=== PATIENT | male | born 1945 | race Caucasian/White ===

== ENCOUNTER 2019-05-24 16:11 | Inpatient (IN) | payer MEDICARE, BC, MEDICAID ==
[~2019-05-24] VITALS: Ht 170.2 cm; Wt 71.3 kg
[2019-05-24] VITALS (23 sets, daily range): BP systolic 64–153; BP diastolic 35–94
--- NOTE | 2019-05-24 16:15 | NUR ---
ED Nurse Note: RT at bedside.
[2019-05-24] MEDS ORDERED: VITAMIN C500 M1 GT (16:17)
[2019-05-24] MEDS ORDERED: BANATROL PLUS1 EACH GT (16:17)
--- NOTE | 2019-05-24 16:25 | NUR ---
ED Nurse Note: Patient brought in by EMS from alf due to vomiting blood from tracheostomy and being more than usual. Patient appears pale with shallow chest rise, bilaterally. Dried blood on the tracehostomy and dressing noted. Dr. Obrien at bedside. RN felt resistance when providing oxygen, 100% via tracheostomy using ambu bag and pulse oximetry reading is 64% upon his arrival. Dr. bOrien performed suctioned via tracheostomy several times upon arrival and removed blood clots/secrections Pulse oximetry reading improved and patient started moving BUE, non purposefully. Pulse oximetry reading on the ventilator is > 94% with HR 120. Daughter at bedside. Provided updated information to daughter. RT connected patient to ventilator with setting of rate 16, tidal vol 550 and 100% oxygen and PEEP 7. Called RT for blood draw. Report given to ANTONY Demarco. RT at bedside.
[2019-05-24] MEDS ORDERED: Albuterol/Ipratropium 3ml neb HHN ONE (16:30)
--- NOTE | 2019-05-24 16:41 | NUR ---
Received pt on ER, bagging per Dr. Obrien at 1615. Dr. Obrien tracheal suctioned pt large amount of blood clots, bloody secretions. Pt's saturation improved from 69% to 87% post suctioning. Placed pt on vent with settings: AC 43-835ke-413%FiO2 peep 7 at 1625. Breathing TX given at 1631 without any adverse reactions. Pt is more stable now. Alarms are set and audible, vent is plugged into the red outlet, ambu bag is at bedside. Will continue to monitor pt.
[2019-05-24] MEDS ORDERED: Vancomycin 1 GM in NS 275 ML IVPB ONE (16:45)
[2019-05-24] MEDS ORDERED: Piperacillin/Tazobactam 3.375 GM in NS 110 ML IVPB ONE (16:45)
--- NOTE | 2019-05-24 16:51 | Emergency Room Report ---
History of Present Illness General Chief Complaint: Dyspnea/Respdistress Source: Family Member, EMS Present Illness HPI Patient brought in by EMS. Just before they were summoned he coughed blood. His O2 sats were quite low. They were unable to suction him. Status post cardiac arrest with tracheostomy placed 1 week ago. According to daughter when she arrived he was responsive however he started to cough or vomit blood through his tracheostomy and nose. Soon after that he developed respiratory distress. This is when EMS was summoned. Discharged from [facility]. 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 This is not been diagnosed according to daughter. Baseline patient is able to track with eyes and also communicate with yes and no answers. At this time the patient is unable to give any history as he is unresponsive. No reported fever. No productive cough. Allergies: Coded Allergies: LEVOFLOXACIN (Verified Allergy, Unknown, 05/24/19) Possible allergic reaction - low blood pressure Patient History Limited by: medical condition Past Medical History: see triage record Social History Narrative custodial facility Reviewed Nursing Documentation: PMH: Agreed; PSxH: Agreed Nursing Documentation-PMH Hx Cancer: Yes - HEAD, NECK CA Review of Systems All Other Systems: limited Physical Exam Vital Signs Date Time Temp Pulse Resp B/P (MAP) Pulse Ox O2 Delivery O2 Flow Rate FiO2 05/24/19 16:08 130 32 153/88 (109) 92 Trach Collar 15.0 General Appearance: non-toxic, severe distress, Chronically Ill Head: normocephalic Eyes: bilateral eye PERRL - 3 mm, bilateral eye other - Eyes with right upward gaze not responding to external stimuli ENT: moist mucus membranes Neck: tracheotomy - With blood Respiratory: respiratory distress, decreased breath sounds, other - Unable to deliver full tidal volume Cardiovascular #1: tachycardia, edema Cardiovascular #2: 2+ radial (L) Gastrointestinal: non tender, other - Gastrostomy tube with some blood, decreased bowel sounds Genitourinary: no CVA tenderness Musculoskeletal: decreased range of motion Neurologic: other - Flaccid and unresponsive with tachypnea Psychiatric: other - Unresponsive Skin: cyanosis, mottled, pallor Procedures Critical Care Time Critical Care Time Total Critical Care Time: 120 min bedside evaluation and treatment excludes procedures (EKG). Reason for critical care: Airway obstruction, fluid resuscitation, antibiotic administration, breathing treatments, adjustment of ventilator, repeat neurologic assessments, discussion with daughter, attempt to arrange bronchoscopy Possible complications: hypotension, hypertension, AZ, shock, arrhythmias, metabolic acidosis, end organ damage, respiratory failure. Interventions: Suctioning and pulmonary toilet airway obstruction, ventilator adjustment, repeat neurologic exams and respiratory exams, fluid resuscitation, discussion with daughter, discussion with EMS, discussion with admitting physician and azure principal solution specialist, antibiotics Course: Patient presented with respiratory distress stress after blood from tracheostomy tube. Upper airway diagnosed and cleared with saline infusions into tracheostomy and suction. Multiple clots were suctioned. Ultimately tidal volumes was reestablished. Hypoxia improved. Ventilator ordered. Breathing treatments ordered. Sepsis evaluation and resuscitation begun. Antibiotics begun for right lower and upper lobe infiltrates. Contact admitting physician and azure principal solution specialist for immediate bronchoscopy. Repeat evaluation with still altered mentation. Blood gas with CO2 retention. Ventilator adjusted multiple times. Transient hypotension treated with fluid bolus. Elevated troponin reported. Decision not to administer aspirin due to bleeding complications. Multiple discussions with daughter. Improved mentation. Respiratory acidosis determined by blood gas and ventilator settings adjusted. Hypotension associated with possible administration of Levaquin. Mentation dramatically improved. Admitted intensive care unit. Consultations: nursing staff, EMS, family, respiratory therapy, admitting physician, azure principal solution specialist Performed by: Dr. Obrien Tolerated well condition = critical Medical Decision Making Diagnostic Impression: Primary Impression: Airway obstruction Additional Impressions: Hemoptysis Right upper and lower lobe pneumonia Elevated lactic acid level Elevated troponin History of esophageal mass Gastrostomy tube in place ER Course Patient with upper airway obstruction. Suctioned by me and airway compliance with improved and oxygenation -approximately 20 minutes at bedside treatment. Patient became more aware and moving his arms. MD at bedside with aggressive airway management. Right upward gaze continued. Differential includes aspiration, hemoptysis, upper airway obstruction amongst others. I went to exclude the myocardial infarction also. Evaluation with sepsis work-up EKG chest x-ray. Will be a low threshold for starting antibiotics. Discussed with daughter. Ventilator set by me. DuoNeb ordered. Oxygen saturation 96% at 1645. Mentation is improving. Chest x-ray with right-sided infiltrate and triple antibiotics ordered. Dr. Davis and Dr. Chi have been contacted for the need for bronchoscopy. Respiratory acidosis on vent. Adjusted. CO2 monitor ordered. Titrating oxygen 1725. Right upper gaze continued. This is felt to be related to CO2 narcosis. Moving both hands and therefore stroke not suspected. CT not indicated. Called 1740 elevated troponin and lactic acid. Order NS bolus (antibiotics already ordered). Reluctant to give aspirin as nearly fatal pulmonary hemorrhage. Elevated lactic acid probably multifactorial. Patient now responsive and answers "yes/no". Daughter requests analgesia. Morphine 2 mg ordered. Prior to morphine, BP drop. Febrile. Bolus had not been given. Hold morphine and give fluids and tylenol. 1829 Intermittent hypotension with Levaquin. Held. Mentation improved. Breathlessness. Duoneb ordered. Sats 100%. 1710 Improved with treatment. Admitted to intensive care unit. Laboratory Tests Test 05/24/19 16:50 05/24/19 16:52 05/24/19 16:53 05/24/19 16:55 Urine Color Yellow Urine Appearance Clear Urine pH 7 (4.5-8.0) Urine Specific [place] 1.010 (1.005-1.035) Urine Protein Negative (NEGATIVE) Urine Glucose (UA) Negative (NEGATIVE) Urine Ketones Negative (NEGATIVE) Urine Blood 3+ (NEGATIVE) H Urine Nitrite Negative (NEGATIVE) Urine Bilirubin Negative (NEGATIVE) Urine Urobilinogen Normal MG/DL (0.0-1.0) Urine Leukocyte Esterase Negative (NEGATIVE) Urine RBC 15-20 /HPF (0 - 0) H Urine WBC 0-2 /HPF (0 - 0) Urine Squamous Epithelial Cells Occasional /LPF Urine Amorphous Sediment Moderate /LPF (NONE) H Urine Bacteria Few /HPF (NONE) Iron Level 26 ug/dL (50-175) L Total Iron Binding Capacity 130 ug/dL (250-450) L Percent Iron Saturation 20 % (15-50) Unsaturated Iron Binding 104 ug/dL (112-346) L White Blood Count 9.8 K/UL (4.8-10.8) Red Blood Count 3.37 M/UL (4.70-6.10) L Hemoglobin 9.8 G/DL (14.2-18.0) L Hematocrit 30.9 % (42.0-52.0) L Mean Corpuscular Volume 92 FL (80-99) Mean Corpuscular Hemoglobin 29.2 PG (27.0-31.0) Mean Corpuscular Hemoglobin Concent 31.8 G/DL (32.0-36.0) L Red Cell Distribution Width 17.7 % (11.6-14.8) H Platelet Count 307 K/UL (150-450) Mean Platelet Volume 6.0 FL (6.5-10.1) L Neutrophils (%) (Auto) 86.8 % (45.0-75.0) H Lymphocytes (%) (Auto) 10.9 % (20.0-45.0) L Monocytes (%) (Auto) 1.6 % (1.0-10.0) Eosinophils (%) (Auto) 0.4 % (0.0-3.0) Basophils (%) (Auto) 0.3 % (0.0-2.0) Prothrombin Time 11.8 SEC (9.30-11.50) H Prothrombin Time INR 1.1 (0.9-1.1) Activated Partial Thromboplast Time 41 SEC (23-33) H Sodium Level 137 MMOL/L (136-145) Potassium Level 4.7 MMOL/L (3.5-5.1) Chloride Level 103 MMOL/L (98-107) Carbon Dioxide Level 20 MMOL/L (21-32) L Anion Gap 14 mmol/L (5-15) Blood Urea Nitrogen 23 mg/dL (7-18) H Creatinine 1.0 MG/DL (0.55-1.30) Estimate Glomerular Filtration Rate > 60 mL/min (>60) Glucose Level 313 MG/DL (74-106) H Lactic Acid Level 4.20 mmol/L (0.4-2.0) H Calcium Level 8.0 MG/DL (8.5-10.1) L Magnesium Level 1.9 MG/DL (1.8-2.4) Total Bilirubin 0.8 MG/DL (0.2-1.0) Aspartate Amino Transferase (AST) 59 U/L (15-37) H Alanine Aminotransferase (ALT) 113 U/L (12-78) H Alkaline Phosphatase 57 U/L (46-116) Total Creatine Kinase 23 U/L (26-308) L Creatine Kinase MB 0.5 NG/ML (0.0-3.6) Creatine Kinase MB Relative Index 2.1 Troponin I 0.079 ng/mL (0.000-0.056) Pro-B-Type Natriuretic Peptide 570 pg/mL (0-125) H Total Protein 5.5 G/DL (6.4-8.2) L Albumin 1.4 G/DL (3.4-5.0) L Globulin 4.1 g/dL Albumin/Globulin Ratio 0.3 (1.0-2.7) L Arterial Blood pH 7.155 (7.350-7.450) Arterial Blood Partial Pressure CO2 65.5 mmHg (35.0-45.0) *H Arterial Blood Partial Pressure O2 141.5 mmHg (75.0-100.0) H Arterial Blood HCO3 22.6 mmol/L (22.0-26.0) Arterial Blood Oxygen Saturation 97.9 % (95-100) Arterial Blood Base Excess -6.7 (-2-2) L Bryce Test Positive Test 05/24/19 18:46 Lactic Acid Level 3.80 mmol/L (0.66-2.22) H EKG Diagnostic Results Rate: tachycardiac Rhythm: NSR ST Segments: no acute changes - Right atrial enlargement right bundle branch block rate 128 ASA given to the pt in ED: No - Withheld due to bleeding complications Rhythm Strip Diag. Results EP Interpretation: yes Rhythm: no PVC's, no ectopy, other - Sinus tachycardia Chest X-Ray Diagnostic Results Chest X-Ray Diagnostic Results : Chest X-Ray Ordered: Yes # of Views/Limited/Complete: 1 View Indication: Shortness of Breath EP Interpretation: Yes Interpretation: no effusion, no pneumothorax, other - R infiltrate Impression: Other Electronically Signed by: Electronically signed by Kg Obrien MD Blood pressure on admission 133/77, heart rate 119, 100% saturation on ventilator Status: improved Disposition: ADMITTED INPATIENT Condition: Critical Kg Obrien MD May 24, 2019 16:51
[2019-05-24 17:03] LABS: EOSINOPHILS % (AUTO) 0.4 % (0.0-3.0); HEMATOCRIT 30.9 % (42.0-52.0); HEMOGLOBIN 9.8 G/DL (14.2-18.0); LYMPHOCYTES % (AUTO) 10.9 % (20.0-45.0); MEAN CORPUSCULAR VOLUME 92 FL (80-99); MONOCYTES % (AUTO) 1.6 % (1.0-10.0); NEUTROPHILS % (AUTO) 86.8 % (45.0-75.0); PLATELET COUNT 307 K/UL (150-450); RED BLOOD COUNT 3.37 M/UL (4.70-6.10); RED CELL DISTRIBUTION WIDTH 17.7 % (11.6-14.8); WHITE BLOOD COUNT 9.8 K/UL (4.8-10.8)
[2019-05-24 17:04] LABS: BASOPHILS % (AUTO) 0.3 % (0.0-2.0)
[2019-05-24] MEDS ORDERED: FERROUS SU300 MG/5 M GT (17:08)
[2019-05-24] MEDS ORDERED: LOVENOX10 M4 SUBQ (17:08)
[2019-05-24 17:12] LABS: INR 1.1 (0.9-1.1)
--- NOTE | 2019-05-24 17:15 | NUR ---
ABG done and report to Dr. Obrien. Per Dr. Obrien's order, changed setting to AC 16-600ml-60%FiO2- peep 7. Pt's saturuation at 93%. No SOB or resp distress note. Pt's daughter at bedside. Will continue to monitor.
[2019-05-24] MEDS ORDERED: IPRATROPIU0.2 MG/1 M HHN (17:19)
[2019-05-24] MEDS ORDERED: NEXIUM40 M2 GT (17:19)
[2019-05-24] MEDS ORDERED: MELATONIN 3 MG1 EAC1 GT (17:19)
--- NOTE | 2019-05-24 17:20 | NUR ---
ED Nurse Note: Latest vent settings at AC 16 TV 600 IO2 60% PEEP 7.
[2019-05-24 17:27] LABS: ANION GAP 14 mmol/L (5-15); BLOOD UREA NITROGEN 23 mg/dL (7-18); CARBON DIOXIDE 20 MMOL/L (21-32); CHLORIDE 103 MMOL/L (98-107); POTASSIUM 4.7 MMOL/L (3.5-5.1); SODIUM 137 MMOL/L (136-145)
[2019-05-24] MEDS ORDERED: Albuterol/Ipratropium 3ml neb HHN PRN (17:30)
--- NOTE | 2019-05-24 17:40 | NUR ---
Pt desat to 86% on 60%, increased FiO2 to 70%, still desar below 90%. Increased FiO2 back to 100%, able to bring saturation up to 92%. Will continue to monitor. ANTONY osman.
[2019-05-24 17:42] LABS: ALANINE AMINOTRANSFERASE 113 U/L (12-78); ALBUMIN 1.4 G/DL (3.4-5.0); ALBUMIN/GLOBULIN RATIO 0.3 (1.0-2.7); ALKALINE PHOSPHATASE 57 U/L (46-116); ASPARTATE AMINO TRANSFERASE 59 U/L (15-37); BILIRUBIN,TOTAL 0.8 MG/DL (0.2-1.0); CKMB 0.5 NG/ML (0.0-3.6); CREATINE KINASE 23 U/L (26-308)
[2019-05-24 17:46] LABS: % IRON SATURATION 20 % (15-50); IRON 26 ug/dL (50-175); TOTAL IRON BINDING CAPACITY 130 ug/dL (250-450)
[2019-05-24 17:55] LABS: APPEARANCE,URINE CLEAR; BILIRUBIN, URINE NEGATIVE (NEGATIVE); GLUCOSE, URINE (UA) NEGATIVE (NEGATIVE); KETONES,URINE NEGATIVE (NEGATIVE); LEUKOCYTE ESTERASE ,URINE NEGATIVE (NEGATIVE); NITRITE,URINE NEGATIVE (NEGATIVE); PH,URINE 7 (4.5-8.0); PROTEIN,URINE NEGATIVE (NEGATIVE); UROBILINOGEN,URINE NORMAL MG/DL (0.0-1.0)
--- NOTE | 2019-05-24 17:59 | NUR ---
ED Nurse Note: Dr. Obrien at bedside.
[2019-05-24 18:00] LABS: COLOR,URINE YELLOW
--- NOTE | 2019-05-24 18:10 | NUR ---
ED Nurse Note: Morphine 2mg and Zofran 4mg IV placed on-hold d/t low BP of 65/26. Noted pt to be minimally diaphoretic, accucheck performed with the result of 174mg/dl. Reported to Dr. Obrien. Bolus hydration on-going. Levofloxacin IV ATB on going. Will continue to monitor.
[2019-05-24] MEDS ORDERED: Morphine Sulfate 2mg/ml Inj(IV/IM USE ONLY) IVP ONE (18:15)
[2019-05-24] MEDS ORDERED: Acetaminophen 650mg/20.3ml GT STA (18:24)
--- NOTE | 2019-05-24 18:30 | NUR ---
ED Nurse Note: Rectal temp 100.8, reported to Dr. Obrien
--- NOTE | 2019-05-24 18:45 | NUR ---
Note elisabeth in EDM - 05/24/19 at 1926 by CALLUM ED Nurse Note: Tylenol given via GT. Noted pt to be more cooperative and was able to established good eye contact with staff and daughter. Pt was able to write his needs, Dr. Obrien at bedside.
--- NOTE | 2019-05-24 18:55 | NUR ---
ED Nurse Note: RN held Levaquin IV antibiotic as ordered due to possible allergic reaction, low blood pressure. Patient remains awake, able to communicate with RNs and family members. Reports no rash, hives or itching or breathing problem. Patient received about 100mL of Levaquin, 48.7ml left in a bag according to IV pump. Dr. Obrien notified and made aware that patiend had low BP @ 1840 with reading of 66/48 with HR 138 after restart of Levaquin infusion and patient is currently receiving IV bolus fluids. Previous VS @ 1835 was 97/65 with HR of 139. ERMD at bedside and ordered to discontinue Levaquin at this time. ANTONY Demarco made aware.
[2019-05-24] MEDS ORDERED: Albuterol/Ipratropium 3ml neb HHN STA (19:04)
--- NOTE | 2019-05-24 19:05 | NUR ---
ED Nurse Note: BP improved to 86/55 with HR 120 and patient remained awake, alert and able to make communication with daughter. Dr. Obrien at bedside and aware of BP. No pressors order received and ok to send patient to ICU with maintenance IV fluid @ 300ml/hr.
--- NOTE | 2019-05-24 19:15 | NUR ---
TRANSFER TO ICU: Patient transferred to ICU as ordered, per Dr. Davis. Report given to ANTONY Morales. Belongings and medications given to receiving RN. Family and or S/O informed of transfer.
--- NOTE | 2019-05-24 19:30 | NUR ---
NURSE NOTES: Received pt and report from ANTONY Demarco from ER. Pt's admitted to ICU due to hypotensive, acute hemoptysis, resp distress. Per daughter of the pt, pt has recurrent throat tumor and throat cancer, was planning to have chemo, however the tumor obstructed his breathing. Pt had trach done at [facility] 1-2 wks ago, and was discharged to [facility] on 05/22/2019. Pt's currently still AOx4, communicate by writing, pale looking, trach kellie 8 connected to vent with setting Ac 16, TV 550, 65%, PEEP5. O2 sat 100%. Afebrile 98.4F. BP 87/57, HR 119. Per ER staff, pt had 3L bolus of NS in ER. Noted blood seeping out orally, also noted chunks of large blood clots inside of pt's mouth. Also noted blood/dried blood at the trach site as well. He has right UA midline and Right wrist 20G both are patent, intact. Abdomen flat, non tender with GT noted, 3ml of brown gastric residual noted. Fernandez is noted, intact and patent, running clear yellow urine. HOB kept elevated. Bed is at low and locked position. Call light within reach. Dr Davis was reached, Dr Lucero is covering, and was paged, awaiting for call back. Will continue to monitor.
--- NOTE | 2019-05-24 20:00 | NUR ---
NURSE NOTES: Dr Chi was also on the case and contacted, to stated Levophed via the Right UA midline, also per Dr Chi, Dr Engle is also on the case. All orders noted and carried out. Pt's still having active bleeding for his mouth. Will continue to monitor.
--- NOTE | 2019-05-24 20:27 | NUR ---
NURSE NOTES: Patient vomited 100-150 ml of bright red blood. Head of bed remained elevated, suctioned orally with yankauer with soft tip. Patient is awake and alert at this time. Called Dr. Chi, received new order to give Vitamin K 10mg IV and Dr. Engle for consultation. As per him he will inform Dr. Engle regarding the case.
--- NOTE | 2019-05-24 20:30 | NUR ---
NURSE NOTES: Noted blood gushing orally, lasted about 1 minute and self resolved. Oral suction given via yankauer. Obtaining more orders from Jossie Arana is on going. Pt's still alert, responsive, cooperative. BP 71/38. HR 126, spO2 100%, trach to vent. Will continue to monitor.
--- NOTE | 2019-05-24 21:15 | NUR ---
NURSE NOTES: Informed Dr. Engle regarding patient's current status. Informed him that patient vomited 100-150ml of bright red blood, on levophed drip, with trache to vent and current vital signs. Also informed him that patient has tumor in the throat as per daughter and trache was inserted 2 weeks ago. Informed him that patient started vomiting blood when levophed was titrated up to maintain his blood pressure. Received a new order to start Protonix drip, Sandostatin drip, H&H Q4 hours and transfuse to keep Hgb above 7.0.
[2019-05-24 21:30] LABS: HEMATOCRIT 25.5 % (42.0-52.0); HEMOGLOBIN 8.4 G/DL (14.2-18.0); MEAN CORPUSCULAR VOLUME 91 FL (80-99); PLATELET COUNT 257 K/UL (150-450); RED BLOOD COUNT 2.81 M/UL (4.70-6.10); RED CELL DISTRIBUTION WIDTH 17.3 % (11.6-14.8); WHITE BLOOD COUNT 10.7 K/UL (4.8-10.8)
--- NOTE | 2019-05-24 21:30 | NUR ---
NURSE NOTES: Dr. Lucero, covering for Dr Davis called back and was updated with pt's condition, along with orders from Dr Chi and Dr Engle. Dr. Lucero agreed to continue all current managements. Also stated to consult with surgeon, Dr Brothers.
[2019-05-24 21:31] LABS: LYMPHOCYTES % (AUTO) 2.5 % (20.0-45.0); NEUTROPHILS % (AUTO) 95.1 % (45.0-75.0)
[2019-05-24 21:32] LABS: BASOPHILS % (AUTO) 0.3 % (0.0-2.0); MONOCYTES % (AUTO) 2.1 % (1.0-10.0)
--- NOTE | 2019-05-24 21:42 | NUR ---
NURSE NOTES: Dr Brothers was called and updated with pt's condition. Dr Brothers's additional orders noted and carried out. Pt's oral bleeding has stopped. Pt's in no acute distress. Pt's condition was also updated with the daughter Franky via phone. Will continue to monitor.
[2019-05-24 21:47] LABS: INR 1.2 (0.9-1.1)
--- NOTE | 2019-05-24 22:00 | NUR ---
NURSE NOTES: Inserted another g 20 peripheral IV at left forearm and g 24 at right AC with good backflow.
[2019-05-24] MEDS: Pantoprazole 80 MG in NS 250 ML IV SCH (22:20)
[2019-05-24] MEDS: Octreotide Acetate 500 MCG in Sodium Chloride 499 ML IV SCH (23:00)
[2019-05-24] MEDS ORDERED: Phytonadione 10 MG in D5W 55 ML IVPB SCH (23:00)
[2019-05-25] VITALS (71 sets, daily range): BP systolic 67–126; BP diastolic 42–80
--- NOTE | 2019-05-25 | NUR ---
NURSE NOTES: Pt's resting in bed, asleep with eyes closed, in no acute distress, no active bleeding noted. Will continue to monitor.
[2019-05-25 01:29] LABS: HEMATOCRIT 26.8 % (42.0-52.0); MEAN CORPUSCULAR VOLUME 90 FL (80-99); PLATELET COUNT 297 K/UL (150-450); RED BLOOD COUNT 2.99 M/UL (4.70-6.10); RED CELL DISTRIBUTION WIDTH 16.9 % (11.6-14.8); WHITE BLOOD COUNT 14.6 K/UL (4.8-10.8)
--- NOTE | 2019-05-25 02:00 | NUR ---
NURSE NOTES: Pt's resting in bed, asleep with eyes closed, no active bleeding noted, in no acute distress. VS stable. Contacted blood bank, per Yaw stated, he couldn't release blood because pt's current hgb 9.0. He also stated will call back later after he asked the pathologist. Dr Brothers made aware. Will continue to monitor.
--- NOTE | 2019-05-25 04:00 | NUR ---
NURSE NOTES: Pt's resting in bed, when asked "how are you", pt showed his thumb up, in no acute distress. Denies any pain. VS stable. No active bleeding noted. Will continue to monitor.
--- NOTE | 2019-05-25 06:00 | NUR ---
NURSE NOTES: Pt's resting in bed, asleep with eyes closed, in no acute distress. Levophed titrated down to 12mcg/min. VS stable. Will continue to monitor.
[2019-05-25 06:15] LABS: HEMATOCRIT 24.8 % (42.0-52.0); HEMOGLOBIN 8.2 G/DL (14.2-18.0); MEAN CORPUSCULAR VOLUME 90 FL (80-99); PLATELET COUNT 245 K/UL (150-450); RED BLOOD COUNT 2.76 M/UL (4.70-6.10); RED CELL DISTRIBUTION WIDTH 16.9 % (11.6-14.8); WHITE BLOOD COUNT 11.8 K/UL (4.8-10.8)
[2019-05-25 06:36] LABS: INR 1.2 (0.9-1.1)
[2019-05-25 06:50] LABS: ALANINE AMINOTRANSFERASE 230 U/L (12-78); ALBUMIN 1.4 G/DL (3.4-5.0); ALBUMIN/GLOBULIN RATIO 0.4 (1.0-2.7); ALKALINE PHOSPHATASE 46 U/L (46-116); ANION GAP 10 mmol/L (5-15); ASPARTATE AMINO TRANSFERASE 153 U/L (15-37); BLOOD UREA NITROGEN 26 mg/dL (7-18); CALCIUM 7.2 MG/DL (8.5-10.1); CARBON DIOXIDE 22 MMOL/L (21-32); CHLORIDE 106 MMOL/L (98-107); CREATININE 0.9 MG/DL (0.55-1.30); PHOSPHORUS 3.1 MG/DL (2.5-4.9); POTASSIUM 4.3 MMOL/L (3.5-5.1); SODIUM 137 MMOL/L (136-145)
--- NOTE | 2019-05-25 07:25 | NUR ---
HAND-OFF: Report given to ANTONY Hahn.
--- NOTE | 2019-05-25 07:26 | NUR ---
NURSE NOTES: Received patient from ANTONY Morales. Patient denies distress at this time. Patient denies pain. Patient alert to name, time, place, and purpose. Patient communicates by writing with pen and paper. Pen and paper on bedside table. Patient on trach to ventilator with setting of AC 16, tidal volume 550, FiO2 50%, and PEEP 5. patient NPO for possible GI bleed. Patient admitted with blood sputum/emesis. Blood clots noted in sputum in the mouth and trach at this time. Will continue to monitor bleeding. 2 PRBC and one FFP ordered to be given but blood bank refused to release blood when Hgb 9.0. Hgb now 8.2. Will administer blood as ordered. Will follow up with blood bank. Patient has gastrostomy tube that is asymptomatic, and clamped at this time. Patient has right AC 24 gauge peripheral IV, right upper arm midline, right wrist 20 gauge peripheral IV and left forearm 20 gauge peripheral IV. All IVs patent, asymptomatic, and dressing dry and intact. Patient on Levophed at 10mcg/min, sandostation at 50mL/hr, protonix at 25mL/hr, and 0.45% normal saline at 75mL/hr. Will titrate levophed as ordered to keep blood pressure about [address]anks. Will continue to monitor. Patient bed in low position with bed alarm on and call light in reach. Oral care and repositioning done.
[2019-05-25] MEDS: Pantoprazole 80 MG in NS 250 ML IV SCH (09:17)
[2019-05-25] MEDS: Octreotide Acetate 500 MCG in Sodium Chloride 499 ML IV SCH (09:17)
--- NOTE | 2019-05-25 09:40 | NUR ---
RD ASSESSMENT & RECOMMENDATIONS SEE CARE ACTIVITY FOR COMPLETE ASSESSMENT DAILY ESTIMATED NEEDS: Needs based on Critical care, cancer 65.9kg 22-30 kcals/kg 5627-7031 total kcals 1.2-2 g protein/kg 79-132 g total protein 25-30 mL/kg 1570-3647 total fluid mLs NUTRITION DIAGNOSIS: Swallowing difficulty r/t resp status, throat tumor as evidenced by pt w/ throat cancer, recent cardiac arrest w/ trach placement, pt is GT dep. CURRENT TF:NPO ENTERAL NUTRITION RECOMMENDATIONS: Vital AF 1.2 @55ml/hr x24 hrs to provide 1320ml, 1584 kcal, 99g pro, 1071ml free H2O - As medically able, rec to initiate GT feeds to meet est nutritional needs. - Start Vital 1.2 for critical care @25ml/hr x6 hrs, advance as tolerated 10ml/hr q4-6 hrs to goal - Flush per MD / HOB over 30 degrees. ------- ADDITIONAL RECOMMENDATIONS: 1) Feed as able, TF recs as above 2) Maintain calibrated bed scale wts 3) Monitor blood glucose w/ feeds, need for niss 4) F/up w/ H&P
[2019-05-25 09:49] LABS: HEMATOCRIT 23.4 % (42.0-52.0); HEMOGLOBIN 7.9 G/DL (14.2-18.0); MEAN CORPUSCULAR VOLUME 88 FL (80-99); PLATELET COUNT 248 K/UL (150-450); RED BLOOD COUNT 2.66 M/UL (4.70-6.10); RED CELL DISTRIBUTION WIDTH 17.7 % (11.6-14.8); WHITE BLOOD COUNT 10.1 K/UL (4.8-10.8)
--- NOTE | 2019-05-25 10:00 | NUR ---
NURSE NOTES: Patient blood pressure continues to be stable. Will continue to titrate levophed per protocol. Will continue to monitor. Bed in low position with bed alarm on. Positioning done at this time. oral and tracheal suction done. Sputum from trach remains bloody.
--- NOTE | 2019-05-25 10:01 | NUR ---
RADIOLOGY DEPT., ABDOMEN X-RAY COMPLETED. CHEST X-RAY PERFORMED LATE EVENING ON 05/24.-P.DYE
--- NOTE | 2019-05-25 10:39 | Diagnostic Imaging Report ---
Indication: Shortness of breath Technique: One view of the chest Comparison: none Findings: Interstitial and airspace opacities are seen throughout the right mid and lower lung. Questionable patchy peripheral opacities are also present on the left. Heart size is normal. The pleural spaces are clear Impression: Right lung opacities and questionable patchy left lung opacities, likely pneumonia.
[2019-05-25] MEDS ORDERED: Amikacin Rx to dose MISC PRN (11:15)
--- NOTE | 2019-05-25 11:23 | Diagnostic Imaging Report ---
Indication: Abdominal tenderness Technique: Supine view of the abdomen Comparison: None Findings: A gastrostomy overlies the left upper quadrant. There is a Fernandez catheter in place. The bowel gas pattern is unremarkable. There is mild lumbar scoliotic deformity. Impression: Findings as noted. No acute process
--- NOTE | 2019-05-25 11:33 | Consultation ---
History of Present Illness General Date patient seen: May 25, 2019 Chief Complaint: Dyspnea/Respdistress Present Illness HPI 73 year old male with Hx of Neck cancer 9 years ago, with recent recurrence of the tumor had a respiratory arrest around 2 week ago, was transferred to [facility], revived. He got a trach and PEG and transferred to [facility] rehab on Saturday. Last night he was transferred to [facility] by paramedics b/o of hemoptysis. He was hypotensive and was started on Levophed. His terminologist stave grader, Valencia giving me the full PMHx. Allergies: Coded Allergies: LEVOFLOXACIN (Verified Allergy, Unknown, 05/24/19) Possible allergic reaction - low blood pressure Medication History Scheduled Ascorbic Acid* (Vitamin C*), 500 MG GT DAILY, (Reported) Enoxaparin* (Lovenox*), 40 MG SUBQ DAILY, (Reported) Esomeprazole Magnesium (Nexium), 40 MG GT DAILY, (Reported) Ferrous Sulfate (Ferrous Sulfate), 5 ML GT DAILY, (Reported) Melatonin/Pyridoxine HCl (B6) (Melatonin 3 mg Tablet), 1 EACH GT DAILY, ( Reported) Scheduled PRN Ipratropium [place] 0.5MG/2.5ML (Ipratropium [place] 0.5MG/2.5ML), 0.5 MG HHN Q6H PRN for Shortness of Breath, (Reported) Miscellaneous Medications Banana Flakes/Tos (Banatrol Plus Powder Packet), 1 EACH GT, (Reported) Patient History Healthcare decision maker Resuscitation status Full Code Advanced Directive on File Past Medical/Surgical History Past Medical/Surgical History: (1) Chronic respiratory failure (2) Head and neck cancer (3) Gastrostomy tube in place Review of Systems All Other Systems: negative except mentioned in HPI Physical Exam General Appearance: WD/WN, no apparent distress Lines, tubes and drains: peripheral HEENT: normocephalic, atraumatic Neck: non-tender, normal alignment Respiratory/Chest: chest wall non-tender, lungs clear Breasts: no masses Cardiovascular/Chest: normal peripheral pulses Abdomen: normal bowel sounds Genitourinary/Rectal: normal genital exam Extremities: normal range of motion Last 24 Hour Vital Signs Date Time Temp Pulse Resp B/P (MAP) Pulse Ox O2 Delivery O2 Flow Rate FiO2 05/25/19 10:55 113 27 50 05/25/19 08:59 112 35 50 05/25/19 07:12 115 25 50 05/25/19 07:06 98/57 05/25/19 07:00 99/58 05/25/19 07:00 116 25 99/58 (72) 98 05/25/19 06:45 114 23 96/57 (70) 99 05/25/19 06:30 118 23 114/80 (91) 100 05/25/19 06:15 120 22 99/56 (70) 99 05/25/19 06:00 99/56 05/25/19 06:00 121 22 114/67 (83) 100 05/25/19 05:45 127 31 108/54 (72) 100 05/25/19 05:45 130 29 100 Mechanical Ventilator 50 05/25/19 05:30 128 33 50 05/25/19 05:30 127 29 100/61 (74) 100 05/25/19 05:15 127 30 103/64 (77) 100 05/25/19 05:04 124 28 86/65 (72) 100 05/25/19 05:00 103/64 05/25/19 05:00 98.5 124 24 67/52 (57) 100 05/25/19 04:45 123 29 82/62 (69) 100 05/25/19 04:30 124 23 96/53 (67) 100 05/25/19 04:15 128 23 110/64 (79) 99 05/25/19 04:00 Mechanical Ventilator 05/25/19 04:00 123 05/25/19 04:00 93/56 05/25/19 04:00 50 05/25/19 04:00 128 25 102/65 (77) 100 05/25/19 03:45 129 23 93/56 (68) 100 05/25/19 03:30 130 22 50 05/25/19 03:30 129 23 89/53 (65) 100 05/25/19 03:15 129 24 93/59 (70) 100 05/25/19 03:00 93/59 05/25/19 03:00 130 24 100/61 (74) 100 05/25/19 02:45 100/61 05/25/19 02:45 133 25 94/63 (73) 100 05/25/19 02:30 133 24 95/65 (75) 100 05/25/19 02:15 134 25 92/64 (73) 100 05/25/19 02:00 134 25 87/66 (73) 100 05/25/19 02:00 92/64 05/25/19 01:49 88/57 05/25/19 01:45 135 25 88/57 (67) 100 05/25/19 01:30 136 30 92/74 (80) 100 05/25/19 01:30 140 31 65 05/25/19 01:15 136 26 91/65 (74) 100 05/25/19 01:00 144 24 85/53 (64) 99 05/25/19 01:00 91/65 05/25/19 00:45 136 26 81/42 (55) 100 05/25/19 00:30 141 33 81/56 (64) 99 05/25/19 00:15 98.5 137 24 75/55 (62) 99 05/25/19 00:00 Mechanical Ventilator 05/25/19 00:00 130 05/25/19 00:00 65 05/25/19 00:00 75/55 05/25/19 00:00 134 27 72/53 (59) 100 05/24/19 23:45 130 27 70/52 (58) 100 05/24/19 23:30 138 33 79/55 (63) 100 05/24/19 23:15 140 33 95/55 (68) 100 05/24/19 23:06 138 38 65 05/24/19 23:00 140 33 80/52 (61) 100 05/24/19 23:00 95/55 05/24/19 22:45 139 33 79/47 (58) 100 05/24/19 22:30 140 33 90/52 (65) 100 05/24/19 22:15 140 34 66/53 (57) 100 05/24/19 22:00 95/43 05/24/19 22:00 138 33 95/43 (60) 100 05/24/19 21:45 138 35 80/43 (55) 100 05/24/19 21:30 134 33 75/47 (56) 100 05/24/19 21:30 75/47 05/24/19 21:30 140 40 65 05/24/19 21:15 131 35 64/49 (54) 100 05/24/19 21:00 126 32 70/39 (49) 100 05/24/19 21:00 70/39 05/24/19 20:45 123 35 77/47 (57) 100 05/24/19 20:41 Mechanical Ventilator 05/24/19 20:30 126 30 71/38 (49) 100 05/24/19 20:20 68/55 05/24/19 20:15 119 31 133/77 (95) 100 05/24/19 20:00 109 05/24/19 20:00 109 30 73/51 (58) 100 05/24/19 20:00 65 05/24/19 20:00 Mechanical Ventilator 05/24/19 19:30 98.4 119 40 87/57 (67) 100 05/24/19 19:15 100.8 125 37 86/50 100 Trach Collar 15.0 100 05/24/19 19:15 100.8 125 37 86/50 100 Trach Collar 15.0 100 05/24/19 19:04 100.8 125 37 76/35 100 Trach Collar 15.0 100 05/24/19 18:35 137 38 100 05/24/19 18:35 139 28 97/65 100 Mechanical Ventilator 65 05/24/19 18:00 125 25 107/61 90 Trach Collar 15.0 60 05/24/19 17:40 126 22 100 05/24/19 17:33 123 24 114/94 90 Trach Collar 15.0 05/24/19 17:15 128 16 60 05/24/19 16:41 118 16 97 Mechanical Ventilator 100 129 16 87 05/24/19 16:25 118 16 100 05/24/19 16:20 129 36 Ambu-Bag 15.0 100 05/24/19 16:15 120 24 153/88 92 Mechanical Ventilator 15.0 05/24/19 16:15 130 32 Trach Collar 15.0 05/24/19 16:08 130 32 153/88 (109) 92 Trach Collar 15.0 Intake and Output 05/24/19 05/25/19 18:59 06:59 Intake Total 101.3 ml 1764.166 ml Output Total 700 ml Balance 101.3 ml 1064.166 ml Intake IV Total 101.3 ml 1764.166 ml Output Urine Total 500 ml Estimated Blood Loss 200 ml Laboratory Tests Test 05/24/19 16:50 05/24/19 16:52 05/24/19 16:53 05/24/19 16:55 Urine Color Yellow Urine Appearance Clear Urine pH 7 (4.5-8.0) Urine Specific [place] 1.010 (1.005-1.035) Urine Protein Negative (NEGATIVE) Urine Glucose (UA) Negative (NEGATIVE) Urine Ketones Negative (NEGATIVE) Urine Blood 3+ (NEGATIVE) H Urine Nitrite Negative (NEGATIVE) Urine Bilirubin Negative (NEGATIVE) Urine Urobilinogen Normal MG/DL (0.0-1.0) Urine Leukocyte Esterase Negative (NEGATIVE) Urine RBC 15-20 /HPF (0 - 0) H Urine WBC 0-2 /HPF (0 - 0) Urine Squamous Epithelial Cells Occasional /LPF Urine Amorphous Sediment Moderate /LPF (NONE) H Urine Bacteria Few /HPF (NONE) Iron Level 26 ug/dL (50-175) L Total Iron Binding Capacity 130 ug/dL (250-450) L Percent Iron Saturation 20 % (15-50) Unsaturated Iron Binding 104 ug/dL (112-346) L White Blood Count 9.8 K/UL (4.8-10.8) Red Blood Count 3.37 M/UL (4.70-6.10) L Hemoglobin 9.8 G/DL (14.2-18.0) L Hematocrit 30.9 % (42.0-52.0) L Mean Corpuscular Volume 92 FL (80-99) Mean Corpuscular Hemoglobin 29.2 PG (27.0-31.0) Mean Corpuscular Hemoglobin Concent 31.8 G/DL (32.0-36.0) L Red Cell Distribution Width 17.7 % (11.6-14.8) H Platelet Count 307 K/UL (150-450) Mean Platelet Volume 6.0 FL (6.5-10.1) L Neutrophils (%) (Auto) 86.8 % (45.0-75.0) H Lymphocytes (%) (Auto) 10.9 % (20.0-45.0) L Monocytes (%) (Auto) 1.6 % (1.0-10.0) Eosinophils (%) (Auto) 0.4 % (0.0-3.0) Basophils (%) (Auto) 0.3 % (0.0-2.0) Prothrombin Time 11.8 SEC (9.30-11.50) H Prothromb Time International Ratio 1.1 (0.9-1.1) Activated Partial Thromboplast Time 41 SEC (23-33) H Sodium Level 137 MMOL/L (136-145) Potassium Level 4.7 MMOL/L (3.5-5.1) Chloride Level 103 MMOL/L (98-107) Carbon Dioxide Level 20 MMOL/L (21-32) L Anion Gap 14 mmol/L (5-15) Blood Urea Nitrogen 23 mg/dL (7-18) H Creatinine 1.0 MG/DL (0.55-1.30) Estimat Glomerular Filtration Rate > 60 mL/min (>60) Glucose Level 313 MG/DL (74-106) H Lactic Acid Level 4.20 mmol/L (0.4-2.0) H Calcium Level 8.0 MG/DL (8.5-10.1) L Magnesium Level 1.9 MG/DL (1.8-2.4) Total Bilirubin 0.8 MG/DL (0.2-1.0) Aspartate Amino Transf (AST/SGOT) 59 U/L (15-37) H Alanine Aminotransferase (ALT/SGPT) 113 U/L (12-78) H Alkaline Phosphatase 57 U/L (46-116) Total Creatine Kinase 23 U/L (26-308) L Creatine Kinase MB 0.5 NG/ML (0.0-3.6) Creatine Kinase MB Relative Index 2.1 Troponin I 0.079 ng/mL (0.000-0.056) Pro-B-Type Natriuretic Peptide 570 pg/mL (0-125) H Total Protein 5.5 G/DL (6.4-8.2) L Albumin 1.4 G/DL (3.4-5.0) L Globulin 4.1 g/dL Albumin/Globulin Ratio 0.3 (1.0-2.7) L Arterial Blood pH 7.155 (7.350-7.450) Arterial Blood Partial Pressure CO2 65.5 mmHg (35.0-45.0) *H Arterial Blood Partial Pressure O2 141.5 mmHg (75.0-100.0) H Arterial Blood HCO3 22.6 mmol/L (22.0-26.0) Arterial Blood Oxygen Saturation 97.9 % (95-100) Arterial Blood Base Excess -6.7 (-2-2) L Bryce Test Positive Test 05/24/19 18:46 05/24/19 21:20 05/25/19 00:55 05/25/19 05:20 Lactic Acid Level 3.80 mmol/L (0.66-2.22) H 1.40 mmol/L (0.4-2.0) White Blood Count 10.7 K/UL (4.8-10.8) 14.6 K/UL (4.8-10.8) H 11.8 K/UL (4.8-10.8) H Red Blood Count 2.81 M/UL (4.70-6.10) L 2.99 M/UL (4.70-6.10) L 2.76 M/UL (4.70-6.10) L Hemoglobin 8.4 G/DL (14.2-18.0) L 9.0 G/DL (14.2-18.0) L 8.2 G/DL (14.2-18.0) L Hematocrit 25.5 % (42.0-52.0) L 26.8 % (42.0-52.0) L 24.8 % (42.0-52.0) L Mean Corpuscular Volume 91 FL (80-99) 90 FL (80-99) 90 FL (80-99) Mean Corpuscular Hemoglobin 30.0 PG (27.0-31.0) 30.0 PG (27.0-31.0) 29.7 PG (27.0-31.0) Mean Corpuscular Hemoglobin Concent 33.1 G/DL (32.0-36.0) 33.5 G/DL (32.0-36.0) 33.1 G/DL (32.0-36.0) Red Cell Distribution Width 17.3 % (11.6-14.8) H 16.9 % (11.6-14.8) H 16.9 % (11.6-14.8) H Platelet Count 257 K/UL (150-450) 297 K/UL (150-450) 245 K/UL (150-450) Mean Platelet Volume 5.9 FL (6.5-10.1) L 6.1 FL (6.5-10.1) L 5.7 FL (6.5-10.1) L Neutrophils (%) (Auto) 95.1 % (45.0-75.0) H % (45.0-75.0) % (45.0-75.0) Lymphocytes (%) (Auto) 2.5 % (20.0-45.0) L % (20.0-45.0) % (20.0-45.0) Monocytes (%) (Auto) 2.1 % (1.0-10.0) % (1.0-10.0) % (1.0-10.0) Eosinophils (%) (Auto) 0.0 % (0.0-3.0) % (0.0-3.0) % (0.0-3.0) Basophils (%) (Auto) 0.3 % (0.0-2.0) % (0.0-2.0) % (0.0-2.0) Prothrombin Time 12.3 SEC (9.30-11.50) H 12.7 SEC (9.30-11.50) H Prothromb Time International Ratio 1.2 (0.9-1.1) H 1.2 (0.9-1.1) H Activated Partial Thromboplast Time 41 SEC (23-33) H 45 SEC (23-33) H Differential Total Cells Counted 100 Neutrophils % (Manual) 83 % (45-75) H Pending Lymphocytes % (Manual) 10 % (20-45) L Pending Monocytes % (Manual) 7 % (1-10) Eosinophils % (Manual) 0 % (0-3) Basophils % (Manual) 0 % (0-2) Band Neutrophils 0 % (0-8) Platelet Estimate Adequate Pending Platelet Morphology Normal Pending Erythrocyte Sedimentation Rate 107 MM/HR (0-20) H Sodium Level 137 MMOL/L (136-145) Potassium Level 4.3 MMOL/L (3.5-5.1) Chloride Level 106 MMOL/L (98-107) Carbon Dioxide Level 22 MMOL/L (21-32) Anion Gap 10 mmol/L (5-15) Blood Urea Nitrogen 26 mg/dL (7-18) H Creatinine 0.9 MG/DL (0.55-1.30) Estimat Glomerular Filtration Rate > 60 mL/min (>60) Glucose Level 144 MG/DL (74-106) #H Calcium Level 7.2 MG/DL (8.5-10.1) L Phosphorus Level 3.1 MG/DL (2.5-4.9) Total Bilirubin 1.0 MG/DL (0.2-1.0) Aspartate Amino Transf (AST/SGOT) 153 U/L (15-37) H Alanine Aminotransferase (ALT/SGPT) 230 U/L (12-78) H Alkaline Phosphatase 46 U/L (46-116) C-Reactive Protein, Quantitative 22.9 mg/dL (0.00-0.90) H Total Protein 5.1 G/DL (6.4-8.2) L Albumin 1.4 G/DL (3.4-5.0) L Globulin 3.7 g/dL Albumin/Globulin Ratio 0.4 (1.0-2.7) L Amylase Level 24 U/L (25-115) L Lipase 54 U/L (73-393) L Test 05/25/19 09:20 White Blood Count 10.1 K/UL (4.8-10.8) Red Blood Count 2.66 M/UL (4.70-6.10) L Hemoglobin 7.9 G/DL (14.2-18.0) L Hematocrit 23.4 % (42.0-52.0) L Mean Corpuscular Volume 88 FL (80-99) Mean Corpuscular Hemoglobin 29.8 PG (27.0-31.0) Mean Corpuscular Hemoglobin Concent 33.9 G/DL (32.0-36.0) Red Cell Distribution Width 17.7 % (11.6-14.8) H Platelet Count 248 K/UL (150-450) Mean Platelet Volume 6.1 FL (6.5-10.1) L Neutrophils (%) (Auto) % (45.0-75.0) Lymphocytes (%) (Auto) % (20.0-45.0) Monocytes (%) (Auto) % (1.0-10.0) Eosinophils (%) (Auto) % (0.0-3.0) Basophils (%) (Auto) % (0.0-2.0) Neutrophils % (Manual) Pending Lymphocytes % (Manual) Pending Platelet Estimate Pending Platelet Morphology Pending Troponin I 0.062 ng/mL (0.000-0.056) Height (Feet): 5 Height (Inches): 7.00 Weight (Pounds): 151 Medications Current Medications Medications (Trade) Dose Ordered Sig/Mervat Route PRN Reason Start Time Stop Time Status Last Admin Dose Admin Acetaminophen (Tylenol) 650 mg Q4H PRN ORAL FEVER 05/24/19 17:30 06/23/19 17:29 Albuterol/ Ipratropium (Albuterol/ Ipratropium) 3 ml Q4H PRN HHN Shortness of Breath 05/24/19 17:30 05/29/19 17:29 Amikacin Protocol (Amikacin pharmacy to dose) 1 ea DAILY PRN MISC Per rx protocol 05/25/19 11:15 06/24/19 11:14 UNV Aminocaproic Acid 5000 mg/Sodium Chloride 130 ml @ 130 mls/hr ONCE ONCE IV 05/25/19 11:30 05/25/19 12:29 UNV Chlorhexidine Gluconate (Stacie-Hex 2%) 1 applic DAILY@2000 TOPIC 05/25/19 20:00 06/24/19 19:59 Dextrose (Dextrose 50%) 25 ml Q30M PRN IV Hypoglycemia 05/24/19 17:30 06/23/19 17:29 Dextrose (Dextrose 50%) 50 ml Q30M PRN IV Hypoglycemia 05/24/19 17:30 06/23/19 17:29 Norepinephrine Bitartrate 4 mg/ Dextrose 250 ml @ 0 mls/hr Q24H IV 05/24/19 20:04 06/23/19 20:03 05/25/19 07:06 Octreotide Acetate 500 mcg/ Sodium Chloride 500 ml @ 50 mls/hr Q10H IV 05/24/19 23:00 06/23/19 22:59 05/25/19 09:17 Ondansetron HCl (Zofran) 4 mg Q6H PRN IVP Nausea & Vomiting 05/24/19 17:30 06/23/19 17:29 05/24/19 18:11 Pantoprazole 80 mg/Sodium Chloride 250 ml @ 25 mls/hr Q10H IV 05/24/19 23:00 06/23/19 22:59 05/25/19 09:17 Piperacillin Sod/ Tazobactam Sod 3.375 gm/Sodium Chloride 100 ml @ 200 mls/hr EVERY 6 HOURS IVPB 05/25/19 12:00 06/01/19 11:59 UNV Sodium Chloride 1,000 ml @ 75 mls/hr [id number] IV 05/24/19 22:00 06/23/19 21:59 05/24/19 21:28 Vancomycin HCl (Vanco rx to dose) 1 ea DAILY PRN MISC Per rx protocol 05/25/19 11:15 06/24/19 11:14 UNV Assessment/Plan Problem List: (1) Hemoptysis ICD Codes: R04.2 - Hemoptysis SNOMED: 92019820 (2) Gastrostomy tube in place ICD Codes: Z93.1 - Gastrostomy status SNOMED: 065001272, 178497161 (3) Head and neck cancer ICD Codes: C76.0 - Malignant neoplasm of head, face and neck SNOMED: 849228191 (4) Radiation fibrosis of lung ICD Codes: J70.1 - Chronic and other pulmonary manifestations due to radiation SNOMED: 84255640 (5) Chronic respiratory failure ICD Codes: J96.10 - Chronic respiratory failure, unspecified whether with hypoxia or hypercapnia SNOMED: 19930197 Respiratory: monitor respiratory rate, adjust FIO2, CXR Cardiac: continue to monitor HR/BP Renal: F/U I&O, keep IV fluid Infectious Disease: check cultures Gastrointestinal: start feedings Endocrine: monitor blood sugar Hematologic: monitor H/H, transfuse if hgb<8.5 Neurologic: PRN Ativan, PRN Morphine, keep patient comfortable Prophylaxis: Protonix Discussed with: nurses, consultants, case advocate Claudia Chi MD May 25, 2019 11:33
[2019-05-25] MEDS ORDERED: Heparin1,000 units/500ml Premix(Conc:2 units/ml) IV SCH (12:00)
[2019-05-25] MEDS ORDERED: Lidocaine 1% Plain 30 ml INJ SCH (12:00)
--- NOTE | 2019-05-25 12:01 | GI Initial Consult Note ---
History of Present Illness General Date patient seen: May 25, 2019 Time patient seen: 11:51 Reason for Hospitalization: Dyspnea/Respdistress Referring physician: LIAM DODD Reason for Consultation: GI BLEED Present Illness HPI Patient brought in by EMS. Just before they were summoned he coughed blood. His O2 sats were quite low. They were unable to suction him. Status post cardiac arrest with tracheostomy placed 1 week ago. According to daughter when she arrived he was responsive however he started to cough or vomit blood through his tracheostomy and nose. Soon after that he developed respiratory distress. This is when EMS was summoned. Discharged from [facility]. 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 This is not been diagnosed according to daughter. Baseline patient is able to track with eyes and also communicate with yes and no answers. At this time the patient is unable to give any history as he is unresponsive. No reported fever. No productive cough. GI consulted for possible GI bleed. Patient seen, awake alert oriented no apparent distress. Patient is tracheostomy and gastrostomy tube dependent. Patient currently on Protonix drip and octreotide drip. In addition patient on norepinephrine. Laboratory review notes hemoglobin 7.9, AST 153, ALT 230, troponin 0.062, albumin 1.4. Patient was a recent discharge from [facility], noted with an esophageal mass. Unknown history of endoscopic or colonoscopy. Home Meds Reported Medications Esomeprazole Magnesium (NEXIUM) 40 Mg Suspdr.pkt, 40 MG GT DAILY for gerd, PKT 05/24/19 Melatonin/Pyridoxine HCl (B6) (Melatonin 3 mg Tablet) 1 Each Tablet, 1 EACH GT DAILY for sleep, TAB 05/24/19 Ipratropium Hamer 0.5MG/2.5ML (IPRATROPIUM BROMIDE 0.5MG/2.5ML) 0.2 Mg/1 Ml Solution, 0.5 MG HHN Q6H PRN for Shortness of Breath, #28 EA 05/24/19 Ferrous Sulfate (Ferrous Sulfate) 300 Mg/5 Ml Liquid, 5 ML GT DAILY for supplement, #473 ML 0 Refills 05/24/19 Enoxaparin* (LOVENOX*) 40 Mg/0.4 Ml Inj, 40 MG SUBQ DAILY for dvt 05/24/19 Banana Flakes/Tos (BANATROL PLUS POWDER PACKET) 1 Each Powd.pack, 1 EACH GT for PROBIOTIC, PACK 05/24/19 Ascorbic Acid* (VITAMIN C*) 500 Mg Tablet, 500 MG GT DAILY for SUPPLEMENT, #30 TAB 0 Refills 05/24/19 Med list reviewed/reconciled: Yes Allergies: Coded Allergies: LEVOFLOXACIN (Verified Allergy, Unknown, 05/24/19) Possible allergic reaction - low blood pressure Patient History Limited by: medical condition History Provided By: Medical Record Social History: Denies: smoking, alcohol use, drug use, other Review of Systems All Other Systems: negative except mentioned in HPI Physical Exam Vital Signs Date Time Temp Pulse Resp B/P (MAP) Pulse Ox O2 Delivery O2 Flow Rate FiO2 05/24/19 16:08 130 32 153/88 (109) 92 Trach Collar 15.0 05/24/19 16:20 100 05/24/19 19:04 100.8 Sp02 EP Interpretation: reviewed, normal Labs Laboratory Tests Test 05/24/19 16:50 05/24/19 16:52 05/24/19 16:53 05/24/19 16:55 Urine Color Yellow Urine Appearance Clear Urine pH 7 (4.5-8.0) Urine Specific [place] 1.010 (1.005-1.035) Urine Protein Negative (NEGATIVE) Urine Glucose (UA) Negative (NEGATIVE) Urine Ketones Negative (NEGATIVE) Urine Blood 3+ (NEGATIVE) H Urine Nitrite Negative (NEGATIVE) Urine Bilirubin Negative (NEGATIVE) Urine Urobilinogen Normal MG/DL (0.0-1.0) Urine Leukocyte Esterase Negative (NEGATIVE) Urine RBC 15-20 /HPF (0 - 0) H Urine WBC 0-2 /HPF (0 - 0) Urine Squamous Epithelial Cells Occasional /LPF Urine Amorphous Sediment Moderate /LPF (NONE) H Urine Bacteria Few /HPF (NONE) Iron Level 26 ug/dL (50-175) L Total Iron Binding Capacity 130 ug/dL (250-450) L Percent Iron Saturation 20 % (15-50) Unsaturated Iron Binding 104 ug/dL (112-346) L White Blood Count 9.8 K/UL (4.8-10.8) Red Blood Count 3.37 M/UL (4.70-6.10) L Hemoglobin 9.8 G/DL (14.2-18.0) L Hematocrit 30.9 % (42.0-52.0) L Mean Corpuscular Volume 92 FL (80-99) Mean Corpuscular Hemoglobin 29.2 PG (27.0-31.0) Mean Corpuscular Hemoglobin Concent 31.8 G/DL (32.0-36.0) L Red Cell Distribution Width 17.7 % (11.6-14.8) H Platelet Count 307 K/UL (150-450) Mean Platelet Volume 6.0 FL (6.5-10.1) L Neutrophils (%) (Auto) 86.8 % (45.0-75.0) H Lymphocytes (%) (Auto) 10.9 % (20.0-45.0) L Monocytes (%) (Auto) 1.6 % (1.0-10.0) Eosinophils (%) (Auto) 0.4 % (0.0-3.0) Basophils (%) (Auto) 0.3 % (0.0-2.0) Prothrombin Time 11.8 SEC (9.30-11.50) H Prothromb Time International Ratio 1.1 (0.9-1.1) Activated Partial Thromboplast Time 41 SEC (23-33) H Sodium Level 137 MMOL/L (136-145) Potassium Level 4.7 MMOL/L (3.5-5.1) Chloride Level 103 MMOL/L (98-107) Carbon Dioxide Level 20 MMOL/L (21-32) L Anion Gap 14 mmol/L (5-15) Blood Urea Nitrogen 23 mg/dL (7-18) H Creatinine 1.0 MG/DL (0.55-1.30) Estimat Glomerular Filtration Rate > 60 mL/min (>60) Glucose Level 313 MG/DL (74-106) H Lactic Acid Level 4.20 mmol/L (0.4-2.0) H Calcium Level 8.0 MG/DL (8.5-10.1) L Magnesium Level 1.9 MG/DL (1.8-2.4) Total Bilirubin 0.8 MG/DL (0.2-1.0) Aspartate Amino Transf (AST/SGOT) 59 U/L (15-37) H Alanine Aminotransferase (ALT/SGPT) 113 U/L (12-78) H Alkaline Phosphatase 57 U/L (46-116) Total Creatine Kinase 23 U/L (26-308) L Creatine Kinase MB 0.5 NG/ML (0.0-3.6) Creatine Kinase MB Relative Index 2.1 Troponin I 0.079 ng/mL (0.000-0.056) Pro-B-Type Natriuretic Peptide 570 pg/mL (0-125) H Total Protein 5.5 G/DL (6.4-8.2) L Albumin 1.4 G/DL (3.4-5.0) L Globulin 4.1 g/dL Albumin/Globulin Ratio 0.3 (1.0-2.7) L Arterial Blood pH 7.155 (7.350-7.450) Arterial Blood Partial Pressure CO2 65.5 mmHg (35.0-45.0) *H Arterial Blood Partial Pressure O2 141.5 mmHg (75.0-100.0) H Arterial Blood HCO3 22.6 mmol/L (22.0-26.0) Arterial Blood Oxygen Saturation 97.9 % (95-100) Arterial Blood Base Excess -6.7 (-2-2) L Bryce Test Positive Test 05/24/19 18:46 05/24/19 21:20 05/25/19 00:55 05/25/19 05:20 Lactic Acid Level 3.80 mmol/L (0.66-2.22) H 1.40 mmol/L (0.4-2.0) White Blood Count 10.7 K/UL (4.8-10.8) 14.6 K/UL (4.8-10.8) H 11.8 K/UL (4.8-10.8) H Red Blood Count 2.81 M/UL (4.70-6.10) L 2.99 M/UL (4.70-6.10) L 2.76 M/UL (4.70-6.10) L Hemoglobin 8.4 G/DL (14.2-18.0) L 9.0 G/DL (14.2-18.0) L 8.2 G/DL (14.2-18.0) L Hematocrit 25.5 % (42.0-52.0) L 26.8 % (42.0-52.0) L 24.8 % (42.0-52.0) L Mean Corpuscular Volume 91 FL (80-99) 90 FL (80-99) 90 FL (80-99) Mean Corpuscular Hemoglobin 30.0 PG (27.0-31.0) 30.0 PG (27.0-31.0) 29.7 PG (27.0-31.0) Mean Corpuscular Hemoglobin Concent 33.1 G/DL (32.0-36.0) 33.5 G/DL (32.0-36.0) 33.1 G/DL (32.0-36.0) Red Cell Distribution Width 17.3 % (11.6-14.8) H 16.9 % (11.6-14.8) H 16.9 % (11.6-14.8) H Platelet Count 257 K/UL (150-450) 297 K/UL (150-450) 245 K/UL (150-450) Mean Platelet Volume 5.9 FL (6.5-10.1) L 6.1 FL (6.5-10.1) L 5.7 FL (6.5-10.1) L Neutrophils (%) (Auto) 95.1 % (45.0-75.0) H % (45.0-75.0) % (45.0-75.0) Lymphocytes (%) (Auto) 2.5 % (20.0-45.0) L % (20.0-45.0) % (20.0-45.0) Monocytes (%) (Auto) 2.1 % (1.0-10.0) % (1.0-10.0) % (1.0-10.0) Eosinophils (%) (Auto) 0.0 % (0.0-3.0) % (0.0-3.0) % (0.0-3.0) Basophils (%) (Auto) 0.3 % (0.0-2.0) % (0.0-2.0) % (0.0-2.0) Prothrombin Time 12.3 SEC (9.30-11.50) H 12.7 SEC (9.30-11.50) H Prothromb Time International Ratio 1.2 (0.9-1.1) H 1.2 (0.9-1.1) H Activated Partial Thromboplast Time 41 SEC (23-33) H 45 SEC (23-33) H Differential Total Cells Counted 100 Neutrophils % (Manual) 83 % (45-75) H Pending Lymphocytes % (Manual) 10 % (20-45) L Pending Monocytes % (Manual) 7 % (1-10) Eosinophils % (Manual) 0 % (0-3) Basophils % (Manual) 0 % (0-2) Band Neutrophils 0 % (0-8) Platelet Estimate Adequate Pending Platelet Morphology Normal Pending Erythrocyte Sedimentation Rate 107 MM/HR (0-20) H Sodium Level 137 MMOL/L (136-145) Potassium Level 4.3 MMOL/L (3.5-5.1) Chloride Level 106 MMOL/L (98-107) Carbon Dioxide Level 22 MMOL/L (21-32) Anion Gap 10 mmol/L (5-15) Blood Urea Nitrogen 26 mg/dL (7-18) H Creatinine 0.9 MG/DL (0.55-1.30) Estimat Glomerular Filtration Rate > 60 mL/min (>60) Glucose Level 144 MG/DL (74-106) #H Calcium Level 7.2 MG/DL (8.5-10.1) L Phosphorus Level 3.1 MG/DL (2.5-4.9) Total Bilirubin 1.0 MG/DL (0.2-1.0) Aspartate Amino Transf (AST/SGOT) 153 U/L (15-37) H Alanine Aminotransferase (ALT/SGPT) 230 U/L (12-78) H Alkaline Phosphatase 46 U/L (46-116) C-Reactive Protein, Quantitative 22.9 mg/dL (0.00-0.90) H Total Protein 5.1 G/DL (6.4-8.2) L Albumin 1.4 G/DL (3.4-5.0) L Globulin 3.7 g/dL Albumin/Globulin Ratio 0.4 (1.0-2.7) L Amylase Level 24 U/L (25-115) L Lipase 54 U/L (73-393) L Test 05/25/19 09:20 White Blood Count 10.1 K/UL (4.8-10.8) Red Blood Count 2.66 M/UL (4.70-6.10) L Hemoglobin 7.9 G/DL (14.2-18.0) L Hematocrit 23.4 % (42.0-52.0) L Mean Corpuscular Volume 88 FL (80-99) Mean Corpuscular Hemoglobin 29.8 PG (27.0-31.0) Mean Corpuscular Hemoglobin Concent 33.9 G/DL (32.0-36.0) Red Cell Distribution Width 17.7 % (11.6-14.8) H Platelet Count 248 K/UL (150-450) Mean Platelet Volume 6.1 FL (6.5-10.1) L Neutrophils (%) (Auto) % (45.0-75.0) Lymphocytes (%) (Auto) % (20.0-45.0) Monocytes (%) (Auto) % (1.0-10.0) Eosinophils (%) (Auto) % (0.0-3.0) Basophils (%) (Auto) % (0.0-2.0) Neutrophils % (Manual) Pending Lymphocytes % (Manual) Pending Platelet Estimate Pending Platelet Morphology Pending Troponin I 0.062 ng/mL (0.000-0.056) General Appearance: well appearing, no apparent distress, alert Head: normocephalic EENT: PERRL/EOMI, normal ENT inspection Neck: supple, tracheotomy Respiratory: normal breath sounds, no respiratory distress Cardiovascular: normal rate Gastrointestinal: normal inspection, non tender, soft, normal bowel sounds, non -distended, gt Rectal: deferred Genitourinary: deferred Neurologic: alert, oriented x3, responsive, normal inspection Psychiatric: normal inspection, judgement/insight normal, memory normal Skin: normal inspection, normal color, no rash, warm/dry, palpation normal, well hydrated Lymphatic: normal inspection, no adenopathy Current Medications Current Medications Medications (Trade) Dose Ordered Sig/Mervat Route PRN Reason Start Time Stop Time Status Last Admin Dose Admin Acetaminophen (Tylenol) 650 mg Q4H PRN ORAL FEVER 05/24/19 17:30 06/23/19 17:29 Albuterol/ Ipratropium (Albuterol/ Ipratropium) 3 ml Q4H PRN HHN Shortness of Breath 05/24/19 17:30 05/29/19 17:29 Amikacin Protocol (Amikacin pharmacy to dose) 1 ea DAILY PRN MISC Per rx protocol 05/25/19 11:15 06/24/19 11:14 UNV Aminocaproic Acid 5000 mg/Sodium Chloride 130 ml @ 130 mls/hr ONCE ONCE IV 05/25/19 11:30 05/25/19 12:29 UNV Chlorhexidine Gluconate (Stacie-Hex 2%) 1 applic DAILY@2000 TOPIC 05/25/19 20:00 06/24/19 19:59 Dextrose (Dextrose 50%) 25 ml Q30M PRN IV Hypoglycemia 05/24/19 17:30 06/23/19 17:29 Dextrose (Dextrose 50%) 50 ml Q30M PRN IV Hypoglycemia 05/24/19 17:30 06/23/19 17:29 Norepinephrine Bitartrate 4 mg/ Dextrose 250 ml @ 0 mls/hr Q24H IV 05/24/19 20:04 06/23/19 20:03 05/25/19 07:06 Octreotide Acetate 500 mcg/ Sodium Chloride 500 ml @ 50 mls/hr Q10H IV 05/24/19 23:00 06/23/19 22:59 05/25/19 09:17 Ondansetron HCl (Zofran) 4 mg Q6H PRN IVP Nausea & Vomiting 05/24/19 17:30 06/23/19 17:29 05/24/19 18:11 Pantoprazole 80 mg/Sodium Chloride 250 ml @ 25 mls/hr Q10H IV 05/24/19 23:00 06/23/19 22:59 05/25/19 09:17 Piperacillin Sod/ Tazobactam Sod 3.375 gm/Sodium Chloride 100 ml @ 200 mls/hr EVERY 6 HOURS IVPB 05/25/19 12:00 06/01/19 11:59 UNV Sodium Chloride 1,000 ml @ 75 mls/hr [id number] IV 05/24/19 22:00 06/23/19 21:59 05/24/19 21:28 Vancomycin HCl (Vanco rx to dose) 1 ea DAILY PRN MISC Per rx protocol 05/25/19 11:15 06/24/19 11:14 UNV GI: Plan Problems: (1) Esophageal mass (2) Hemoptysis (3) Gastrostomy tube in place Plan #Anemia 2/2 to Hemolysis - not likely GI bleed, change protonix to BID and dc octreotide - anemia work up - prn transfusions - Occult blood stool to rule out any GI bleed - Patient not stable for any GI procedures, will need endoscopy to evaluate esophageal mass #Esophageal mass -At some point will require neck CT followed by endoscopy for biopsy -Follow-up oncology and surgical recommendations #Gastrostomy tube dependency -Maintain n.p.o. plus IV fluids at this time -G-tube site care daily and as needed #Transaminitis -Obtain hepatitis panel -Trend liver function test Follow on a daily basis with any additional recommendations Discussed with Dr. Engle. Thank you for this patient referral, we will follow. The patient was seen and examined at bedside and all new and available data was reviewed in the patients chart. I agree with the above findings, impression and plan. (Patient seen earlier today. Signature stamp does not reflect patient encounter time.). - MD Lainey Whitley Anh-Stanley CALIBRATION TECHNICIAN May 25, 2019 12:01
--- NOTE | 2019-05-25 12:15 | NUR ---
NURSE NOTES: Patient denies distress at this time. Patient denies pain. Patient alert to name, time, place, and purpose. Patient remains on trach to ventilator with setting of AC 16, tidal volume 550, FiO2 50%, and PEEP 5. patient remains NPO. No blood noted coming from mouth. Blood tinged sputum coming from trach. Will continue to monitor bleeding. 1 PRBC in progress. Will continue to monitor. Gastrostomy tube asymptomatic and clamped. Right AC 24 gauge peripheral IV, right upper arm midline, right wrist 20 gauge peripheral IV and left forearm 20 gauge peripheral IV patent, asymptomatic, and dressing dry and intact. Patient on Levophed at 2mcg/min and 0.45% normal saline at 75mL/hr. Will titrate levophed as ordered to keep blood pressure about [address] franks. Will continue to monitor. Patient bed in low position with bed alarm on and call light in reach. Oral care and repositioning done. Addendum: 05/25/19 at 2002 by Selma Szymanski RN Records requested from [facility] by Dr Chi. Fax sent. Awaiting records/response.
[2019-05-25] MEDS ORDERED: Aminocaproic Acid Inj 5,000 MG in NS 110 ML IV ONE (13:00)
--- NOTE | 2019-05-25 13:04 | NUR ---
NURSE NOTES: Spoke with Dr Brothers. He instructed us to hold PICC line insertion for now as patient may not need it. Osmar in Radiology notified. Addendum: 05/25/19 at 2001 by Selma Szymanski RN CBC timed draw due at this time but unable to be drawn. Patient receiving blood transfusion. Will follow with next CBC due at 1700.
--- NOTE | 2019-05-25 13:11 | Consultation ---
History of Present Illness General Date patient seen: May 25, 2019 Reason for Hospitalization: Dyspnea/Respdistress Present Illness HPI This is a very pleasant 73-year-old male with history of a throat "tumor" status post chemo radiation at [facility] 4 years ago who approximately 2 weeks ago developed shortness of breath and went to [facility] where he had a tracheostomy placement and has been well since until admission when identified to have desaturation coughing blood and was seen in the emergency department and suction and improved. Admitted to intensive care unit for further care and management. Surgery called to evaluate and assist with care. Patient seen, patient evaluated, chart reviewed. Patient identified to have bleeding from both the mouth and the tracheostomy suctioning. No petros-tracheal hemorrhage. Tracheostomy intact otherwise stable. 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 This is not been diagnosed according to daughter. baseline patient is able to track with eyes and also communicate with yes and no answers as well as is able to write patient. Participates in examination with writing history and current condition. Surgery called for hemorrhage/GI bleed. Patient seen, awake alert oriented no apparent distress. Patient is tracheostomy and gastrostomy tube dependent. Patient currently on Protonix drip and octreotide drip. In addition patient on norepinephrine. Laboratory review notes hemoglobin 7.9, AST 153, ALT 230, troponin 0.062, albumin 1.4. Patient was a recent discharge from [facility], noted with an esophageal mass. Unknown history of endoscopic or colonoscopy. Allergies: Coded Allergies: LEVOFLOXACIN (Verified Allergy, Unknown, 05/24/19) Possible allergic reaction - low blood pressure Medication History Scheduled Ascorbic Acid* (Vitamin C*), 500 MG GT DAILY, (Reported) Enoxaparin* (Lovenox*), 40 MG SUBQ DAILY, (Reported) Esomeprazole Magnesium (Nexium), 40 MG GT DAILY, (Reported) Ferrous Sulfate (Ferrous Sulfate), 5 ML GT DAILY, (Reported) Melatonin/Pyridoxine HCl (B6) (Melatonin 3 mg Tablet), 1 EACH GT DAILY, ( Reported) Scheduled PRN Ipratropium Emmett 0.5MG/2.5ML (Ipratropium Emmett 0.5MG/2.5ML), 0.5 MG HHN Q6H PRN for Shortness of Breath, (Reported) Miscellaneous Medications Banana Flakes/Tos (Banatrol Plus Powder Packet), 1 EACH GT, (Reported) Patient History History Provided By: Patient, Medical Record, PMD Healthcare decision maker Resuscitation status Full Code Advanced Directive on File Past Medical/Surgical History Past Medical/Surgical History: (1) Esophageal mass (2) Hemoptysis (3) Elevated lactic acid level (4) Gastrostomy tube in place (5) Head and neck cancer (6) Radiation fibrosis of lung (7) Chronic respiratory failure Review of Systems Review of Symptoms General ROS: no weight loss or fever Psychological ROS: no depression or mood changes, no memory loss Ophthalmic ROS: no visual changes or eye irritation ENT ROS: no nasal congestion, hearing loss, dizziness Allergy and Immunology ROS: no allergic symptoms or urticaria Hematological and Lymphatic ROS: no swollen glands, unusual bleeding or bruising Endocrine ROS: no polyuria, polydipsia, weight changes, temperature intolerance Respiratory ROS: no cough, shortness of breath, or wheezing Cardiovascular ROS: no chest pain or dyspnea on exertion Gastrointestinal ROS: denies abdominal pain, bright red blood in stool. Musculoskeletal ROS: no myalgias or arthralgias Neurological ROS: no TIA or stroke symptoms Dermatological ROS: no new or changing skin lesions, rashes or pruritis Physical Exam Physical Exam General appearance: alert, cooperative, no distress, appears stated age Head: Normocephalic, without obvious abnormality, atraumatic Eyes: conjunctivae/corneas clear. PERRL, EOM's intact. Fundi benign Throat: Lips, mucosa, and tongue normal. Teeth and gums normal trach without bleeding but suction noted blood clots Neck: supple, symmetrical, trachea midline, no adenopathy, thyroid: not enlarged, symmetric, no tenderness/mass/nodules, no carotid bruit and no JVD Lungs: clear to auscultation bilaterally Heart: regular rate and rhythm, S1, S2 normal, no murmur, click, rub or gallop Abdomen: soft, non-tender. Bowel sounds normal. No masses, no organomegaly Extremities: extremities normal, atraumatic, no cyanosis or edema Pulses: 2+ and symmetric Skin: Skin color, texture, turgor normal. No rashes or lesions Neurologic: Grossly normal Last 24 Hour Vital Signs Date Time Temp Pulse Resp B/P (MAP) Pulse Ox O2 Delivery O2 Flow Rate FiO2 05/25/19 10:55 113 27 50 05/25/19 08:59 112 35 50 05/25/19 07:12 115 25 50 05/25/19 07:06 98/57 2 07:00 99/58 05/25/19 07:00 116 25 99/58 (72) 98 05/25/19 06:45 114 23 96/57 (70) 99 05/25/19 06:30 118 23 114/80 (91) 100 05/25/19 06:15 120 22 99/56 (70) 99 05/25/19 06:00 99/56 05/25/19 06:00 121 22 114/67 (83) 100 05/25/19 05:45 127 31 108/54 (72) 100 05/25/19 05:45 130 29 100 Mechanical Ventilator 50 05/25/19 05:30 128 33 50 05/25/19 05:30 127 29 100/61 (74) 100 05/25/19 05:15 127 30 103/64 (77) 100 05/25/19 05:04 124 28 86/65 (72) 100 05/25/19 05:00 103/64 05/25/19 05:00 98.5 124 24 67/52 (57) 100 05/25/19 04:45 123 29 82/62 (69) 100 05/25/19 04:30 124 23 96/53 (67) 100 05/25/19 04:15 128 23 110/64 (79) 99 05/25/19 04:00 Mechanical Ventilator 05/25/19 04:00 123 05/25/19 04:00 93/56 05/25/19 04:00 50 05/25/19 04:00 128 25 102/65 (77) 100 05/25/19 03:45 129 23 93/56 (68) 100 05/25/19 03:30 130 22 50 05/25/19 03:30 129 23 89/53 (65) 100 05/25/19 03:15 129 24 93/59 (70) 100 05/25/19 03:00 93/59 05/25/19 03:00 130 24 100/61 (74) 100 05/25/19 02:45 100/61 05/25/19 02:45 133 25 94/63 (73) 100 05/25/19 02:30 133 24 95/65 (75) 100 05/25/19 02:15 134 25 92/64 (73) 100 05/25/19 02:00 134 25 87/66 (73) 100 05/25/19 02:00 92/64 05/25/19 01:49 88/57 05/25/19 01:45 135 25 88/57 (67) 100 05/25/19 01:30 136 30 92/74 (80) 100 05/25/19 01:30 140 31 65 05/25/19 01:15 136 26 91/65 (74) 100 05/25/19 01:00 144 24 85/53 (64) 99 05/25/19 01:00 91/65 05/25/19 00:45 136 26 81/42 (55) 100 05/25/19 00:30 141 33 81/56 (64) 99 05/25/19 00:15 98.5 137 24 75/55 (62) 99 05/25/19 00:00 Mechanical Ventilator 05/25/19 00:00 130 05/25/19 00:00 65 05/25/19 00:00 75/55 05/25/19 00:00 134 27 72/53 (59) 100 05/24/19 23:45 130 27 70/52 (58) 100 05/24/19 23:30 138 33 79/55 (63) 100 05/24/19 23:15 140 33 95/55 (68) 100 05/24/19 23:06 138 38 65 05/24/19 23:00 140 33 80/52 (61) 100 05/24/19 23:00 95/55 05/24/19 22:45 139 33 79/47 (58) 100 05/24/19 22:30 140 33 90/52 (65) 100 05/24/19 22:15 140 34 66/53 (57) 100 05/24/19 22:00 95/43 05/24/19 22:00 138 33 95/43 (60) 100 05/24/19 21:45 138 35 80/43 (55) 100 05/24/19 21:30 134 33 75/47 (56) 100 05/24/19 21:30 75/47 05/24/19 21:30 140 40 65 05/24/19 21:15 131 35 64/49 (54) 100 05/24/19 21:00 126 32 70/39 (49) 100 05/24/19 21:00 70/39 05/24/19 20:45 123 35 77/47 (57) 100 05/24/19 20:41 Mechanical Ventilator 05/24/19 20:30 126 30 71/38 (49) 100 05/24/19 20:20 68/55 05/24/19 20:15 119 31 133/77 (95) 100 05/24/19 20:00 109 05/24/19 20:00 109 30 73/51 (58) 100 05/24/19 20:00 65 05/24/19 20:00 Mechanical Ventilator 05/24/19 19:30 98.4 119 40 87/57 (67) 100 05/24/19 19:15 100.8 125 37 86/50 100 Trach Collar 15.0 100 05/24/19 19:15 100.8 125 37 86/50 100 Trach Collar 15.0 100 05/24/19 19:04 100.8 125 37 76/35 100 Trach Collar 15.0 100 05/24/19 18:35 137 38 100 05/24/19 18:35 139 28 97/65 100 Mechanical Ventilator 65 05/24/19 18:00 125 25 107/61 90 Trach Collar 15.0 60 05/24/19 17:40 126 22 100 05/24/19 17:33 123 24 114/94 90 Trach Collar 15.0 05/24/19 17:15 128 16 60 05/24/19 16:41 118 16 97 Mechanical Ventilator 100 129 16 87 05/24/19 16:25 118 16 100 05/24/19 16:20 129 36 Ambu-Bag 15.0 100 05/24/19 16:15 120 24 153/88 92 Mechanical Ventilator 15.0 05/24/19 16:15 130 32 Trach Collar 15.0 05/24/19 16:08 130 32 153/88 (109) 92 Trach Collar 15.0 Intake and Output 05/24/19 05/25/19 19:00 07:00 Intake Total 101.3 ml 1909.166 ml Output Total 750 ml Balance 101.3 ml 1159.166 ml Intake IV Total 101.3 ml 1909.166 ml Output Urine Total 550 ml Estimated Blood Loss 200 ml Laboratory Tests Test 05/24/19 16:50 05/24/19 16:52 05/24/19 16:53 05/24/19 16:55 Urine Color Yellow Urine Appearance Clear Urine pH 7 (4.5-8.0) Urine Specific [place] 1.010 (1.005-1.035) Urine Protein Negative (NEGATIVE) Urine Glucose (UA) Negative (NEGATIVE) Urine Ketones Negative (NEGATIVE) Urine Blood 3+ (NEGATIVE) H Urine Nitrite Negative (NEGATIVE) Urine Bilirubin Negative (NEGATIVE) Urine Urobilinogen Normal MG/DL (0.0-1.0) Urine Leukocyte Esterase Negative (NEGATIVE) Urine RBC 15-20 /HPF (0 - 0) H Urine WBC 0-2 /HPF (0 - 0) Urine Squamous Epithelial Cells Occasional /LPF Urine Amorphous Sediment Moderate /LPF (NONE) H Urine Bacteria Few /HPF (NONE) Iron Level 26 ug/dL (50-175) L Total Iron Binding Capacity 130 ug/dL (250-450) L Percent Iron Saturation 20 % (15-50) Unsaturated Iron Binding 104 ug/dL (112-346) L White Blood Count 9.8 K/UL (4.8-10.8) Red Blood Count 3.37 M/UL (4.70-6.10) L Hemoglobin 9.8 G/DL (14.2-18.0) L Hematocrit 30.9 % (42.0-52.0) L Mean Corpuscular Volume 92 FL (80-99) Mean Corpuscular Hemoglobin 29.2 PG (27.0-31.0) Mean Corpuscular Hemoglobin Concent 31.8 G/DL (32.0-36.0) L Red Cell Distribution Width 17.7 % (11.6-14.8) H Platelet Count 307 K/UL (150-450) Mean Platelet Volume 6.0 FL (6.5-10.1) L Neutrophils (%) (Auto) 86.8 % (45.0-75.0) H Lymphocytes (%) (Auto) 10.9 % (20.0-45.0) L Monocytes (%) (Auto) 1.6 % (1.0-10.0) Eosinophils (%) (Auto) 0.4 % (0.0-3.0) Basophils (%) (Auto) 0.3 % (0.0-2.0) Prothrombin Time 11.8 SEC (9.30-11.50) H Prothromb Time International Ratio 1.1 (0.9-1.1) Activated Partial Thromboplast Time 41 SEC (23-33) H Sodium Level 137 MMOL/L (136-145) Potassium Level 4.7 MMOL/L (3.5-5.1) Chloride Level 103 MMOL/L (98-107) Carbon Dioxide Level 20 MMOL/L (21-32) L Anion Gap 14 mmol/L (5-15) Blood Urea Nitrogen 23 mg/dL (7-18) H Creatinine 1.0 MG/DL (0.55-1.30) Estimat Glomerular Filtration Rate > 60 mL/min (>60) Glucose Level 313 MG/DL (74-106) H Lactic Acid Level 4.20 mmol/L (0.4-2.0) H Calcium Level 8.0 MG/DL (8.5-10.1) L Magnesium Level 1.9 MG/DL (1.8-2.4) Total Bilirubin 0.8 MG/DL (0.2-1.0) Aspartate Amino Transf (AST/SGOT) 59 U/L (15-37) H Alanine Aminotransferase (ALT/SGPT) 113 U/L (12-78) H Alkaline Phosphatase 57 U/L (46-116) Total Creatine Kinase 23 U/L (26-308) L Creatine Kinase MB 0.5 NG/ML (0.0-3.6) Creatine Kinase MB Relative Index 2.1 Troponin I 0.079 ng/mL (0.000-0.056) Pro-B-Type Natriuretic Peptide 570 pg/mL (0-125) H Total Protein 5.5 G/DL (6.4-8.2) L Albumin 1.4 G/DL (3.4-5.0) L Globulin 4.1 g/dL Albumin/Globulin Ratio 0.3 (1.0-2.7) L Arterial Blood pH 7.155 (7.350-7.450) Arterial Blood Partial Pressure CO2 65.5 mmHg (35.0-45.0) *H Arterial Blood Partial Pressure O2 141.5 mmHg (75.0-100.0) H Arterial Blood HCO3 22.6 mmol/L (22.0-26.0) Arterial Blood Oxygen Saturation 97.9 % (95-100) Arterial Blood Base Excess -6.7 (-2-2) L Bryce Test Positive Test 05/24/19 18:46 05/24/19 21:20 05/25/19 00:55 05/25/19 05:20 Lactic Acid Level 3.80 mmol/L (0.66-2.22) H 1.40 mmol/L (0.4-2.0) White Blood Count 10.7 K/UL (4.8-10.8) 14.6 K/UL (4.8-10.8) H 11.8 K/UL (4.8-10.8) H Red Blood Count 2.81 M/UL (4.70-6.10) L 2.99 M/UL (4.70-6.10) L 2.76 M/UL (4.70-6.10) L Hemoglobin 8.4 G/DL (14.2-18.0) L 9.0 G/DL (14.2-18.0) L 8.2 G/DL (14.2-18.0) L Hematocrit 25.5 % (42.0-52.0) L 26.8 % (42.0-52.0) L 24.8 % (42.0-52.0) L Mean Corpuscular Volume 91 FL (80-99) 90 FL (80-99) 90 FL (80-99) Mean Corpuscular Hemoglobin 30.0 PG (27.0-31.0) 30.0 PG (27.0-31.0) 29.7 PG (27.0-31.0) Mean Corpuscular Hemoglobin Concent 33.1 G/DL (32.0-36.0) 33.5 G/DL (32.0-36.0) 33.1 G/DL (32.0-36.0) Red Cell Distribution Width 17.3 % (11.6-14.8) H 16.9 % (11.6-14.8) H 16.9 % (11.6-14.8) H Platelet Count 257 K/UL (150-450) 297 K/UL (150-450) 245 K/UL (150-450) Mean Platelet Volume 5.9 FL (6.5-10.1) L 6.1 FL (6.5-10.1) L 5.7 FL (6.5-10.1) L Neutrophils (%) (Auto) 95.1 % (45.0-75.0) H % (45.0-75.0) % (45.0-75.0) Lymphocytes (%) (Auto) 2.5 % (20.0-45.0) L % (20.0-45.0) % (20.0-45.0) Monocytes (%) (Auto) 2.1 % (1.0-10.0) % (1.0-10.0) % (1.0-10.0) Eosinophils (%) (Auto) 0.0 % (0.0-3.0) % (0.0-3.0) % (0.0-3.0) Basophils (%) (Auto) 0.3 % (0.0-2.0) % (0.0-2.0) % (0.0-2.0) Prothrombin Time 12.3 SEC (9.30-11.50) H 12.7 SEC (9.30-11.50) H Prothromb Time International Ratio 1.2 (0.9-1.1) H 1.2 (0.9-1.1) H Activated Partial Thromboplast Time 41 SEC (23-33) H 45 SEC (23-33) H Differential Total Cells Counted 100 100 Neutrophils % (Manual) 83 % (45-75) H 89 % (45-75) H Lymphocytes % (Manual) 10 % (20-45) L 7 % (20-45) L Monocytes % (Manual) 7 % (1-10) 4 % (1-10) Eosinophils % (Manual) 0 % (0-3) 0 % (0-3) Basophils % (Manual) 0 % (0-2) 0 % (0-2) Band Neutrophils 0 % (0-8) 0 % (0-8) Platelet Estimate Adequate Adequate Platelet Morphology Normal Normal Hypochromasia 2+ Anisocytosis 1+ Spherocytes 1+ Erythrocyte Sedimentation Rate 107 MM/HR (0-20) H Sodium Level 137 MMOL/L (136-145) Potassium Level 4.3 MMOL/L (3.5-5.1) Chloride Level 106 MMOL/L (98-107) Carbon Dioxide Level 22 MMOL/L (21-32) Anion Gap 10 mmol/L (5-15) Blood Urea Nitrogen 26 mg/dL (7-18) H Creatinine 0.9 MG/DL (0.55-1.30) Estimat Glomerular Filtration Rate > 60 mL/min (>60) Glucose Level 144 MG/DL (74-106) #H Calcium Level 7.2 MG/DL (8.5-10.1) L Phosphorus Level 3.1 MG/DL (2.5-4.9) Total Bilirubin 1.0 MG/DL (0.2-1.0) Aspartate Amino Transf (AST/SGOT) 153 U/L (15-37) H Alanine Aminotransferase (ALT/SGPT) 230 U/L (12-78) H Alkaline Phosphatase 46 U/L (46-116) C-Reactive Protein, Quantitative 22.9 mg/dL (0.00-0.90) H Total Protein 5.1 G/DL (6.4-8.2) L Albumin 1.4 G/DL (3.4-5.0) L Globulin 3.7 g/dL Albumin/Globulin Ratio 0.4 (1.0-2.7) L Amylase Level 24 U/L (25-115) L Lipase 54 U/L (73-393) L Test 05/25/19 09:20 White Blood Count 10.1 K/UL (4.8-10.8) Red Blood Count 2.66 M/UL (4.70-6.10) L Hemoglobin 7.9 G/DL (14.2-18.0) L Hematocrit 23.4 % (42.0-52.0) L Mean Corpuscular Volume 88 FL (80-99) Mean Corpuscular Hemoglobin 29.8 PG (27.0-31.0) Mean Corpuscular Hemoglobin Concent 33.9 G/DL (32.0-36.0) Red Cell Distribution Width 17.7 % (11.6-14.8) H Platelet Count 248 K/UL (150-450) Mean Platelet Volume 6.1 FL (6.5-10.1) L Neutrophils (%) (Auto) % (45.0-75.0) Lymphocytes (%) (Auto) % (20.0-45.0) Monocytes (%) (Auto) % (1.0-10.0) Eosinophils (%) (Auto) % (0.0-3.0) Basophils (%) (Auto) % (0.0-2.0) Differential Total Cells Counted 100 Neutrophils % (Manual) 92 % (45-75) H Lymphocytes % (Manual) 4 % (20-45) L Monocytes % (Manual) 2 % (1-10) Eosinophils % (Manual) 1 % (0-3) Basophils % (Manual) 0 % (0-2) Band Neutrophils 1 % (0-8) Platelet Estimate Adequate Platelet Morphology Normal Hypochromasia 3+ Anisocytosis 1+ Spherocytes 1+ Troponin I 0.062 ng/mL (0.000-0.056) Height (Feet): 5 Height (Inches): 7.00 Weight (Pounds): 151 Medications Current Medications Medications (Trade) Dose Ordered Sig/Mervat Route PRN Reason Start Time Stop Time Status Last Admin Dose Admin Acetaminophen (Tylenol) 650 mg Q4H PRN ORAL FEVER 05/24/19 17:30 06/23/19 17:29 Albuterol/ Ipratropium (Albuterol/ Ipratropium) 3 ml Q4H PRN HHN Shortness of Breath 05/24/19 17:30 05/29/19 17:29 Amikacin Protocol (Amikacin pharmacy to dose) 1 ea DAILY PRN MISC Per rx protocol 05/25/19 11:15 06/24/19 11:14 UNV Aminocaproic Acid 5000 mg/Sodium Chloride 130 ml @ 130 mls/hr ONCE ONCE IV 05/25/19 13:00 05/25/19 13:59 Chlorhexidine Gluconate (Stacie-Hex 2%) 1 applic DAILY@2000 TOPIC 05/25/19 20:00 06/24/19 19:59 Dextrose (Dextrose 50%) 25 ml Q30M PRN IV Hypoglycemia 05/24/19 17:30 06/23/19 17:29 Dextrose (Dextrose 50%) 50 ml Q30M PRN IV Hypoglycemia 05/24/19 17:30 06/23/19 17:29 Heparin Sodium/ Sodium Chloride (Heparin 1000 units/500ml Premix) 1,000 unit ONCE IV 05/25/19 12:00 05/25/19 23:59 Lidocaine HCl (Xylocaine 1% 30ml) 30 ml ONCE INJ 05/25/19 12:00 05/25/19 23:59 Norepinephrine Bitartrate 4 mg/ Dextrose 250 ml @ 0 mls/hr Q24H IV 05/24/19 20:04 06/23/19 20:03 05/25/19 07:06 Ondansetron HCl (Zofran) 4 mg Q6H PRN IVP Nausea & Vomiting 05/24/19 17:30 06/23/19 17:29 05/24/19 18:11 Pantoprazole (Protonix) 40 mg EVERY 12 HOURS IVP 05/25/19 21:00 06/24/19 20:59 Piperacillin Sod/ Tazobactam Sod 3.375 gm/Sodium Chloride 110 ml @ 27.5 mls/hr EVERY 8 HOURS IVPB 05/25/19 14:00 05/30/19 13:59 Sodium Chloride 1,000 ml @ 75 mls/hr [id number] IV 05/24/19 22:00 06/23/19 21:59 05/25/19 11:58 Vancomycin HCl (Vanco rx to dose) 1 ea DAILY PRN MISC Per rx protocol 05/25/19 11:15 06/24/19 11:14 UNV Assessment/Plan Problem List: (1) Esophageal mass Assessment & Plan: This is a 73-year-old male with known history of throat cancer possible esophageal cancer status post chemoradiation [facility] a few years back who recently has developed cardiac arrest shortness of breath respiratory compromise and had tracheostomy at outside facility for airway protection. Was in recovery until recently identified to have desaturation with blood clots noted within tracheostomy tube suctions as well as oral suctioning. Patient admitted for care and management identified to have anemia bleeding and hemorrhage. Surgery called to evaluate patient was seen. Hemorrhage has significantly decreased and currently no active bleeding noted. H&H trending down and being transfused as per my recommendations. Patient is awake alert states he feels better. He slowly weaning off pressors. Unfortunately given history current condition and the above no acute surgical intervention indicated or recommended. Will obtain attempt records from [facility] as well as [facility]. Continue with deep suctioning by respiratory. Okay for oral suctioning. Monitor for bleeding. Fortunately currently no active bleeding and hopefully its its way. We will keep close eye on H&H as well as coags to ensure patient improving. Permissive hypotension okay. Wean pressors. Thank you for let me participation's care will continue to follow with recommendations and further evaluation. ICD Codes: K22.8 - Other specified diseases of esophagus SNOMED: 925256572 (2) Hemoptysis Assessment & Plan: Findings: Interstitial and airspace opacities are seen throughout the right mid and lower lung. Questionable patchy peripheral opacities are also present on the left. Heart size is normal. The pleural spaces are clear Impression: Right lung opacities and questionable patchy left lung opacities, likely pneumonia. ICD Codes: R04.2 - Hemoptysis SNOMED: 03762232 (3) Head and neck cancer ICD Codes: C76.0 - Malignant neoplasm of head, face and neck SNOMED: [id number] [employer] May 25, 2019 13:11
--- NOTE | 2019-05-25 13:36 | Consultation ---
History of Present Illness General Date patient seen: May 25, 2019 Time patient seen: 13:17 Chief Complaint: Dyspnea/Respdistress Referring physician: LIAM DODD , "Dr Chi Reason for Consultation: Sepsis, pneumonia Present Illness HPI This is a 73 year old male with Hx of Neck cancer x 9 years who was recently was admitted to [facility] for ago, and recurrence of the tumor and respiratory arrest , pt underwent trach and PEG placement and transferred to [facility] rehab on Saturday. but was transferred [place] [facility] by paramedics due to hemoptysis. Pt was found to be hypotensive and was admitted to ICU , and was started on Levophed that was DCed today, Allergies: LEVOFLOXACIN SHX : resident of [facility] FHx : Not contributing Meds : Zosyn PMHx (1) Chronic respiratory failure (2) Head and neck cancer (3) Gastrostomy tube in place Allergies: Coded Allergies: LEVOFLOXACIN (Verified Allergy, Unknown, 05/24/19) Possible allergic reaction - low blood pressure Medication History Scheduled Ascorbic Acid* (Vitamin C*), 500 MG GT DAILY, (Reported) Enoxaparin* (Lovenox*), 40 MG SUBQ DAILY, (Reported) Esomeprazole Magnesium (Nexium), 40 MG GT DAILY, (Reported) Ferrous Sulfate (Ferrous Sulfate), 5 ML GT DAILY, (Reported) Melatonin/Pyridoxine HCl (B6) (Melatonin 3 mg Tablet), 1 EACH GT DAILY, ( Reported) Scheduled PRN Ipratropium [place] 0.5MG/2.5ML (Ipratropium [place] 0.5MG/2.5ML), 0.5 MG HHN Q6H PRN for Shortness of Breath, (Reported) Miscellaneous Medications Banana Flakes/Tos (Banatrol Plus Powder Packet), 1 EACH GT, (Reported) Patient History Healthcare decision maker Resuscitation status Full Code Advanced Directive on File Review of Systems ROS Narrative 10 point review was done Physical Exam General Appearance: no apparent distress, alert Neck: normal alignment, supple Respiratory/Chest: accessory muscle use, rhonchi - bilaterally Cardiovascular/Chest: regular rhythm Abdomen: soft, no organomegaly Genitourinary/Rectal: palmer Extremities: non-tender, normal inspection Neurologic: alert, oriented x 3 Last 24 Hour Vital Signs Date Time Temp Pulse Resp B/P (MAP) Pulse Ox O2 Delivery O2 Flow Rate FiO2 05/25/19 13:00 108/64 05/25/19 12:00 126/73 05/25/19 11:00 113/74 05/25/19 10:55 113 27 50 05/25/19 10:00 114/70 05/25/19 09:00 111/71 05/25/19 08:59 112 35 50 05/25/19 08:00 112/67 05/25/19 07:12 115 25 50 05/25/19 07:06 98/57 05/25/19 07:00 99/58 05/25/19 07:00 116 25 99/58 (72) 98 05/25/19 06:45 114 23 96/57 (70) 99 05/25/19 06:30 118 23 114/80 (91) 100 05/25/19 06:15 120 22 99/56 (70) 99 05/25/19 06:00 99/56 05/25/19 06:00 121 22 114/67 (83) 100 05/25/19 05:45 127 31 108/54 (72) 100 05/25/19 05:45 130 29 100 Mechanical Ventilator 50 05/25/19 05:30 128 33 50 05/25/19 05:30 127 29 100/61 (74) 100 05/25/19 05:15 127 30 103/64 (77) 100 05/25/19 05:04 124 28 86/65 (72) 100 05/25/19 05:00 103/64 05/25/19 05:00 98.5 124 24 67/52 (57) 100 05/25/19 04:45 123 29 82/62 (69) 100 05/25/19 04:30 124 23 96/53 (67) 100 05/25/19 04:15 128 23 110/64 (79) 99 05/25/19 04:00 Mechanical Ventilator 05/25/19 04:00 123 05/25/19 04:00 93/56 05/25/19 04:00 50 05/25/19 04:00 128 25 102/65 (77) 100 05/25/19 03:45 129 23 93/56 (68) 100 05/25/19 03:30 130 22 50 05/25/19 03:30 129 23 89/53 (65) 100 05/25/19 03:15 129 24 93/59 (70) 100 05/25/19 03:00 93/59 05/25/19 03:00 130 24 100/61 (74) 100 05/25/19 02:45 100/61 05/25/19 02:45 133 25 94/63 (73) 100 05/25/19 02:30 133 24 95/65 (75) 100 05/25/19 02:15 134 25 92/64 (73) 100 05/25/19 02:00 134 25 87/66 (73) 100 05/25/19 02:00 92/64 05/25/19 01:49 88/57 05/25/19 01:45 135 25 88/57 (67) 100 05/25/19 01:30 136 30 92/74 (80) 100 05/25/19 01:30 140 31 65 05/25/19 01:15 136 26 91/65 (74) 100 05/25/19 01:00 144 24 85/53 (64) 99 05/25/19 01:00 91/65 05/25/19 00:45 136 26 81/42 (55) 100 05/25/19 00:30 141 33 81/56 (64) 99 05/25/19 00:15 98.5 137 24 75/55 (62) 99 05/25/19 00:00 Mechanical Ventilator 05/25/19 00:00 130 05/25/19 00:00 65 05/25/19 00:00 75/55 05/25/19 00:00 134 27 72/53 (59) 100 05/24/19 23:45 130 27 70/52 (58) 100 05/24/19 23:30 138 33 79/55 (63) 100 05/24/19 23:15 140 33 95/55 (68) 100 05/24/19 23:06 138 38 65 05/24/19 23:00 140 33 80/52 (61) 100 05/24/19 23:00 95/55 05/24/19 22:45 139 33 79/47 (58) 100 05/24/19 22:30 140 33 90/52 (65) 100 05/24/19 22:15 140 34 66/53 (57) 100 05/24/19 22:00 95/43 05/24/19 22:00 138 33 95/43 (60) 100 05/24/19 21:45 138 35 80/43 (55) 100 05/24/19 21:30 134 33 75/47 (56) 100 05/24/19 21:30 75/47 05/24/19 21:30 140 40 65 05/24/19 21:15 131 35 64/49 (54) 100 05/24/19 21:00 126 32 70/39 (49) 100 05/24/19 21:00 70/39 05/24/19 20:45 123 35 77/47 (57) 100 05/24/19 20:41 Mechanical Ventilator 05/24/19 20:30 126 30 71/38 (49) 100 05/24/19 20:20 68/55 05/24/19 20:15 119 31 133/77 (95) 100 05/24/19 20:00 109 05/24/19 20:00 109 30 73/51 (58) 100 05/24/19 20:00 65 05/24/19 20:00 Mechanical Ventilator 05/24/19 19:30 98.4 119 40 87/57 (67) 100 05/24/19 19:15 100.8 125 37 86/50 100 Trach Collar 15.0 100 05/24/19 19:15 100.8 125 37 86/50 100 Trach Collar 15.0 100 05/24/19 19:04 100.8 125 37 76/35 100 Trach Collar 15.0 100 05/24/19 18:35 137 38 100 05/24/19 18:35 139 28 97/65 100 Mechanical Ventilator 65 05/24/19 18:00 125 25 107/61 90 Trach Collar 15.0 60 05/24/19 17:40 126 22 100 05/24/19 17:33 123 24 114/94 90 Trach Collar 15.0 05/24/19 17:15 128 16 60 05/24/19 16:41 118 16 97 Mechanical Ventilator 100 129 16 87 05/24/19 16:25 118 16 100 05/24/19 16:20 129 36 Ambu-Bag 15.0 100 05/24/19 16:15 120 24 153/88 92 Mechanical Ventilator 15.0 05/24/19 16:15 130 32 Trach Collar 15.0 2/23/20 16:08 130 32 153/88 (109) 92 Trach Collar 15.0 Intake and Output 05/24/19 05/25/19 19:00 07:00 Intake Total 101.3 ml 1909.166 ml Output Total 750 ml Balance 101.3 ml 1159.166 ml Intake IV Total 101.3 ml 1909.166 ml Output Urine Total 550 ml Estimated Blood Loss 200 ml Laboratory Tests Test 05/24/19 16:50 05/24/19 16:52 05/24/19 16:53 05/24/19 16:55 Urine Color Yellow Urine Appearance Clear Urine pH 7 (4.5-8.0) Urine Specific [place] 1.010 (1.005-1.035) Urine Protein Negative (NEGATIVE) Urine Glucose (UA) Negative (NEGATIVE) Urine Ketones Negative (NEGATIVE) Urine Blood 3+ (NEGATIVE) H Urine Nitrite Negative (NEGATIVE) Urine Bilirubin Negative (NEGATIVE) Urine Urobilinogen Normal MG/DL (0.0-1.0) Urine Leukocyte Esterase Negative (NEGATIVE) Urine RBC 15-20 /HPF (0 - 0) H Urine WBC 0-2 /HPF (0 - 0) Urine Squamous Epithelial Cells Occasional /LPF Urine Amorphous Sediment Moderate /LPF (NONE) H Urine Bacteria Few /HPF (NONE) Iron Level 26 ug/dL (50-175) L Total Iron Binding Capacity 130 ug/dL (250-450) L Percent Iron Saturation 20 % (15-50) Unsaturated Iron Binding 104 ug/dL (112-346) L White Blood Count 9.8 K/UL (4.8-10.8) Red Blood Count 3.37 M/UL (4.70-6.10) L Hemoglobin 9.8 G/DL (14.2-18.0) L Hematocrit 30.9 % (42.0-52.0) L Mean Corpuscular Volume 92 FL (80-99) Mean Corpuscular Hemoglobin 29.2 PG (27.0-31.0) Mean Corpuscular Hemoglobin Concent 31.8 G/DL (32.0-36.0) L Red Cell Distribution Width 17.7 % (11.6-14.8) H Platelet Count 307 K/UL (150-450) Mean Platelet Volume 6.0 FL (6.5-10.1) L Neutrophils (%) (Auto) 86.8 % (45.0-75.0) H Lymphocytes (%) (Auto) 10.9 % (20.0-45.0) L Monocytes (%) (Auto) 1.6 % (1.0-10.0) Eosinophils (%) (Auto) 0.4 % (0.0-3.0) Basophils (%) (Auto) 0.3 % (0.0-2.0) Prothrombin Time 11.8 SEC (9.30-11.50) H Prothromb Time International Ratio 1.1 (0.9-1.1) Activated Partial Thromboplast Time 41 SEC (23-33) H Sodium Level 137 MMOL/L (136-145) Potassium Level 4.7 MMOL/L (3.5-5.1) Chloride Level 103 MMOL/L (98-107) Carbon Dioxide Level 20 MMOL/L (21-32) L Anion Gap 14 mmol/L (5-15) Blood Urea Nitrogen 23 mg/dL (7-18) H Creatinine 1.0 MG/DL (0.55-1.30) Estimat Glomerular Filtration Rate > 60 mL/min (>60) Glucose Level 313 MG/DL (74-106) H Lactic Acid Level 4.20 mmol/L (0.4-2.0) H Calcium Level 8.0 MG/DL (8.5-10.1) L Magnesium Level 1.9 MG/DL (1.8-2.4) Total Bilirubin 0.8 MG/DL (0.2-1.0) Aspartate Amino Transf (AST/SGOT) 59 U/L (15-37) H Alanine Aminotransferase (ALT/SGPT) 113 U/L (12-78) H Alkaline Phosphatase 57 U/L (46-116) Total Creatine Kinase 23 U/L (26-308) L Creatine Kinase MB 0.5 NG/ML (0.0-3.6) Creatine Kinase MB Relative Index 2.1 Troponin I 0.079 ng/mL (0.000-0.056) Pro-B-Type Natriuretic Peptide 570 pg/mL (0-125) H Total Protein 5.5 G/DL (6.4-8.2) L Albumin 1.4 G/DL (3.4-5.0) L Globulin 4.1 g/dL Albumin/Globulin Ratio 0.3 (1.0-2.7) L Arterial Blood pH 7.155 (7.350-7.450) Arterial Blood Partial Pressure CO2 65.5 mmHg (35.0-45.0) *H Arterial Blood Partial Pressure O2 141.5 mmHg (75.0-100.0) H Arterial Blood HCO3 22.6 mmol/L (22.0-26.0) Arterial Blood Oxygen Saturation 97.9 % (95-100) Arterial Blood Base Excess -6.7 (-2-2) L Bryce Test Positive Test 05/24/19 18:46 05/24/19 21:20 05/25/19 00:55 05/25/19 05:20 Lactic Acid Level 3.80 mmol/L (0.66-2.22) H 1.40 mmol/L (0.4-2.0) White Blood Count 10.7 K/UL (4.8-10.8) 14.6 K/UL (4.8-10.8) H 11.8 K/UL (4.8-10.8) H Red Blood Count 2.81 M/UL (4.70-6.10) L 2.99 M/UL (4.70-6.10) L 2.76 M/UL (4.70-6.10) L Hemoglobin 8.4 G/DL (14.2-18.0) L 9.0 G/DL (14.2-18.0) L 8.2 G/DL (14.2-18.0) L Hematocrit 25.5 % (42.0-52.0) L 26.8 % (42.0-52.0) L 24.8 % (42.0-52.0) L Mean Corpuscular Volume 91 FL (80-99) 90 FL (80-99) 90 FL (80-99) Mean Corpuscular Hemoglobin 30.0 PG (27.0-31.0) 30.0 PG (27.0-31.0) 29.7 PG (27.0-31.0) Mean Corpuscular Hemoglobin Concent 33.1 G/DL (32.0-36.0) 33.5 G/DL (32.0-36.0) 33.1 G/DL (32.0-36.0) Red Cell Distribution Width 17.3 % (11.6-14.8) H 16.9 % (11.6-14.8) H 16.9 % (11.6-14.8) H Platelet Count 257 K/UL (150-450) 297 K/UL (150-450) 245 K/UL (150-450) Mean Platelet Volume 5.9 FL (6.5-10.1) L 6.1 FL (6.5-10.1) L 5.7 FL (6.5-10.1) L Neutrophils (%) (Auto) 95.1 % (45.0-75.0) H % (45.0-75.0) % (45.0-75.0) Lymphocytes (%) (Auto) 2.5 % (20.0-45.0) L % (20.0-45.0) % (20.0-45.0) Monocytes (%) (Auto) 2.1 % (1.0-10.0) % (1.0-10.0) % (1.0-10.0) Eosinophils (%) (Auto) 0.0 % (0.0-3.0) % (0.0-3.0) % (0.0-3.0) Basophils (%) (Auto) 0.3 % (0.0-2.0) % (0.0-2.0) % (0.0-2.0) Prothrombin Time 12.3 SEC (9.30-11.50) H 12.7 SEC (9.30-11.50) H Prothromb Time International Ratio 1.2 (0.9-1.1) H 1.2 (0.9-1.1) H Activated Partial Thromboplast Time 41 SEC (23-33) H 45 SEC (23-33) H Differential Total Cells Counted 100 100 Neutrophils % (Manual) 83 % (45-75) H 89 % (45-75) H Lymphocytes % (Manual) 10 % (20-45) L 7 % (20-45) L Monocytes % (Manual) 7 % (1-10) 4 % (1-10) Eosinophils % (Manual) 0 % (0-3) 0 % (0-3) Basophils % (Manual) 0 % (0-2) 0 % (0-2) Band Neutrophils 0 % (0-8) 0 % (0-8) Platelet Estimate Adequate Adequate Platelet Morphology Normal Normal Hypochromasia 2+ Anisocytosis 1+ Spherocytes 1+ Erythrocyte Sedimentation Rate 107 MM/HR (0-20) H Sodium Level 137 MMOL/L (136-145) Potassium Level 4.3 MMOL/L (3.5-5.1) Chloride Level 106 MMOL/L (98-107) Carbon Dioxide Level 22 MMOL/L (21-32) Anion Gap 10 mmol/L (5-15) Blood Urea Nitrogen 26 mg/dL (7-18) H Creatinine 0.9 MG/DL (0.55-1.30) Estimat Glomerular Filtration Rate > 60 mL/min (>60) Glucose Level 144 MG/DL (74-106) #H Calcium Level 7.2 MG/DL (8.5-10.1) L Phosphorus Level 3.1 MG/DL (2.5-4.9) Total Bilirubin 1.0 MG/DL (0.2-1.0) Aspartate Amino Transf (AST/SGOT) 153 U/L (15-37) H Alanine Aminotransferase (ALT/SGPT) 230 U/L (12-78) H Alkaline Phosphatase 46 U/L (46-116) C-Reactive Protein, Quantitative 22.9 mg/dL (0.00-0.90) H Total Protein 5.1 G/DL (6.4-8.2) L Albumin 1.4 G/DL (3.4-5.0) L Globulin 3.7 g/dL Albumin/Globulin Ratio 0.4 (1.0-2.7) L Amylase Level 24 U/L (25-115) L Lipase 54 U/L (73-393) L Test 05/25/19 09:20 White Blood Count 10.1 K/UL (4.8-10.8) Red Blood Count 2.66 M/UL (4.70-6.10) L Hemoglobin 7.9 G/DL (14.2-18.0) L Hematocrit 23.4 % (42.0-52.0) L Mean Corpuscular Volume 88 FL (80-99) Mean Corpuscular Hemoglobin 29.8 PG (27.0-31.0) Mean Corpuscular Hemoglobin Concent 33.9 G/DL (32.0-36.0) Red Cell Distribution Width 17.7 % (11.6-14.8) H Platelet Count 248 K/UL (150-450) Mean Platelet Volume 6.1 FL (6.5-10.1) L Neutrophils (%) (Auto) % (45.0-75.0) Lymphocytes (%) (Auto) % (20.0-45.0) Monocytes (%) (Auto) % (1.0-10.0) Eosinophils (%) (Auto) % (0.0-3.0) Basophils (%) (Auto) % (0.0-2.0) Differential Total Cells Counted 100 Neutrophils % (Manual) 92 % (45-75) H Lymphocytes % (Manual) 4 % (20-45) L Monocytes % (Manual) 2 % (1-10) Eosinophils % (Manual) 1 % (0-3) Basophils % (Manual) 0 % (0-2) Band Neutrophils 1 % (0-8) Platelet Estimate Adequate Platelet Morphology Normal Hypochromasia 3+ Anisocytosis 1+ Spherocytes 1+ Troponin I 0.062 ng/mL (0.000-0.056) Height (Feet): 5 Height (Inches): 7.00 Weight (Pounds): 151 Medications Current Medications Medications (Trade) Dose Ordered Sig/Mervat Route PRN Reason Start Time Stop Time Status Last Admin Dose Admin Acetaminophen (Tylenol) 650 mg Q4H PRN ORAL FEVER 05/24/19 17:30 06/23/19 17:29 Albuterol/ Ipratropium (Albuterol/ Ipratropium) 3 ml Q4H PRN HHN Shortness of Breath 05/24/19 17:30 05/29/19 17:29 Amikacin Protocol (Amikacin pharmacy to dose) 1 ea DAILY PRN MISC Per rx protocol 05/25/19 11:15 06/24/19 11:14 Amikacin Sulfate 1000 mg/Sodium Chloride 114 ml @ 228 mls/hr Q36H IV 05/25/19 14:00 06/01/19 13:59 Aminocaproic Acid 5000 mg/Sodium Chloride 130 ml @ 130 mls/hr ONCE ONCE IV 05/25/19 13:00 05/25/19 13:59 Chlorhexidine Gluconate (Stacie-Hex 2%) 1 applic DAILY@2000 TOPIC 05/25/19 20:00 06/24/19 19:59 Dextrose (Dextrose 50%) 25 ml Q30M PRN IV Hypoglycemia 05/24/19 17:30 06/23/19 17:29 Dextrose (Dextrose 50%) 50 ml Q30M PRN IV Hypoglycemia 05/24/19 17:30 06/23/19 17:29 Heparin Sodium/ Sodium Chloride (Heparin 1000 units/500ml Premix) 1,000 unit ONCE IV 05/25/19 12:00 05/25/19 23:59 Lidocaine HCl (Xylocaine 1% 30ml) 30 ml ONCE INJ 05/25/19 12:00 05/25/19 23:59 Norepinephrine Bitartrate 4 mg/ Dextrose 250 ml @ 0 mls/hr Q24H IV 05/24/19 20:04 06/23/19 20:03 05/25/19 07:06 Ondansetron HCl (Zofran) 4 mg Q6H PRN IVP Nausea & Vomiting 05/24/19 17:30 06/23/19 17:29 05/24/19 18:11 Pantoprazole (Protonix) 40 mg EVERY 12 HOURS IVP 05/25/19 21:00 06/24/19 20:59 Piperacillin Sod/ Tazobactam Sod 3.375 gm/Sodium Chloride 110 ml @ 27.5 mls/hr EVERY 8 HOURS IVPB 05/25/19 14:00 05/30/19 13:59 Sodium Chloride 1,000 ml @ 75 mls/hr [id number] IV 05/24/19 22:00 06/23/19 21:59 05/25/19 11:58 Vancomycin HCl (Vanco rx to dose) 1 ea DAILY PRN MISC Per rx protocol 05/25/19 11:15 06/24/19 11:14 Vancomycin HCl 750 mg/Sodium Chloride 275 ml @ 183.333 mls/hr Q12H IVPB 05/25/19 17:00 05/30/19 16:59 Assessment/Plan Assessment/Plan: A: Leukocytosis, Sp Sepsis/shock improved Fever Probable Pneum(HAC) - CXR: Right lung opacities and questionable patchy left lung opacities, likely pneumonia Transaminitis ( due to HypoTN) upper airway bleed sp Trach and PEG throat cancer P: Cont pt on Zosyn and IV Vanco # 1 hold Amikacin # 1 Monitor CBC Monitor CMP Monitor CXR Monitor Cx (B,U,S) off of pressors Rsp Support Thank you , we will follow the pt with you Jose Luis Alba MD May 25, 2019 13:36
[2019-05-25] MEDS ORDERED: Amikacin 1,000 MG in NS 110 ML IV SCH (14:00)
[2019-05-25] MEDS: Zosyn 3.375gm q8h **Extended infusion IVPB SCH ×4 (14:57→21:29)
--- NOTE | 2019-05-25 15:19 | NUR ---
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 100.8 HR 130 RR 32 B/P 86/50 AC 16 TV 550 FIO2 50% PEEP 5 PH 7.15 PCO2 65.5 PO2 101.5 HCO3 22.6 O2SAT 97.6 LACTID ACID 4.20 BUN 23 TROP 0.079 BNP 570 CXR= Right lung opacities and questionable patchy left lung opacities, likely PNA IS: IV NS BOLUS VANCO IV ZOSYN IV DUONEB INLINE TX ADMITTED TO ICU@[id number] ICU STATUS DCP RETURN TO [facility]AB [facility] ON
--- NOTE | 2019-05-25 16:00 | NUR ---
NURSE NOTES: Patient showing no sign of acute distress. Patient remains on trach to ventilator with setting of AC 16, tidal volume 550, FIO2 50%, and PEEP 5. Patient remains NPO at this time. NO vomiting noted at this time. Patient no longer coughing out blood from the mouth. Patient still has blood tinged sputum coming from trach. Fernandez remains in place and draining light supa urine. Right AC 24 gauge, right upper arm midline, right wrist 20 gauge, and left forearm 20 gauge peripheral IV's all patent, asymptomatic, and running 0.45% normal saline at 75mL/hr, and second PRBC. Patient left arm remains swollen at this time. NO evidence of IV infiltration. Dr Day confirmed that the IV does not appear infiltrated. Levophed remains off with stable blood pressure. No other drips. Bed in low position with bed alarm on and call light in reach at this time. Will continue to monitor. Patient repositioned and oral care performed.
--- NOTE | 2019-05-25 17:00 | NUR ---
NURSE NOTES: CBC timed draw ordered for this time. Lab unable to draw due to patient receiving blood. Next CBC due at 2100. Will follow with Hgb/Hct level post transfusion.
[2019-05-25] MEDS: Vancomycin 750mg/NS 275ml IVPB SCH ×2 (17:32)
--- NOTE | 2019-05-25 18:00 | NUR ---
NURSE NOTES: Patient blood pressure and HR remain stable. NO sign of acute distress. Suctioning and oral care, repositioning, and bed bath done at this time. Bed in low position with bed alarm on and call light in reach. Will continue to monitor.
--- NOTE | 2019-05-25 18:58 | History & Physical ---
History and Physical History & Physicial Dictated for Int Med-DR Davis no. [id number]. ICU Igor Lcuero MD May 25, 2019 18:58
--- NOTE | 2019-05-25 19:30 | NUR ---
NURSE NOTES: Received report from ANTONY Hahn. Pt is resting on the bed and awake and alert. Trach to Vent dependent setting with AC: 16, T: 550, P: 5, FiO2 60% and SaO2 99% noted. Given tracheal suction and noted pinkish secretion noted but no active bleeding noted from mouth at this time. provided oral care. IV site intact and no sign of infiltration noted but noted both arm swelling and MD aware. Rt. upper arm midline site dressing is clean and dry. Denied pain at this time. On running with 1/2NS @ 75cc/hr. No fever, BP stable. Hold Levophed drip. Will give FFP 1 unit blood transfusion. Awaiting medical record from [facility]. Placed fall precaution. Will continue to care plan.
--- NOTE | 2019-05-25 19:30 | NUR ---
HAND-OFF: Report given to ANTONY Esparza. Patient vital signs stable. one FFP still to be given. Endorsed to follow up. Addendum: 05/25/19 at 2002 by Selma Szymanski RN Only Pathology report received from [facility]. Complete record requested not received. Endorsed to follow up. Addendum: 05/25/19 at 2024 by Selma Szymanski RN Spoke with Dr Lucero in person. He changed CBC order from Q4Hr to Q8Hr after post blood transfusion CBC lab draw. Order read back, verified, and placed.
[2019-05-25] MEDS ORDERED: Dyna-Hex 2% Top Sol 2oz TOPIC SCH ×2 (20:00)
--- NOTE | 2019-05-25 20:00 | History and Physical Report ---
DATE OF ADMISSION: 05/24/2019 CHIEF COMPLAINT: The patient is a 73-year-old male, who presents with a chief complaint of coughing up blood. HISTORY OF PRESENT ILLNESS: The patient apparently had throat cancer approximately four years ago. The patient was treated at [place] with chemotherapy and radiation therapy. Apparently, the patient was doing fairly well in the interim. Approximately two weeks ago, the patient was admitted to [facility]. The patient was admitted with respiratory arrest. The patient was found to have an obstruction of the esophagus secondary to an esophageal mass. According to the patient's family, the biopsy of the esophageal mass report is not available. The patient underwent tracheostomy for airway protection and PEG placement at [facility]. The patient was discharged to [facility] on May 22, 2019. On May 24, 2019, staff at [facility] noticed the patient was coughing up blood. The patient was also hypotensive. The patient was transferred to [facility] for evaluation. The patient is admitted for esophageal mass and acute tumor hemorrhage. Of note, the patient himself is unable to communicate verbally. The patient is able to communicate in writing. REVIEW OF SYSTEMS: CONSTITUTIONAL: The patient denies weight loss or weight gain. The patient denies fevers or chills. HEENT: The patient complains of esophageal mass as above. The patient denies headache. CARDIOVASCULAR: The patient denies palpitation or chest pain. CHEST: The patient denies wheeze or shortness of breath. ABDOMEN: The patient denies nausea, vomiting, diarrhea, or constipation. GENITOURINARY: The patient denies dysuria or increased frequency of urination. NEUROMUSCULAR: The patient denies seizures or generalized weakness. PAST MEDICAL HISTORY: Significant for: 1. Throat cancer in 2016, status post radiation and chemotherapy in [place], as above. 2. Respiratory failure, status post tracheostomy placement approximately two weeks ago at [facility]. PAST SURGICAL HISTORY: Significant for: 1. Tracheostomy placement. 2. PEG placement. CURRENT MEDICATIONS: 1. Lovenox 40 mg subcutaneously nightly. 2. Iron sulfate 7.5 mL per G-tube daily. 3. DuoNeb nebulized q.4 h. p.r.n. 4. Melatonin 3 mg via G-tube nightly. 5. Nexium 40 mg per G-tube every morning. 6. Vitamin C per G-tube daily. ALLERGIES: To levofloxacin. SOCIAL HISTORY: The patient is and is a resident of [facility]. The patient denies tobacco or alcohol use. PHYSICAL EXAMINATION: VITAL SIGNS: Temperature 100.8 degrees Fahrenheit, respirations 25 to 38, and blood pressure 76 to 107/35 to 61. Pulse oximetry 100% on mechanical vent. GENERAL: The patient is a well-nourished male, who is in moderate distress. HEENT: Eyes, pupils are equal and responsive to light and accommodation. Extraocular movements are intact. Tracheostomy is present. CHEST: Lungs are clear with mechanical breath sounds bilaterally. ABDOMEN: Soft, nontender, and nondistended. Positive bowel sounds. No evidence of hepatosplenomegaly. Currently, no rebound or guarding noted. EXTREMITIES: Negative for clubbing, cyanosis, or edema. RECTAL/GENITAL: Not performed. NEUROLOGICAL: Cranial nerves II to XII grossly intact without focal deficits. Motor strength is 5/5 bilaterally. Deep tendon reflexes are 2+ plantar. IMAGING: A chest x-ray revealed right lung opacity and questionable left lung opacities likely consistent with pneumonia. An abdominal x-ray was reported as no acute disease. LABORATORY STUDIES: WBC 10.7, hemoglobin 8.4, hematocrit 25.5, and platelets 257,000. Sodium 137, potassium 4.7, chloride 103, CO2 20, BUN 23, and creatinine 1.0. Glucose 313. AST elevated at 59, ALT elevated at 113. Troponin 0.079. ASSESSMENT: This is a 73-year-old male with: 1. Esophageal mass. 2. Esophageal hemorrhage. 3. Airway obstruction. 4. Hypoxia. 5. History of esophageal cancer. 6. Elevated liver function tests. TREATMENT: 1. Esophageal mass/hemorrhage. A Hematology/Oncology consultation has been obtained with Dr. Paz. The patient will be typed and crossed for two units of packed RBCs for possible transfusion. The patient is currently hypotensive in the intensive care unit. The patient is currently on pressors. We will transfuse two units of packed RBCs when available. 2. Hypoxia. A Pulmonary/Critical Care consultation has been obtained with Dr. Claudia Chi. Hypoxia is probably secondary to tracheal obstruction secondary to hemorrhage as above. Continue vent per Dr. Chi. 3. Pneumonia. The patient has been started empirically on Zosyn and vancomycin. An Infectious Disease consultation has been obtained with Dr. Alba. We will follow recommendations of Infectious Disease. A sputum culture is pending. 4. Elevated liver function tests/esophageal mass. A Gastroenterology consultation has been obtained with Dr. Narciso Engle. The patient may require repeat biopsy of esophageal mass. We will follow recommendations of Gastroenterology. A CT scan of the neck is pending. Igor Lucero M.D. DR: ARLEEN JOB#: [id number] CC:
--- NOTE | 2019-05-25 20:15 | NUR ---
NURSE NOTES: Started FFP 1 unit blood transfusion. Reeducated Pt regarding transfusion reaction and verbally understand. verified with other nursed. Checked V/S BP: 102/61, HR: 89, BT: 97.8F. Will continue to monitor any change of condition.
[2019-05-25] MEDS: Dyna-Hex 2% Top Sol 2oz TOPIC SCH (20:22)
--- NOTE | 2019-05-25 20:30 | NUR ---
NURSE NOTES: On running with FFP blood transfusion without adverse reaction. V/S : BP:106/61,HR: 89, BT: 97.8F. Will continue to monitor any change of condition.
--- NOTE | 2019-05-25 21:15 | NUR ---
NURSE NOTES: Finished FFP 1unit blood transfusion without adverse reaction. V/S BP: 114/56, HR: 89, BT: 97.8F. Will continue to monitor any change of condition.
[2019-05-25] MEDS: Pantoprazole Inj IVP SCH (21:29)
--- NOTE | 2019-05-25 22:00 | NUR ---
NURSE NOTES: Pt is resting on the bed and watching cell phone. BP stable. Tolerated well with current Vent setting. Still noted pinkish secretion when suctioned but no sign of active bleeding from mouth. Pt has Fernandez cath and yellowish urine urinated well. Placed fall precaution. Will continue to care plan.
[2019-05-25 22:33] LABS: HEMOGLOBIN 8.1 G/DL (14.2-18.0); MEAN CORPUSCULAR VOLUME 89 FL (80-99); PLATELET COUNT 167 K/UL (150-450); RED CELL DISTRIBUTION WIDTH 17.7 % (11.6-14.8); WHITE BLOOD COUNT 6.2 K/UL (4.8-10.8)
[2019-05-26] VITALS (24 sets, daily range): BP systolic 94–160; BP diastolic 50–74
--- NOTE | 2019-05-26 | NUR ---
NURSE NOTES: Pt is resting on the bed and awake and alert. No sign of acute distress noted. Provided oral care. Given tracheal and oral suction. V/S stable. Placed fall precaution. Will continue to care plan.
--- NOTE | 2019-05-26 02:10 | NUR ---
HAND-OFF: Report given to ANTONY Colindres. Pt. is sleeping on the bed and no sign of acute distress noted. Tolerated well with current Vent setting.
--- NOTE | 2019-05-26 03:00 | NUR ---
NURSE NOTES: Suctioned tn blood streak secretions minimal in amt. pt occ goes to sinus kumar as low as 50 but asymptomatic.
--- NOTE | 2019-05-26 05:00 | NUR ---
NURSE NOTES: Resting well at this time with vss..
[2019-05-26] MEDS: Vancomycin 750mg/NS 275ml IVPB SCH ×4 (05:09→17:01)
[2019-05-26] MEDS: Zosyn 3.375gm q8h **Extended infusion IVPB SCH ×6 (05:52→22:51)
--- NOTE | 2019-05-26 06:00 | NUR ---
NURSE NOTES: Complete bath with bed changed done.
[2019-05-26 06:05] LABS: HEMATOCRIT 22.2 % (42.0-52.0); HEMOGLOBIN 7.4 G/DL (14.2-18.0); MEAN CORPUSCULAR VOLUME 89 FL (80-99); PLATELET COUNT 162 K/UL (150-450); RED BLOOD COUNT 2.49 M/UL (4.70-6.10); RED CELL DISTRIBUTION WIDTH 17.9 % (11.6-14.8); WHITE BLOOD COUNT 5.2 K/UL (4.8-10.8)
[2019-05-26 06:12] LABS: INR 1.1 (0.9-1.1)
[2019-05-26 06:36] LABS: ALANINE AMINOTRANSFERASE 157 U/L (12-78); ALBUMIN 1.3 G/DL (3.4-5.0); ALBUMIN/GLOBULIN RATIO 0.4 (1.0-2.7); ALKALINE PHOSPHATASE 47 U/L (46-116); ANION GAP 11 mmol/L (5-15); ASPARTATE AMINO TRANSFERASE 66 U/L (15-37); BILIRUBIN,TOTAL 1.7 MG/DL (0.2-1.0); BLOOD UREA NITROGEN 25 mg/dL (7-18); CALCIUM 7.5 MG/DL (8.5-10.1); CARBON DIOXIDE 19 MMOL/L (21-32); CHLORIDE 110 MMOL/L (98-107); CREATININE 0.8 MG/DL (0.55-1.30); FERRITIN 1190 NG/ML (8-388); POTASSIUM 3.6 MMOL/L (3.5-5.1); SODIUM 140 MMOL/L (136-145)
[2019-05-26 06:48] LABS: BILIRUBIN,DIRECT 0.5 MG/DL (0.0-0.3)
--- NOTE | 2019-05-26 07:38 | NUR ---
HAND-OFF: Report given to Janessa HARDY.
--- NOTE | 2019-05-26 08:00 | NUR ---
NURSE NOTES: Received change of shift report from Jeanne HARDY. Pt is awake, alert, oriented, communicates via writing, pt is on trach to vent. Shiley 8, AC16, VT550, Peep 5.0, FIO2 45% at 100% O2Sat. SB on reflesher, HR from 52-59, with BUE edema. Pt has right UA midline with IV fluid infusing 0.45% NS at 75ml/hour. Pt also has right AC #24G, left UA #20G peripheral IV access, saline locked, patent/intact. Temp 97.7F axillary. GT currently clamped, feeding on hold. Fernandez catheter is draining clear/dark yellow urine. Skin is intact. HOB is at 30degrees, bed locked, in lowest position, three side rails up, and call light is placed within reach. Will continue with plan of care.
[2019-05-26] MEDS ORDERED: NS 275ml ONE (08:52)
[2019-05-26] MEDS: Pantoprazole Inj IVP SCH ×2 (09:07→21:23)
--- NOTE | 2019-05-26 09:48 | Surgery Progress Note ---
Surgery Progress Note Subjective Symptoms: improved Objective Last 24 Hour Vital Signs Date Time Temp Pulse Resp B/P (MAP) Pulse Ox O2 Delivery O2 Flow Rate FiO2 05/26/19 09:00 53 23 128/56 (80) 100 05/26/19 08:00 56 22 121/52 (75) 100 05/26/19 07:10 59 23 45 05/26/19 07:00 97.7 61 21 116/58 (77) 98 05/26/19 06:00 65 22 108/50 (69) 96 05/26/19 05:11 79 24 45 05/26/19 05:00 54 17 120/57 (78) 100 05/26/19 04:00 Mechanical Ventilator 05/26/19 04:00 45 05/26/19 04:00 78 05/26/19 04:00 98.3 55 17 108/54 (72) 100 05/26/19 03:00 57 18 95/51 (66) 99 05/26/19 02:30 76 23 45 05/26/19 02:00 54 16 101/53 (69) 100 05/26/19 01:00 70 25 94/67 (76) 99 05/26/19 00:32 78 24 50 05/26/19 00:00 Mechanical Ventilator 05/26/19 00:00 75 05/26/19 00:00 97.6 73 21 100/56 (71) 99 05/26/19 00:00 50 05/25/19 23:00 74 19 102/57 (72) 100 05/25/19 22:43 78 20 55 05/25/19 22:00 84 23 101/55 (70) 99 05/25/19 21:15 97.8 89 26 114/56 (75) 100 05/25/19 21:08 93 31 60 05/25/19 21:00 88 21 120/60 (80) 100 05/25/19 20:30 97.8 89 24 106/61 (76) 99 05/25/19 20:15 97.9 86 25 102/61 (75) 100 05/25/19 20:00 97.9 82 23 100/54 (69) 100 05/25/19 20:00 Mechanical Ventilator 05/25/19 20:00 50 05/25/19 20:00 84 05/25/19 19:30 87 24 96/56 (69) 96 05/25/19 19:15 89 26 99/58 (72) 96 05/25/19 19:00 90 26 104/62 (76) 98 05/25/19 18:54 92 29 60 05/25/19 18:00 89 25 99/63 (75) 100 05/25/19 17:45 89 28 118/67 (84) 99 05/25/19 17:30 88 29 100/62 (75) 97 05/25/19 17:15 86 26 90/57 (68) 97 05/25/19 17:00 85 26 94/57 (69) 94 05/25/19 16:46 90 26 107/59 (75) 95 05/25/19 16:45 91 29 77/58 (64) 92 05/25/19 16:44 87 34 50 05/25/19 16:30 90 25 109/76 (87) 98 05/25/19 16:15 90 24 105/60 (75) 97 05/25/19 16:00 50 05/25/19 16:00 88 05/25/19 16:00 97.8 92 29 118/61 (80) 97 05/25/19 16:00 Mechanical Ventilator 05/25/19 15:00 96 23 97/66 (76) 100 05/25/19 15:00 86 29 95/51 (66) 99 05/25/19 14:45 90 28 50 05/25/19 14:00 86 29 95/51 (66) 99 05/25/19 13:45 88 33 93/59 (70) 99 05/25/19 13:34 79 19 50 05/25/19 13:30 86 18 107/65 (79) 100 05/25/19 13:15 86 33 94/56 (69) 98 05/25/19 13:00 90 30 94/63 (73) 99 05/25/19 13:00 108/64 05/25/19 12:45 101 32 108/64 (79) 100 05/25/19 12:30 107 21 117/62 (80) 95 05/25/19 12:15 105 22 126/73 (90) 100 05/25/19 12:00 50 05/25/19 12:00 97.7 106 27 89/65 (73) 97 05/25/19 12:00 107 2/24/20 12:00 126/73 05/25/19 12:00 Mechanical Ventilator 05/25/19 11:45 107 28 119/65 (83) 100 05/25/19 11:30 109 31 104/64 (77) 100 05/25/19 11:15 108 28 113/74 (87) 100 05/25/19 11:00 113/74 05/25/19 11:00 110 28 104/67 (79) 100 05/25/19 10:55 113 27 50 05/25/19 10:45 109 29 126/78 (94) 99 05/25/19 10:30 107 21 119/67 (84) 99 05/25/19 10:00 114/70 05/25/19 10:00 109 31 104/69 (81) 98 I&O Intake and Output 05/25/19 05/26/19 19:00 07:00 Intake Total 2142.500 ml 1649.5 ml Output Total 600 ml 635 ml Balance 1542.500 ml 1014.5 ml Intake IV Total 1642.500 ml 1349.5 ml Blood Product 500 ml 300 ml Output Urine Total 600 ml 635 ml Cardiovascular: RSR Respiratory: decreased breath sounds Abdomen: soft, non-tender, present bowel sounds Extremities: no cyanosis, other Laboratory Tests Test 05/25/19 22:12 05/26/19 05:00 White Blood Count 6.2 K/UL (4.8-10.8) 5.2 K/UL (4.8-10.8) Red Blood Count 2.80 M/UL (4.70-6.10) L 2.49 M/UL (4.70-6.10) L Hemoglobin 8.1 G/DL (14.2-18.0) L 7.4 G/DL (14.2-18.0) L Hematocrit 25.0 % (42.0-52.0) L 22.2 % (42.0-52.0) L Mean Corpuscular Volume 89 FL (80-99) 89 FL (80-99) Mean Corpuscular Hemoglobin 28.8 PG (27.0-31.0) 29.5 PG (27.0-31.0) Mean Corpuscular Hemoglobin Concent 32.2 G/DL (32.0-36.0) 33.2 G/DL (32.0-36.0) Red Cell Distribution Width 17.7 % (11.6-14.8) H 17.9 % (11.6-14.8) H Platelet Count 167 K/UL (150-450) 162 K/UL (150-450) Mean Platelet Volume 7.9 FL (6.5-10.1) 8.0 FL (6.5-10.1) Neutrophils (%) (Auto) % (45.0-75.0) % (45.0-75.0) Lymphocytes (%) (Auto) % (20.0-45.0) % (20.0-45.0) Monocytes (%) (Auto) % (1.0-10.0) % (1.0-10.0) Eosinophils (%) (Auto) % (0.0-3.0) % (0.0-3.0) Basophils (%) (Auto) % (0.0-2.0) % (0.0-2.0) Differential Total Cells Counted 100 Neutrophils % (Manual) 90 % (45-75) H Pending Lymphocytes % (Manual) 5 % (20-45) L Pending Monocytes % (Manual) 2 % (1-10) Eosinophils % (Manual) 0 % (0-3) Basophils % (Manual) 1 % (0-2) Band Neutrophils 2 % (0-8) Platelet Estimate Adequate Pending Platelet Morphology Normal Pending Hypochromasia 3+ Anisocytosis 1+ Reticulocyte Count Pending Prothrombin Time 11.6 SEC (9.30-11.50) H Prothromb Time International Ratio 1.1 (0.9-1.1) Activated Partial Thromboplast Time 45 SEC (23-33) H Sodium Level 140 MMOL/L (136-145) Potassium Level 3.6 MMOL/L (3.5-5.1) Chloride Level 110 MMOL/L (98-107) H Carbon Dioxide Level 19 MMOL/L (21-32) L Anion Gap 11 mmol/L (5-15) Blood Urea Nitrogen 25 mg/dL (7-18) H Creatinine 0.8 MG/DL (0.55-1.30) Estimat Glomerular Filtration Rate > 60 mL/min (>60) Glucose Level 101 MG/DL (74-106) Calcium Level 7.5 MG/DL (8.5-10.1) L Ferritin 1190 NG/ML (8-388) H Total Bilirubin 1.7 MG/DL (0.2-1.0) H Direct Bilirubin 0.5 MG/DL (0.0-0.3) H Aspartate Amino Transf (AST/SGOT) 66 U/L (15-37) H Alanine Aminotransferase (ALT/SGPT) 157 U/L (12-78) H Alkaline Phosphatase 47 U/L (46-116) Total Protein 4.6 G/DL (6.4-8.2) L Albumin 1.3 G/DL (3.4-5.0) L Globulin 3.3 g/dL Albumin/Globulin Ratio 0.4 (1.0-2.7) L Carcinoembryonic Antigen Pending Vitamin B12 Level 1321 PG/ML (193-986) H Folate 17.8 NG/ML (8.6-58.9) Thyroid Stimulating Hormone (TSH) 0.801 uiU/mL (0.358-3.740) Free Thyroxine 0.83 NG/DL (0.76-1.46) Plan Problems: (1) Esophageal mass Assessment & Plan: This is a 73-year-old male with known history of throat cancer possible esophageal cancer status post chemoradiation [facility] a few years back who recently has developed cardiac arrest shortness of breath respiratory compromise and had tracheostomy at outside facility for airway protection. Was in recovery until recently identified to have desaturation with blood clots noted within tracheostomy tube suctions as well as oral suctioning. Patient admitted for care and management identified to have anemia bleeding and hemorrhage. Surgery called to evaluate patient was seen. Hemorrhage has significantly decreased and currently no active bleeding noted. H&H trending down and being transfused as per my recommendations. Patient is awake alert states he feels better. He slowly weaning off pressors. Unfortunately given history current condition and the above no acute surgical intervention indicated or recommended. Will obtain attempt records from [facility] as well as [facility]. Continue with deep suctioning by respiratory. Okay for oral suctioning. Monitor for bleeding. Fortunately currently no active bleeding and hopefully its its way. We will keep close eye on H&H as well as coags to ensure patient improving. Permissive hypotension okay. Wean pressors. Thank you for let me participation's care will continue to follow with recommendations and further evaluation. Labs noted H&H improved after transfusion LFTs bilirubin noted likely response to bleeding patient states no longer currently actively bleeding otherwise stable off pressors Continue with current treatment will monitor (2) Hemoptysis Assessment & Plan: Findings: Interstitial and airspace opacities are seen throughout the right mid and lower lung. Questionable patchy peripheral opacities are also present on the left. Heart size is normal. The pleural spaces are clear Impression: Right lung opacities and questionable patchy left lung opacities, likely pneumonia. (3) Head and neck cancer James Brothers May 26, 2019 09:48
--- NOTE | 2019-05-26 10:00 | NUR ---
NURSE NOTES: Venous duplex was done at bedside on lower extremities, and resulted negative. Bilateral SCDs have now been placed on lower extremities for DVT prophylaxis. AM meds were administered. VS remain stable. Pt denies any pain or discomfort at this time. RT at bedside changing the trach dressing which is saturated with small amount of blood. Pt was also seen by Dr Brothers, and trach site was examined. No new orders were received at this time.
--- NOTE | 2019-05-26 10:11 | Pulmonolgy Critical Care Note ---
Critical Care - Asmt/Plan Problems: (1) Hemorrhagic shock (2) Nosocomial pneumonia (3) Upper GI bleeding (4) Chronic respiratory failure (5) Esophageal mass (6) Gastrostomy tube in place (7) Head and neck cancer (8) Radiation fibrosis of lung Respiratory: monitor respiratory rate, adjust FIO2, CXR Cardiac: continue to monitor HR/BP Renal: F/U I&O, keep IV fluid, increase IV fluid, check electrolytes Infectious Disease: check cultures, continue antibiotics Gastrointestinal: continue feedings/current rate Endocrine: monitor blood sugar Hematologic: monitor H/H, transfuse if hgb<8.5 - 2 units today Neurologic: PRN Ativan, PRN Morphine Disposition: keep in ICU Notes Reviewed: licensing officer, renal Discussed with: nurses, consultants, high risk case managermanager care management - Objective Last 24 Hour Vital Signs Date Time Temp Pulse Resp B/P (MAP) Pulse Ox O2 Delivery O2 Flow Rate FiO2 05/26/19 09:00 53 23 128/56 (80) 100 05/26/19 08:00 56 22 121/52 (75) 100 05/26/19 07:10 59 23 45 05/26/19 07:00 97.7 61 21 116/58 (77) 98 05/26/19 06:00 65 22 108/50 (69) 96 05/26/19 05:11 79 24 45 05/26/19 05:00 54 17 120/57 (78) 100 05/26/19 04:00 Mechanical Ventilator 05/26/19 04:00 45 05/26/19 04:00 78 05/26/19 04:00 98.3 55 17 108/54 (72) 100 05/26/19 03:00 57 18 95/51 (66) 99 05/26/19 02:30 76 23 45 05/26/19 02:00 54 16 101/53 (69) 100 05/26/19 01:00 70 25 94/67 (76) 99 05/26/19 00:32 78 24 50 05/26/19 00:00 Mechanical Ventilator 05/26/19 00:00 75 05/26/19 00:00 97.6 73 21 100/56 (71) 99 05/26/19 00:00 50 05/25/19 23:00 74 19 102/57 (72) 100 05/25/19 22:43 78 20 55 05/25/19 22:00 84 23 101/55 (70) 99 05/25/19 21:15 97.8 89 26 114/56 (75) 100 05/25/19 21:08 93 31 60 05/25/19 21:00 88 21 120/60 (80) 100 05/25/19 20:30 97.8 89 24 106/61 (76) 99 05/25/19 20:15 97.9 86 25 102/61 (75) 100 05/25/19 20:00 97.9 82 23 100/54 (69) 100 05/25/19 20:00 Mechanical Ventilator 05/25/19 20:00 50 05/25/19 20:00 84 05/25/19 19:30 87 24 96/56 (69) 96 05/25/19 19:15 89 26 99/58 (72) 96 05/25/19 19:00 90 26 104/62 (76) 98 05/25/19 18:54 92 29 60 05/25/19 18:00 89 25 99/63 (75) 100 05/25/19 17:45 89 28 118/67 (84) 99 05/25/19 17:30 88 29 100/62 (75) 97 05/25/19 17:15 86 26 90/57 (68) 97 05/25/19 17:00 85 26 94/57 (69) 94 05/25/19 16:46 90 26 107/59 (75) 95 05/25/19 16:45 91 29 77/58 (64) 92 05/25/19 16:44 87 34 50 05/25/19 16:30 90 25 109/76 (87) 98 05/25/19 16:15 90 24 105/60 (75) 97 05/25/19 16:00 50 05/25/19 16:00 88 05/25/19 16:00 97.8 92 29 118/61 (80) 97 05/25/19 16:00 Mechanical Ventilator 05/25/19 15:00 96 23 97/66 (76) 100 05/25/19 15:00 86 29 95/51 (66) 99 05/25/19 14:45 90 28 50 05/25/19 14:00 86 29 95/51 (66) 99 05/25/19 13:45 88 33 93/59 (70) 99 05/25/19 13:34 79 19 50 05/25/19 13:30 86 18 107/65 (79) 100 05/25/19 13:15 86 33 94/56 (69) 98 05/25/19 13:00 90 30 94/63 (73) 99 05/25/19 13:00 108/64 05/25/19 12:45 101 32 108/64 (79) 100 05/25/19 12:30 107 21 117/62 (80) 95 05/25/19 12:15 105 22 126/73 (90) 100 05/25/19 12:00 50 05/25/19 12:00 97.7 106 27 89/65 (73) 97 05/25/19 12:00 107 05/25/19 12:00 126/73 05/25/19 12:00 Mechanical Ventilator 05/25/19 11:45 107 28 119/65 (83) 100 05/25/19 11:30 109 31 104/64 (77) 100 05/25/19 11:15 108 28 113/74 (87) 100 05/25/19 11:00 113/74 05/25/19 11:00 110 28 104/67 (79) 100 05/25/19 10:55 113 27 50 05/25/19 10:45 109 29 126/78 (94) 99 05/25/19 10:30 107 21 119/67 (84) 99 Status: awake Neck: trach Lungs: rhonchi Heart: HR/BP stable Abdomen: soft, active bowel sounds Extremities: no C/C/E Micro: Microbiology Date/Time Source Procedure Growth Status 05/24/19 16:53 Blood Blood Culture - Preliminary NO GROWTH AFTER 24 HOURS Resulted 05/24/19 16:53 Blood Blood Culture - Preliminary NO GROWTH AFTER 24 HOURS Resulted 05/25/19 14:01 Urine,Clean Catch Urine Culture - Preliminary NO GROWTH Resulted Critical Care - Subjective ROS Limited/Unobtainable: Yes Condition: critical EKG Rhythm: Sinus Rhythm FI02: 45 Vent Support Breath Rate: 16 Vent Support Mode: AC Vent Tidal Volume: 550 Sputum Amount: Small PEEP: 5.0 PIP: 26 I&O: Intake and Output 05/25/19 05/26/19 18:59 06:59 Intake Total 2101.667 ml 1649.833 ml Output Total 600 ml 625 ml Balance 1501.667 ml 1024.833 ml Intake IV Total 1601.667 ml 1349.833 ml Blood Product 500 ml 300 ml Output Urine Total 600 ml 625 ml CXR: no change Labs: Laboratory Tests Test 05/25/19 22:12 05/26/19 05:00 White Blood Count 6.2 K/UL (4.8-10.8) 5.2 K/UL (4.8-10.8) Red Blood Count 2.80 M/UL (4.70-6.10) L 2.49 M/UL (4.70-6.10) L Hemoglobin 8.1 G/DL (14.2-18.0) L 7.4 G/DL (14.2-18.0) L Hematocrit 25.0 % (42.0-52.0) L 22.2 % (42.0-52.0) L Mean Corpuscular Volume 89 FL (80-99) 89 FL (80-99) Mean Corpuscular Hemoglobin 28.8 PG (27.0-31.0) 29.5 PG (27.0-31.0) Mean Corpuscular Hemoglobin Concent 32.2 G/DL (32.0-36.0) 33.2 G/DL (32.0-36.0) Red Cell Distribution Width 17.7 % (11.6-14.8) H 17.9 % (11.6-14.8) H Platelet Count 167 K/UL (150-450) 162 K/UL (150-450) Mean Platelet Volume 7.9 FL (6.5-10.1) 8.0 FL (6.5-10.1) Neutrophils (%) (Auto) % (45.0-75.0) % (45.0-75.0) Lymphocytes (%) (Auto) % (20.0-45.0) % (20.0-45.0) Monocytes (%) (Auto) % (1.0-10.0) % (1.0-10.0) Eosinophils (%) (Auto) % (0.0-3.0) % (0.0-3.0) Basophils (%) (Auto) % (0.0-2.0) % (0.0-2.0) Differential Total Cells Counted 100 Neutrophils % (Manual) 90 % (45-75) H Pending Lymphocytes % (Manual) 5 % (20-45) L Pending Monocytes % (Manual) 2 % (1-10) Eosinophils % (Manual) 0 % (0-3) Basophils % (Manual) 1 % (0-2) Band Neutrophils 2 % (0-8) Platelet Estimate Adequate Pending Platelet Morphology Normal Pending Hypochromasia 3+ Anisocytosis 1+ Reticulocyte Count Pending Prothrombin Time 11.6 SEC (9.30-11.50) H Prothromb Time International Ratio 1.1 (0.9-1.1) Activated Partial Thromboplast Time 45 SEC (23-33) H Sodium Level 140 MMOL/L (136-145) Potassium Level 3.6 MMOL/L (3.5-5.1) Chloride Level 110 MMOL/L (98-107) H Carbon Dioxide Level 19 MMOL/L (21-32) L Anion Gap 11 mmol/L (5-15) Blood Urea Nitrogen 25 mg/dL (7-18) H Creatinine 0.8 MG/DL (0.55-1.30) Estimat Glomerular Filtration Rate > 60 mL/min (>60) Glucose Level 101 MG/DL (74-106) Calcium Level 7.5 MG/DL (8.5-10.1) L Ferritin 1190 NG/ML (8-388) H Total Bilirubin 1.7 MG/DL (0.2-1.0) H Direct Bilirubin 0.5 MG/DL (0.0-0.3) H Aspartate Amino Transf (AST/SGOT) 66 U/L (15-37) H Alanine Aminotransferase (ALT/SGPT) 157 U/L (12-78) H Alkaline Phosphatase 47 U/L (46-116) Total Protein 4.6 G/DL (6.4-8.2) L Albumin 1.3 G/DL (3.4-5.0) L Globulin 3.3 g/dL Albumin/Globulin Ratio 0.4 (1.0-2.7) L Carcinoembryonic Antigen Pending Vitamin B12 Level 1321 PG/ML (193-986) H Folate 17.8 NG/ML (8.6-58.9) Thyroid Stimulating Hormone (TSH) 0.801 uiU/mL (0.358-3.740) Free Thyroxine 0.83 NG/DL (0.76-1.46) Claudia Chi MD May 26, 2019 10:11
--- NOTE | 2019-05-26 12:00 | NUR ---
NURSE NOTES: Pt was seen by Dr Engle. Order noted for abdominal ultrasound. Per MD, start GT feeding after ultrasound is done. Pt is awake, watching TV, with stable VS. Pt was also seen by Dr Chi. Order in place to transfuse 2units of pRBC for Hgb of 7.4. Pt is now receiving the 1st unit of pRBC. Consent in chart. VS currently stable, pt is afebrile.
--- NOTE | 2019-05-26 12:13 | General Progress Note ---
Assessment/Plan Problem List: (1) G tube feedings ICD Codes: Z93.1 - Gastrostomy status SNOMED: 469696351, 291625513, 620758911 (2) Chronic respiratory failure ICD Codes: J96.10 - Chronic respiratory failure, unspecified whether with hypoxia or hypercapnia SNOMED: 97324190 (3) Gastrostomy tube in place ICD Codes: Z93.1 - Gastrostomy status SNOMED: 156098839, 642551662 (4) Hemoptysis ICD Codes: R04.2 - Hemoptysis SNOMED: 57820459 (5) Esophageal mass ICD Codes: K22.8 - Other specified diseases of esophagus SNOMED: 026778679 Assessment/Plan: most likely bleeding from trach ppi pending blood transfusion start GTF abd us to eval for mets cbc and cmp for am Subjective ROS Limited/Unobtainable: No Allergies: Coded Allergies: LEVOFLOXACIN (Verified Allergy, Unknown, 05/24/19) Possible allergic reaction - low blood pressure Objective Last 24 Hour Vital Signs Date Time Temp Pulse Resp B/P (MAP) Pulse Ox O2 Delivery O2 Flow Rate FiO2 05/26/19 11:00 59 19 121/55 (77) 100 05/26/19 10:00 51 16 123/52 (75) 100 05/26/19 09:25 55 21 45 05/26/19 09:00 53 23 128/56 (80) 100 05/26/19 08:00 56 22 121/52 (75) 100 05/26/19 08:00 Mechanical Ventilator 05/26/19 08:00 57 05/26/19 08:00 45 05/26/19 07:10 59 23 45 05/26/19 07:00 97.7 61 21 116/58 (77) 98 05/26/19 06:00 65 22 108/50 (69) 96 05/26/19 05:11 79 24 45 05/26/19 05:00 54 17 120/57 (78) 100 05/26/19 04:00 Mechanical Ventilator 05/26/19 04:00 45 05/26/19 04:00 78 05/26/19 04:00 98.3 55 17 108/54 (72) 100 05/26/19 03:00 57 18 95/51 (66) 99 05/26/19 02:30 76 23 45 05/26/19 02:00 54 16 101/53 (69) 100 05/26/19 01:00 70 25 94/67 (76) 99 05/26/19 00:32 78 24 50 05/26/19 00:00 Mechanical Ventilator 05/26/19 00:00 75 05/26/19 00:00 97.6 73 21 100/56 (71) 99 05/26/19 00:00 50 05/25/19 23:00 74 19 102/57 (72) 100 05/25/19 22:43 78 20 55 05/25/19 22:00 84 23 101/55 (70) 99 05/25/19 21:15 97.8 89 26 114/56 (75) 100 05/25/19 21:08 93 31 60 05/25/19 21:00 88 21 120/60 (80) 100 05/25/19 20:30 97.8 89 24 106/61 (76) 99 05/25/19 20:15 97.9 86 25 102/61 (75) 100 05/25/19 20:00 97.9 82 23 100/54 (69) 100 05/25/19 20:00 Mechanical Ventilator 05/25/19 20:00 50 05/25/19 20:00 84 05/25/19 19:30 87 24 96/56 (69) 96 05/25/19 19:15 89 26 99/58 (72) 96 05/25/19 19:00 90 26 104/62 (76) 98 05/25/19 18:54 92 29 60 05/25/19 18:00 89 25 99/63 (75) 100 05/25/19 17:45 89 28 118/67 (84) 99 05/25/19 17:30 88 29 100/62 (75) 97 05/25/19 17:15 86 26 90/57 (68) 97 05/25/19 17:00 85 26 94/57 (69) 94 05/25/19 16:46 90 26 107/59 (75) 95 05/25/19 16:45 91 29 77/58 (64) 92 05/25/19 16:44 87 34 50 05/25/19 16:30 90 25 109/76 (87) 98 05/25/19 16:15 90 24 105/60 (75) 97 05/25/19 16:00 50 05/25/19 16:00 88 05/25/19 16:00 97.8 92 29 118/61 (80) 97 05/25/19 16:00 Mechanical Ventilator 05/25/19 15:00 96 23 97/66 (76) 100 05/25/19 15:00 86 29 95/51 (66) 99 05/25/19 14:45 90 28 50 05/25/19 14:00 86 29 95/51 (66) 99 05/25/19 13:45 88 33 93/59 (70) 99 05/25/19 13:34 79 19 50 05/25/19 13:30 86 18 107/65 (79) 100 05/25/19 13:15 86 33 94/56 (69) 98 05/25/19 13:00 90 30 94/63 (73) 99 05/25/19 13:00 108/64 05/25/19 12:45 101 32 108/64 (79) 100 05/25/19 12:30 107 21 117/62 (80) 95 05/25/19 12:15 105 22 126/73 (90) 100 Intake and Output 05/25/19 05/26/19 19:00 07:00 Intake Total 2142.500 ml 1649.5 ml Output Total 600 ml 635 ml Balance 1542.500 ml 1014.5 ml Intake IV Total 1642.500 ml 1349.5 ml Blood Product 500 ml 300 ml Output Urine Total 600 ml 635 ml Laboratory Tests 05/25/19 22:12: White Blood Count 6.2, Red Blood Count 2.80L, Hemoglobin 8.1L, Hematocrit 25.0L , Mean Corpuscular Volume 89, Mean Corpuscular Hemoglobin 28.8, Mean Corpuscular Hemoglobin Concent 32.2, Red Cell Distribution Width 17.7H, Platelet Count 167, Mean Platelet Volume 7.9, Neutrophils (%) (Auto) , Lymphocytes (%) (Auto) , Monocytes (%) (Auto) , Eosinophils (%) (Auto) , Basophils (%) (Auto) , Differential Total Cells Counted 100, Neutrophils % ( Manual) 90H, Lymphocytes % (Manual) 5L, Monocytes % (Manual) 2, Eosinophils % ( Manual) 0, Basophils % (Manual) 1, Band Neutrophils 2, Platelet Estimate Adequate, Platelet Morphology Normal, Hypochromasia 3+, Anisocytosis 1+ 05/26/19 05:00: White Blood Count 5.2, Red Blood Count 2.49L, Hemoglobin 7.4L, Hematocrit 22.2L , Mean Corpuscular Volume 89, Mean Corpuscular Hemoglobin 29.5, Mean Corpuscular Hemoglobin Concent 33.2, Red Cell Distribution Width 17.9H, Platelet Count 162, Mean Platelet Volume 8.0, Neutrophils (%) (Auto) , Lymphocytes (%) (Auto) , Monocytes (%) (Auto) , Eosinophils (%) (Auto) , Basophils (%) (Auto) , Differential Total Cells Counted 100, Neutrophils % ( Manual) 88H, Lymphocytes % (Manual) 8L, Monocytes % (Manual) 3, Eosinophils % ( Manual) 1, Basophils % (Manual) 0, Band Neutrophils 0, Platelet Estimate Adequate, Platelet Morphology Normal, Hypochromasia 3+, Anisocytosis 2+, Spherocytes 1+, Reticulocyte Count 2.7H, Prothrombin Time 11.6H, Prothromb Time International Ratio 1.1, Activated Partial Thromboplast Time 45H, Sodium Level 140, Potassium Level 3.6, Chloride Level 110H, Carbon Dioxide Level 19L, Anion Gap 11, Blood Urea Nitrogen 25H, Creatinine 0.8, Estimat Glomerular Filtration Rate > 60, Glucose Level 101, Calcium Level 7.5L, Ferritin 1190H, Total Bilirubin 1.7H, Direct Bilirubin 0.5H, Aspartate Amino Transf (AST/SGOT) 66H, Alanine Aminotransferase (ALT/SGPT) 157H, Alkaline Phosphatase 47, Total Protein 4.6L, Albumin 1.3L, Globulin 3.3, Albumin/Globulin Ratio 0.4L, Carcinoembryonic Antigen [Pending], Vitamin B12 Level 1321H, Folate 17.8, Thyroid Stimulating Hormone (TSH) 0.801, Free Thyroxine 0.83 Height (Feet): 5 Height (Inches): 7.00 Weight (Pounds): 150 General Appearance: lethargic EENT: normal ENT inspection Neck: supple Cardiovascular: normal rate Respiratory/Chest: decreased breath sounds Abdomen: normal bowel sounds, non tender, soft Extremities: non-tender Narciso Engle MD May 26, 2019 12:13
--- NOTE | 2019-05-26 14:00 | NUR ---
NURSE NOTES: Blood transfusion is now complete. VS remain stable, pt is afebrile. Pt tolerated well without any adverse reactions. Pt's daughter is now at bedside, requesting contact info for Dr Chi and Dr Brothers. Office phone numbers were provided to pt's daughter; she was also updated on pt's status.
--- NOTE | 2019-05-26 14:43 | Diagnostic Imaging Report ---
Indication: Abdominal pain Technique: Grayscale and duplex Doppler imaging of the abdomen performed. Comparison: None Findings: The liver is unremarkable. Doppler interrogation of the main portal vein shows patency with hepatopedal, monophasic flow. There is no biliary ductal dilatation identified. Gallbladder is notable for stones and negative sonographic Prince's. CBD is 3 mm.. Trace bilateral pleural effusions noted. G-tube is present partially obscuring the pancreas and aorta. Both kidneys appear unremarkable. There is no hydronephrosis. IMPRESSION: Cholelithiasis suspected. Trace bilateral pleural effusions. Technically limited study
--- NOTE | 2019-05-26 16:00 | NUR ---
NURSE NOTES: Pt is now being transfused with the 2nd unit of pRBC as ordered. VS remain stable. Pt is afebrile. Pt is tolerating well with no signs/symptoms of any adverse reactions noted.
--- NOTE | 2019-05-26 17:13 | NUR ---
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 Pt is currently on vent but was able to communicate with hand gestures. Pt is single, and receives social security income, unknown amount. Pt resides at [address] [address] Pt reports he does not have POA/AD/POLST but he wants decision makers to be Franky Razo (daughter) [phone] and Valencia Smith (sister) [phone]. SW spoke w/ Franky first and states that pt's sister Valencia Smith will be the main pattern repair person for medical emergency. SW spoke w/ Valencia Marioson and agreed to be the main pattern repair person. The family is expressing full code for pt. Signed: 05/26/19 at 1718 by MAJOR PATEL <Co-Signature Required>
[2019-05-26] MEDS ORDERED: Docusate 100mg cap ORAL SCH (18:00)
--- NOTE | 2019-05-26 18:00 | NUR ---
NURSE NOTES: Blood transfusion for the 2nd unit of pRBC is now complete. Pt tolerated well with no signs/symptoms of any adverse reactions noted. VS remain stable. Pt was cleaned and repositioned, gown and bed linens were changed. Oral care was done and pt was suctioned.
--- NOTE | 2019-05-26 18:10 | Infectious Diseases Prog Note ---
Assessment/Plan Assessment/Plan Assessment/Plan: A: Leukocytosis, Sp Sepsis/shock improved Fever Probable Pneum(HAC) - CXR: Right lung opacities and questionable patchy left lung opacities, likely pneumonia Transaminitis ( due to HypoTN) upper airway bleed sp Trach and PEG throat cancer P: Cont pt on Zosyn and IV Vanco # 1 hold Amikacin # 1 Monitor CBC Monitor CMP Monitor CXR Monitor Cx (B,U,S) off of pressors Rsp Support Subjective Allergies: Coded Allergies: LEVOFLOXACIN (Verified Allergy, Unknown, 05/24/19) Possible allergic reaction - low blood pressure Objective Vital Signs Last 24 Hour Vital Signs Date Time Temp Pulse Resp B/P (MAP) Pulse Ox O2 Delivery O2 Flow Rate FiO2 05/26/19 18:00 61 25 145/65 (91) 100 05/26/19 17:30 55 17 45 05/26/19 17:00 54 20 152/66 (94) 100 05/26/19 16:00 52 05/26/19 16:00 45 05/26/19 16:00 Mechanical Ventilator 05/26/19 16:00 97.8 52 18 149/66 (93) 99 05/26/19 15:00 61 22 155/61 (92) 100 05/26/19 14:59 67 30 45 05/26/19 14:00 62 20 148/68 (94) 95 05/26/19 13:15 68 21 45 05/26/19 13:00 58 20 145/60 (88) 99 05/26/19 12:00 58 05/26/19 12:00 45 05/26/19 12:00 Mechanical Ventilator 05/26/19 12:00 97.9 60 23 136/66 (89) 99 05/26/19 11:20 58 21 45 05/26/19 11:00 59 19 121/55 (77) 100 05/26/19 10:00 51 16 123/52 (75) 100 05/26/19 09:25 55 21 45 05/26/19 09:00 53 23 128/56 (80) 100 05/26/19 08:00 56 22 121/52 (75) 100 05/26/19 08:00 Mechanical Ventilator 05/26/19 08:00 57 05/26/19 08:00 45 05/26/19 07:10 59 23 45 05/26/19 07:00 97.7 61 21 116/58 (77) 98 05/26/19 06:00 65 22 108/50 (69) 96 05/26/19 05:11 79 24 45 05/26/19 05:00 54 17 120/57 (78) 100 05/26/19 04:00 Mechanical Ventilator 05/26/19 04:00 45 05/26/19 04:00 78 05/26/19 04:00 98.3 55 17 108/54 (72) 100 05/26/19 03:00 57 18 95/51 (66) 99 05/26/19 02:30 76 23 45 05/26/19 02:00 54 16 101/53 (69) 100 05/26/19 01:00 70 25 94/67 (76) 99 05/26/19 00:32 78 24 50 05/26/19 00:00 Mechanical Ventilator 05/26/19 00:00 75 05/26/19 00:00 97.6 73 21 100/56 (71) 99 05/26/19 00:00 50 05/25/19 23:00 74 19 102/57 (72) 100 05/25/19 22:43 78 20 55 05/25/19 22:00 84 23 101/55 (70) 99 05/25/19 21:15 97.8 89 26 114/56 (75) 100 05/25/19 21:08 93 31 60 05/25/19 21:00 88 21 120/60 (80) 100 05/25/19 20:30 97.8 89 24 106/61 (76) 99 05/25/19 20:15 97.9 86 25 102/61 (75) 100 05/25/19 20:00 97.9 82 23 100/54 (69) 100 05/25/19 20:00 Mechanical Ventilator 05/25/19 20:00 50 05/25/19 20:00 84 05/25/19 19:30 87 24 96/56 (69) 96 05/25/19 19:15 89 26 99/58 (72) 96 05/25/19 19:00 90 26 104/62 (76) 98 05/25/19 18:54 92 29 60 Height (Feet): 5 Height (Inches): 7.00 Weight (Pounds): 150 Microbiology Date/Time Source Procedure Growth Status 05/24/19 16:53 Blood Blood Culture - Preliminary NO GROWTH AFTER 24 HOURS Resulted 05/24/19 16:53 Blood Blood Culture - Preliminary NO GROWTH AFTER 24 HOURS Resulted 05/25/19 14:01 Urine,Clean Catch Urine Culture - Preliminary NO GROWTH Resulted Laboratory Tests Test 05/25/19 22:12 05/26/19 05:00 05/26/19 16:08 White Blood Count 6.2 K/UL (4.8-10.8) 5.2 K/UL (4.8-10.8) Red Blood Count 2.80 M/UL (4.70-6.10) L 2.49 M/UL (4.70-6.10) L Hemoglobin 8.1 G/DL (14.2-18.0) L 7.4 G/DL (14.2-18.0) L Hematocrit 25.0 % (42.0-52.0) L 22.2 % (42.0-52.0) L Mean Corpuscular Volume 89 FL (80-99) 89 FL (80-99) Mean Corpuscular Hemoglobin 28.8 PG (27.0-31.0) 29.5 PG (27.0-31.0) Mean Corpuscular Hemoglobin Concent 32.2 G/DL (32.0-36.0) 33.2 G/DL (32.0-36.0) Red Cell Distribution Width 17.7 % (11.6-14.8) H 17.9 % (11.6-14.8) H Platelet Count 167 K/UL (150-450) 162 K/UL (150-450) Mean Platelet Volume 7.9 FL (6.5-10.1) 8.0 FL (6.5-10.1) Neutrophils (%) (Auto) % (45.0-75.0) % (45.0-75.0) Lymphocytes (%) (Auto) % (20.0-45.0) % (20.0-45.0) Monocytes (%) (Auto) % (1.0-10.0) % (1.0-10.0) Eosinophils (%) (Auto) % (0.0-3.0) % (0.0-3.0) Basophils (%) (Auto) % (0.0-2.0) % (0.0-2.0) Differential Total Cells Counted 100 100 Neutrophils % (Manual) 90 % (45-75) H 88 % (45-75) H Lymphocytes % (Manual) 5 % (20-45) L 8 % (20-45) L Monocytes % (Manual) 2 % (1-10) 3 % (1-10) Eosinophils % (Manual) 0 % (0-3) 1 % (0-3) Basophils % (Manual) 1 % (0-2) 0 % (0-2) Band Neutrophils 2 % (0-8) 0 % (0-8) Platelet Estimate Adequate Adequate Platelet Morphology Normal Normal Hypochromasia 3+ 3+ Anisocytosis 1+ 2+ Spherocytes 1+ Reticulocyte Count 2.7 % (0.5-2.0) H Prothrombin Time 11.6 SEC (9.30-11.50) H Prothromb Time International Ratio 1.1 (0.9-1.1) Activated Partial Thromboplast Time 45 SEC (23-33) H Sodium Level 140 MMOL/L (136-145) Potassium Level 3.6 MMOL/L (3.5-5.1) Chloride Level 110 MMOL/L (98-107) H Carbon Dioxide Level 19 MMOL/L (21-32) L Anion Gap 11 mmol/L (5-15) Blood Urea Nitrogen 25 mg/dL (7-18) H Creatinine 0.8 MG/DL (0.55-1.30) Estimat Glomerular Filtration Rate > 60 mL/min (>60) Glucose Level 101 MG/DL (74-106) Calcium Level 7.5 MG/DL (8.5-10.1) L Ferritin 1190 NG/ML (8-388) H Total Bilirubin 1.7 MG/DL (0.2-1.0) H Direct Bilirubin 0.5 MG/DL (0.0-0.3) H Aspartate Amino Transf (AST/SGOT) 66 U/L (15-37) H Alanine Aminotransferase (ALT/SGPT) 157 U/L (12-78) H Alkaline Phosphatase 47 U/L (46-116) Total Protein 4.6 G/DL (6.4-8.2) L Albumin 1.3 G/DL (3.4-5.0) L Globulin 3.3 g/dL Albumin/Globulin Ratio 0.4 (1.0-2.7) L Carcinoembryonic Antigen Pending Vitamin B12 Level 1321 PG/ML (193-986) H Folate 17.8 NG/ML (8.6-58.9) Thyroid Stimulating Hormone (TSH) 0.801 uiU/mL (0.358-3.740) Free Thyroxine 0.83 NG/DL (0.76-1.46) Vancomycin Level Trough 10.8 ug/mL (5.0-12.0) Current Medications Medications (Trade) Dose Ordered Sig/Mervat Route PRN Reason Start Time Stop Time Status Last Admin Dose Admin Acetaminophen (Tylenol) 650 mg Q4H PRN ORAL FEVER 05/24/19 17:30 06/23/19 17:29 Albuterol/ Ipratropium (Albuterol/ Ipratropium) 3 ml Q4H PRN HHN Shortness of Breath 05/24/19 17:30 05/29/19 17:29 Chlorhexidine Gluconate (Stacie-Hex 2%) 1 applic DAILY@2000 TOPIC 05/25/19 20:00 06/24/19 19:59 05/25/19 20:22 Dextrose (Dextrose 50%) 25 ml Q30M PRN IV Hypoglycemia 05/24/19 17:30 06/23/19 17:29 Dextrose (Dextrose 50%) 50 ml Q30M PRN IV Hypoglycemia 05/24/19 17:30 06/23/19 17:29 Docusate Sodium (Colace) 100 mg TWICE A DAY ORAL 05/26/19 18:00 06/25/19 17:59 Norepinephrine Bitartrate 4 mg/ Dextrose 250 ml @ 0 mls/hr Q24H IV 05/24/19 20:04 06/23/19 20:03 05/25/19 07:06 Ondansetron HCl (Zofran) 4 mg Q6H PRN IVP Nausea & Vomiting 05/24/19 17:30 06/23/19 17:29 05/24/19 18:11 Pantoprazole (Protonix) 40 mg EVERY 12 HOURS IVP 05/25/19 21:00 06/24/19 20:59 05/26/19 09:07 Piperacillin Sod/ Tazobactam Sod 3.375 gm/Sodium Chloride 110 ml @ 27.5 mls/hr EVERY 8 HOURS IVPB 05/25/19 14:00 05/30/19 13:59 05/26/19 15:24 Polyethylene Glycol (Miralax) 17 gm BEDTIME ORAL 05/26/19 21:00 06/25/19 20:59 Sodium Chloride 1,000 ml @ 75 mls/hr [id number] IV 05/24/19 22:00 06/23/19 21:59 05/26/19 15:24 Vancomycin HCl (Vanco rx to dose) 1 ea DAILY PRN MISC Per rx protocol 05/25/19 11:15 06/24/19 11:14 Vancomycin HCl 750 mg/Sodium Chloride 275 ml @ 183.333 mls/hr Q12H IVPB 05/25/19 17:00 05/26/19 19:00 05/26/19 17:01 Vancomycin HCl 1 gm/Dextrose 275 ml @ 183.708 mls/hr Q12HR@0500,1700 IVPB 05/27/19 05:00 06/01/19 04:59 Jose Luis Alba MD May 26, 2019 18:10
--- NOTE | 2019-05-26 19:21 | Consultation ---
History of Present Illness General Chief Complaint: Dyspnea/Respdistress Referring physician: LIAM DODD , "Dr Chi Reason for Consultation: Sepsis, pneumonia Present Illness Allergies: Coded Allergies: LEVOFLOXACIN (Verified Allergy, Unknown, 05/24/19) Possible allergic reaction - low blood pressure Medication History Scheduled Ascorbic Acid* (Vitamin C*), 500 MG GT DAILY, (Reported) Enoxaparin* (Lovenox*), 40 MG SUBQ DAILY, (Reported) Esomeprazole Magnesium (Nexium), 40 MG GT DAILY, (Reported) Ferrous Sulfate (Ferrous Sulfate), 5 ML GT DAILY, (Reported) Melatonin/Pyridoxine HCl (B6) (Melatonin 3 mg Tablet), 1 EACH GT DAILY, ( Reported) Scheduled PRN Ipratropium [place] 0.5MG/2.5ML (Ipratropium [place] 0.5MG/2.5ML), 0.5 MG HHN Q6H PRN for Shortness of Breath, (Reported) Miscellaneous Medications Banana Flakes/Tos (Banatrol Plus Powder Packet), 1 EACH GT, (Reported) Patient History Healthcare decision maker Resuscitation status Full Code Advanced Directive on File Physical Exam Last 24 Hour Vital Signs Date Time Temp Pulse Resp B/P (MAP) Pulse Ox O2 Delivery O2 Flow Rate FiO2 05/26/19 19:03 52 26 40 05/26/19 19:00 71 20 160/74 (102) 99 05/26/19 18:00 61 25 145/65 (91) 100 05/26/19 17:30 55 17 45 05/26/19 17:00 54 20 152/66 (94) 100 05/26/19 16:00 52 05/26/19 16:00 45 05/26/19 16:00 Mechanical Ventilator 05/26/19 16:00 97.8 52 18 149/66 (93) 99 05/26/19 15:00 61 22 155/61 (92) 100 05/26/19 14:59 67 30 45 05/26/19 14:00 62 20 148/68 (94) 95 05/26/19 13:15 68 21 45 05/26/19 13:00 58 20 145/60 (88) 99 05/26/19 12:00 58 05/26/19 12:00 45 05/26/19 12:00 Mechanical Ventilator 05/26/19 12:00 97.9 60 23 136/66 (89) 99 05/26/19 11:20 58 21 45 05/26/19 11:00 59 19 121/55 (77) 100 05/26/19 10:00 51 16 123/52 (75) 100 05/26/19 09:25 55 21 45 05/26/19 09:00 53 23 128/56 (80) 100 05/26/19 08:00 56 22 121/52 (75) 100 05/26/19 08:00 Mechanical Ventilator 05/26/19 08:00 57 05/26/19 08:00 45 05/26/19 07:10 59 23 45 05/26/19 07:00 97.7 61 21 116/58 (77) 98 05/26/19 06:00 65 22 108/50 (69) 96 05/26/19 05:11 79 24 45 05/26/19 05:00 54 17 120/57 (78) 100 05/26/19 04:00 Mechanical Ventilator 05/26/19 04:00 45 05/26/19 04:00 78 05/26/19 04:00 98.3 55 17 108/54 (72) 100 05/26/19 03:00 57 18 95/51 (66) 99 05/26/19 02:30 76 23 45 05/26/19 02:00 54 16 101/53 (69) 100 05/26/19 01:00 70 25 94/67 (76) 99 05/26/19 00:32 78 24 50 05/26/19 00:00 Mechanical Ventilator 05/26/19 00:00 75 05/26/19 00:00 97.6 73 21 100/56 (71) 99 05/26/19 00:00 50 05/25/19 23:00 74 19 102/57 (72) 100 05/25/19 22:43 78 20 55 05/25/19 22:00 84 23 101/55 (70) 99 05/25/19 21:15 97.8 89 26 114/56 (75) 100 05/25/19 21:08 93 31 60 05/25/19 21:00 88 21 120/60 (80) 100 05/25/19 20:30 97.8 89 24 106/61 (76) 99 05/25/19 20:15 97.9 86 25 102/61 (75) 100 05/25/19 20:00 97.9 82 23 100/54 (69) 100 05/25/19 20:00 Mechanical Ventilator 05/25/19 20:00 50 05/25/19 20:00 84 05/25/19 19:30 87 24 96/56 (69) 96 Intake and Output 05/25/19 05/26/19 19:00 07:00 Intake Total 2142.500 ml 1649.5 ml Output Total 600 ml 635 ml Balance 1542.500 ml 1014.5 ml IV Total 1642.500 ml 1349.5 ml Blood Product 500 ml 300 ml Output Urine Total 600 ml 635 ml Laboratory Tests Test 05/25/19 22:12 05/26/19 05:00 05/26/19 16:08 White Blood Count 6.2 K/UL (4.8-10.8) 5.2 K/UL (4.8-10.8) Red Blood Count 2.80 M/UL (4.70-6.10) L 2.49 M/UL (4.70-6.10) L Hemoglobin 8.1 G/DL (14.2-18.0) L 7.4 G/DL (14.2-18.0) L Hematocrit 25.0 % (42.0-52.0) L 22.2 % (42.0-52.0) L Mean Corpuscular Volume 89 FL (80-99) 89 FL (80-99) Mean Corpuscular Hemoglobin 28.8 PG (27.0-31.0) 29.5 PG (27.0-31.0) Mean Corpuscular Hemoglobin Concent 32.2 G/DL (32.0-36.0) 33.2 G/DL (32.0-36.0) Red Cell Distribution Width 17.7 % (11.6-14.8) H 17.9 % (11.6-14.8) H Platelet Count 167 K/UL (150-450) 162 K/UL (150-450) Mean Platelet Volume 7.9 FL (6.5-10.1) 8.0 FL (6.5-10.1) Neutrophils (%) (Auto) % (45.0-75.0) % (45.0-75.0) Lymphocytes (%) (Auto) % (20.0-45.0) % (20.0-45.0) Monocytes (%) (Auto) % (1.0-10.0) % (1.0-10.0) Eosinophils (%) (Auto) % (0.0-3.0) % (0.0-3.0) Basophils (%) (Auto) % (0.0-2.0) % (0.0-2.0) Differential Total Cells Counted 100 100 Neutrophils % (Manual) 90 % (45-75) H 88 % (45-75) H Lymphocytes % (Manual) 5 % (20-45) L 8 % (20-45) L Monocytes % (Manual) 2 % (1-10) 3 % (1-10) Eosinophils % (Manual) 0 % (0-3) 1 % (0-3) Basophils % (Manual) 1 % (0-2) 0 % (0-2) Band Neutrophils 2 % (0-8) 0 % (0-8) Platelet Estimate Adequate Adequate Platelet Morphology Normal Normal Hypochromasia 3+ 3+ Anisocytosis 1+ 2+ Spherocytes 1+ Reticulocyte Count 2.7 % (0.5-2.0) H Prothrombin Time 11.6 SEC (9.30-11.50) H Prothromb Time International Ratio 1.1 (0.9-1.1) Activated Partial Thromboplast Time 45 SEC (23-33) H Sodium Level 140 MMOL/L (136-145) Potassium Level 3.6 MMOL/L (3.5-5.1) Chloride Level 110 MMOL/L (98-107) H Carbon Dioxide Level 19 MMOL/L (21-32) L Anion Gap 11 mmol/L (5-15) Blood Urea Nitrogen 25 mg/dL (7-18) H Creatinine 0.8 MG/DL (0.55-1.30) Estimat Glomerular Filtration Rate > 60 mL/min (>60) Glucose Level 101 MG/DL (74-106) Calcium Level 7.5 MG/DL (8.5-10.1) L Ferritin 1190 NG/ML (8-388) H Total Bilirubin 1.7 MG/DL (0.2-1.0) H Direct Bilirubin 0.5 MG/DL (0.0-0.3) H Aspartate Amino Transf (AST/SGOT) 66 U/L (15-37) H Alanine Aminotransferase (ALT/SGPT) 157 U/L (12-78) H Alkaline Phosphatase 47 U/L (46-116) Total Protein 4.6 G/DL (6.4-8.2) L Albumin 1.3 G/DL (3.4-5.0) L Globulin 3.3 g/dL Albumin/Globulin Ratio 0.4 (1.0-2.7) L Carcinoembryonic Antigen Pending Vitamin B12 Level 1321 PG/ML (193-986) H Folate 17.8 NG/ML (8.6-58.9) Thyroid Stimulating Hormone (TSH) 0.801 uiU/mL (0.358-3.740) Free Thyroxine 0.83 NG/DL (0.76-1.46) Vancomycin Level Trough 10.8 ug/mL (5.0-12.0) Height (Feet): 5 Height (Inches): 7.00 Weight (Pounds): 150 Medications Current Medications Medications (Trade) Dose Ordered Sig/Mervat Route PRN Reason Start Time Stop Time Status Last Admin Dose Admin Acetaminophen (Tylenol) 650 mg Q4H PRN ORAL FEVER 05/24/19 17:30 06/23/19 17:29 Albuterol/ Ipratropium (Albuterol/ Ipratropium) 3 ml Q4H PRN HHN Shortness of Breath 05/24/19 17:30 05/29/19 17:29 Chlorhexidine Gluconate (Stacie-Hex 2%) 1 applic DAILY@1999 TOPIC 05/25/19 20:00 06/24/19 19:59 05/25/19 20:22 Dextrose (Dextrose 50%) 25 ml Q30M PRN IV Hypoglycemia 05/24/19 17:30 06/23/19 17:29 Dextrose (Dextrose 50%) 50 ml Q30M PRN IV Hypoglycemia 05/24/19 17:30 06/23/19 17:29 Docusate Sodium (Colace) 100 mg TWICE A DAY NG 05/27/19 09:00 06/26/19 08:59 Norepinephrine Bitartrate 4 mg/ Dextrose 250 ml @ 0 mls/hr Q24H IV 05/24/19 20:04 06/23/19 20:03 05/25/19 07:06 Ondansetron HCl (Zofran) 4 mg Q6H PRN IVP Nausea & Vomiting 05/24/19 17:30 06/23/19 17:29 05/24/19 18:11 Pantoprazole (Protonix) 40 mg EVERY 12 HOURS IVP 05/25/19 21:00 06/24/19 20:59 05/26/19 09:07 Piperacillin Sod/ Tazobactam Sod 3.375 gm/Sodium Chloride 110 ml @ 27.5 mls/hr EVERY 8 HOURS IVPB 05/25/19 14:00 05/30/19 13:59 05/26/19 15:24 Polyethylene Glycol (Miralax) 17 gm BEDTIME ORAL 05/26/19 21:00 06/25/19 20:59 Sodium Chloride 1,000 ml @ 75 mls/hr [id number] IV 05/24/19 22:00 06/23/19 21:59 05/26/19 15:24 Vancomycin HCl (Vanco rx to dose) 1 ea DAILY PRN MISC Per rx protocol 05/25/19 11:15 06/24/19 11:14 Vancomycin HCl 1 gm/Dextrose 275 ml @ 183.708 mls/hr Q12HR@0500,1700 IVPB 05/27/19 05:00 06/01/19 04:59 Assessment/Plan Assessment/Plan: Oncology Consultation CHIEF COMPLAINT: The patient is a 73-year-old male, who presents with a chief complaint of coughing up blood. RFC: Esophageal and H&N cancer DOS: 05/26/19 REOrestes MD: Igor Lucero ID [id number] old male, apparently had throat cancer approximately four years ago. The patient was treated at [place] with chemotherapy and radiation therapy. Apparently, the patient was doing fairly well in the interim. Approximately two weeks ago, the patient was admitted to [facility]. The patient was admitted with respiratory arrest. The patient was found to have an obstruction of the esophagus secondary to a esophageal mass. According to the patient's family, the biopsy of the esophageal mass report is not available. The patient underwent tracheostomy for airway protection and PEG placement at [facility]. The patient was discharged to [facility] on May 22, 2019. On May 24, 2019, staff at [facility] noticed the patient wascoughing up blood. The patient was also hypotensive. The patient was transferred to [facility] for evaluation. The patient isadmitted for esophageal mass and acute tumor hemorrhage. Of note, the patient himself is unable to communicate verbally. The patient is able to communicate in writing. today with less hemoptysis and heme/onc consulted for fruther eval and rx PAST MEDICAL HISTORY: 1. Throat cancer in 2016, status post radiation and chemotherapy in [place], as above. 2. Respiratory failure, status post tracheostomy placement approximately two weeks ago at [facility]. PAST SURGICAL HISTORY: Significant for: 1. Tracheostomy placement. 2. PEG placement. CURRENT MEDICATIONS: 1. Lovenox 40 mg subcutaneously nightly. 2. Iron sulfate 7.5 mL per G-tube daily. 3. DuoNeb nebulized q.4 h. p.r.n. 4. Melatonin 3 mg via G-tube nightly. 5. Nexium 40 mg per G-tube every morning. 6. Vitamin C per G-tube daily. ALLERGIES: To levofloxacin. SOCIAL HISTORY: The patient is and is a resident of [facility]. The patient denies tobacco or alcohol use. ROS (review of systems): Constitutional: ++ weakness and fatigue reported Skin: No rashes, lumps, itchiness, dryness HEENT: No JONES, ear ache, visual changes, double vision, nosebleeds Breasts: No lumps, pain, discharge Pulmonary: No cough, sputum, shortness of breath, coughing up blood Cardiovascular: No chest pain, tightness, palpitations, syncope, PND GI: No nausea, vomiting, diarrhea, melena, hematochezia, change in appetite, : No dysuria, frequency, urgency, urinary incontinence, foamy urine Musculoskeletal: No joint swelling or muscle pain, trauma, back pain Neurologic: No dizziness, fainting, seizures, changes in smell or taste Psychiatric: No nervousness, stress, or depression, anxiety, hallucinations Endocrine: No weight change, heat or cold intolerance, tremor, insomnia Physical Exam: Vitals: reviewed General: NAD HEENT: nc, at ++ trach/vent Neck: supple Chest: clear breath sounds bilaterally Abdomen: soft, nontender, nd Extremities: no cce, normal range of motion Neuro: alert and oriented LABS: WBC 10.7, hemoglobin 8.4, hematocrit 25.5, and platelets 257,000. Sodium 137, potassium 4.7, chloride 103, CO2 20, BUN 23, and creatinine 1.0. Glucose 313. AST elevated at 59, ALT elevated at 113. Troponin 0.079. IMAGING: A chest x-ray revealed right lung opacity and questionable left lung opacities likely consistent with pneumonia. An abdominal x-ray was reported as no acute disease. ASSESSMENT/RECS: #. 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 Esophageal hemorrhage. --> requires hemostatic support --> coags have been checked --> vitamin K has been ordered # Anemia of chronic disease due to underlying chronic medical issues, multifactorial v Gi bleed --> Anemia workup has been ordered, rule out gi bleed --> reviewed --> No evidence of hemolysis is noted, peripheral smear has been reviewed. --> Hgb goal >7. Transfuse prn. --> Epogen or iron at this time is not particularly indicated --> Medications have been reviewed --> low threshold for gi evaluation in case has occult + # Airway obstruction. --> sp trach # Hypoxia. -> per pulm # Elevated liver function tests. --> as per gi, imaging ordered # Sepsis s/p abx --> per id and has received pressors --> in the icu --> vanc/zosyn # Pneumonia. --> on abx # sp Trach and PEG Appreciate consultation and skip Paz,Ar Carreno MD May 26, 2019 19:21
--- NOTE | 2019-05-26 19:24 | NUR ---
HAND-OFF: Report given to Jeanne HARDY. Endorsed plan of care. VS remain stable.
--- NOTE | 2019-05-26 19:30 | NUR ---
NURSE NOTES: Received pt awake ,alert AO x4, communicated through writing, SB- Sr on the monitor, Bp stable afebrile. Trache to vent on ac mode, with 40%fio2, 02 sat >95%. . IVF 1/2NS at 75ml/hr, infusing well per ADAN midline, site with drgs dry and intact, Fernandez to gravity with yellowish urine, approximately 40-50 ml/hr. Pt on fdg Vital AF at 15 cc/hr (goal 50). Tolerating fdg at this time. Increase to 20ml/hr. HOb kept elevated On aspiration precaution. Pts extremities with 2-3+ swollen. elevated affected parts with pillows. Suctioned tn blood stained secretions moderate in amt, Oral care was done. Will continue to monitor.
--- NOTE | 2019-05-26 19:33 | Internal Med Progress Note ---
Subjective Date of Service: May 26, 2019 Physician Name Igor Lucero Attending Physician Matthew Davis MD Current Medications Medications (Trade) Dose Ordered Sig/Mervat Route PRN Reason Start Time Stop Time Status Last Admin Dose Admin Acetaminophen (Tylenol) 650 mg Q4H PRN ORAL FEVER 05/24/19 17:30 06/23/19 17:29 Albuterol/ Ipratropium (Albuterol/ Ipratropium) 3 ml Q4H PRN HHN Shortness of Breath 05/24/19 17:30 05/29/19 17:29 Chlorhexidine Gluconate (Stacie-Hex 2%) 1 applic DAILY@2000 TOPIC 05/25/19 20:00 06/24/19 19:59 05/25/19 20:22 Dextrose (Dextrose 50%) 25 ml Q30M PRN IV Hypoglycemia 05/24/19 17:30 06/23/19 17:29 Dextrose (Dextrose 50%) 50 ml Q30M PRN IV Hypoglycemia 05/24/19 17:30 06/23/19 17:29 Docusate Sodium (Colace) 100 mg TWICE A DAY NG 05/27/19 09:00 06/26/19 08:59 Norepinephrine Bitartrate 4 mg/ Dextrose 250 ml @ 0 mls/hr Q24H IV 05/24/19 20:04 06/23/19 20:03 05/25/19 07:06 Ondansetron HCl (Zofran) 4 mg Q6H PRN IVP Nausea & Vomiting 05/24/19 17:30 06/23/19 17:29 05/24/19 18:11 Pantoprazole (Protonix) 40 mg EVERY 12 HOURS IVP 05/25/19 21:00 06/24/19 20:59 05/26/19 09:07 Piperacillin Sod/ Tazobactam Sod 3.375 gm/Sodium Chloride 110 ml @ 27.5 mls/hr EVERY 8 HOURS IVPB 05/25/19 14:00 05/30/19 13:59 05/26/19 15:24 Polyethylene Glycol (Miralax) 17 gm BEDTIME ORAL 05/26/19 21:00 06/25/19 20:59 Sodium Chloride 1,000 ml @ 75 mls/hr [id number] IV 05/24/19 22:00 06/23/19 21:59 05/26/19 15:24 Vancomycin HCl (Vanco rx to dose) 1 ea DAILY PRN MISC Per rx protocol 05/25/19 11:15 06/24/19 11:14 Vancomycin HCl 1 gm/Dextrose 275 ml @ 183.708 mls/hr Q12HR@0500,1700 IVPB 05/27/19 05:00 06/01/19 04:59 Allergies: Coded Allergies: LEVOFLOXACIN (Verified Allergy, Unknown, 05/24/19) Possible allergic reaction - low blood pressure ROS Limited/Unobtainable: No Constitutional: Reports: no symptoms HEENT: Reports: no symptoms Cardiovascular: Reports: no symptoms Respiratory: Reports: no symptoms Gastrointestinal/Abdominal: Reports: no symptoms Genitourinary: Reports: no symptoms Neurologic/Psychiatric: Reports: no symptoms Subjective 73 YO M with esophageal mass admitted with hemoptysis. Cover for Int med-DR Davis. ICU Objective Last Vital Signs Date Time Temp Pulse Resp B/P (MAP) Pulse Ox O2 Delivery O2 Flow Rate FiO2 05/26/19 19:03 52 26 40 05/26/19 19:00 160/74 (102) 99 05/26/19 16:00 Mechanical Ventilator 05/26/19 16:00 97.8 05/24/19 19:15 15.0 Laboratory Tests Test 05/25/19 22:12 05/26/19 05:00 05/26/19 16:08 White Blood Count 6.2 K/UL (4.8-10.8) 5.2 K/UL (4.8-10.8) Red Blood Count 2.80 M/UL (4.70-6.10) L 2.49 M/UL (4.70-6.10) L Hemoglobin 8.1 G/DL (14.2-18.0) L 7.4 G/DL (14.2-18.0) L Hematocrit 25.0 % (42.0-52.0) L 22.2 % (42.0-52.0) L Mean Corpuscular Volume 89 FL (80-99) 89 FL (80-99) Mean Corpuscular Hemoglobin 28.8 PG (27.0-31.0) 29.5 PG (27.0-31.0) Mean Corpuscular Hemoglobin Concent 32.2 G/DL (32.0-36.0) 33.2 G/DL (32.0-36.0) Red Cell Distribution Width 17.7 % (11.6-14.8) H 17.9 % (11.6-14.8) H Platelet Count 167 K/UL (150-450) 162 K/UL (150-450) Mean Platelet Volume 7.9 FL (6.5-10.1) 8.0 FL (6.5-10.1) Neutrophils (%) (Auto) % (45.0-75.0) % (45.0-75.0) Lymphocytes (%) (Auto) % (20.0-45.0) % (20.0-45.0) Monocytes (%) (Auto) % (1.0-10.0) % (1.0-10.0) Eosinophils (%) (Auto) % (0.0-3.0) % (0.0-3.0) Basophils (%) (Auto) % (0.0-2.0) % (0.0-2.0) Differential Total Cells Counted 100 100 Neutrophils % (Manual) 90 % (45-75) H 88 % (45-75) H Lymphocytes % (Manual) 5 % (20-45) L 8 % (20-45) L Monocytes % (Manual) 2 % (1-10) 3 % (1-10) Eosinophils % (Manual) 0 % (0-3) 1 % (0-3) Basophils % (Manual) 1 % (0-2) 0 % (0-2) Band Neutrophils 2 % (0-8) 0 % (0-8) Platelet Estimate Adequate Adequate Platelet Morphology Normal Normal Hypochromasia 3+ 3+ Anisocytosis 1+ 2+ Spherocytes 1+ Reticulocyte Count 2.7 % (0.5-2.0) H Prothrombin Time 11.6 SEC (9.30-11.50) H Prothromb Time International Ratio 1.1 (0.9-1.1) Activated Partial Thromboplast Time 45 SEC (23-33) H Sodium Level 140 MMOL/L (136-145) Potassium Level 3.6 MMOL/L (3.5-5.1) Chloride Level 110 MMOL/L (98-107) H Carbon Dioxide Level 19 MMOL/L (21-32) L Anion Gap 11 mmol/L (5-15) Blood Urea Nitrogen 25 mg/dL (7-18) H Creatinine 0.8 MG/DL (0.55-1.30) Estimat Glomerular Filtration Rate > 60 mL/min (>60) Glucose Level 101 MG/DL (74-106) Calcium Level 7.5 MG/DL (8.5-10.1) L Ferritin 1190 NG/ML (8-388) H Total Bilirubin 1.7 MG/DL (0.2-1.0) H Direct Bilirubin 0.5 MG/DL (0.0-0.3) H Aspartate Amino Transf (AST/SGOT) 66 U/L (15-37) H Alanine Aminotransferase (ALT/SGPT) 157 U/L (12-78) H Alkaline Phosphatase 47 U/L (46-116) Total Protein 4.6 G/DL (6.4-8.2) L Albumin 1.3 G/DL (3.4-5.0) L Globulin 3.3 g/dL Albumin/Globulin Ratio 0.4 (1.0-2.7) L Carcinoembryonic Antigen Pending Vitamin B12 Level 1321 PG/ML (193-986) H Folate 17.8 NG/ML (8.6-58.9) Thyroid Stimulating Hormone (TSH) 0.801 uiU/mL (0.358-3.740) Free Thyroxine 0.83 NG/DL (0.76-1.46) Vancomycin Level Trough 10.8 ug/mL (5.0-12.0) Microbiology Date/Time Source Procedure Growth Status 05/24/19 16:53 Blood Blood Culture - Preliminary NO GROWTH AFTER 24 HOURS Resulted 05/24/19 16:53 Blood Blood Culture - Preliminary NO GROWTH AFTER 24 HOURS Resulted 05/25/19 14:01 Urine,Clean Catch Urine Culture - Preliminary NO GROWTH Resulted Intake and Output 05/25/19 05/26/19 19:00 07:00 Intake Total 2142.500 ml 1649.5 ml Output Total 600 ml 635 ml Balance 1542.500 ml 1014.5 ml IV Total 1642.500 ml 1349.5 ml Blood Product 500 ml 300 ml Output Urine Total 600 ml 635 ml Objective PHYSICAL EXAMINATION: GENERAL: The patient is a well-nourished male, who is in moderate distress. HEENT: Eyes, pupils are equal and responsive to light and accommodation. Extraocular movements are intact. Tracheostomy is present. CHEST: Lungs are clear with mechanical breath sounds bilaterally. ABDOMEN: Soft, nontender, and nondistended. Positive bowel sounds. No evidence of hepatosplenomegaly. Currently, no rebound or guarding noted. EXTREMITIES: Negative for clubbing, cyanosis, or edema. RECTAL/GENITAL: Not performed. NEUROLOGICAL: Cranial nerves II to XII grossly intact without focal deficits. Motor strength is 5/5 bilaterally. Deep tendon reflexes are 2+ plantar. Assessment/Plan Assessment/Plan ASSESSMENT: This is a 73-year-old male with: 1. Esophageal mass. 2. Esophageal hemorrhage. 3. Airway obstruction. 4. Hypoxia. 5. History of esophageal cancer. 6. Elevated liver function tests. TREATMENT: 1. Esophageal mass/hemorrhage. A Hematology/Oncology consultation has been obtained with Dr. Paz. The patient has received four units of packed RBCs and 1 unit FFP. The patient is currently hypotensive in the intensive care unit. The patient is currently off pressors. 2. Hypoxia. A Pulmonary/Critical Care consultation has been obtained with Dr. Claudia Chi. Hypoxia is probably secondary to tracheal obstruction secondary to hemorrhage as above. Continue vent per Dr. Chi. 3. Pneumonia. The patient has been started on Zosyn and vancomycin. An Infectious Disease consultation has been obtained with Dr. Alba. We will follow recommendations of Infectious Disease. A sputum culture is pending. 4. Elevated liver function tests/esophageal mass. A Gastroenterology consultation has been obtained with Dr. Narciso Engle. The patient may require repeat biopsy of esophageal mass. We will follow recommendations of Gastroenterology. A CT scan of the neck is pending. Igor Lucero MD May 26, 2019 19:33
[2019-05-26] MEDS: Dyna-Hex 2% Top Sol 2oz TOPIC SCH (20:07)
[2019-05-26 21:14] LABS: HEMATOCRIT 28.8 % (42.0-52.0); HEMOGLOBIN 9.7 G/DL (14.2-18.0); MEAN CORPUSCULAR VOLUME 89 FL (80-99); PLATELET COUNT 126 K/UL (150-450); RED BLOOD COUNT 3.22 M/UL (4.70-6.10); RED CELL DISTRIBUTION WIDTH 14.9 % (11.6-14.8); WHITE BLOOD COUNT 6.5 K/UL (4.8-10.8)
[2019-05-26 21:17] LABS: NEUTROPHILS % (AUTO) 89.7 % (45.0-75.0)
[2019-05-26 21:18] LABS: BASOPHILS % (AUTO) 0.4 % (0.0-2.0); EOSINOPHILS % (AUTO) 0.8 % (0.0-3.0); MONOCYTES % (AUTO) 3.1 % (1.0-10.0)
[2019-05-26] MEDS: Miralax 17gm pkt ORAL SCH (21:24)
--- NOTE | 2019-05-26 22:00 | NUR ---
NURSE NOTES: Suctioned blood tinged secretions lg in amt. Hgb/hct was improving.
[2019-05-27] VITALS (30 sets, daily range): BP systolic 94–158; BP diastolic 51–75
--- NOTE | 2019-05-27 | NUR ---
NURSE NOTES: Turned q 2hrs prn with good skin care done.
--- NOTE | 2019-05-27 02:00 | NUR ---
NURSE NOTES: Resting well at this time with vss
--- NOTE | 2019-05-27 04:00 | NUR ---
NURSE NOTES: Complete bed bath with bed changed was done. ADAN Midline drsg was changed.
[2019-05-27] MEDS ORDERED: Vancomycin 1gm/D5W 275ml IVPB SCH ×2 (05:00)
--- NOTE | 2019-05-27 05:23 | NUR ---
NURSE NOTES: pt had episode of V tach 4 in a row on and off. bp 140/62. pt was awake. then went to ST 140s bp 72/33. Levophed was started by ANTONY Garcia at 4 mcg/min.
[2019-05-27] MEDS ORDERED: Levophed 4mg/4mL Inj IV ONE (05:44)
[2019-05-27] MEDS: Zosyn 3.375gm q8h **Extended infusion IVPB SCH ×6 (06:00→21:39)
--- NOTE | 2019-05-27 06:00 | NUR ---
NURSE NOTES: Notify Lisa Chi with all the events , Vtach and hypotension and the resuming of Levophed drip.
[2019-05-27 06:03] LABS: HEMATOCRIT 28.4 % (42.0-52.0); HEMOGLOBIN 9.8 G/DL (14.2-18.0); MEAN CORPUSCULAR VOLUME 88 FL (80-99); PLATELET COUNT 134 K/UL (150-450); RED BLOOD COUNT 3.22 M/UL (4.70-6.10); RED CELL DISTRIBUTION WIDTH 14.9 % (11.6-14.8); WHITE BLOOD COUNT 5.8 K/UL (4.8-10.8)
--- NOTE | 2019-05-27 06:29 | NUR ---
NURSE NOTES: Dr Chi acknowledge that he was aware with the dysrhythmia. No further orders was given
[2019-05-27 06:42] LABS: INR 1.1 (0.9-1.1)
[2019-05-27 07:14] LABS: ALANINE AMINOTRANSFERASE 157 U/L (12-78); ALBUMIN 1.4 G/DL (3.4-5.0); ALBUMIN/GLOBULIN RATIO 0.4 (1.0-2.7); ALKALINE PHOSPHATASE 62 U/L (46-116); ANION GAP 11 mmol/L (5-15); ASPARTATE AMINO TRANSFERASE 68 U/L (15-37); BILIRUBIN,TOTAL 2.1 MG/DL (0.2-1.0); BLOOD UREA NITROGEN 20 mg/dL (7-18); CALCIUM 7.6 MG/DL (8.5-10.1); CARBON DIOXIDE 20 MMOL/L (21-32); CHLORIDE 107 MMOL/L (98-107); CREATININE 0.8 MG/DL (0.55-1.30); SODIUM 138 MMOL/L (136-145)
[2019-05-27 07:19] LABS: BILIRUBIN,DIRECT 0.6 MG/DL (0.0-0.3)
[2019-05-27 07:24] LABS: PHOSPHORUS 1.5 MG/DL (2.5-4.9)
--- NOTE | 2019-05-27 07:36 | NUR ---
HAND-OFF: Report given to Janessa Pruitt for continuity of care..
--- NOTE | 2019-05-27 08:00 | NUR ---
NURSE NOTES: Received change of shift report from Jeanne HARDY. Pt is awake, alert, oriented, communicates via writing, on trach to vent. Shiley 8, AC16, VT550, Peep 5.0, FIO2 40% at 100% O2Sat. SR on case consultant, HR 62 while pt is maintained on Levophed drip at 1mcg/min via right UA midline. Pt also has IV fluid infusing 0.45% NS at 75ml/hour. Peripheral IV access is present on right AC #24G and left UA #20G peripheral IV access, saline locked, patent/intact. Temp 97.7F axillary. GT in place with feeding Vital AF at 30ml/hour, with no residual. Fernandez catheter is draining clear/dark yellow urine. Skin is intact, with bilateral upper extremity edema. HOB is at 30degrees, bed locked, in lowest position, three side rails up, and call light is placed within reach. Will continue with plan of care. Addendum: 05/27/19 at 1613 by REGINO KEY RN Per administrative technician [place], al to infuse Levophed via midline.
[2019-05-27] MEDS: Pantoprazole Inj IVP SCH ×2 (09:58→20:37)
[2019-05-27] MEDS: Docusate 100mg/10ml Liq NG SCH ×2 (09:58→17:38)
--- NOTE | 2019-05-27 10:00 | NUR ---
NURSE NOTES: AM meds were administered. Oral care was done and pt was repositioned. VS remain stable while pt is maintained on Levophed. Pt was seen by Dr Chi. aware of lab results. Orders were received for KCL 10meq x 4bags, Mag 1gm x2 bags, and Sodium Phosphate 30mm. Vanco IVPB was dc'd by Dr Chi.
--- NOTE | 2019-05-27 10:21 | NUR ---
RADIOLOGY DEPT., CHEST X-RAY DONE.-P.DYE
--- NOTE | 2019-05-27 10:37 | Pulmonolgy Critical Care Note ---
Critical Care - Asmt/Plan Problems: (1) Nosocomial pneumonia (2) Hemorrhagic shock (3) Upper GI bleeding (4) Chronic respiratory failure (5) Esophageal mass (6) Gastrostomy tube in place (7) Head and neck cancer (8) Radiation fibrosis of lung Respiratory: monitor respiratory rate, adjust FIO2 Cardiac: continue pressors - prn levophed, continue to monitor HR/BP Renal: F/U I&O Infectious Disease: check cultures Gastrointestinal: continue feedings/current rate Endocrine: monitor blood sugar Hematologic: transfuse if hgb<8.5 Neurologic: PRN Ativan, PRN Morphine, keep patient comfortable Prophylaxis: Protonix, Heparin Time Spent (Minutes): 40 Notes Reviewed: extension work director, cardio, ID Discussed with: nurses, consultants, manager of casesales marketing manager - Objective Last 24 Hour Vital Signs Date Time Temp Pulse Resp B/P (MAP) Pulse Ox O2 Delivery O2 Flow Rate FiO2 05/27/19 10:00 65 22 118/61 (80) 97 05/27/19 09:30 60 19 130/67 (88) 100 05/27/19 09:20 60 20 40 05/27/19 09:00 57 20 124/60 (81) 99 05/27/19 08:30 60 22 121/62 (81) 98 05/27/19 08:00 97.7 58 22 113/56 (75) 98 05/27/19 07:30 56 21 130/56 (80) 99 05/27/19 07:08 63 28 40 05/27/19 07:00 54 20 125/58 (80) 100 05/27/19 07:00 125/56 05/27/19 06:45 125/56 05/27/19 06:30 126/60 05/27/19 06:15 65 18 144/66 (92) 99 05/27/19 06:06 58 21 157/75 (102) 100 05/27/19 06:02 70/38 05/27/19 06:00 59 23 96/57 (70) 98 05/27/19 05:55 63 23 94/52 (66) 97 05/27/19 05:02 78 28 40 05/27/19 05:00 51 23 140/62 (88) 97 05/27/19 04:00 74 17 134/58 (83) 93 05/27/19 04:00 Mechanical Ventilator 05/27/19 04:00 40 05/27/19 04:00 50 05/27/19 03:00 47 19 123/51 (75) 95 05/27/19 02:39 53 22 40 05/27/19 02:00 50 13 127/54 (78) 94 05/27/19 01:00 50 14 131/57 (81) 100 05/27/19 00:35 53 22 40 05/27/19 00:00 49 05/27/19 00:00 Mechanical Ventilator 05/27/19 00:00 40 05/27/19 00:00 97.8 49 14 141/58 (85) 100 05/26/19 23:00 50 18 120/55 (76) 100 05/26/19 22:40 50 21 40 05/26/19 22:00 49 17 137/54 (81) 100 05/26/19 21:00 54 19 139/56 (83) 100 05/26/19 20:45 54 24 40 05/26/19 20:04 136/59 05/26/19 20:00 Mechanical Ventilator 05/26/19 20:00 97.6 49 18 136/59 (84) 100 05/26/19 20:00 40 05/26/19 20:00 51 05/26/19 19:03 52 26 40 05/26/19 19:00 71 20 160/74 (102) 99 05/26/19 18:00 61 25 145/65 (91) 100 05/26/19 17:30 55 17 45 05/26/19 17:00 54 20 152/66 (94) 100 05/26/19 16:00 52 05/26/19 16:00 45 05/26/19 16:00 Mechanical Ventilator 05/26/19 16:00 97.8 52 18 149/66 (93) 99 05/26/19 15:00 61 22 155/61 (92) 100 05/26/19 14:59 67 30 45 05/26/19 14:00 62 20 148/68 (94) 95 05/26/19 13:15 68 21 45 05/26/19 13:00 58 20 145/60 (88) 99 05/26/19 12:00 58 05/26/19 12:00 45 05/26/19 12:00 Mechanical Ventilator 05/26/19 12:00 97.9 60 23 136/66 (89) 99 05/26/19 11:20 58 21 45 05/26/19 11:00 59 19 121/55 (77) 100 Status: awake Condition: critical, improving HEENT: atraumatic Neck: trach Lungs: rales, rhonchi Heart: HR/BP stable Abdomen: soft, non-tender Extremities: no C/C/E Micro: Microbiology Date/Time Source Procedure Growth Status 05/24/19 16:53 Blood Blood Culture - Preliminary NO GROWTH AFTER 48 HOURS Resulted 05/24/19 16:53 Blood Blood Culture - Preliminary NO GROWTH AFTER 48 HOURS Resulted 05/24/19 17:30 Nasal Nares MRSA Culture - Final Staphylococcus Aureus - Mrsa Complete 05/25/19 14:01 Urine,Clean Catch Urine Culture - Preliminary NO GROWTH AFTER 24 HOURS Resulted 05/24/19 19:30 Rectum VRE Culture - Final NO VANCOMYCIN RESISTANT ENTEROCOCCUS ... Complete Critical Care - Subjective ROS Limited/Unobtainable: Yes Interval Events: doing better, was hypotensive earlier after receiving Vancomycin and needed Levophed drip. Condition: critical FI02: 40 Vent Support Breath Rate: 16 Vent Support Mode: AC Vent Tidal Volume: 550 Sputum Amount: Small PEEP: 5.0 PIP: 18 Tube Feeding Amount: 30 I&O: Intake and Output 05/26/19 05/27/19 19:00 07:00 Intake Total 1365.833 ml 1682.25 ml Output Total 665 ml 670 ml Balance 700.833 ml 1012.25 ml Intake Free Water 60 ml 200 ml IV Total 1275.833 ml 1202.25 ml Tube Feeding 30 ml 280 ml Output Urine Total 665 ml 670 ml CXR: no change Labs: Laboratory Tests Test 05/26/19 16:08 05/26/19 21:00 05/27/19 04:00 05/27/19 05:00 Vancomycin Level Trough 10.8 ug/mL (5.0-12.0) White Blood Count 6.5 K/UL (4.8-10.8) 5.8 K/UL (4.8-10.8) Red Blood Count 3.22 M/UL (4.70-6.10) L 3.22 M/UL (4.70-6.10) L Hemoglobin 9.7 G/DL (14.2-18.0) #L 9.8 G/DL (14.2-18.0) L Hematocrit 28.8 % (42.0-52.0) L 28.4 % (42.0-52.0) L Mean Corpuscular Volume 89 FL (80-99) 88 FL (80-99) Mean Corpuscular Hemoglobin 30.3 PG (27.0-31.0) 30.3 PG (27.0-31.0) Mean Corpuscular Hemoglobin Concent 33.8 G/DL (32.0-36.0) 34.4 G/DL (32.0-36.0) Red Cell Distribution Width 14.9 % (11.6-14.8) H 14.9 % (11.6-14.8) H Platelet Count 126 K/UL (150-450) L 134 K/UL (150-450) L Mean Platelet Volume 6.0 FL (6.5-10.1) L 7.4 FL (6.5-10.1) Neutrophils (%) (Auto) 89.7 % (45.0-75.0) H % (45.0-75.0) Lymphocytes (%) (Auto) 6.0 % (20.0-45.0) L % (20.0-45.0) Monocytes (%) (Auto) 3.1 % (1.0-10.0) % (1.0-10.0) Eosinophils (%) (Auto) 0.8 % (0.0-3.0) % (0.0-3.0) Basophils (%) (Auto) 0.4 % (0.0-2.0) % (0.0-2.0) Arterial Blood pH 7.482 (7.350-7.450) Arterial Blood Partial Pressure CO2 27.7 mmHg (35.0-45.0) L Arterial Blood Partial Pressure O2 75.5 mmHg (75.0-100.0) Arterial Blood HCO3 20.3 mmol/L (22.0-26.0) L Arterial Blood Oxygen Saturation 95.4 % (95-100) Arterial Blood Base Excess -2.2 (-2-2) L Bryce Test Positive Differential Total Cells Counted 101 Neutrophils % (Manual) 93 % (45-75) H Lymphocytes % (Manual) 2 % (20-45) L Monocytes % (Manual) 1 % (1-10) Eosinophils % (Manual) 3 % (0-3) Basophils % (Manual) 0 % (0-2) Band Neutrophils 1 % (0-8) Platelet Estimate Decreased L Platelet Morphology Normal Prothrombin Time 11.2 SEC (9.30-11.50) Prothromb Time International Ratio 1.1 (0.9-1.1) Activated Partial Thromboplast Time 39 SEC (23-33) H Sodium Level 138 MMOL/L (136-145) Potassium Level 3.0 MMOL/L (3.5-5.1) L Chloride Level 107 MMOL/L (98-107) Carbon Dioxide Level 20 MMOL/L (21-32) L Anion Gap 11 mmol/L (5-15) Blood Urea Nitrogen 20 mg/dL (7-18) H Creatinine 0.8 MG/DL (0.55-1.30) Estimat Glomerular Filtration Rate > 60 mL/min (>60) Glucose Level 103 MG/DL (74-106) Calcium Level 7.6 MG/DL (8.5-10.1) L Phosphorus Level 1.5 MG/DL (2.5-4.9) L Magnesium Level 1.6 MG/DL (1.8-2.4) L Total Bilirubin 2.1 MG/DL (0.2-1.0) H Direct Bilirubin 0.6 MG/DL (0.0-0.3) H Aspartate Amino Transf (AST/SGOT) 68 U/L (15-37) H Alanine Aminotransferase (ALT/SGPT) 157 U/L (12-78) H Alkaline Phosphatase 62 U/L (46-116) Total Protein 5.0 G/DL (6.4-8.2) L Albumin 1.4 G/DL (3.4-5.0) L Globulin 3.6 g/dL Albumin/Globulin Ratio 0.4 (1.0-2.7) L Claudia Chi MD May 27, 2019 10:37
--- NOTE | 2019-05-27 10:39 | General Progress Note ---
Assessment/Plan Problem List: (1) G tube feedings ICD Codes: Z93.1 - Gastrostomy status SNOMED: 862467339, 815444047, 446173310 (2) Chronic respiratory failure ICD Codes: J96.10 - Chronic respiratory failure, unspecified whether with hypoxia or hypercapnia SNOMED: 15501108 (3) Gastrostomy tube in place ICD Codes: Z93.1 - Gastrostomy status SNOMED: 008879326, 227000516 (4) Hemoptysis ICD Codes: R04.2 - Hemoptysis SNOMED: 02616279 (5) Esophageal mass ICD Codes: K22.8 - Other specified diseases of esophagus SNOMED: 806281152 Assessment/Plan: most likely bleeding from trach ppi s/p 4 units blood transfusion GTF tolerated bowel regimen cbc and cmp for am Subjective ROS Limited/Unobtainable: No Allergies: Coded Allergies: LEVOFLOXACIN (Verified Allergy, Unknown, 05/24/19) Possible allergic reaction - low blood pressure Objective Last 24 Hour Vital Signs Date Time Temp Pulse Resp B/P (MAP) Pulse Ox O2 Delivery O2 Flow Rate FiO2 05/27/19 10:00 65 22 118/61 (80) 97 05/27/19 09:30 60 19 130/67 (88) 100 05/27/19 09:20 60 20 40 05/27/19 09:00 57 20 124/60 (81) 99 05/27/19 08:30 60 22 121/62 (81) 98 05/27/19 08:00 97.7 58 22 113/56 (75) 98 05/27/19 07:30 56 21 130/56 (80) 99 05/27/19 07:08 63 28 40 05/27/19 07:00 54 20 125/58 (80) 100 05/27/19 07:00 125/56 05/27/19 06:45 125/56 05/27/19 06:30 126/60 05/27/19 06:15 65 18 144/66 (92) 99 05/27/19 06:06 58 21 157/75 (102) 100 05/27/19 06:02 70/38 05/27/19 06:00 59 23 96/57 (70) 98 05/27/19 05:55 63 23 94/52 (66) 97 05/27/19 05:02 78 28 40 2/26/20 05:00 51 23 140/62 (88) 97 05/27/19 04:00 74 17 134/58 (83) 93 05/27/19 04:00 Mechanical Ventilator 05/27/19 04:00 40 05/27/19 04:00 50 05/27/19 03:00 47 19 123/51 (75) 95 05/27/19 02:39 53 22 40 05/27/19 02:00 50 13 127/54 (78) 94 05/27/19 01:00 50 14 131/57 (81) 100 05/27/19 00:35 53 22 40 05/27/19 00:00 49 05/27/19 00:00 Mechanical Ventilator 05/27/19 00:00 40 05/27/19 00:00 97.8 49 14 141/58 (85) 100 05/26/19 23:00 50 18 120/55 (76) 100 05/26/19 22:40 50 21 40 05/26/19 22:00 49 17 137/54 (81) 100 05/26/19 21:00 54 19 139/56 (83) 100 05/26/19 20:45 54 24 40 05/26/19 20:04 136/59 05/26/19 20:00 Mechanical Ventilator 05/26/19 20:00 97.6 49 18 136/59 (84) 100 05/26/19 20:00 40 05/26/19 20:00 51 05/26/19 19:03 52 26 40 05/26/19 19:00 71 20 160/74 (102) 99 05/26/19 18:00 61 25 145/65 (91) 100 05/26/19 17:30 55 17 45 05/26/19 17:00 54 20 152/66 (94) 100 05/26/19 16:00 52 05/26/19 16:00 45 05/26/19 16:00 Mechanical Ventilator 05/26/19 16:00 97.8 52 18 149/66 (93) 99 05/26/19 15:00 61 22 155/61 (92) 100 05/26/19 14:59 67 30 45 05/26/19 14:00 62 20 148/68 (94) 95 05/26/19 13:15 68 21 45 05/26/19 13:00 58 20 145/60 (88) 99 05/26/19 12:00 58 05/26/19 12:00 45 05/26/19 12:00 Mechanical Ventilator 05/26/19 12:00 97.9 60 23 136/66 (89) 99 05/26/19 11:20 58 21 45 05/26/19 11:00 59 19 121/55 (77) 100 Intake and Output 05/26/19 05/27/19 19:00 07:00 Intake Total 1365.833 ml 1682.25 ml Output Total 665 ml 670 ml Balance 700.833 ml 1012.25 ml Intake Free Water 60 ml 200 ml IV Total 1275.833 ml 1202.25 ml Tube Feeding 30 ml 280 ml Output Urine Total 665 ml 670 ml Laboratory Tests 05/26/19 16:08: Vancomycin Level Trough 10.8 05/26/19 21:00: White Blood Count 6.5, Red Blood Count 3.22L, Hemoglobin 9.7#L, Hematocrit 28.8L , Mean Corpuscular Volume 89, Mean Corpuscular Hemoglobin 30.3, Mean Corpuscular Hemoglobin Concent 33.8, Red Cell Distribution Width 14.9H, Platelet Count 126L, Mean Platelet Volume 6.0L, Neutrophils (%) (Auto) 89.7H, Lymphocytes (%) (Auto) 6.0L, Monocytes (%) (Auto) 3.1, Eosinophils (%) (Auto) 0.8, Basophils (%) (Auto) 0.4 05/27/19 04:00: Arterial Blood pH 7.482H, Arterial Blood Partial Pressure CO2 27.7L, Arterial Blood Partial Pressure O2 75.5, Arterial Blood HCO3 20.3L, Arterial Blood Oxygen Saturation 95.4, Arterial Blood Base Excess -2.2L, Bryce Test Positive 05/27/19 05:00: White Blood Count 5.8, Red Blood Count 3.22L, Hemoglobin 9.8L, Hematocrit 28.4L , Mean Corpuscular Volume 88, Mean Corpuscular Hemoglobin 30.3, Mean Corpuscular Hemoglobin Concent 34.4, Red Cell Distribution Width 14.9H, Platelet Count 134L, Mean Platelet Volume 7.4, Neutrophils (%) (Auto) , Lymphocytes (%) (Auto) , Monocytes (%) (Auto) , Eosinophils (%) (Auto) , Basophils (%) (Auto) , Differential Total Cells Counted 101, Neutrophils % ( Manual) 93H, Lymphocytes % (Manual) 2L, Monocytes % (Manual) 1, Eosinophils % ( Manual) 3, Basophils % (Manual) 0, Band Neutrophils 1, Platelet Estimate DecreasedL, Platelet Morphology Normal, Prothrombin Time 11.2, Prothromb Time International Ratio 1.1, Activated Partial Thromboplast Time 39H, Sodium Level 138, Potassium Level 3.0L, Chloride Level 107, Carbon Dioxide Level 20L, Anion Gap 11, Blood Urea Nitrogen 20H, Creatinine 0.8, Estimat Glomerular Filtration Rate > 60, Glucose Level 103, Calcium Level 7.6L, Phosphorus Level 1.5L, Magnesium Level 1.6L, Total Bilirubin 2.1H, Direct Bilirubin 0.6H, Aspartate Amino Transf (AST/SGOT) 68H, Alanine Aminotransferase (ALT/SGPT) 157H, Alkaline Phosphatase 62, Total Protein 5.0L, Albumin 1.4L, Globulin 3.6, Albumin/ Globulin Ratio 0.4L Height (Feet): 5 Height (Inches): 7.00 Weight (Pounds): 152 General Appearance: no apparent distress EENT: normal ENT inspection Neck: supple Cardiovascular: normal rate Respiratory/Chest: decreased breath sounds Abdomen: normal bowel sounds, non tender, soft Extremities: non-tender Narciso Engle MD May 27, 2019 10:39
--- NOTE | 2019-05-27 11:07 | Infectious Diseases Prog Note ---
Assessment/Plan Assessment/Plan Assessment/Plan: A: Leukocytosis, Sp Sepsis/shock improved Fever, Sp Probable Pneum(HAC) - CXR: Right lung opacities and questionable patchy left lung opacities, likely pneumonia Transaminitis ( due to HypoTN) upper airway bleed sp Trach and PEG throat cancer P: Cont pt on Zosyn # 2 and DC IV Vanco # 2 hold Amikacin # 1 Monitor CBC Monitor CMP Monitor CXR Monitor Cx (B,U,S) Sputum Cx ordered Rsp Support Subjective Allergies: Coded Allergies: LEVOFLOXACIN (Verified Allergy, Unknown, 05/24/19) Possible allergic reaction - low blood pressure Subjective BP dropped today while getting IV Vanco still has some trach bleeding Objective Vital Signs Last 24 Hour Vital Signs Date Time Temp Pulse Resp B/P (MAP) Pulse Ox O2 Delivery O2 Flow Rate FiO2 05/27/19 10:41 59 20 40 05/27/19 10:00 65 22 118/61 (80) 97 05/27/19 09:30 60 19 130/67 (88) 100 05/27/19 09:20 60 20 40 05/27/19 09:00 57 20 124/60 (81) 99 05/27/19 08:30 60 22 121/62 (81) 98 05/27/19 08:00 97.7 58 22 113/56 (75) 98 05/27/19 07:30 56 21 130/56 (80) 99 05/27/19 07:08 63 28 40 05/27/19 07:00 54 20 125/58 (80) 100 05/27/19 07:00 125/56 05/27/19 06:45 125/56 05/27/19 06:30 126/60 05/27/19 06:15 65 18 144/66 (92) 99 05/27/19 06:06 58 21 157/75 (102) 100 05/27/19 06:02 70/38 05/27/19 06:00 59 23 96/57 (70) 98 05/27/19 05:55 63 23 94/52 (66) 97 05/27/19 05:02 78 28 40 05/27/19 05:00 51 23 140/62 (88) 97 05/27/19 04:00 74 17 134/58 (83) 93 05/27/19 04:00 Mechanical Ventilator 05/27/19 04:00 40 05/27/19 04:00 50 05/27/19 03:00 47 19 123/51 (75) 95 05/27/19 02:39 53 22 40 05/27/19 02:00 50 13 127/54 (78) 94 05/27/19 01:00 50 14 131/57 (81) 100 05/27/19 00:35 53 22 40 05/27/19 00:00 49 05/27/19 00:00 Mechanical Ventilator 05/27/19 00:00 40 05/27/19 00:00 97.8 49 14 141/58 (85) 100 05/26/19 23:00 50 18 120/55 (76) 100 05/26/19 22:40 50 21 40 05/26/19 22:00 49 17 137/54 (81) 100 05/26/19 21:00 54 19 139/56 (83) 100 05/26/19 20:45 54 24 40 05/26/19 20:04 136/59 05/26/19 20:00 Mechanical Ventilator 05/26/19 20:00 97.6 49 18 136/59 (84) 100 05/26/19 20:00 40 05/26/19 20:00 51 05/26/19 19:03 52 26 40 05/26/19 19:00 71 20 160/74 (102) 99 05/26/19 18:00 61 25 145/65 (91) 100 05/26/19 17:30 55 17 45 05/26/19 17:00 54 20 152/66 (94) 100 05/26/19 16:00 52 05/26/19 16:00 45 05/26/19 16:00 Mechanical Ventilator 05/26/19 16:00 97.8 52 18 149/66 (93) 99 05/26/19 15:00 61 22 155/61 (92) 100 05/26/19 14:59 67 30 45 05/26/19 14:00 62 20 148/68 (94) 95 05/26/19 13:15 68 21 45 05/26/19 13:00 58 20 145/60 (88) 99 05/26/19 12:00 58 05/26/19 12:00 45 05/26/19 12:00 Mechanical Ventilator 05/26/19 12:00 97.9 60 23 136/66 (89) 99 05/26/19 11:20 58 21 45 Height (Feet): 5 Height (Inches): 7.00 Weight (Pounds): 152 HEENT: atraumatic Respiratory/Chest: lungs clear Cardiovascular: regular rhythm Abdomen: non distended Microbiology Date/Time Source Procedure Growth Status 05/24/19 16:53 Blood Blood Culture - Preliminary NO GROWTH AFTER 48 HOURS Resulted 05/24/19 16:53 Blood Blood Culture - Preliminary NO GROWTH AFTER 48 HOURS Resulted 05/24/19 17:30 Nasal Nares MRSA Culture - Final Staphylococcus Aureus - Mrsa Complete 05/25/19 14:01 Urine,Clean Catch Urine Culture - Preliminary NO GROWTH AFTER 24 HOURS Resulted 05/24/19 19:30 Rectum VRE Culture - Final NO VANCOMYCIN RESISTANT ENTEROCOCCUS ... Complete Laboratory Tests Test 05/26/19 16:08 05/26/19 21:00 05/27/19 04:00 05/27/19 05:00 Vancomycin Level Trough 10.8 ug/mL (5.0-12.0) White Blood Count 6.5 K/UL (4.8-10.8) 5.8 K/UL (4.8-10.8) Red Blood Count 3.22 M/UL (4.70-6.10) L 3.22 M/UL (4.70-6.10) L Hemoglobin 9.7 G/DL (14.2-18.0) #L 9.8 G/DL (14.2-18.0) L Hematocrit 28.8 % (42.0-52.0) L 28.4 % (42.0-52.0) L Mean Corpuscular Volume 89 FL (80-99) 88 FL (80-99) Mean Corpuscular Hemoglobin 30.3 PG (27.0-31.0) 30.3 PG (27.0-31.0) Mean Corpuscular Hemoglobin Concent 33.8 G/DL (32.0-36.0) 34.4 G/DL (32.0-36.0) Red Cell Distribution Width 14.9 % (11.6-14.8) H 14.9 % (11.6-14.8) H Platelet Count 126 K/UL (150-450) L 134 K/UL (150-450) L Mean Platelet Volume 6.0 FL (6.5-10.1) L 7.4 FL (6.5-10.1) Neutrophils (%) (Auto) 89.7 % (45.0-75.0) H % (45.0-75.0) Lymphocytes (%) (Auto) 6.0 % (20.0-45.0) L % (20.0-45.0) Monocytes (%) (Auto) 3.1 % (1.0-10.0) % (1.0-10.0) Eosinophils (%) (Auto) 0.8 % (0.0-3.0) % (0.0-3.0) Basophils (%) (Auto) 0.4 % (0.0-2.0) % (0.0-2.0) Arterial Blood pH 7.482 (7.350-7.450) Arterial Blood Partial Pressure CO2 27.7 mmHg (35.0-45.0) L Arterial Blood Partial Pressure O2 75.5 mmHg (75.0-100.0) Arterial Blood HCO3 20.3 mmol/L (22.0-26.0) L Arterial Blood Oxygen Saturation 95.4 % (95-100) Arterial Blood Base Excess -2.2 (-2-2) L Bryce Test Positive Differential Total Cells Counted 101 Neutrophils % (Manual) 93 % (45-75) H Lymphocytes % (Manual) 2 % (20-45) L Monocytes % (Manual) 1 % (1-10) Eosinophils % (Manual) 3 % (0-3) Basophils % (Manual) 0 % (0-2) Band Neutrophils 1 % (0-8) Platelet Estimate Decreased L Platelet Morphology Normal Prothrombin Time 11.2 SEC (9.30-11.50) Prothromb Time International Ratio 1.1 (0.9-1.1) Activated Partial Thromboplast Time 39 SEC (23-33) H Sodium Level 138 MMOL/L (136-145) Potassium Level 3.0 MMOL/L (3.5-5.1) L Chloride Level 107 MMOL/L (98-107) Carbon Dioxide Level 20 MMOL/L (21-32) L Anion Gap 11 mmol/L (5-15) Blood Urea Nitrogen 20 mg/dL (7-18) H Creatinine 0.8 MG/DL (0.55-1.30) Estimat Glomerular Filtration Rate > 60 mL/min (>60) Glucose Level 103 MG/DL (74-106) Calcium Level 7.6 MG/DL (8.5-10.1) L Phosphorus Level 1.5 MG/DL (2.5-4.9) L Magnesium Level 1.6 MG/DL (1.8-2.4) L Total Bilirubin 2.1 MG/DL (0.2-1.0) H Direct Bilirubin 0.6 MG/DL (0.0-0.3) H Aspartate Amino Transf (AST/SGOT) 68 U/L (15-37) H Alanine Aminotransferase (ALT/SGPT) 157 U/L (12-78) H Alkaline Phosphatase 62 U/L (46-116) Total Protein 5.0 G/DL (6.4-8.2) L Albumin 1.4 G/DL (3.4-5.0) L Globulin 3.6 g/dL Albumin/Globulin Ratio 0.4 (1.0-2.7) L Current Medications Medications (Trade) Dose Ordered Sig/Mervat Route PRN Reason Start Time Stop Time Status Last Admin Dose Admin Acetaminophen (Tylenol) 650 mg Q4H PRN ORAL FEVER 05/24/19 17:30 06/23/19 17:29 Albuterol/ Ipratropium (Albuterol/ Ipratropium) 3 ml Q4H PRN HHN Shortness of Breath 05/24/19 17:30 05/29/19 17:29 Chlorhexidine Gluconate (Stacie-Hex 2%) 1 applic DAILY@2000 TOPIC 05/25/19 20:00 06/24/19 19:59 05/26/19 20:07 Dextrose (Dextrose 50%) 25 ml Q30M PRN IV Hypoglycemia 05/24/19 17:30 06/23/19 17:29 Dextrose (Dextrose 50%) 50 ml Q30M PRN IV Hypoglycemia 05/24/19 17:30 06/23/19 17:29 Docusate Sodium (Colace) 100 mg TWICE A DAY NG 05/27/19 09:00 06/26/19 08:59 05/27/19 09:58 Lactulose (Cephulac) 20 gm DAILY ORAL 05/28/19 09:00 06/27/19 08:59 Magnesium Sulfate 100 ml @ 100 mls/hr Q1H IVPB 05/27/19 12:45 05/27/19 14:44 Norepinephrine Bitartrate 4 mg/ Dextrose 250 ml @ 0 mls/hr Q24H IV 05/24/19 20:04 06/23/19 20:03 05/27/19 06:02 Ondansetron HCl (Zofran) 4 mg Q6H PRN IVP Nausea & Vomiting 05/24/19 17:30 06/23/19 17:29 05/24/19 18:11 Pantoprazole (Protonix) 40 mg EVERY 12 HOURS IVP 05/25/19 21:00 06/24/19 20:59 05/27/19 09:58 Piperacillin Sod/ Tazobactam Sod 3.375 gm/Sodium Chloride 110 ml @ 27.5 mls/hr EVERY 8 HOURS IVPB 05/25/19 14:00 05/30/19 13:59 05/27/19 06:00 Polyethylene Glycol (Miralax) 17 gm BEDTIME ORAL 05/26/19 21:00 06/25/19 20:59 05/26/19 21:24 Potassium Chloride 100 ml @ 100 mls/hr Q1H IVPB 05/27/19 11:00 05/27/19 14:59 Sodium Chloride 1,000 ml @ 75 mls/hr [id number] IV 05/24/19 22:00 06/23/19 21:59 05/27/19 03:31 Sodium Phosphate 30 mm/Sodium Chloride 285 ml @ 47.5 mls/hr ONCE ONCE IV 05/27/19 13:00 05/27/19 18:59 Jose Luis Alba MD May 27, 2019 11:07
--- NOTE | 2019-05-27 12:00 | NUR ---
NURSE NOTES: Levophed drip was stopped due to stable BP. Pt is afebrile. Pt was seen by Dr Engle. No new orders were received. Pt is tolerating GT feeding well with no residual. ABGs were draws this AM and reported to MD, no new orders. Spoke with pt's daughter and caregiver over the phone and updated on pt's status. Pt was repositioned, oral care was done.
--- NOTE | 2019-05-27 12:11 | Diagnostic Imaging Report ---
Indication: Dyspnea Comparison: 05/24/2019 A single view chest radiograph was obtained. Findings: Patchy interstitial opacities demonstrated bilaterally. There may be an infiltrate in the right midlung. Heart is stable in size. Tracheostomy noted. IMPRESSION: Suspected interstitial edema/CHF. Correlate clinically Pneumonia in the right midlung not excluded. Recommend follow-up
[2019-05-27] MEDS ORDERED: Sodium Phosphate 30 MM in NS 275 ML IV ONE (13:00)
--- NOTE | 2019-05-27 13:35 | Internal Med Progress Note ---
Subjective Date of Service: May 27, 2019 Physician Name LuceroIgor Attending Physician Matthew Davis MD Current Medications Medications (Trade) Dose Ordered Sig/Mervat Route PRN Reason Start Time Stop Time Status Last Admin Dose Admin Acetaminophen (Tylenol) 650 mg Q4H PRN ORAL FEVER 05/24/19 17:30 06/23/19 17:29 Albuterol/ Ipratropium (Albuterol/ Ipratropium) 3 ml Q4H PRN HHN Shortness of Breath 05/24/19 17:30 05/29/19 17:29 Chlorhexidine Gluconate (Stacie-Hex 2%) 1 applic DAILY@2000 TOPIC 05/25/19 20:00 06/24/19 19:59 05/26/19 20:07 Dextrose (Dextrose 50%) 25 ml Q30M PRN IV Hypoglycemia 05/24/19 17:30 06/23/19 17:29 Dextrose (Dextrose 50%) 50 ml Q30M PRN IV Hypoglycemia 05/24/19 17:30 06/23/19 17:29 Docusate Sodium (Colace) 100 mg TWICE A DAY NG 05/27/19 09:00 06/26/19 08:59 05/27/19 09:58 Lactulose (Cephulac) 20 gm DAILY ORAL 05/28/19 09:00 06/27/19 08:59 Magnesium Sulfate 100 ml @ 100 mls/hr Q1H IVPB 05/27/19 12:45 05/27/19 14:44 05/27/19 12:42 Norepinephrine Bitartrate 4 mg/ Dextrose 250 ml @ 0 mls/hr Q24H IV 05/24/19 20:04 06/23/19 20:03 05/27/19 06:02 Ondansetron HCl (Zofran) 4 mg Q6H PRN IVP Nausea & Vomiting 05/24/19 17:30 06/23/19 17:29 05/24/19 18:11 Pantoprazole (Protonix) 40 mg EVERY 12 HOURS IVP 05/25/19 21:00 06/24/19 20:59 05/27/19 09:58 Piperacillin Sod/ Tazobactam Sod 3.375 gm/Sodium Chloride 110 ml @ 27.5 mls/hr EVERY 8 HOURS IVPB 05/25/19 14:00 05/30/19 13:59 05/27/19 06:00 Polyethylene Glycol (Miralax) 17 gm BEDTIME ORAL 05/26/19 21:00 06/25/19 20:59 05/26/19 21:24 Potassium Chloride 100 ml @ 100 mls/hr Q1H IVPB 05/27/19 11:00 05/27/19 14:59 05/27/19 12:00 Sodium Chloride 1,000 ml @ 75 mls/hr [id number] IV 05/24/19 22:00 06/23/19 21:59 05/27/19 03:31 Sodium Phosphate 30 mm/Sodium Chloride 285 ml @ 47.5 mls/hr ONCE ONCE IV 05/27/19 13:00 05/27/19 18:59 Allergies: Coded Allergies: LEVOFLOXACIN (Verified Allergy, Unknown, 05/24/19) Possible allergic reaction - low blood pressure ROS Limited/Unobtainable: No Subjective 73 YO M with esophageal mass admitted with hemoptysis. Cover for Int med-DR Davis. ICU Objective Last Vital Signs Date Time Temp Pulse Resp B/P (MAP) Pulse Ox O2 Delivery O2 Flow Rate FiO2 05/27/19 13:26 64 21 40 05/27/19 11:00 118/57 05/27/19 11:00 99 05/27/19 08:00 Mechanical Ventilator 05/27/19 08:00 97.7 05/24/19 19:15 15.0 Laboratory Tests Test 05/26/19 16:08 05/26/19 21:00 05/27/19 04:00 05/27/19 05:00 Vancomycin Level Trough 10.8 ug/mL (5.0-12.0) White Blood Count 6.5 K/UL (4.8-10.8) 5.8 K/UL (4.8-10.8) Red Blood Count 3.22 M/UL (4.70-6.10) L 3.22 M/UL (4.70-6.10) L Hemoglobin 9.7 G/DL (14.2-18.0) #L 9.8 G/DL (14.2-18.0) L Hematocrit 28.8 % (42.0-52.0) L 28.4 % (42.0-52.0) L Mean Corpuscular Volume 89 FL (80-99) 88 FL (80-99) Mean Corpuscular Hemoglobin 30.3 PG (27.0-31.0) 30.3 PG (27.0-31.0) Mean Corpuscular Hemoglobin Concent 33.8 G/DL (32.0-36.0) 34.4 G/DL (32.0-36.0) Red Cell Distribution Width 14.9 % (11.6-14.8) H 14.9 % (11.6-14.8) H Platelet Count 126 K/UL (150-450) L 134 K/UL (150-450) L Mean Platelet Volume 6.0 FL (6.5-10.1) L 7.4 FL (6.5-10.1) Neutrophils (%) (Auto) 89.7 % (45.0-75.0) H % (45.0-75.0) Lymphocytes (%) (Auto) 6.0 % (20.0-45.0) L % (20.0-45.0) Monocytes (%) (Auto) 3.1 % (1.0-10.0) % (1.0-10.0) Eosinophils (%) (Auto) 0.8 % (0.0-3.0) % (0.0-3.0) Basophils (%) (Auto) 0.4 % (0.0-2.0) % (0.0-2.0) Arterial Blood pH 7.482 (7.350-7.450) Arterial Blood Partial Pressure CO2 27.7 mmHg (35.0-45.0) L Arterial Blood Partial Pressure O2 75.5 mmHg (75.0-100.0) Arterial Blood HCO3 20.3 mmol/L (22.0-26.0) L Arterial Blood Oxygen Saturation 95.4 % (95-100) Arterial Blood Base Excess -2.2 (-2-2) L Bryce Test Positive Differential Total Cells Counted 101 Neutrophils % (Manual) 93 % (45-75) H Lymphocytes % (Manual) 2 % (20-45) L Monocytes % (Manual) 1 % (1-10) Eosinophils % (Manual) 3 % (0-3) Basophils % (Manual) 0 % (0-2) Band Neutrophils 1 % (0-8) Platelet Estimate Decreased L Platelet Morphology Normal Prothrombin Time 11.2 SEC (9.30-11.50) Prothromb Time International Ratio 1.1 (0.9-1.1) Activated Partial Thromboplast Time 39 SEC (23-33) H Sodium Level 138 MMOL/L (136-145) Potassium Level 3.0 MMOL/L (3.5-5.1) L Chloride Level 107 MMOL/L (98-107) Carbon Dioxide Level 20 MMOL/L (21-32) L Anion Gap 11 mmol/L (5-15) Blood Urea Nitrogen 20 mg/dL (7-18) H Creatinine 0.8 MG/DL (0.55-1.30) Estimat Glomerular Filtration Rate > 60 mL/min (>60) Glucose Level 103 MG/DL (74-106) Calcium Level 7.6 MG/DL (8.5-10.1) L Phosphorus Level 1.5 MG/DL (2.5-4.9) L Magnesium Level 1.6 MG/DL (1.8-2.4) L Total Bilirubin 2.1 MG/DL (0.2-1.0) H Direct Bilirubin 0.6 MG/DL (0.0-0.3) H Aspartate Amino Transf (AST/SGOT) 68 U/L (15-37) H Alanine Aminotransferase (ALT/SGPT) 157 U/L (12-78) H Alkaline Phosphatase 62 U/L (46-116) Total Protein 5.0 G/DL (6.4-8.2) L Albumin 1.4 G/DL (3.4-5.0) L Globulin 3.6 g/dL Albumin/Globulin Ratio 0.4 (1.0-2.7) L Microbiology Date/Time Source Procedure Growth Status 05/24/19 16:53 Blood Blood Culture - Preliminary NO GROWTH AFTER 48 HOURS Resulted 05/24/19 16:53 Blood Blood Culture - Preliminary NO GROWTH AFTER 48 HOURS Resulted 05/24/19 17:30 Nasal Nares MRSA Culture - Final Staphylococcus Aureus - Mrsa Complete 05/25/19 14:01 Urine,Clean Catch Urine Culture - Preliminary NO GROWTH AFTER 24 HOURS Resulted 05/24/19 19:30 Rectum VRE Culture - Final NO VANCOMYCIN RESISTANT ENTEROCOCCUS ... Complete Intake and Output 05/26/19 05/27/19 19:00 07:00 Intake Total 1365.833 ml 1682.25 ml Output Total 665 ml 670 ml Balance 700.833 ml 1012.25 ml Intake Free Water 60 ml 200 ml IV Total 1275.833 ml 1202.25 ml Tube Feeding 30 ml 280 ml Output Urine Total 665 ml 670 ml Objective PHYSICAL EXAMINATION: GENERAL: The patient is a well-nourished male, who is in moderate distress. HEENT: Eyes, pupils are equal and responsive to light and accommodation. Extraocular movements are intact. Tracheostomy is present. CHEST: Lungs are clear with mechanical breath sounds bilaterally. ABDOMEN: Soft, nontender, and nondistended. Positive bowel sounds. No evidence of hepatosplenomegaly. Currently, no rebound or guarding noted. EXTREMITIES: Negative for clubbing, cyanosis, or edema. RECTAL/GENITAL: Not performed. NEUROLOGICAL: Cranial nerves II to XII grossly intact without focal deficits. Motor strength is 5/5 bilaterally. Deep tendon reflexes are 2+ plantar. Assessment/Plan Assessment/Plan ASSESSMENT: This is a 73-year-old male with: 1. Esophageal mass. 2. Esophageal hemorrhage. 3. Airway obstruction. 4. Hypoxia. 5. History of esophageal cancer. 6. Elevated liver function tests. TREATMENT: 1. Esophageal mass/hemorrhage. A Hematology/Oncology consultation has been obtained with Dr. Paz. The patient has received four units of packed RBCs and 1 unit FFP. The patient is in the intensive care unit. The patient iscurrently off pressors. 2. Hypoxia. A Pulmonary/Critical Care consultation has been obtained with Dr. Claudia Cih. Hypoxia is probably secondary to tracheal obstruction secondary to hemorrhage as above. Continue vent per Dr. Chi. 3. Pneumonia. The patient has been started on Zosyn and vancomycin. An Infectious Disease consultation has been obtained with Dr. Alba. We will follow recommendations of Infectious Disease. A sputum culture is pending. 4. Elevated liver function tests/esophageal mass. A Gastroenterology consultation has been obtained with Dr. Narciso Engle. The patient may require repeat biopsy of esophageal mass. We will follow recommendations of Gastroenterology. A CT scan of the neck is pending. Igor Lucero MD May 27, 2019 13:35
--- NOTE | 2019-05-27 14:00 | NUR ---
NURSE NOTES: KCL 40meq IVPB, Mag 2gm IVPB, NaPhos 30mm IVPB, and KDur 40meq GT are being administered as ordered. VS remain stable. Pt is currently asleep in no apparent distress.
--- NOTE | 2019-05-27 16:00 | NUR ---
NURSE NOTES: Pt is awake, alert, watching TV with no reports of distress. VS remain stable while Levophed drip is on hold. Pt remains afebrile. GT feeding is tolerated with no noted residual, GT flushed as ordered. Fernandez catheter continues to drain clear/dark yellow urine. Pt was repositioned.
--- NOTE | 2019-05-27 18:00 | NUR ---
NURSE NOTES: Pt was cleaned, gown/bed linens were changed. Oral care was done and pt suctioned. Pt was repositioned. VS remain stable.
--- NOTE | 2019-05-27 18:14 | Hematology/Onc Progress Note ---
Assessment/Plan Assessment/Plan ASSESSMENT/RECS: #. 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 Esophageal hemorrhage. --> requires hemostatic support --> coags have been checked --> vitamin K has been ordered # Anemia of chronic disease due to underlying chronic medical issues, multifactorial v Gi bleed --> Anemia workup has been ordered, rule out gi bleed --> reviewed --> No evidence of hemolysis is noted, peripheral smear has been reviewed. --> Hgb goal >7. Transfuse prn. --> Epogen or iron at this time is not particularly indicated --> Medications have been reviewed --> low threshold for gi evaluation in case has occult + --> hgb trend: 9.8 # Airway obstruction. --> sp trach # Hypoxia. -> per pulm # Elevated liver function tests. --> as per gi, imaging ordered # Sepsis s/p abx --> per id and has received pressors --> in the icu --> vanc/zosyn # Pneumonia. --> on abx --> cxr: Suspected interstitial edema/CHF. Pneumonia in the right midlung not excluded # sp Trach and PEG Appreciate consultation and skip Rn Subjective Allergies: Coded Allergies: LEVOFLOXACIN (Verified Allergy, Unknown, 05/24/19) Possible allergic reaction - low blood pressure Subjective 05/27: icu, cxr reviewed, arythmia overnight, currently alert, no distress, on levophed Objective Objective Current Medications Medications (Trade) Dose Ordered Sig/Mervat Route PRN Reason Start Time Stop Time Status Last Admin Dose Admin Acetaminophen (Tylenol) 650 mg Q4H PRN ORAL FEVER 05/24/19 17:30 06/23/19 17:29 Albuterol/ Ipratropium (Albuterol/ Ipratropium) 3 ml Q4H PRN HHN Shortness of Breath 05/24/19 17:30 2/28/20 17:29 Chlorhexidine Gluconate (Stacie-Hex 2%) 1 applic DAILY@2000 TOPIC 05/25/19 20:00 06/24/19 19:59 05/26/19 20:07 Dextrose (Dextrose 50%) 25 ml Q30M PRN IV Hypoglycemia 05/24/19 17:30 06/23/19 17:29 Dextrose (Dextrose 50%) 50 ml Q30M PRN IV Hypoglycemia 05/24/19 17:30 06/23/19 17:29 Docusate Sodium (Colace) 100 mg TWICE A DAY NG 05/27/19 09:00 06/26/19 08:59 05/27/19 17:38 Lactulose (Cephulac) 20 gm DAILY ORAL 05/28/19 09:00 06/27/19 08:59 Norepinephrine Bitartrate 4 mg/ Dextrose 250 ml @ 0 mls/hr Q24H IV 05/24/19 20:04 06/23/19 20:03 05/27/19 06:02 Ondansetron HCl (Zofran) 4 mg Q6H PRN IVP Nausea & Vomiting 05/24/19 17:30 06/23/19 17:29 05/24/19 18:11 Pantoprazole (Protonix) 40 mg EVERY 12 HOURS IVP 05/25/19 21:00 06/24/19 20:59 05/27/19 09:58 Piperacillin Sod/ Tazobactam Sod 3.375 gm/Sodium Chloride 110 ml @ 27.5 mls/hr EVERY 8 HOURS IVPB 05/25/19 14:00 05/30/19 13:59 05/27/19 14:52 Polyethylene Glycol (Miralax) 17 gm BEDTIME ORAL 05/26/19 21:00 06/25/19 20:59 05/26/19 21:24 Sodium Chloride 1,000 ml @ 75 mls/hr [id number] IV 05/24/19 22:00 06/23/19 21:59 05/27/19 17:38 Sodium Phosphate 30 mm/Sodium Chloride 285 ml @ 47.5 mls/hr ONCE ONCE IV 05/27/19 13:00 05/27/19 18:59 05/27/19 13:54 Last 24 Hour Vital Signs Date Time Temp Pulse Resp B/P (MAP) Pulse Ox O2 Delivery O2 Flow Rate FiO2 05/27/19 18:00 65 22 106/65 (79) 99 05/27/19 17:00 60 23 40 05/27/19 17:00 55 18 158/59 (92) 98 05/27/19 16:00 Mechanical Ventilator 05/27/19 16:00 97.7 63 18 107/59 (75) 100 05/27/19 16:00 55 05/27/19 16:00 40 05/27/19 15:28 59 18 40 05/27/19 15:00 57 18 110/59 (76) 100 05/27/19 14:00 57 18 110/58 (75) 100 05/27/19 13:26 64 21 40 05/27/19 13:00 65 18 111/59 (76) 99 05/27/19 12:00 55 05/27/19 12:00 40 05/27/19 12:00 Mechanical Ventilator 05/27/19 12:00 97.9 60 19 122/63 (82) 99 05/27/19 11:00 118/57 05/27/19 11:00 60 20 113/57 (75) 99 05/27/19 10:41 59 20 40 05/27/19 10:00 65 22 118/61 (80) 97 05/27/19 10:00 112/57 05/27/19 09:30 60 19 130/67 (88) 100 05/27/19 09:20 60 20 40 05/27/19 09:00 118/59 05/27/19 09:00 57 20 124/60 (81) 99 05/27/19 08:30 60 22 121/62 (81) 98 05/27/19 08:00 Mechanical Ventilator 05/27/19 08:00 116/58 05/27/19 08:00 65 05/27/19 08:00 97.7 58 22 113/56 (75) 98 05/27/19 08:00 40 05/27/19 07:30 56 21 130/56 (80) 99 05/27/19 07:08 63 28 40 05/27/19 07:00 54 20 125/58 (80) 100 05/27/19 07:00 125/56 05/27/19 06:45 125/56 05/27/19 06:30 126/60 05/27/19 06:15 65 18 144/66 (92) 99 05/27/19 06:06 58 21 157/75 (102) 100 05/27/19 06:02 70/38 05/27/19 06:00 59 23 96/57 (70) 98 05/27/19 05:55 63 23 94/52 (66) 97 05/27/19 05:02 78 28 40 05/27/19 05:00 51 23 140/62 (88) 97 05/27/19 04:00 74 17 134/58 (83) 93 05/27/19 04:00 Mechanical Ventilator 05/27/19 04:00 40 05/27/19 04:00 50 05/27/19 03:00 47 19 123/51 (75) 95 05/27/19 02:39 53 22 40 05/27/19 02:00 50 13 127/54 (78) 94 05/27/19 01:00 50 14 131/57 (81) 100 05/27/19 00:35 53 22 40 05/27/19 00:00 49 05/27/19 00:00 Mechanical Ventilator 05/27/19 00:00 40 05/27/19 00:00 97.8 49 14 141/58 (85) 100 05/26/19 23:00 50 18 120/55 (76) 100 05/26/19 22:40 50 21 40 05/26/19 22:00 49 17 137/54 (81) 100 05/26/19 21:00 54 19 139/56 (83) 100 05/26/19 20:45 54 24 40 05/26/19 20:04 136/59 05/26/19 20:00 Mechanical Ventilator 05/26/19 20:00 97.6 49 18 136/59 (84) 100 05/26/19 20:00 40 05/26/19 20:00 51 05/26/19 19:03 52 26 40 05/26/19 19:00 71 20 160/74 (102) 99 05/26/19 18:00 61 25 145/65 (91) 100 05/26/19 17:30 55 17 45 05/26/19 17:00 54 20 152/66 (94) 100 05/26/19 16:00 52 05/26/19 16:00 45 05/26/19 16:00 Mechanical Ventilator 05/26/19 16:00 97.8 52 18 149/66 (93) 99 05/26/19 15:00 61 22 155/61 (92) 100 05/26/19 14:59 67 30 45 05/26/19 14:00 62 20 148/68 (94) 95 05/26/19 13:15 68 21 45 05/26/19 13:00 58 20 145/60 (88) 99 05/26/19 12:00 58 05/26/19 12:00 45 05/26/19 12:00 Mechanical Ventilator 05/26/19 12:00 97.9 60 23 136/66 (89) 99 05/26/19 11:20 58 21 45 05/26/19 11:00 59 19 121/55 (77) 100 05/26/19 10:00 51 16 123/52 (75) 100 05/26/19 09:25 55 21 45 05/26/19 09:00 53 23 128/56 (80) 100 05/26/19 08:00 56 22 121/52 (75) 100 05/26/19 08:00 Mechanical Ventilator 05/26/19 08:00 57 05/26/19 08:00 45 05/26/19 07:10 59 23 45 05/26/19 07:00 97.7 61 21 116/58 (77) 98 05/26/19 06:00 65 22 108/50 (69) 96 05/26/19 05:11 79 24 45 05/26/19 05:00 54 17 120/57 (78) 100 05/26/19 04:00 Mechanical Ventilator 05/26/19 04:00 45 05/26/19 04:00 78 05/26/19 04:00 98.3 55 17 108/54 (72) 100 05/26/19 03:00 57 18 95/51 (66) 99 05/26/19 02:30 76 23 45 05/26/19 02:00 54 16 101/53 (69) 100 05/26/19 01:00 70 25 94/67 (76) 99 05/26/19 00:32 78 24 50 05/26/19 00:00 Mechanical Ventilator 05/26/19 00:00 75 05/26/19 00:00 97.6 73 21 100/56 (71) 99 05/26/19 00:00 50 05/25/19 23:00 74 19 102/57 (72) 100 05/25/19 22:43 78 20 55 05/25/19 22:00 84 23 101/55 (70) 99 05/25/19 21:15 97.8 89 26 114/56 (75) 100 05/25/19 21:08 93 31 60 05/25/19 21:00 88 21 120/60 (80) 100 05/25/19 20:30 97.8 89 24 106/61 (76) 99 05/25/19 20:15 97.9 86 25 102/61 (75) 100 05/25/19 20:00 97.9 82 23 100/54 (69) 100 05/25/19 20:00 Mechanical Ventilator 05/25/19 20:00 50 05/25/19 20:00 84 05/25/19 19:30 87 24 96/56 (69) 96 05/25/19 19:15 89 26 99/58 (72) 96 05/25/19 19:00 90 26 104/62 (76) 98 05/25/19 18:54 92 29 60 Intake and Output 05/26/19 05/27/19 19:00 07:00 Intake Total 1365.833 ml 1682.25 ml Output Total 665 ml 670 ml Balance 700.833 ml 1012.25 ml Intake Free Water 60 ml 200 ml IV Total 1275.833 ml 1202.25 ml Tube Feeding 30 ml 280 ml Output Urine Total 665 ml 670 ml Labs Test 05/24/19 18:46 05/24/19 21:20 05/25/19 00:55 05/25/19 05:20 Lactic Acid Level 3.80 mmol/L (0.66-2.22) 1.40 mmol/L (0.4-2.0) White Blood Count 10.7 K/UL (4.8-10.8) 14.6 K/UL (4.8-10.8) 11.8 K/UL (4.8-10.8) Red Blood Count 2.81 M/UL (4.70-6.10) 2.99 M/UL (4.70-6.10) 2.76 M/UL (4.70-6.10) Hemoglobin 8.4 G/DL (14.2-18.0) 9.0 G/DL (14.2-18.0) 8.2 G/DL (14.2-18.0) Hematocrit 25.5 % (42.0-52.0) 26.8 % (42.0-52.0) 24.8 % (42.0-52.0) Mean Corpuscular Volume 91 FL (80-99) 90 FL (80-99) 90 FL (80-99) Mean Corpuscular Hemoglobin 30.0 PG (27.0-31.0) 30.0 PG (27.0-31.0) 29.7 PG (27.0-31.0) Mean Corpuscular Hemoglobin Concent 33.1 G/DL (32.0-36.0) 33.5 G/DL (32.0-36.0) 33.1 G/DL (32.0-36.0) Red Cell Distribution Width 17.3 % (11.6-14.8) 16.9 % (11.6-14.8) 16.9 % (11.6-14.8) Platelet Count 257 K/UL (150-450) 297 K/UL (150-450) 245 K/UL (150-450) Mean Platelet Volume 5.9 FL (6.5-10.1) 6.1 FL (6.5-10.1) 5.7 FL (6.5-10.1) Neutrophils (%) (Auto) 95.1 % (45.0-75.0) % (45.0-75.0) % (45.0-75.0) Lymphocytes (%) (Auto) 2.5 % (20.0-45.0) % (20.0-45.0) % (20.0-45.0) Monocytes (%) (Auto) 2.1 % (1.0-10.0) % (1.0-10.0) % (1.0-10.0) Eosinophils (%) (Auto) 0.0 % (0.0-3.0) % (0.0-3.0) % (0.0-3.0) Basophils (%) (Auto) 0.3 % (0.0-2.0) % (0.0-2.0) % (0.0-2.0) Prothrombin Time 12.3 SEC (9.30-11.50) 12.7 SEC (9.30-11.50) Prothromb Time International Ratio 1.2 (0.9-1.1) 1.2 (0.9-1.1) Activated Partial Thromboplast Time 41 SEC (23-33) 45 SEC (23-33) Differential Total Cells Counted 100 100 Neutrophils % (Manual) 83 % (45-75) 89 % (45-75) Lymphocytes % (Manual) 10 % (20-45) 7 % (20-45) Monocytes % (Manual) 7 % (1-10) 4 % (1-10) Eosinophils % (Manual) 0 % (0-3) 0 % (0-3) Basophils % (Manual) 0 % (0-2) 0 % (0-2) Band Neutrophils 0 % (0-8) 0 % (0-8) Platelet Estimate Adequate Adequate Platelet Morphology Normal Normal Hypochromasia 2+ Anisocytosis 1+ Spherocytes 1+ Erythrocyte Sedimentation Rate 107 MM/HR (0-20) Sodium Level 137 MMOL/L (136-145) Potassium Level 4.3 MMOL/L (3.5-5.1) Chloride Level 106 MMOL/L (98-107) Carbon Dioxide Level 22 MMOL/L (21-32) Anion Gap 10 mmol/L (5-15) Blood Urea Nitrogen 26 mg/dL (7-18) Creatinine 0.9 MG/DL (0.55-1.30) Estimat Glomerular Filtration Rate > 60 mL/min (>60) Glucose Level 144 MG/DL (74-106) Calcium Level 7.2 MG/DL (8.5-10.1) Phosphorus Level 3.1 MG/DL (2.5-4.9) Total Bilirubin 1.0 MG/DL (0.2-1.0) Aspartate Amino Transf (AST/SGOT) 153 U/L (15-37) Alanine Aminotransferase (ALT/SGPT) 230 U/L (12-78) Alkaline Phosphatase 46 U/L (46-116) C-Reactive Protein, Quantitative 22.9 mg/dL (0.00-0.90) Total Protein 5.1 G/DL (6.4-8.2) Albumin 1.4 G/DL (3.4-5.0) Globulin 3.7 g/dL Albumin/Globulin Ratio 0.4 (1.0-2.7) Amylase Level 24 U/L (25-115) Lipase 54 U/L (73-393) Test 05/25/19 09:20 05/25/19 22:12 05/26/19 05:00 05/26/19 16:08 White Blood Count 10.1 K/UL (4.8-10.8) 6.2 K/UL (4.8-10.8) 5.2 K/UL (4.8-10.8) Red Blood Count 2.66 M/UL (4.70-6.10) 2.80 M/UL (4.70-6.10) 2.49 M/UL (4.70-6.10) Hemoglobin 7.9 G/DL (14.2-18.0) 8.1 G/DL (14.2-18.0) 7.4 G/DL (14.2-18.0) Hematocrit 23.4 % (42.0-52.0) 25.0 % (42.0-52.0) 22.2 % (42.0-52.0) Mean Corpuscular Volume 88 FL (80-99) 89 FL (80-99) 89 FL (80-99) Mean Corpuscular Hemoglobin 29.8 PG (27.0-31.0) 28.8 PG (27.0-31.0) 29.5 PG (27.0-31.0) Mean Corpuscular Hemoglobin Concent 33.9 G/DL (32.0-36.0) 32.2 G/DL (32.0-36.0) 33.2 G/DL (32.0-36.0) Red Cell Distribution Width 17.7 % (11.6-14.8) 17.7 % (11.6-14.8) 17.9 % (11.6-14.8) Platelet Count 248 K/UL (150-450) 167 K/UL (150-450) 162 K/UL (150-450) Mean Platelet Volume 6.1 FL (6.5-10.1) 7.9 FL (6.5-10.1) 8.0 FL (6.5-10.1) Neutrophils (%) (Auto) % (45.0-75.0) % (45.0-75.0) % (45.0-75.0) Lymphocytes (%) (Auto) % (20.0-45.0) % (20.0-45.0) % (20.0-45.0) Monocytes (%) (Auto) % (1.0-10.0) % (1.0-10.0) % (1.0-10.0) Eosinophils (%) (Auto) % (0.0-3.0) % (0.0-3.0) % (0.0-3.0) Basophils (%) (Auto) % (0.0-2.0) % (0.0-2.0) % (0.0-2.0) Differential Total Cells Counted 100 100 100 Neutrophils % (Manual) 92 % (45-75) 90 % (45-75) 88 % (45-75) Lymphocytes % (Manual) 4 % (20-45) 5 % (20-45) 8 % (20-45) Monocytes % (Manual) 2 % (1-10) 2 % (1-10) 3 % (1-10) Eosinophils % (Manual) 1 % (0-3) 0 % (0-3) 1 % (0-3) Basophils % (Manual) 0 % (0-2) 1 % (0-2) 0 % (0-2) Band Neutrophils 1 % (0-8) 2 % (0-8) 0 % (0-8) Platelet Estimate Adequate Adequate Adequate Platelet Morphology Normal Normal Normal Hypochromasia 3+ 3+ 3+ Anisocytosis 1+ 1+ 2+ Spherocytes 1+ 1+ Troponin I 0.062 ng/mL (0.000-0.056) Reticulocyte Count 2.7 % (0.5-2.0) Prothrombin Time 11.6 SEC (9.30-11.50) Prothromb Time International Ratio 1.1 (0.9-1.1) Activated Partial Thromboplast Time 45 SEC (23-33) Sodium Level 140 MMOL/L (136-145) Potassium Level 3.6 MMOL/L (3.5-5.1) Chloride Level 110 MMOL/L (98-107) Carbon Dioxide Level 19 MMOL/L (21-32) Anion Gap 11 mmol/L (5-15) Blood Urea Nitrogen 25 mg/dL (7-18) Creatinine 0.8 MG/DL (0.55-1.30) Estimat Glomerular Filtration Rate > 60 mL/min (>60) Glucose Level 101 MG/DL (74-106) Calcium Level 7.5 MG/DL (8.5-10.1) Ferritin 1190 NG/ML (8-388) Total Bilirubin 1.7 MG/DL (0.2-1.0) Direct Bilirubin 0.5 MG/DL (0.0-0.3) Aspartate Amino Transf (AST/SGOT) 66 U/L (15-37) Alanine Aminotransferase (ALT/SGPT) 157 U/L (12-78) Alkaline Phosphatase 47 U/L (46-116) Total Protein 4.6 G/DL (6.4-8.2) Albumin 1.3 G/DL (3.4-5.0) Globulin 3.3 g/dL Albumin/Globulin Ratio 0.4 (1.0-2.7) Carcinoembryonic Antigen 3.4 ng/mL (0.0-4.7) Vitamin B12 Level 1321 PG/ML (193-986) Folate 17.8 NG/ML (8.6-58.9) Thyroid Stimulating Hormone (TSH) 0.801 uiU/mL (0.358-3.740) Free Thyroxine 0.83 NG/DL (0.76-1.46) Vancomycin Level Trough 10.8 ug/mL (5.0-12.0) Test 05/26/19 21:00 05/27/19 04:00 05/27/19 05:00 White Blood Count 6.5 K/UL (4.8-10.8) 5.8 K/UL (4.8-10.8) Red Blood Count 3.22 M/UL (4.70-6.10) 3.22 M/UL (4.70-6.10) Hemoglobin 9.7 G/DL (14.2-18.0) 9.8 G/DL (14.2-18.0) Hematocrit 28.8 % (42.0-52.0) 28.4 % (42.0-52.0) Mean Corpuscular Volume 89 FL (80-99) 88 FL (80-99) Mean Corpuscular Hemoglobin 30.3 PG (27.0-31.0) 30.3 PG (27.0-31.0) Mean Corpuscular Hemoglobin Concent 33.8 G/DL (32.0-36.0) 34.4 G/DL (32.0-36.0) Red Cell Distribution Width 14.9 % (11.6-14.8) 14.9 % (11.6-14.8) Platelet Count 126 K/UL (150-450) 134 K/UL (150-450) Mean Platelet Volume 6.0 FL (6.5-10.1) 7.4 FL (6.5-10.1) Neutrophils (%) (Auto) 89.7 % (45.0-75.0) % (45.0-75.0) Lymphocytes (%) (Auto) 6.0 % (20.0-45.0) % (20.0-45.0) Monocytes (%) (Auto) 3.1 % (1.0-10.0) % (1.0-10.0) Eosinophils (%) (Auto) 0.8 % (0.0-3.0) % (0.0-3.0) Basophils (%) (Auto) 0.4 % (0.0-2.0) % (0.0-2.0) Arterial Blood pH 7.482 (7.350-7.450) Arterial Blood Partial Pressure CO2 27.7 mmHg (35.0-45.0) Arterial Blood Partial Pressure O2 75.5 mmHg (75.0-100.0) Arterial Blood HCO3 20.3 mmol/L (22.0-26.0) Arterial Blood Oxygen Saturation 95.4 % (95-100) Arterial Blood Base Excess -2.2 (-2-2) Bryce Test Positive Differential Total Cells Counted 101 Neutrophils % (Manual) 93 % (45-75) Lymphocytes % (Manual) 2 % (20-45) Monocytes % (Manual) 1 % (1-10) Eosinophils % (Manual) 3 % (0-3) Basophils % (Manual) 0 % (0-2) Band Neutrophils 1 % (0-8) Platelet Estimate Decreased Platelet Morphology Normal Prothrombin Time 11.2 SEC (9.30-11.50) Prothromb Time International Ratio 1.1 (0.9-1.1) Activated Partial Thromboplast Time 39 SEC (23-33) Sodium Level 138 MMOL/L (136-145) Potassium Level 3.0 MMOL/L (3.5-5.1) Chloride Level 107 MMOL/L (98-107) Carbon Dioxide Level 20 MMOL/L (21-32) Anion Gap 11 mmol/L (5-15) Blood Urea Nitrogen 20 mg/dL (7-18) Creatinine 0.8 MG/DL (0.55-1.30) Estimat Glomerular Filtration Rate > 60 mL/min (>60) Glucose Level 103 MG/DL (74-106) Calcium Level 7.6 MG/DL (8.5-10.1) Phosphorus Level 1.5 MG/DL (2.5-4.9) Magnesium Level 1.6 MG/DL (1.8-2.4) Total Bilirubin 2.1 MG/DL (0.2-1.0) Direct Bilirubin 0.6 MG/DL (0.0-0.3) Aspartate Amino Transf (AST/SGOT) 68 U/L (15-37) Alanine Aminotransferase (ALT/SGPT) 157 U/L (12-78) Alkaline Phosphatase 62 U/L (46-116) Total Protein 5.0 G/DL (6.4-8.2) Albumin 1.4 G/DL (3.4-5.0) Globulin 3.6 g/dL Albumin/Globulin Ratio 0.4 (1.0-2.7) Height (Feet): 5 Height (Inches): 7.00 Weight (Pounds): 152 Objective Physical Exam: Vitals: reviewed General: NAD HEENT: nc, at ++ trach/vent Neck: supple Chest: clear breath sounds bilaterally Abdomen: soft, nontender, nd Extremities: no cce, normal range of motion Neuro: alert and oriented Ar Paz MD May 27, 2019 18:14
--- NOTE | 2019-05-27 18:59 | NUR ---
RESPIRATORY NOTE: Received pt on AC 16, 550VT, 40%, PEEP +5. Pt is trach-dependent w/ a cuffed, Shiley 8 tube. Pt is alert/awake, follows commands. B/S caitie. rhonchi, sxn small amounts of thick/thin, pink/painting to bloody secretions. Vent plugged into red outlet, ambubag at bedside. Pt denies SOB/chest pain at this time. Will continue to monitor pt.
--- NOTE | 2019-05-27 19:27 | NUR ---
HAND-OFF: Report given to Jeanne HARDY. Endorsed plan of care. VS remain stable.
--- NOTE | 2019-05-27 19:30 | NUR ---
NURSE NOTES: Received pt awake AOx3, communicates through writing and mouthing words.Trache to vent on AC mode, SB, on the monitor, Bp stable afebrile. Tolerated Fdg at this time. No residuals. HOB kept elevated. On aspiration precaution. Fernandez to gravity with moderate amt of yellowish urine. Monitor I and O. monitor lytes. Pts extremities were swollen 2-3+. Elevated affected parts with pillows. Skin remained intact. IVF 1/2 nS at 75ml/hr infusing through ADAN Midline. Site with drsg dry and intact.Will continue to monitor.
[2019-05-27] MEDS: Dyna-Hex 2% Top Sol 2oz TOPIC SCH (19:57)
--- NOTE | 2019-05-27 19:58 | Surgery Progress Note ---
Surgery Progress Note Subjective Additional Comments no active bleeding comfortable sitting up writing Objective Last 24 Hour Vital Signs Date Time Temp Pulse Resp B/P (MAP) Pulse Ox O2 Delivery O2 Flow Rate FiO2 05/27/19 19:00 66 20 115/61 (79) 100 05/27/19 18:57 66 23 40 05/27/19 18:00 65 22 106/65 (79) 99 05/27/19 17:00 60 23 40 05/27/19 17:00 55 18 158/59 (92) 98 05/27/19 16:00 Mechanical Ventilator 05/27/19 16:00 97.7 63 18 107/59 (75) 100 05/27/19 16:00 55 05/27/19 16:00 40 05/27/19 15:28 59 18 40 05/27/19 15:00 57 18 110/59 (76) 100 05/27/19 14:00 57 18 110/58 (75) 100 05/27/19 13:26 64 21 40 05/27/19 13:00 65 18 111/59 (76) 99 05/27/19 12:00 55 05/27/19 12:00 40 05/27/19 12:00 Mechanical Ventilator 05/27/19 12:00 97.9 60 19 122/63 (82) 99 05/27/19 11:00 118/57 05/27/19 11:00 60 20 113/57 (75) 99 05/27/19 10:41 59 20 40 05/27/19 10:00 65 22 118/61 (80) 97 05/27/19 10:00 112/57 05/27/19 09:30 60 19 130/67 (88) 100 05/27/19 09:20 60 20 40 05/27/19 09:00 118/59 05/27/19 09:00 57 20 124/60 (81) 99 05/27/19 08:30 60 22 121/62 (81) 98 05/27/19 08:00 Mechanical Ventilator 05/27/19 08:00 116/58 05/27/19 08:00 65 05/27/19 08:00 97.7 58 22 113/56 (75) 98 05/27/19 08:00 40 05/27/19 07:30 56 21 130/56 (80) 99 05/27/19 07:08 63 28 40 05/27/19 07:00 54 20 125/58 (80) 100 05/27/19 07:00 125/56 05/27/19 06:45 125/56 05/27/19 06:30 126/60 05/27/19 06:15 65 18 144/66 (92) 99 05/27/19 06:06 58 21 157/75 (102) 100 05/27/19 06:02 70/38 05/27/19 06:00 59 23 96/57 (70) 98 05/27/19 05:55 63 23 94/52 (66) 97 05/27/19 05:02 78 28 40 05/27/19 05:00 51 23 140/62 (88) 97 05/27/19 04:00 74 17 134/58 (83) 93 05/27/19 04:00 Mechanical Ventilator 05/27/19 04:00 40 05/27/19 04:00 50 05/27/19 03:00 47 19 123/51 (75) 95 05/27/19 02:39 53 22 40 05/27/19 02:00 50 13 127/54 (78) 94 05/27/19 01:00 50 14 131/57 (81) 100 05/27/19 00:35 53 22 40 05/27/19 00:00 49 05/27/19 00:00 Mechanical Ventilator 05/27/19 00:00 40 05/27/19 00:00 97.8 49 14 141/58 (85) 100 05/26/19 23:00 50 18 120/55 (76) 100 05/26/19 22:40 50 21 40 05/26/19 22:00 49 17 137/54 (81) 100 05/26/19 21:00 54 19 139/56 (83) 100 05/26/19 20:45 54 24 40 05/26/19 20:04 136/59 05/26/19 20:00 Mechanical Ventilator 05/26/19 20:00 97.6 49 18 136/59 (84) 100 05/26/19 20:00 40 05/26/19 20:00 51 I&O Intake and Output 05/26/19 05/27/19 19:00 07:00 Intake Total 1365.833 ml 1682.25 ml Output Total 665 ml 670 ml Balance 700.833 ml 1012.25 ml Intake Free Water 60 ml 200 ml IV Total 1275.833 ml 1202.25 ml Tube Feeding 30 ml 280 ml Output Urine Total 665 ml 670 ml Dressing: dry Wound: clean Cardiovascular: RSR Respiratory: clear Abdomen: soft, non-tender, present bowel sounds Extremities: no tenderness, no cyanosis Laboratory Tests Test 05/26/19 21:00 05/27/19 04:00 05/27/19 05:00 White Blood Count 6.5 K/UL (4.8-10.8) 5.8 K/UL (4.8-10.8) Red Blood Count 3.22 M/UL (4.70-6.10) L 3.22 M/UL (4.70-6.10) L Hemoglobin 9.7 G/DL (14.2-18.0) #L 9.8 G/DL (14.2-18.0) L Hematocrit 28.8 % (42.0-52.0) L 28.4 % (42.0-52.0) L Mean Corpuscular Volume 89 FL (80-99) 88 FL (80-99) Mean Corpuscular Hemoglobin 30.3 PG (27.0-31.0) 30.3 PG (27.0-31.0) Mean Corpuscular Hemoglobin Concent 33.8 G/DL (32.0-36.0) 34.4 G/DL (32.0-36.0) Red Cell Distribution Width 14.9 % (11.6-14.8) H 14.9 % (11.6-14.8) H Platelet Count 126 K/UL (150-450) L 134 K/UL (150-450) L Mean Platelet Volume 6.0 FL (6.5-10.1) L 7.4 FL (6.5-10.1) Neutrophils (%) (Auto) 89.7 % (45.0-75.0) H % (45.0-75.0) Lymphocytes (%) (Auto) 6.0 % (20.0-45.0) L % (20.0-45.0) Monocytes (%) (Auto) 3.1 % (1.0-10.0) % (1.0-10.0) Eosinophils (%) (Auto) 0.8 % (0.0-3.0) % (0.0-3.0) Basophils (%) (Auto) 0.4 % (0.0-2.0) % (0.0-2.0) Arterial Blood pH 7.482 (7.350-7.450) Arterial Blood Partial Pressure CO2 27.7 mmHg (35.0-45.0) L Arterial Blood Partial Pressure O2 75.5 mmHg (75.0-100.0) Arterial Blood HCO3 20.3 mmol/L (22.0-26.0) L Arterial Blood Oxygen Saturation 95.4 % (95-100) Arterial Blood Base Excess -2.2 (-2-2) L Bryce Test Positive Differential Total Cells Counted 101 Neutrophils % (Manual) 93 % (45-75) H Lymphocytes % (Manual) 2 % (20-45) L Monocytes % (Manual) 1 % (1-10) Eosinophils % (Manual) 3 % (0-3) Basophils % (Manual) 0 % (0-2) Band Neutrophils 1 % (0-8) Platelet Estimate Decreased L Platelet Morphology Normal Prothrombin Time 11.2 SEC (9.30-11.50) Prothromb Time International Ratio 1.1 (0.9-1.1) Activated Partial Thromboplast Time 39 SEC (23-33) H Sodium Level 138 MMOL/L (136-145) Potassium Level 3.0 MMOL/L (3.5-5.1) L Chloride Level 107 MMOL/L (98-107) Carbon Dioxide Level 20 MMOL/L (21-32) L Anion Gap 11 mmol/L (5-15) Blood Urea Nitrogen 20 mg/dL (7-18) H Creatinine 0.8 MG/DL (0.55-1.30) Estimat Glomerular Filtration Rate > 60 mL/min (>60) Glucose Level 103 MG/DL (74-106) Calcium Level 7.6 MG/DL (8.5-10.1) L Phosphorus Level 1.5 MG/DL (2.5-4.9) L Magnesium Level 1.6 MG/DL (1.8-2.4) L Total Bilirubin 2.1 MG/DL (0.2-1.0) H Direct Bilirubin 0.6 MG/DL (0.0-0.3) H Aspartate Amino Transf (AST/SGOT) 68 U/L (15-37) H Alanine Aminotransferase (ALT/SGPT) 157 U/L (12-78) H Alkaline Phosphatase 62 U/L (46-116) Total Protein 5.0 G/DL (6.4-8.2) L Albumin 1.4 G/DL (3.4-5.0) L Globulin 3.6 g/dL Albumin/Globulin Ratio 0.4 (1.0-2.7) L Plan Problems: (1) Esophageal mass Assessment & Plan: This is a 73-year-old male with known history of throat cancer possible esophageal cancer status post chemoradiation [facility] a few years back who recently has developed cardiac arrest shortness of breath respiratory compromise and had tracheostomy at outside facility for airway protection. Was in recovery until recently identified to have desaturation with blood clots noted within tracheostomy tube suctions as well as oral suctioning. Patient admitted for care and management identified to have anemia bleeding and hemorrhage. Surgery called to evaluate patient was seen. Hemorrhage has significantly decreased and currently no active bleeding noted. H&H trending down and being transfused as per my recommendations. Patient is awake alert states he feels better. He slowly weaning off pressors. Unfortunately given history current condition and the above no acute surgical intervention indicated or recommended. Will obtain attempt records from [facility] as well as [facility]. Continue with deep suctioning by respiratory. Okay for oral suctioning. Monitor for bleeding. Fortunately currently no active bleeding and hopefully its its way. We will keep close eye on H&H as well as coags to ensure patient improving. Permissive hypotension okay. Wean pressors. Thank you for let me participation's care will continue to follow with recommendations and further evaluation. Labs noted H&H improved after transfusion LFTs bilirubin noted likely response to bleeding patient states no longer currently actively bleeding otherwise stable off pressors improving Continue with current treatment will monitor (2) Hemoptysis Assessment & Plan: Findings: Interstitial and airspace opacities are seen throughout the right mid and lower lung. Questionable patchy peripheral opacities are also present on the left. Heart size is normal. The pleural spaces are clear Impression: Right lung opacities and questionable patchy left lung opacities, likely pneumonia. (3) Head and neck cancer [facility] May 27, 2019 19:58
--- NOTE | 2019-05-27 20:13 | NUR ---
NURSE NOTES: Pt refused CBC draw.
[2019-05-27] MEDS: Miralax 17gm pkt ORAL SCH (20:37)
--- NOTE | 2019-05-27 21:30 | NUR ---
NURSE NOTES: Pt had lg sft blackish stool- Sent specimen to lab for stool fo occult blood. Also suctioned Tk blood tinged secretions moderate in amt. from trache. Sent specimen for sputum CX. Will continue to monitor.
--- NOTE | 2019-05-27 23:00 | NUR ---
NURSE NOTES: Watching tv at this time. Bp stable.
[2019-05-28] VITALS (24 sets, daily range): BP systolic 93–127; BP diastolic 41–67
--- NOTE | 2019-05-28 01:00 | NUR ---
NURSE NOTES: Dozing on and off. No dysrhythmia noted.
--- NOTE | 2019-05-28 03:00 | NUR ---
NURSE NOTES: Complete bed bath with bed changed done.
--- NOTE | 2019-05-28 05:00 | NUR ---
NURSE NOTES: Had another lg blackish stool. Cleaned up pt.
--- NOTE | 2019-05-28 06:00 | NUR ---
NURSE NOTES: Condition unchanged no dysrhythmia noted. VSS
[2019-05-28 06:02] LABS: HEMATOCRIT 29.2 % (42.0-52.0); HEMOGLOBIN 10.1 G/DL (14.2-18.0); MEAN CORPUSCULAR VOLUME 88 FL (80-99); PLATELET COUNT 115 K/UL (150-450); RED BLOOD COUNT 3.31 M/UL (4.70-6.10); RED CELL DISTRIBUTION WIDTH 15.2 % (11.6-14.8); WHITE BLOOD COUNT 6.4 K/UL (4.8-10.8)
[2019-05-28] MEDS: Zosyn 3.375gm q8h **Extended infusion IVPB SCH ×6 (06:08→22:17)
--- NOTE | 2019-05-28 07:16 | NUR ---
NURSE NOTES: Received report from ANTONY Angel. Patient asleep and responsive to verbal, able to follow simple command. Shiley 8 with vent setting AC 16, VT 550, Peep 5 and FiO2 40%. Gtube intact and running with Vital AF 1.2 40ml/hr at this time. Fernandez intact and draining with yellow color urine. Right upper arm midline intact and running with 1/2 NS @ 75ml/hr. LFA 20G and RAC 24G IVs intact and clean. No distress/SOB noted. kept dry, clean, comfortable and HOB>30. Call light placed in easy reach. Will continue plan of care.
--- NOTE | 2019-05-28 07:20 | NUR ---
HAND-OFF: Report given to Neftali HARDY for continuity of care.
[2019-05-28 07:41] LABS: ALANINE AMINOTRANSFERASE 129 U/L (12-78); ALBUMIN 1.3 G/DL (3.4-5.0); ALBUMIN/GLOBULIN RATIO 0.4 (1.0-2.7); ALKALINE PHOSPHATASE 64 U/L (46-116); ANION GAP 8 mmol/L (5-15); ASPARTATE AMINO TRANSFERASE 59 U/L (15-37); BILIRUBIN,TOTAL 1.2 MG/DL (0.2-1.0); BLOOD UREA NITROGEN 12 mg/dL (7-18); CALCIUM 7.4 MG/DL (8.5-10.1); CARBON DIOXIDE 23 MMOL/L (21-32); CHLORIDE 106 MMOL/L (98-107); CREATININE 0.6 MG/DL (0.55-1.30); PHOSPHORUS 1.6 MG/DL (2.5-4.9); POTASSIUM 3.2 MMOL/L (3.5-5.1); SODIUM 137 MMOL/L (136-145)
[2019-05-28 07:43] LABS: BILIRUBIN,DIRECT 0.3 MG/DL (0.0-0.3)
[2019-05-28] MEDS: Docusate 100mg/10ml Liq NG SCH ×2 (08:05→17:06)
[2019-05-28] MEDS: Lactulose 20gm/30ml UDC ORAL SCH (08:05)
[2019-05-28] MEDS: Pantoprazole Inj IVP SCH ×2 (08:05→21:09)
--- NOTE | 2019-05-28 08:30 | NUR ---
NURSE NOTES: Due medication given as ordered.
--- NOTE | 2019-05-28 09:18 | General Progress Note ---
Assessment/Plan Problem List: (1) G tube feedings ICD Codes: Z93.1 - Gastrostomy status SNOMED: 724800172, 415185390, 932253603 (2) Chronic respiratory failure ICD Codes: J96.10 - Chronic respiratory failure, unspecified whether with hypoxia or hypercapnia SNOMED: 31386357 (3) Gastrostomy tube in place ICD Codes: Z93.1 - Gastrostomy status SNOMED: 360895786, 303346048 (4) Hemoptysis ICD Codes: R04.2 - Hemoptysis SNOMED: 38113379 (5) Esophageal mass ICD Codes: K22.8 - Other specified diseases of esophagus SNOMED: 532877798 Assessment/Plan: most likely bleeding from trach ppi s/p 4 units blood transfusion GTF tolerated bowel regimen no recurrent bleeding cbc and cmp for am Subjective ROS Limited/Unobtainable: No Allergies: Coded Allergies: LEVOFLOXACIN (Verified Allergy, Unknown, 05/24/19) Possible allergic reaction - low blood pressure Objective Last 24 Hour Vital Signs Date Time Temp Pulse Resp B/P (MAP) Pulse Ox O2 Delivery O2 Flow Rate FiO2 05/28/19 09:01 79 24 40 05/28/19 08:00 Mechanical Ventilator 05/28/19 08:00 40 05/28/19 07:29 64 20 40 05/28/19 07:00 62 20 109/55 (73) 100 05/28/19 06:00 63 20 111/67 (82) 100 05/28/19 05:25 63 21 40 05/28/19 05:00 65 21 122/58 (79) 100 05/28/19 04:00 Mechanical Ventilator 05/28/19 04:00 40 05/28/19 04:00 58 05/28/19 04:00 97.8 61 20 107/57 (74) 99 05/28/19 03:00 61 20 117/63 (81) 99 05/28/19 02:45 66 26 40 05/28/19 02:00 56 16 93/41 (58) 99 05/28/19 01:00 58 18 118/67 (84) 99 05/28/19 00:38 62 20 40 05/28/19 00:00 98.0 55 16 116/61 (79) 99 05/28/19 00:00 40 05/28/19 00:00 Mechanical Ventilator 05/28/19 00:00 60 05/27/19 23:05 79 25 40 05/27/19 23:00 66 16 132/60 (84) 100 05/27/19 22:00 72 18 122/55 (77) 100 05/27/19 21:18 72 23 40 05/27/19 21:00 80 16 126/59 (81) 99 05/27/19 20:00 Mechanical Ventilator 05/27/19 20:00 58 05/27/19 20:00 40 05/27/19 20:00 98.0 64 19 131/65 (87) 100 05/27/19 19:00 66 20 115/61 (79) 100 05/27/19 18:57 66 23 40 05/27/19 18:00 65 22 106/65 (79) 99 05/27/19 17:00 60 23 40 05/27/19 17:00 55 18 158/59 (92) 98 05/27/19 16:00 Mechanical Ventilator 05/27/19 16:00 97.7 63 18 107/59 (75) 100 05/27/19 16:00 55 05/27/19 16:00 40 05/27/19 15:28 59 18 40 05/27/19 15:00 57 18 110/59 (76) 100 05/27/19 14:00 57 18 110/58 (75) 100 05/27/19 13:26 64 21 40 05/27/19 13:00 65 18 111/59 (76) 99 05/27/19 12:00 55 05/27/19 12:00 40 05/27/19 12:00 Mechanical Ventilator 05/27/19 12:00 97.9 60 19 122/63 (82) 99 05/27/19 11:00 118/57 05/27/19 11:00 60 20 113/57 (75) 99 05/27/19 10:41 59 20 40 05/27/19 10:00 65 22 118/61 (80) 97 05/27/19 10:00 112/57 05/27/19 09:30 60 19 130/67 (88) 100 05/27/19 09:20 60 20 40 Intake and Output 05/27/19 05/28/19 19:00 07:00 Intake Total 3266.25 ml 1635.0 ml Output Total 655 ml 865 ml Balance 2611.25 ml 770.0 ml Intake Free Water 200 ml 200 ml IV Total 2666.25 ml 900.0 ml Tube Feeding 400 ml 535 ml Output Urine Total 655 ml 865 ml # Bowel Movements 3 Laboratory Tests 05/27/19 20:45: Stool Occult Blood Positive 05/28/19 05:10: White Blood Count 6.4, Red Blood Count 3.31L, Hemoglobin 10.1L, Hematocrit 29.2L , Mean Corpuscular Volume 88, Mean Corpuscular Hemoglobin 30.4, Mean Corpuscular Hemoglobin Concent 34.5, Red Cell Distribution Width 15.2H, Platelet Count 115L, Mean Platelet Volume 6.8, Neutrophils (%) (Auto) , Lymphocytes (%) (Auto) , Monocytes (%) (Auto) , Eosinophils (%) (Auto) , Basophils (%) (Auto) , Neutrophils % (Manual) [Pending], Lymphocytes % (Manual) [Pending], Platelet Estimate [Pending], Platelet Morphology [Pending], Sodium Level 137, Potassium Level 3.2L, Chloride Level 106, Carbon Dioxide Level 23, Anion Gap 8, Blood Urea Nitrogen 12, Creatinine 0.6, Estimat Glomerular Filtration Rate > 60, Glucose Level 118H, Calcium Level 7.4L, Phosphorus Level 1.6L, Magnesium Level 1.8, Total Bilirubin 1.2H, Direct Bilirubin 0.3, Aspartate Amino Transf (AST/SGOT) 59H, Alanine Aminotransferase (ALT/SGPT) 129H , Alkaline Phosphatase 64, Total Protein 5.0L, Albumin 1.3L, Globulin 3.7, Albumin/Globulin Ratio 0.4L Height (Feet): 5 Height (Inches): 7.00 Weight (Pounds): 154 General Appearance: no apparent distress EENT: normal ENT inspection Neck: supple Cardiovascular: normal rate Respiratory/Chest: decreased breath sounds Abdomen: normal bowel sounds, non tender, soft Extremities: non-tender Narciso Engle MD May 28, 2019 09:18
--- NOTE | 2019-05-28 09:22 | NUR ---
RADIOLOGY: PCXR COMPLETED 0900HRS. NF
--- NOTE | 2019-05-28 09:41 | NUR ---
RD ASSESSMENT & RECOMMENDATIONS SEE CARE ACTIVITY FOR COMPLETE ASSESSMENT DAILY ESTIMATED NEEDS: Needs based on Critical care, cancer 65.9kg 22-30 kcals/kg 3574-2415 total kcals 1.2-2 g protein/kg 79-132 g total protein 25-30 mL/kg 1210-4903 total fluid mLs NUTRITION DIAGNOSIS: Swallowing difficulty r/t resp status, throat tumor as evidenced by pt w/ throat cancer, recent cardiac arrest w/ trach placement, pt is GT dep. CURRENT TF: Vital 1.2 goal of 50ml/hr ENTERAL NUTRITION RECOMMENDATIONS: Vital AF 1.2 @55ml/hr x24 hrs to provide 1320ml, 1584 kcal, 99g pro, 1071ml free H2O - As medically able, rec to increase goal to rate of 55ml/hr x24 hrs to better meet est needs. - Flush per MD / HOB over 30 degrees. ADDITIONAL RECOMMENDATIONS: 1) Feed as able, TF recs as above 2) Maintain calibrated bed scale wts 3) Monitor blood glucose w/ feeds, need for niss 4) Replete lytes as needed (k, phos low)
--- NOTE | 2019-05-28 10:20 | NUR ---
NURSE NOTES: Bed bath given. Had 1 small liquid brown color BM. Kept dry, clean and comfortable. Call light placed in easy reach.
--- NOTE | 2019-05-28 11:00 | NUR ---
NURSE NOTES: Seen by Dr. Chi and assesses patient with new orders.
--- NOTE | 2019-05-28 11:03 | Pulmonolgy Critical Care Note ---
Critical Care - Asmt/Plan Problems: (1) Nosocomial pneumonia (2) Hemorrhagic shock (3) Head and neck cancer (4) Upper GI bleeding (5) Chronic respiratory failure (6) Esophageal mass (7) Gastrostomy tube in place (8) Radiation fibrosis of lung Respiratory: monitor respiratory rate, adjust FIO2 Cardiac: continue to monitor HR/BP Renal: F/U I&O, keep IV fluid Infectious Disease: check cultures Gastrointestinal: continue feedings/current rate, adjust feedings Endocrine: monitor blood sugar Hematologic: monitor H/H, transfuse if hgb<8.5, other - PLT dropping slowly Neurologic: PRN Ativan, keep patient comfortable Prophylaxis: Heparin Time Spent (Minutes): 40 Discussed with: nurses, consultants, case [employer] manager - Objective Last 24 Hour Vital Signs Date Time Temp Pulse Resp B/P (MAP) Pulse Ox O2 Delivery O2 Flow Rate FiO2 05/28/19 10:52 70 20 40 05/28/19 10:00 74 25 105/49 (67) 100 05/28/19 09:01 79 24 40 05/28/19 09:00 81 18 121/49 (73) 100 05/28/19 08:00 Mechanical Ventilator 05/28/19 08:00 98.0 63 19 104/54 (71) 100 05/28/19 08:00 62 05/28/19 08:00 40 05/28/19 07:29 64 20 40 05/28/19 07:00 62 20 109/55 (73) 100 05/28/19 06:00 63 20 111/67 (82) 100 05/28/19 05:25 63 21 40 05/28/19 05:00 65 21 122/58 (79) 100 05/28/19 04:00 Mechanical Ventilator 05/28/19 04:00 40 05/28/19 04:00 58 05/28/19 04:00 97.8 61 20 107/57 (74) 99 05/28/19 03:00 61 20 117/63 (81) 99 05/28/19 02:45 66 26 40 05/28/19 02:00 56 16 93/41 (58) 99 05/28/19 01:00 58 18 118/67 (84) 99 05/28/19 00:38 62 20 40 05/28/19 00:00 98.0 55 16 116/61 (79) 99 2/27/20 00:00 40 05/28/19 00:00 Mechanical Ventilator 05/28/19 00:00 60 05/27/19 23:05 79 25 40 05/27/19 23:00 66 16 132/60 (84) 100 05/27/19 22:00 72 18 122/55 (77) 100 05/27/19 21:18 72 23 40 05/27/19 21:00 80 16 126/59 (81) 99 05/27/19 20:00 Mechanical Ventilator 05/27/19 20:00 58 05/27/19 20:00 40 05/27/19 20:00 98.0 64 19 131/65 (87) 100 05/27/19 19:00 66 20 115/61 (79) 100 05/27/19 18:57 66 23 40 05/27/19 18:00 65 22 106/65 (79) 99 05/27/19 17:00 60 23 40 05/27/19 17:00 55 18 158/59 (92) 98 05/27/19 16:00 Mechanical Ventilator 05/27/19 16:00 97.7 63 18 107/59 (75) 100 05/27/19 16:00 55 05/27/19 16:00 40 05/27/19 15:28 59 18 40 05/27/19 15:00 57 18 110/59 (76) 100 05/27/19 14:00 57 18 110/58 (75) 100 05/27/19 13:26 64 21 40 05/27/19 13:00 65 18 111/59 (76) 99 05/27/19 12:00 55 05/27/19 12:00 40 05/27/19 12:00 Mechanical Ventilator 05/27/19 12:00 97.9 60 19 122/63 (82) 99 Status: awake Condition: improving HEENT: atraumatic Lungs: rales, rhonchi Heart: HR/BP stable Abdomen: soft, non-tender Extremities: no C/C/E Micro: Microbiology Date/Time Source Procedure Growth Status 05/27/19 20:45 Sputum Induced Gram Stain - Final Resulted 05/27/19 20:45 Sputum Induced Sputum Culture Pending Resulted 05/25/19 14:01 Urine,Clean Catch Urine Culture - Final NO GROWTH AFTER 48 HOURS Complete Critical Care - Subjective ROS Limited/Unobtainable: No Condition: critical, improving EKG Rhythm: Sinus Rhythm FI02: 40 Vent Support Breath Rate: 16 Vent Support Mode: AC Vent Tidal Volume: 550 Sputum Amount: Small PEEP: 5.0 PIP: 17 Tube Feeding Amount: 45 I&O: Intake and Output 05/27/19 05/28/19 18:59 06:59 Intake Total 3368.00 ml 1677.5 ml Output Total 665 ml 875 ml Balance 2703.00 ml 802.5 ml Intake Free Water 200 ml 200 ml IV Total 2778.00 ml 947.5 ml Tube Feeding 390 ml 530 ml Output Urine Total 665 ml 875 ml # Bowel Movements 3 Labs: Laboratory Tests Test 05/27/19 20:45 05/28/19 05:10 Stool Occult Blood Positive (NEGATIVE) White Blood Count 6.4 K/UL (4.8-10.8) Red Blood Count 3.31 M/UL (4.70-6.10) L Hemoglobin 10.1 G/DL (14.2-18.0) L Hematocrit 29.2 % (42.0-52.0) L Mean Corpuscular Volume 88 FL (80-99) Mean Corpuscular Hemoglobin 30.4 PG (27.0-31.0) Mean Corpuscular Hemoglobin Concent 34.5 G/DL (32.0-36.0) Red Cell Distribution Width 15.2 % (11.6-14.8) H Platelet Count 115 K/UL (150-450) L Mean Platelet Volume 6.8 FL (6.5-10.1) Neutrophils (%) (Auto) % (45.0-75.0) Lymphocytes (%) (Auto) % (20.0-45.0) Monocytes (%) (Auto) % (1.0-10.0) Eosinophils (%) (Auto) % (0.0-3.0) Basophils (%) (Auto) % (0.0-2.0) Differential Total Cells Counted 100 Neutrophils % (Manual) 79 % (45-75) H Lymphocytes % (Manual) 11 % (20-45) L Monocytes % (Manual) 8 % (1-10) Eosinophils % (Manual) 2 % (0-3) Basophils % (Manual) 0 % (0-2) Band Neutrophils 0 % (0-8) Platelet Estimate Decreased L Platelet Morphology Normal Red Blood Cell Morphology Normal Anisocytosis 1+ Sodium Level 137 MMOL/L (136-145) Potassium Level 3.2 MMOL/L (3.5-5.1) L Chloride Level 106 MMOL/L (98-107) Carbon Dioxide Level 23 MMOL/L (21-32) Anion Gap 8 mmol/L (5-15) Blood Urea Nitrogen 12 mg/dL (7-18) Creatinine 0.6 MG/DL (0.55-1.30) Estimat Glomerular Filtration Rate > 60 mL/min (>60) Glucose Level 118 MG/DL (74-106) H Calcium Level 7.4 MG/DL (8.5-10.1) L Phosphorus Level 1.6 MG/DL (2.5-4.9) L Magnesium Level 1.8 MG/DL (1.8-2.4) Total Bilirubin 1.2 MG/DL (0.2-1.0) H Direct Bilirubin 0.3 MG/DL (0.0-0.3) Aspartate Amino Transf (AST/SGOT) 59 U/L (15-37) H Alanine Aminotransferase (ALT/SGPT) 129 U/L (12-78) H Alkaline Phosphatase 64 U/L (46-116) Total Protein 5.0 G/DL (6.4-8.2) L Albumin 1.3 G/DL (3.4-5.0) L Globulin 3.7 g/dL Albumin/Globulin Ratio 0.4 (1.0-2.7) L Claudia Chi MD May 28, 2019 11:03
--- NOTE | 2019-05-28 11:51 | Surgery Progress Note ---
Surgery Progress Note Subjective Symptoms: improved, pain absent, tolerating diet, passing flatus Objective Last 24 Hour Vital Signs Date Time Temp Pulse Resp B/P (MAP) Pulse Ox O2 Delivery O2 Flow Rate FiO2 05/28/19 11:00 63 18 117/58 (77) 100 05/28/19 10:52 70 20 40 05/28/19 10:00 74 25 105/49 (67) 100 05/28/19 09:01 79 24 40 05/28/19 09:00 81 18 121/49 (73) 100 05/28/19 08:00 Mechanical Ventilator 05/28/19 08:00 98.0 63 19 104/54 (71) 100 05/28/19 08:00 62 05/28/19 08:00 40 05/28/19 07:29 64 20 40 05/28/19 07:00 62 20 109/55 (73) 100 05/28/19 06:00 63 20 111/67 (82) 100 05/28/19 05:25 63 21 40 05/28/19 05:00 65 21 122/58 (79) 100 05/28/19 04:00 Mechanical Ventilator 05/28/19 04:00 40 05/28/19 04:00 58 05/28/19 04:00 97.8 61 20 107/57 (74) 99 05/28/19 03:00 61 20 117/63 (81) 99 05/28/19 02:45 66 26 40 05/28/19 02:00 56 16 93/41 (58) 99 05/28/19 01:00 58 18 118/67 (84) 99 05/28/19 00:38 62 20 40 05/28/19 00:00 98.0 55 16 116/61 (79) 99 05/28/19 00:00 40 05/28/19 00:00 Mechanical Ventilator 05/28/19 00:00 60 05/27/19 23:05 79 25 40 05/27/19 23:00 66 16 132/60 (84) 100 05/27/19 22:00 72 18 122/55 (77) 100 05/27/19 21:18 72 23 40 05/27/19 21:00 80 16 126/59 (81) 99 05/27/19 20:00 Mechanical Ventilator 05/27/19 20:00 58 05/27/19 20:00 40 05/27/19 20:00 98.0 64 19 131/65 (87) 100 05/27/19 19:00 66 20 115/61 (79) 100 05/27/19 18:57 66 23 40 05/27/19 18:00 65 22 106/65 (79) 99 05/27/19 17:00 60 23 40 05/27/19 17:00 55 18 158/59 (92) 98 05/27/19 16:00 Mechanical Ventilator 05/27/19 16:00 97.7 63 18 107/59 (75) 100 05/27/19 16:00 55 05/27/19 16:00 40 05/27/19 15:28 59 18 40 05/27/19 15:00 57 18 110/59 (76) 100 05/27/19 14:00 57 18 110/58 (75) 100 05/27/19 13:26 64 21 40 05/27/19 13:00 65 18 111/59 (76) 99 05/27/19 12:00 55 05/27/19 12:00 40 05/27/19 12:00 Mechanical Ventilator 05/27/19 12:00 97.9 60 19 122/63 (82) 99 I&O Intake and Output 05/27/19 05/28/19 18:59 06:59 Intake Total 3368.00 ml 1677.5 ml Output Total 665 ml 875 ml Balance 2703.00 ml 802.5 ml Intake Free Water 200 ml 200 ml IV Total 2778.00 ml 947.5 ml Tube Feeding 390 ml 530 ml Output Urine Total 665 ml 875 ml # Bowel Movements 3 Dressing: dry Wound: clean, dry Cardiovascular: RSR Respiratory: clear Abdomen: soft, non-tender, present bowel sounds Extremities: no edema, no tenderness, no cyanosis Laboratory Tests Test 05/27/19 20:45 05/28/19 05:10 Stool Occult Blood Positive (NEGATIVE) White Blood Count 6.4 K/UL (4.8-10.8) Red Blood Count 3.31 M/UL (4.70-6.10) L Hemoglobin 10.1 G/DL (14.2-18.0) L Hematocrit 29.2 % (42.0-52.0) L Mean Corpuscular Volume 88 FL (80-99) Mean Corpuscular Hemoglobin 30.4 PG (27.0-31.0) Mean Corpuscular Hemoglobin Concent 34.5 G/DL (32.0-36.0) Red Cell Distribution Width 15.2 % (11.6-14.8) H Platelet Count 115 K/UL (150-450) L Mean Platelet Volume 6.8 FL (6.5-10.1) Neutrophils (%) (Auto) % (45.0-75.0) Lymphocytes (%) (Auto) % (20.0-45.0) Monocytes (%) (Auto) % (1.0-10.0) Eosinophils (%) (Auto) % (0.0-3.0) Basophils (%) (Auto) % (0.0-2.0) Differential Total Cells Counted 100 Neutrophils % (Manual) 79 % (45-75) H Lymphocytes % (Manual) 11 % (20-45) L Monocytes % (Manual) 8 % (1-10) Eosinophils % (Manual) 2 % (0-3) Basophils % (Manual) 0 % (0-2) Band Neutrophils 0 % (0-8) Platelet Estimate Decreased L Platelet Morphology Normal Red Blood Cell Morphology Normal Anisocytosis 1+ Sodium Level 137 MMOL/L (136-145) Potassium Level 3.2 MMOL/L (3.5-5.1) L Chloride Level 106 MMOL/L (98-107) Carbon Dioxide Level 23 MMOL/L (21-32) Anion Gap 8 mmol/L (5-15) Blood Urea Nitrogen 12 mg/dL (7-18) Creatinine 0.6 MG/DL (0.55-1.30) Estimat Glomerular Filtration Rate > 60 mL/min (>60) Glucose Level 118 MG/DL (74-106) H Calcium Level 7.4 MG/DL (8.5-10.1) L Phosphorus Level 1.6 MG/DL (2.5-4.9) L Magnesium Level 1.8 MG/DL (1.8-2.4) Total Bilirubin 1.2 MG/DL (0.2-1.0) H Direct Bilirubin 0.3 MG/DL (0.0-0.3) Aspartate Amino Transf (AST/SGOT) 59 U/L (15-37) H Alanine Aminotransferase (ALT/SGPT) 129 U/L (12-78) H Alkaline Phosphatase 64 U/L (46-116) Total Protein 5.0 G/DL (6.4-8.2) L Albumin 1.3 G/DL (3.4-5.0) L Globulin 3.7 g/dL Albumin/Globulin Ratio 0.4 (1.0-2.7) L Plan Problems: (1) Esophageal mass Assessment & Plan: This is a 73-year-old male with known history of throat cancer possible esophageal cancer status post chemoradiation [facility] a few years back who recently has developed cardiac arrest shortness of breath respiratory compromise and had tracheostomy at outside facility for airway protection. Was in recovery until recently identified to have desaturation with blood clots noted within tracheostomy tube suctions as well as oral suctioning. Patient admitted for care and management identified to have anemia bleeding and hemorrhage. Surgery called to evaluate patient was seen. Hemorrhage has significantly decreased and currently no active bleeding noted. H&H trending down and being transfused as per my recommendations. Patient is awake alert states he feels better. He slowly weaning off pressors. Unfortunately given history current condition and the above no acute surgical intervention indicated or recommended. Will obtain attempt records from [facility] as well as [facility]. Continue with deep suctioning by respiratory. Okay for oral suctioning. Monitor for bleeding. Fortunately currently no active bleeding and hopefully its its way. We will keep close eye on H&H as well as coags to ensure patient improving. Permissive hypotension okay. Wean pressors. Thank you for let me participation's care will continue to follow with recommendations and further evaluation. Labs noted H&H improved after transfusion LFTs bilirubin noted likely response to bleeding patient states no longer currently actively bleeding otherwise stable off pressors improving Continue with current treatment will monitor downgrade labs okay feeds as tolerated (2) Hemoptysis Assessment & Plan: Findings: Interstitial and airspace opacities are seen throughout the right mid and lower lung. Questionable patchy peripheral opacities are also present on the left. Heart size is normal. The pleural spaces are clear Impression: Right lung opacities and questionable patchy left lung opacities, likely pneumonia. (3) Head and neck cancer [facility] May 28, 2019 11:51
--- NOTE | 2019-05-28 11:57 | Diagnostic Imaging Report ---
Indication: Shortness of breath Technique: One view of the chest Comparison: 05/27/2019 Findings: . There is increased interstitial and airspace disease in the right mid and lower lung. Ill-defined interstitial opacities on the left are unchanged. There are probably small bilateral pleural effusions, new or increased. Heart size is normal. Tracheostomy noted Impression: Increasing infiltrates versus edema in the right mid and lower lung, over one day. Persistent diffuse mild background interstitial congestion New or increased small bilateral pleural effusions
[2019-05-28] MEDS ORDERED: Potassium Phosphate 20 MM in NS 275 ML IV ONE (12:00)
--- NOTE | 2019-05-28 12:22 | NUR ---
NURSE NOTES: Repositioned patient. Oral and trach suction given.
--- NOTE | 2019-05-28 13:08 | Hematology/Onc Progress Note ---
Assessment/Plan Assessment/Plan ASSESSMENT/RECS: #. 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 Esophageal hemorrhage. --> requires hemostatic support --> coags have been checked --> vitamin K has been ordered # Anemia of chronic disease due to underlying chronic medical issues, multifactorial v Gi bleed --> Anemia workup has been reviewed, ferritin 1190 --> No evidence of hemolysis is noted, peripheral smear has been reviewed. --> Hgb goal >7. Transfuse prn. --> Epogen or iron at this time is not particularly indicated --> Medications have been reviewed --> occult + --> hgb trend: 9.8-->10.1 # Airway obstruction. --> sp trach # Hypoxia. -> per pulm # Elevated liver function tests. --> as per gi, imaging ordered # Sepsis s/p abx --> per id and has received pressors --> in the icu --> vanc/zosyn # Pneumonia. --> on abx --> cxr: Suspected interstitial edema/CHF. Pneumonia in the right midlung not excluded # sp Trach and PEG Appreciate consultation and dw Rn Subjective Allergies: Coded Allergies: LEVOFLOXACIN (Verified Allergy, Unknown, 05/24/19) Possible allergic reaction - low blood pressure Subjective 05/27: icu, cxr reviewed, arythmia overnight, currently alert, no distress, on levophed 05/28: cxr with increased bilat effusions, stool ob positive, h/h stable Objective Objective Current Medications Medications (Trade) Dose Ordered Sig/Mervat Route PRN Reason Start Time Stop Time Status Last Admin Dose Admin Acetaminophen (Tylenol) 650 mg Q4H PRN ORAL FEVER 05/24/19 17:30 06/23/19 17:29 Albuterol/ Ipratropium (Albuterol/ Ipratropium) 3 ml Q4H PRN HHN Shortness of Breath 05/24/19 17:30 05/29/19 17:29 Chlorhexidine Gluconate (Stacie-Hex 2%) 1 applic DAILY@2000 TOPIC 05/25/19 20:00 06/24/19 19:59 05/27/19 19:57 Dextrose (Dextrose 50%) 25 ml Q30M PRN IV Hypoglycemia 05/24/19 17:30 06/23/19 17:29 Dextrose (Dextrose 50%) 50 ml Q30M PRN IV Hypoglycemia 05/24/19 17:30 06/23/19 17:29 Docusate Sodium (Colace) 100 mg TWICE A DAY NG 05/27/19 09:00 06/26/19 08:59 05/27/19 17:38 Lactulose (Cephulac) 20 gm DAILY ORAL 05/28/19 09:00 06/27/19 08:59 Norepinephrine Bitartrate 4 mg/ Dextrose 250 ml @ 0 mls/hr Q24H IV 05/24/19 20:04 06/23/19 20:03 05/27/19 06:02 Ondansetron HCl (Zofran) 4 mg Q6H PRN IVP Nausea & Vomiting 05/24/19 17:30 06/23/19 17:29 05/24/19 18:11 Pantoprazole (Protonix) 40 mg EVERY 12 HOURS IVP 05/25/19 21:00 06/24/19 20:59 05/28/19 08:05 Piperacillin Sod/ Tazobactam Sod 3.375 gm/Sodium Chloride 110 ml @ 27.5 mls/hr EVERY 8 HOURS IVPB 05/25/19 14:00 05/30/19 13:59 05/28/19 06:08 Polyethylene Glycol (Miralax) 17 gm BEDTIME ORAL 05/26/19 21:00 06/25/19 20:59 05/27/19 20:37 Potassium Phosphate 20 mm/ Sodium Chloride 281.6667 ml @ 46.94 mls/hr ONCE ONCE IV 05/28/19 12:00 05/28/19 18:00 05/28/19 12:24 Last 24 Hour Vital Signs Date Time Temp Pulse Resp B/P (MAP) Pulse Ox O2 Delivery O2 Flow Rate FiO2 05/28/19 13:01 63 20 40 05/28/19 12:00 63 05/28/19 12:00 65 20 127/62 (83) 100 05/28/19 11:00 63 18 117/58 (77) 100 05/28/19 10:52 70 20 40 05/28/19 10:00 74 25 105/49 (67) 100 05/28/19 09:01 79 24 40 05/28/19 09:00 81 18 121/49 (73) 100 05/28/19 08:00 Mechanical Ventilator 05/28/19 08:00 98.0 63 19 104/54 (71) 100 05/28/19 08:00 62 05/28/19 08:00 40 05/28/19 07:29 64 20 40 05/28/19 07:00 62 20 109/55 (73) 100 05/28/19 06:00 63 20 111/67 (82) 100 05/28/19 05:25 63 21 40 05/28/19 05:00 65 21 122/58 (79) 100 05/28/19 04:00 Mechanical Ventilator 05/28/19 04:00 40 05/28/19 04:00 58 05/28/19 04:00 97.8 61 20 107/57 (74) 99 05/28/19 03:00 61 20 117/63 (81) 99 05/28/19 02:45 66 26 40 05/28/19 02:00 56 16 93/41 (58) 99 05/28/19 01:00 58 18 118/67 (84) 99 05/28/19 00:38 62 20 40 05/28/19 00:00 98.0 55 16 116/61 (79) 99 05/28/19 00:00 40 05/28/19 00:00 Mechanical Ventilator 05/28/19 00:00 60 05/27/19 23:05 79 25 40 05/27/19 23:00 66 16 132/60 (84) 100 05/27/19 22:00 72 18 122/55 (77) 100 05/27/19 21:18 72 23 40 05/27/19 21:00 80 16 126/59 (81) 99 05/27/19 20:00 Mechanical Ventilator 05/27/19 20:00 58 05/27/19 20:00 40 05/27/19 20:00 98.0 64 19 131/65 (87) 100 05/27/19 19:00 66 20 115/61 (79) 100 05/27/19 18:57 66 23 40 05/27/19 18:00 65 22 106/65 (79) 99 05/27/19 17:00 60 23 40 05/27/19 17:00 55 18 158/59 (92) 98 05/27/19 16:00 Mechanical Ventilator 05/27/19 16:00 97.7 63 18 107/59 (75) 100 05/27/19 16:00 55 05/27/19 16:00 40 05/27/19 15:28 59 18 40 05/27/19 15:00 57 18 110/59 (76) 100 05/27/19 14:00 57 18 110/58 (75) 100 05/27/19 13:26 64 21 40 05/27/19 13:00 65 18 111/59 (76) 99 05/27/19 12:00 55 05/27/19 12:00 40 05/27/19 12:00 Mechanical Ventilator 05/27/19 12:00 97.9 60 19 122/63 (82) 99 05/27/19 11:00 118/57 05/27/19 11:00 60 20 113/57 (75) 99 05/27/19 10:41 59 20 40 05/27/19 10:00 65 22 118/61 (80) 97 05/27/19 10:00 112/57 05/27/19 09:30 60 19 130/67 (88) 100 05/27/19 09:20 60 20 40 05/27/19 09:00 118/59 05/27/19 09:00 57 20 124/60 (81) 99 05/27/19 08:30 60 22 121/62 (81) 98 05/27/19 08:00 Mechanical Ventilator 05/27/19 08:00 116/58 05/27/19 08:00 65 05/27/19 08:00 97.7 58 22 113/56 (75) 98 05/27/19 08:00 40 05/27/19 07:30 56 21 130/56 (80) 99 05/27/19 07:08 63 28 40 05/27/19 07:00 54 20 125/58 (80) 100 05/27/19 07:00 125/56 05/27/19 06:45 125/56 2/26/20 06:30 126/60 05/27/19 06:15 65 18 144/66 (92) 99 05/27/19 06:06 58 21 157/75 (102) 100 05/27/19 06:02 70/38 05/27/19 06:00 59 23 96/57 (70) 98 05/27/19 05:55 63 23 94/52 (66) 97 05/27/19 05:02 78 28 40 05/27/19 05:00 51 23 140/62 (88) 97 05/27/19 04:00 74 17 134/58 (83) 93 05/27/19 04:00 Mechanical Ventilator 05/27/19 04:00 40 05/27/19 04:00 50 05/27/19 03:00 47 19 123/51 (75) 95 05/27/19 02:39 53 22 40 05/27/19 02:00 50 13 127/54 (78) 94 05/27/19 01:00 50 14 131/57 (81) 100 05/27/19 00:35 53 22 40 05/27/19 00:00 49 05/27/19 00:00 Mechanical Ventilator 05/27/19 00:00 40 05/27/19 00:00 97.8 49 14 141/58 (85) 100 05/26/19 23:00 50 18 120/55 (76) 100 05/26/19 22:40 50 21 40 05/26/19 22:00 49 17 137/54 (81) 100 05/26/19 21:00 54 19 139/56 (83) 100 05/26/19 20:45 54 24 40 05/26/19 20:04 136/59 05/26/19 20:00 Mechanical Ventilator 05/26/19 20:00 97.6 49 18 136/59 (84) 100 05/26/19 20:00 40 05/26/19 20:00 51 05/26/19 19:03 52 26 40 05/26/19 19:00 71 20 160/74 (102) 99 05/26/19 18:00 61 25 145/65 (91) 100 05/26/19 17:30 55 17 45 05/26/19 17:00 54 20 152/66 (94) 100 05/26/19 16:00 52 05/26/19 16:00 45 05/26/19 16:00 Mechanical Ventilator 05/26/19 16:00 97.8 52 18 149/66 (93) 99 05/26/19 15:00 61 22 155/61 (92) 100 05/26/19 14:59 67 30 45 05/26/19 14:00 62 20 148/68 (94) 95 05/26/19 13:15 68 21 45 Intake and Output 05/27/19 05/28/19 19:00 07:00 Intake Total 3266.25 ml 1635.0 ml Output Total 655 ml 865 ml Balance 2611.25 ml 770.0 ml Intake Free Water 200 ml 200 ml IV Total 2666.25 ml 900.0 ml Tube Feeding 400 ml 535 ml Output Urine Total 655 ml 865 ml # Bowel Movements 3 Labs Test 05/25/19 22:12 05/26/19 05:00 05/26/19 16:08 05/26/19 21:00 White Blood Count 6.2 K/UL (4.8-10.8) 5.2 K/UL (4.8-10.8) 6.5 K/UL (4.8-10.8) Red Blood Count 2.80 M/UL (4.70-6.10) 2.49 M/UL (4.70-6.10) 3.22 M/UL (4.70-6.10) Hemoglobin 8.1 G/DL (14.2-18.0) 7.4 G/DL (14.2-18.0) 9.7 G/DL (14.2-18.0) Hematocrit 25.0 % (42.0-52.0) 22.2 % (42.0-52.0) 28.8 % (42.0-52.0) Mean Corpuscular Volume 89 FL (80-99) 89 FL (80-99) 89 FL (80-99) Mean Corpuscular Hemoglobin 28.8 PG (27.0-31.0) 29.5 PG (27.0-31.0) 30.3 PG (27.0-31.0) Mean Corpuscular Hemoglobin Concent 32.2 G/DL (32.0-36.0) 33.2 G/DL (32.0-36.0) 33.8 G/DL (32.0-36.0) Red Cell Distribution Width 17.7 % (11.6-14.8) 17.9 % (11.6-14.8) 14.9 % (11.6-14.8) Platelet Count 167 K/UL (150-450) 162 K/UL (150-450) 126 K/UL (150-450) Mean Platelet Volume 7.9 FL (6.5-10.1) 8.0 FL (6.5-10.1) 6.0 FL (6.5-10.1) Neutrophils (%) (Auto) % (45.0-75.0) % (45.0-75.0) 89.7 % (45.0-75.0) Lymphocytes (%) (Auto) % (20.0-45.0) % (20.0-45.0) 6.0 % (20.0-45.0) Monocytes (%) (Auto) % (1.0-10.0) % (1.0-10.0) 3.1 % (1.0-10.0) Eosinophils (%) (Auto) % (0.0-3.0) % (0.0-3.0) 0.8 % (0.0-3.0) Basophils (%) (Auto) % (0.0-2.0) % (0.0-2.0) 0.4 % (0.0-2.0) Differential Total Cells Counted 100 100 Neutrophils % (Manual) 90 % (45-75) 88 % (45-75) Lymphocytes % (Manual) 5 % (20-45) 8 % (20-45) Monocytes % (Manual) 2 % (1-10) 3 % (1-10) Eosinophils % (Manual) 0 % (0-3) 1 % (0-3) Basophils % (Manual) 1 % (0-2) 0 % (0-2) Band Neutrophils 2 % (0-8) 0 % (0-8) Platelet Estimate Adequate Adequate Platelet Morphology Normal Normal Hypochromasia 3+ 3+ Anisocytosis 1+ 2+ Spherocytes 1+ Reticulocyte Count 2.7 % (0.5-2.0) Prothrombin Time 11.6 SEC (9.30-11.50) Prothromb Time International Ratio 1.1 (0.9-1.1) Activated Partial Thromboplast Time 45 SEC (23-33) Sodium Level 140 MMOL/L (136-145) Potassium Level 3.6 MMOL/L (3.5-5.1) Chloride Level 110 MMOL/L (98-107) Carbon Dioxide Level 19 MMOL/L (21-32) Anion Gap 11 mmol/L (5-15) Blood Urea Nitrogen 25 mg/dL (7-18) Creatinine 0.8 MG/DL (0.55-1.30) Estimat Glomerular Filtration Rate > 60 mL/min (>60) Glucose Level 101 MG/DL (74-106) Calcium Level 7.5 MG/DL (8.5-10.1) Ferritin 1190 NG/ML (8-388) Total Bilirubin 1.7 MG/DL (0.2-1.0) Direct Bilirubin 0.5 MG/DL (0.0-0.3) Aspartate Amino Transf (AST/SGOT) 66 U/L (15-37) Alanine Aminotransferase (ALT/SGPT) 157 U/L (12-78) Alkaline Phosphatase 47 U/L (46-116) Total Protein 4.6 G/DL (6.4-8.2) Albumin 1.3 G/DL (3.4-5.0) Globulin 3.3 g/dL Albumin/Globulin Ratio 0.4 (1.0-2.7) Carcinoembryonic Antigen 3.4 ng/mL (0.0-4.7) Vitamin B12 Level 1321 PG/ML (193-986) Folate 17.8 NG/ML (8.6-58.9) Thyroid Stimulating Hormone (TSH) 0.801 uiU/mL (0.358-3.740) Free Thyroxine 0.83 NG/DL (0.76-1.46) Vancomycin Level Trough 10.8 ug/mL (5.0-12.0) Test 05/27/19 04:00 05/27/19 05:00 05/27/19 20:45 05/28/19 05:10 Arterial Blood pH 7.482 (7.350-7.450) Arterial Blood Partial Pressure CO2 27.7 mmHg (35.0-45.0) Arterial Blood Partial Pressure O2 75.5 mmHg (75.0-100.0) Arterial Blood HCO3 20.3 mmol/L (22.0-26.0) Arterial Blood Oxygen Saturation 95.4 % (95-100) Arterial Blood Base Excess -2.2 (-2-2) Bryce Test Positive White Blood Count 5.8 K/UL (4.8-10.8) 6.4 K/UL (4.8-10.8) Red Blood Count 3.22 M/UL (4.70-6.10) 3.31 M/UL (4.70-6.10) Hemoglobin 9.8 G/DL (14.2-18.0) 10.1 G/DL (14.2-18.0) Hematocrit 28.4 % (42.0-52.0) 29.2 % (42.0-52.0) Mean Corpuscular Volume 88 FL (80-99) 88 FL (80-99) Mean Corpuscular Hemoglobin 30.3 PG (27.0-31.0) 30.4 PG (27.0-31.0) Mean Corpuscular Hemoglobin Concent 34.4 G/DL (32.0-36.0) 34.5 G/DL (32.0-36.0) Red Cell Distribution Width 14.9 % (11.6-14.8) 15.2 % (11.6-14.8) Platelet Count 134 K/UL (150-450) 115 K/UL (150-450) Mean Platelet Volume 7.4 FL (6.5-10.1) 6.8 FL (6.5-10.1) Neutrophils (%) (Auto) % (45.0-75.0) % (45.0-75.0) Lymphocytes (%) (Auto) % (20.0-45.0) % (20.0-45.0) Monocytes (%) (Auto) % (1.0-10.0) % (1.0-10.0) Eosinophils (%) (Auto) % (0.0-3.0) % (0.0-3.0) Basophils (%) (Auto) % (0.0-2.0) % (0.0-2.0) Differential Total Cells Counted 101 100 Neutrophils % (Manual) 93 % (45-75) 79 % (45-75) Lymphocytes % (Manual) 2 % (20-45) 11 % (20-45) Monocytes % (Manual) 1 % (1-10) 8 % (1-10) Eosinophils % (Manual) 3 % (0-3) 2 % (0-3) Basophils % (Manual) 0 % (0-2) 0 % (0-2) Band Neutrophils 1 % (0-8) 0 % (0-8) Platelet Estimate Decreased Decreased Platelet Morphology Normal Normal Prothrombin Time 11.2 SEC (9.30-11.50) Prothromb Time International Ratio 1.1 (0.9-1.1) Activated Partial Thromboplast Time 39 SEC (23-33) Sodium Level 138 MMOL/L (136-145) 137 MMOL/L (136-145) Potassium Level 3.0 MMOL/L (3.5-5.1) 3.2 MMOL/L (3.5-5.1) Chloride Level 107 MMOL/L (98-107) 106 MMOL/L (98-107) Carbon Dioxide Level 20 MMOL/L (21-32) 23 MMOL/L (21-32) Anion Gap 11 mmol/L (5-15) 8 mmol/L (5-15) Blood Urea Nitrogen 20 mg/dL (7-18) 12 mg/dL (7-18) Creatinine 0.8 MG/DL (0.55-1.30) 0.6 MG/DL (0.55-1.30) Estimat Glomerular Filtration Rate > 60 mL/min (>60) > 60 mL/min (>60) Glucose Level 103 MG/DL (74-106) 118 MG/DL (74-106) Calcium Level 7.6 MG/DL (8.5-10.1) 7.4 MG/DL (8.5-10.1) Phosphorus Level 1.5 MG/DL (2.5-4.9) 1.6 MG/DL (2.5-4.9) Magnesium Level 1.6 MG/DL (1.8-2.4) 1.8 MG/DL (1.8-2.4) Total Bilirubin 2.1 MG/DL (0.2-1.0) 1.2 MG/DL (0.2-1.0) Direct Bilirubin 0.6 MG/DL (0.0-0.3) 0.3 MG/DL (0.0-0.3) Aspartate Amino Transf (AST/SGOT) 68 U/L (15-37) 59 U/L (15-37) Alanine Aminotransferase (ALT/SGPT) 157 U/L (12-78) 129 U/L (12-78) Alkaline Phosphatase 62 U/L (46-116) 64 U/L (46-116) Total Protein 5.0 G/DL (6.4-8.2) 5.0 G/DL (6.4-8.2) Albumin 1.4 G/DL (3.4-5.0) 1.3 G/DL (3.4-5.0) Globulin 3.6 g/dL 3.7 g/dL Albumin/Globulin Ratio 0.4 (1.0-2.7) 0.4 (1.0-2.7) Stool Occult Blood Positive (NEGATIVE) Red Blood Cell Morphology Normal Anisocytosis 1+ Test 05/28/19 12:50 Micro Microbiology Date/Time Source Procedure Growth Status 05/27/19 20:45 Sputum Induced Gram Stain - Final Resulted 05/27/19 20:45 Sputum Induced Sputum Culture Pending Resulted Height (Feet): 5 Height (Inches): 7.00 Weight (Pounds): 154 Objective Physical Exam: Vitals: reviewed General: NAD HEENT: nc, at ++ trach/vent Neck: supple Chest: clear breath sounds bilaterally Abdomen: soft, nontender, nd Extremities: no cce, normal range of motion Neuro: alert and oriented Ar Paz MD May 28, 2019 13:08
[2019-05-28 13:19] LABS: HEMATOCRIT 30.6 % (42.0-52.0); HEMOGLOBIN 10.3 G/DL (14.2-18.0); MEAN CORPUSCULAR VOLUME 90 FL (80-99); PLATELET COUNT 109 K/UL (150-450); RED BLOOD COUNT 3.41 M/UL (4.70-6.10)
--- NOTE | 2019-05-28 14:12 | NUR ---
NURSE NOTES: Repositioned patient.
--- NOTE | 2019-05-28 16:02 | NUR ---
NURSE NOTES: Seen by Dr. Alba and assessed patient.
--- NOTE | 2019-05-28 16:16 | Infectious Diseases Prog Note ---
Assessment/Plan Assessment/Plan Assessment/Plan: A: Leukocytosis, Sp Sepsis/shock improving Fever, Sp Probable Pneum(HAC) - CXR: Right lung opacities and questionable patchy left lung opacities, likely pneumonia Transaminitis ( due to HypoTN) upper airway bleed sp Trach and PEG throat cancer P: Cont pt on Zosyn # 3 05/27 SP IV Vanco # 2 Sp Amikacin # 1 Monitor CBC Monitor CMP Monitor CXR Monitor Cx (B,U,S) Sputum Cx ordered Rsp Support Subjective Allergies: Coded Allergies: LEVOFLOXACIN (Verified Allergy, Unknown, 05/24/19) Possible allergic reaction - low blood pressure Subjective on preessor feels little better Objective Vital Signs Last 24 Hour Vital Signs Date Time Temp Pulse Resp B/P (MAP) Pulse Ox O2 Delivery O2 Flow Rate FiO2 05/28/19 15:20 69 19 40 05/28/19 15:00 64 19 103/51 (68) 100 05/28/19 14:00 64 19 112/53 (72) 100 05/28/19 13:01 63 20 40 05/28/19 13:00 64 20 104/54 (71) 100 05/28/19 12:00 40 05/28/19 12:00 Mechanical Ventilator 05/28/19 12:00 63 05/28/19 12:00 65 20 127/62 (83) 100 05/28/19 12:00 99.2 66 18 127/62 (83) 100 05/28/19 11:00 63 18 117/58 (77) 100 05/28/19 10:52 70 20 40 05/28/19 10:00 74 25 105/49 (67) 100 05/28/19 09:01 79 24 40 05/28/19 09:00 81 18 121/49 (73) 100 05/28/19 08:00 Mechanical Ventilator 05/28/19 08:00 98.0 63 19 104/54 (71) 100 05/28/19 08:00 62 05/28/19 08:00 40 05/28/19 07:29 64 20 40 05/28/19 07:00 62 20 109/55 (73) 100 05/28/19 06:00 63 20 111/67 (82) 100 05/28/19 05:25 63 21 40 05/28/19 05:00 65 21 122/58 (79) 100 05/28/19 04:00 Mechanical Ventilator 05/28/19 04:00 40 05/28/19 04:00 58 05/28/19 04:00 97.8 61 20 107/57 (74) 99 05/28/19 03:00 61 20 117/63 (81) 99 05/28/19 02:45 66 26 40 05/28/19 02:00 56 16 93/41 (58) 99 05/28/19 01:00 58 18 118/67 (84) 99 05/28/19 00:38 62 20 40 05/28/19 00:00 98.0 55 16 116/61 (79) 99 05/28/19 00:00 40 05/28/19 00:00 Mechanical Ventilator 05/28/19 00:00 60 05/27/19 23:05 79 25 40 05/27/19 23:00 66 16 132/60 (84) 100 05/27/19 22:00 72 18 122/55 (77) 100 05/27/19 21:18 72 23 40 05/27/19 21:00 80 16 126/59 (81) 99 05/27/19 20:00 Mechanical Ventilator 05/27/19 20:00 58 05/27/19 20:00 40 05/27/19 20:00 98.0 64 19 131/65 (87) 100 05/27/19 19:00 66 20 115/61 (79) 100 05/27/19 18:57 66 23 40 05/27/19 18:00 65 22 106/65 (79) 99 05/27/19 17:00 60 23 40 05/27/19 17:00 55 18 158/59 (92) 98 Height (Feet): 5 Height (Inches): 7.00 Weight (Pounds): 154 Respiratory/Chest: normal breath sounds Cardiovascular: regularly irregular Abdomen: non distended Microbiology Date/Time Source Procedure Growth Status 05/27/19 20:45 Sputum Induced Gram Stain - Final Resulted 05/27/19 20:45 Sputum Induced Sputum Culture Pending Resulted Laboratory Tests Test 05/27/19 20:45 05/28/19 05:10 05/28/19 12:50 Stool Occult Blood Positive (NEGATIVE) White Blood Count 6.4 K/UL (4.8-10.8) 7.0 K/UL (4.8-10.8) Red Blood Count 3.31 M/UL (4.70-6.10) L 3.41 M/UL (4.70-6.10) L Hemoglobin 10.1 G/DL (14.2-18.0) L 10.3 G/DL (14.2-18.0) L Hematocrit 29.2 % (42.0-52.0) L 30.6 % (42.0-52.0) L Mean Corpuscular Volume 88 FL (80-99) 90 FL (80-99) Mean Corpuscular Hemoglobin 30.4 PG (27.0-31.0) 30.2 PG (27.0-31.0) Mean Corpuscular Hemoglobin Concent 34.5 G/DL (32.0-36.0) 33.6 G/DL (32.0-36.0) Red Cell Distribution Width 15.2 % (11.6-14.8) H 15.0 % (11.6-14.8) H Platelet Count 115 K/UL (150-450) L 109 K/UL (150-450) L Mean Platelet Volume 6.8 FL (6.5-10.1) 6.6 FL (6.5-10.1) Neutrophils (%) (Auto) % (45.0-75.0) % (45.0-75.0) Lymphocytes (%) (Auto) % (20.0-45.0) % (20.0-45.0) Monocytes (%) (Auto) % (1.0-10.0) % (1.0-10.0) Eosinophils (%) (Auto) % (0.0-3.0) % (0.0-3.0) Basophils (%) (Auto) % (0.0-2.0) % (0.0-2.0) Differential Total Cells Counted 100 100 Neutrophils % (Manual) 79 % (45-75) H 90 % (45-75) H Lymphocytes % (Manual) 11 % (20-45) L 5 % (20-45) L Monocytes % (Manual) 8 % (1-10) 3 % (1-10) Eosinophils % (Manual) 2 % (0-3) 2 % (0-3) Basophils % (Manual) 0 % (0-2) 0 % (0-2) Band Neutrophils 0 % (0-8) 0 % (0-8) Platelet Estimate Decreased L Decreased L Platelet Morphology Normal Normal Red Blood Cell Morphology Normal Anisocytosis 1+ 1+ Sodium Level 137 MMOL/L (136-145) Potassium Level 3.2 MMOL/L (3.5-5.1) L Chloride Level 106 MMOL/L (98-107) Carbon Dioxide Level 23 MMOL/L (21-32) Anion Gap 8 mmol/L (5-15) Blood Urea Nitrogen 12 mg/dL (7-18) Creatinine 0.6 MG/DL (0.55-1.30) Estimat Glomerular Filtration Rate > 60 mL/min (>60) Glucose Level 118 MG/DL (74-106) H Calcium Level 7.4 MG/DL (8.5-10.1) L Phosphorus Level 1.6 MG/DL (2.5-4.9) L Magnesium Level 1.8 MG/DL (1.8-2.4) Total Bilirubin 1.2 MG/DL (0.2-1.0) H Direct Bilirubin 0.3 MG/DL (0.0-0.3) Aspartate Amino Transf (AST/SGOT) 59 U/L (15-37) H Alanine Aminotransferase (ALT/SGPT) 129 U/L (12-78) H Alkaline Phosphatase 64 U/L (46-116) Total Protein 5.0 G/DL (6.4-8.2) L Albumin 1.3 G/DL (3.4-5.0) L Globulin 3.7 g/dL Albumin/Globulin Ratio 0.4 (1.0-2.7) L Current Medications Medications (Trade) Dose Ordered Sig/Mervat Route PRN Reason Start Time Stop Time Status Last Admin Dose Admin Acetaminophen (Tylenol) 650 mg Q4H PRN ORAL FEVER 05/24/19 17:30 06/23/19 17:29 Albuterol/ Ipratropium (Albuterol/ Ipratropium) 3 ml Q4H PRN HHN Shortness of Breath 05/24/19 17:30 05/29/19 17:29 Chlorhexidine Gluconate (Stacie-Hex 2%) 1 applic DAILY@1999 TOPIC 05/25/19 20:00 06/24/19 19:59 2/26/20 19:57 Dextrose (Dextrose 50%) 25 ml Q30M PRN IV Hypoglycemia 05/24/19 17:30 06/23/19 17:29 Dextrose (Dextrose 50%) 50 ml Q30M PRN IV Hypoglycemia 05/24/19 17:30 06/23/19 17:29 Docusate Sodium (Colace) 100 mg TWICE A DAY NG 05/27/19 09:00 06/26/19 08:59 05/27/19 17:38 Lactulose (Cephulac) 20 gm DAILY ORAL 05/28/19 09:00 06/27/19 08:59 Norepinephrine Bitartrate 4 mg/ Dextrose 250 ml @ 0 mls/hr Q24H IV 05/24/19 20:04 06/23/19 20:03 05/27/19 06:02 Ondansetron HCl (Zofran) 4 mg Q6H PRN IVP Nausea & Vomiting 05/24/19 17:30 06/23/19 17:29 05/24/19 18:11 Pantoprazole (Protonix) 40 mg EVERY 12 HOURS IVP 05/25/19 21:00 06/24/19 20:59 05/28/19 08:05 Piperacillin Sod/ Tazobactam Sod 3.375 gm/Sodium Chloride 110 ml @ 27.5 mls/hr EVERY 8 HOURS IVPB 05/25/19 14:00 05/30/19 13:59 05/28/19 13:49 Polyethylene Glycol (Miralax) 17 gm BEDTIME ORAL 05/26/19 21:00 06/25/19 20:59 05/27/19 20:37 Potassium Phosphate 20 mm/ Sodium Chloride 281.6667 ml @ 46.94 mls/hr ONCE ONCE IV 05/28/19 12:00 05/28/19 18:00 05/28/19 12:24 Jose Luis Alba MD May 28, 2019 16:16
--- NOTE | 2019-05-28 16:45 | NUR ---
NURSE NOTES: Bed bath given. Noted with small amount brown soft stool. Kept dry,clean, comfortable and HOB>30. Call light placed in easy reach.
--- NOTE | 2019-05-28 18:05 | NUR ---
NURSE NOTES: Repositioned patient. Kept dry, clean and comfortable.
--- NOTE | 2019-05-28 18:49 | Internal Med Progress Note ---
Subjective Date of Service: May 28, 2019 Physician Name Igor Lucero Attending Physician Matthew Davis MD Current Medications Medications (Trade) Dose Ordered Sig/Mervat Route PRN Reason Start Time Stop Time Status Last Admin Dose Admin Acetaminophen (Tylenol) 650 mg Q4H PRN ORAL FEVER 05/24/19 17:30 06/23/19 17:29 Albuterol/ Ipratropium (Albuterol/ Ipratropium) 3 ml Q4H PRN HHN Shortness of Breath 05/24/19 17:30 05/29/19 17:29 Chlorhexidine Gluconate (Stacie-Hex 2%) 1 applic DAILY@2000 TOPIC 05/25/19 20:00 06/24/19 19:59 05/27/19 19:57 Dextrose (Dextrose 50%) 25 ml Q30M PRN IV Hypoglycemia 05/24/19 17:30 06/23/19 17:29 Dextrose (Dextrose 50%) 50 ml Q30M PRN IV Hypoglycemia 05/24/19 17:30 06/23/19 17:29 Docusate Sodium (Colace) 100 mg TWICE A DAY NG 05/27/19 09:00 06/26/19 08:59 05/27/19 17:38 Lactulose (Cephulac) 20 gm DAILY ORAL 05/28/19 09:00 06/27/19 08:59 Norepinephrine Bitartrate 4 mg/ Dextrose 250 ml @ 0 mls/hr Q24H IV 05/24/19 20:04 06/23/19 20:03 05/27/19 06:02 Ondansetron HCl (Zofran) 4 mg Q6H PRN IVP Nausea & Vomiting 05/24/19 17:30 06/23/19 17:29 05/24/19 18:11 Pantoprazole (Protonix) 40 mg EVERY 12 HOURS IVP 05/25/19 21:00 06/24/19 20:59 05/28/19 08:05 Piperacillin Sod/ Tazobactam Sod 3.375 gm/Sodium Chloride 110 ml @ 27.5 mls/hr EVERY 8 HOURS IVPB 05/25/19 14:00 05/30/19 13:59 05/28/19 13:49 Polyethylene Glycol (Miralax) 17 gm BEDTIME ORAL 05/26/19 21:00 06/25/19 20:59 05/27/19 20:37 Allergies: Coded Allergies: LEVOFLOXACIN (Verified Allergy, Unknown, 05/24/19) Possible allergic reaction - low blood pressure ROS Limited/Unobtainable: No Constitutional: Reports: no symptoms HEENT: Reports: no symptoms Cardiovascular: Reports: no symptoms Respiratory: Reports: no symptoms Gastrointestinal/Abdominal: Reports: no symptoms Genitourinary: Reports: no symptoms Neurologic/Psychiatric: Reports: no symptoms Subjective 73 YO M with esophageal mass admitted with hemoptysis. Now Pneumonia. Cover for Int med-DR Davis. ICU Objective Last Vital Signs Date Time Temp Pulse Resp B/P (MAP) Pulse Ox O2 Delivery O2 Flow Rate FiO2 05/28/19 18:00 71 24 110/46 (67) 100 05/28/19 17:00 40 05/28/19 16:00 98.8 05/28/19 16:00 Mechanical Ventilator 05/24/19 19:15 15.0 Laboratory Tests Test 05/27/19 20:45 05/28/19 05:10 05/28/19 12:50 Stool Occult Blood Positive (NEGATIVE) White Blood Count 6.4 K/UL (4.8-10.8) 7.0 K/UL (4.8-10.8) Red Blood Count 3.31 M/UL (4.70-6.10) L 3.41 M/UL (4.70-6.10) L Hemoglobin 10.1 G/DL (14.2-18.0) L 10.3 G/DL (14.2-18.0) L Hematocrit 29.2 % (42.0-52.0) L 30.6 % (42.0-52.0) L Mean Corpuscular Volume 88 FL (80-99) 90 FL (80-99) Mean Corpuscular Hemoglobin 30.4 PG (27.0-31.0) 30.2 PG (27.0-31.0) Mean Corpuscular Hemoglobin Concent 34.5 G/DL (32.0-36.0) 33.6 G/DL (32.0-36.0) Red Cell Distribution Width 15.2 % (11.6-14.8) H 15.0 % (11.6-14.8) H Platelet Count 115 K/UL (150-450) L 109 K/UL (150-450) L Mean Platelet Volume 6.8 FL (6.5-10.1) 6.6 FL (6.5-10.1) Neutrophils (%) (Auto) % (45.0-75.0) % (45.0-75.0) Lymphocytes (%) (Auto) % (20.0-45.0) % (20.0-45.0) Monocytes (%) (Auto) % (1.0-10.0) % (1.0-10.0) Eosinophils (%) (Auto) % (0.0-3.0) % (0.0-3.0) Basophils (%) (Auto) % (0.0-2.0) % (0.0-2.0) Differential Total Cells Counted 100 100 Neutrophils % (Manual) 79 % (45-75) H 90 % (45-75) H Lymphocytes % (Manual) 11 % (20-45) L 5 % (20-45) L Monocytes % (Manual) 8 % (1-10) 3 % (1-10) Eosinophils % (Manual) 2 % (0-3) 2 % (0-3) Basophils % (Manual) 0 % (0-2) 0 % (0-2) Band Neutrophils 0 % (0-8) 0 % (0-8) Platelet Estimate Decreased L Decreased L Platelet Morphology Normal Normal Red Blood Cell Morphology Normal Anisocytosis 1+ 1+ Sodium Level 137 MMOL/L (136-145) Potassium Level 3.2 MMOL/L (3.5-5.1) L Chloride Level 106 MMOL/L (98-107) Carbon Dioxide Level 23 MMOL/L (21-32) Anion Gap 8 mmol/L (5-15) Blood Urea Nitrogen 12 mg/dL (7-18) Creatinine 0.6 MG/DL (0.55-1.30) Estimat Glomerular Filtration Rate > 60 mL/min (>60) Glucose Level 118 MG/DL (74-106) H Calcium Level 7.4 MG/DL (8.5-10.1) L Phosphorus Level 1.6 MG/DL (2.5-4.9) L Magnesium Level 1.8 MG/DL (1.8-2.4) Total Bilirubin 1.2 MG/DL (0.2-1.0) H Direct Bilirubin 0.3 MG/DL (0.0-0.3) Aspartate Amino Transf (AST/SGOT) 59 U/L (15-37) H Alanine Aminotransferase (ALT/SGPT) 129 U/L (12-78) H Alkaline Phosphatase 64 U/L (46-116) Total Protein 5.0 G/DL (6.4-8.2) L Albumin 1.3 G/DL (3.4-5.0) L Globulin 3.7 g/dL Albumin/Globulin Ratio 0.4 (1.0-2.7) L Microbiology Date/Time Source Procedure Growth Status 05/27/19 20:45 Sputum Induced Gram Stain - Final Resulted 05/27/19 20:45 Sputum Induced Sputum Culture Pending Resulted Intake and Output 05/27/19 05/28/19 19:00 07:00 Intake Total 3266.25 ml 1635.0 ml Output Total 655 ml 865 ml Balance 2611.25 ml 770.0 ml Intake Free Water 200 ml 200 ml IV Total 2666.25 ml 900.0 ml Tube Feeding 400 ml 535 ml Output Urine Total 655 ml 865 ml # Bowel Movements 3 Objective PHYSICAL EXAMINATION: GENERAL: The patient is a well-nourished male, who is in moderate distress. HEENT: Eyes, pupils are equal and responsive to light and accommodation. Extraocular movements are intact. Tracheostomy is present. CHEST: Lungs are clear with mechanical breath sounds bilaterally. ABDOMEN: Soft, nontender, and nondistended. Positive bowel sounds. No evidence of hepatosplenomegaly. Currently, no rebound or guarding noted. EXTREMITIES: Negative for clubbing, cyanosis, or edema. RECTAL/GENITAL: Not performed. NEUROLOGICAL: Cranial nerves II to XII grossly intact without focal deficits. Motor strength is 5/5 bilaterally. Deep tendon reflexes are 2+ plantar. Assessment/Plan Assessment/Plan ASSESSMENT: This is a 73-year-old male with: 1. Esophageal mass. 2. Esophageal hemorrhage. 3. Airway obstruction. 4. Hypoxia. 5. History of esophageal cancer. 6. Elevated liver function tests. 7. Bilateral pneumonia TREATMENT: 1. Esophageal mass/hemorrhage. A Hematology/Oncology consultation has been obtained with Dr. Paz. The patient has received four units of packed RBCs and 1 unit FFP. The patient is in the intensive care unit. The patient iscurrently off pressors. 2. Hypoxia. A Pulmonary/Critical Care consultation has been obtained with Dr. Claudia Chi. Hypoxia is probably secondary to tracheal obstruction secondary to hemorrhage as above. Continue vent per Dr. Chi. 3. Pneumonia. The patient has been started on Zosyn and vancomycin. An Infectious Disease consultation has been obtained with Dr. Alba. We will follow recommendations of Infectious Disease. A sputum culture is pending. 4. Elevated liver function tests/esophageal mass. A Gastroenterology consultation has been obtained with Dr. Narciso Engle. The patient may require repeat biopsy of esophageal mass. We will follow recommendations of Gastroenterology. A CT scan of the neck is pending. Igor Lucero MD May 28, 2019 18:49
--- NOTE | 2019-05-28 19:03 | NUR ---
HAND-OFF: Report given to ANTONY Angel. Endorsed plan of care.
--- NOTE | 2019-05-28 19:30 | NUR ---
NURSE NOTES: Received pt awake and alert AO x4 communicates through writing and mouthing words SB-SR on the monitor, BP stable. Afebrile Trache to vent on AC mode , trache site with minimal blood stained secretions, Tolerated fdg Vital AF at 50ml /hr HOB kept elevated. On aspiration precaution. PTs extremities are swollen 3-4+ , Fernandez to gravity with dark yellow urine Approx. 50-60ml/hr. Monitor I and O. Monitor lytes. Skin remained intact. Will continue to monitor.
--- NOTE | 2019-05-28 19:57 | NUR ---
CASE MANAGEMENT: REVIEW SI: ESOPHAGEAL MASS . SEPSIS T 98.8 HR 76 RR 16 BP 103/51 SAT 100% MECH VENT FIO2 40 K+ 3.2 AST 59 ALT 129 ABG: PH 7.482 PCO2 27.7 SPUTUM CX PENDING IS: LEVOPHED IV Q24HR ZOSYN IV Q8HR PROTONIX IV Q12HR K PHOS IV X1 GTUBE FEEDING ICU STATUS DCP: [facility]
[2019-05-28] MEDS: Dyna-Hex 2% Top Sol 2oz TOPIC SCH (20:15)
[2019-05-28 20:57] LABS: HEMATOCRIT 30.1 % (42.0-52.0); HEMOGLOBIN 9.9 G/DL (14.2-18.0); MEAN CORPUSCULAR VOLUME 91 FL (80-99); PLATELET COUNT 113 K/UL (150-450); RED BLOOD COUNT 3.32 M/UL (4.70-6.10); RED CELL DISTRIBUTION WIDTH 16.7 % (11.6-14.8); WHITE BLOOD COUNT 6.4 K/UL (4.8-10.8)
[2019-05-28] MEDS: Miralax 17gm pkt ORAL SCH ×2 (21:00→21:09)
--- NOTE | 2019-05-28 21:00 | NUR ---
NURSE NOTES: Pt refused meds Miralax.
[2019-05-28 21:03] LABS: BASOPHILS % (AUTO) 0.5 % (0.0-2.0); EOSINOPHILS % (AUTO) 0.8 % (0.0-3.0); MONOCYTES % (AUTO) 2.6 % (1.0-10.0); NEUTROPHILS % (AUTO) 90.1 % (45.0-75.0)
--- NOTE | 2019-05-28 21:30 | NUR ---
NURSE NOTES: Suctioned tk blood tinged secretions from trache. HOB kept elevated. 02 sat >92%. Watch for any resp. distress.
--- NOTE | 2019-05-28 22:00 | NUR ---
NURSE NOTES: Friend visitor at bedside , Explained ICU protocol and set up- verbalized understanding.
--- NOTE | 2019-05-28 23:00 | NUR ---
NURSE NOTES: Pt had 1 lg blackish soft stool. Cleaned up pt.
[2019-05-29] VITALS (24 sets, daily range): BP systolic 94–129; BP diastolic 45–58
--- NOTE | 2019-05-29 01:00 | NUR ---
NURSE NOTES: Watching TV at this time with vss. No dysrhythmia noted.
--- NOTE | 2019-05-29 03:27 | NUR ---
NURSE NOTES: Complete bed bath with bed changed was done.
--- NOTE | 2019-05-29 05:00 | NUR ---
NURSE NOTES: asleep at this time with vss. Tolerating fdg at 50ml/hr.
[2019-05-29] MEDS: Zosyn 3.375gm q8h **Extended infusion IVPB SCH ×6 (06:07→21:54)
--- NOTE | 2019-05-29 06:32 | NUR ---
RESPIRATORY NOTE: Received pt on trach Shiley cuffed size 8.0, secured with trach tie and trach guard. Pt is awake, alert and on vent with current settings: AC 16-550ml-40%FiO2-peep 5. No SOB or resp distress noted. Alarms are set and audible, vent is plugged into the red outlet, ambu bag is at bedside. Will continue to monitor.
--- NOTE | 2019-05-29 06:33 | NUR ---
NURSE NOTES: No active bleeding noted t this time.
[2019-05-29 06:55] LABS: HEMATOCRIT 27.2 % (42.0-52.0); HEMOGLOBIN 9.3 G/DL (14.2-18.0); MEAN CORPUSCULAR VOLUME 89 FL (80-99); PLATELET COUNT 101 K/UL (150-450); RED BLOOD COUNT 3.06 M/UL (4.70-6.10); RED CELL DISTRIBUTION WIDTH 15.3 % (11.6-14.8); WHITE BLOOD COUNT 5.8 K/UL (4.8-10.8)
[2019-05-29 07:08] LABS: ALANINE AMINOTRANSFERASE 93 U/L (12-78); ALBUMIN 1.1 G/DL (3.4-5.0); ALBUMIN/GLOBULIN RATIO 0.3 (1.0-2.7); ALKALINE PHOSPHATASE 66 U/L (46-116); ANION GAP 11 mmol/L (5-15); ASPARTATE AMINO TRANSFERASE 39 U/L (15-37); BLOOD UREA NITROGEN 14 mg/dL (7-18); CALCIUM 7.6 MG/DL (8.5-10.1); CARBON DIOXIDE 21 MMOL/L (21-32); CHLORIDE 107 MMOL/L (98-107); CREATININE 0.7 MG/DL (0.55-1.30); POTASSIUM 3.2 MMOL/L (3.5-5.1); SODIUM 139 MMOL/L (136-145)
[2019-05-29 07:21] LABS: PHOSPHORUS 1.8 MG/DL (2.5-4.9)
--- NOTE | 2019-05-29 07:25 | NUR ---
NURSE NOTES: Received report from ANTONY Angel. Patient asleep and responsive to verbal, able to follow command. Afebrile. No distress noted at this time. Shiley 8 with vent setting AC 16, VT 550, peep 5 and FiO2 40%. Gtube intact and running with Vital AF 1.2 @ 50ml/hr at this time. Right upper arm midline intact, clean and running with TKO. Kept dry, clean, comfortable and HOB>30. Call light placed in easy reach. Will continue plan of care.
--- NOTE | 2019-05-29 07:25 | NUR ---
HAND-OFF: Report given to Neftali HARDY for continuity of care..
--- NOTE | 2019-05-29 08:02 | NUR ---
NURSE NOTES: Oral care provided.
[2019-05-29] MEDS: Lactulose 20gm/30ml UDC ORAL SCH (08:45)
[2019-05-29] MEDS: Pantoprazole Inj IVP SCH ×2 (08:45→20:50)
[2019-05-29] MEDS: Docusate 100mg/10ml Liq NG SCH ×2 (08:45→17:41)
--- NOTE | 2019-05-29 09:00 | NUR ---
NURSE NOTES: Due medication given.
--- NOTE | 2019-05-29 09:01 | General Progress Note ---
Assessment/Plan Problem List: (1) G tube feedings ICD Codes: Z93.1 - Gastrostomy status SNOMED: 744469967, 833187822, [id number] (2) Chronic respiratory failure ICD Codes: J96.10 - Chronic respiratory failure, unspecified whether with hypoxia or hypercapnia SNOMED: 82198864 (3) Gastrostomy tube in place ICD Codes: Z93.1 - Gastrostomy status SNOMED: 519272745, 288173268 (4) Hemoptysis ICD Codes: R04.2 - Hemoptysis SNOMED: 72833047 (5) Esophageal mass ICD Codes: K22.8 - Other specified diseases of esophagus SNOMED: 272354309 Assessment/Plan: most likely bleeding from trach ppi s/p 4 units blood transfusion GTF tolerated bowel regimen no recurrent bleeding cbc and cmp for am Subjective ROS Limited/Unobtainable: No Allergies: Coded Allergies: LEVOFLOXACIN (Verified Allergy, Unknown, 05/24/19) Possible allergic reaction - low blood pressure Objective Last 24 Hour Vital Signs Date Time Temp Pulse Resp B/P (MAP) Pulse Ox O2 Delivery O2 Flow Rate FiO2 05/29/19 06:32 64 20 40 05/29/19 06:00 61 18 117/58 (77) 99 05/29/19 05:26 63 21 40 05/29/19 05:00 68 27 99/54 (69) 99 05/29/19 04:00 62 05/29/19 04:00 98.0 63 19 105/58 (74) 99 05/29/19 04:00 Mechanical Ventilator 05/29/19 04:00 40 05/29/19 03:49 81 28 40 05/29/19 03:00 68 19 111/48 (69) 96 05/29/19 02:00 76 23 110/51 (70) 99 05/29/19 01:12 76 23 40 05/29/19 01:00 73 25 124/47 (72) 100 05/29/19 00:00 98.2 77 25 111/47 (68) 100 05/29/19 00:00 71 05/29/19 00:00 Mechanical Ventilator 05/29/19 00:00 40 05/28/19 23:36 78 26 40 05/28/19 23:00 71 21 111/46 (67) 97 05/28/19 22:00 77 21 106/50 (68) 99 05/28/19 21:06 76 22 40 05/28/19 21:00 74 17 116/51 (72) 99 05/28/19 20:04 119/61 05/28/19 20:00 77 05/28/19 20:00 Mechanical Ventilator 05/28/19 20:00 98.6 68 23 119/61 (80) 100 05/28/19 19:24 74 22 40 05/28/19 19:00 68 26 98/50 (66) 98 05/28/19 19:00 71 24 110/46 (67) 100 05/28/19 18:00 71 24 110/46 (67) 100 05/28/19 17:00 70 23 40 05/28/19 17:00 74 16 111/41 (64) 100 05/28/19 16:00 98.8 76 16 111/51 (71) 100 05/28/19 16:00 71 05/28/19 16:00 40 05/28/19 16:00 Mechanical Ventilator 05/28/19 15:20 69 19 40 05/28/19 15:00 64 19 103/51 (68) 100 05/28/19 14:00 64 19 112/53 (72) 100 05/28/19 13:01 63 20 40 05/28/19 13:00 64 20 104/54 (71) 100 05/28/19 12:00 40 05/28/19 12:00 Mechanical Ventilator 05/28/19 12:00 63 05/28/19 12:00 65 20 127/62 (83) 100 05/28/19 12:00 99.2 66 18 127/62 (83) 100 05/28/19 11:00 63 18 117/58 (77) 100 05/28/19 10:52 70 20 40 05/28/19 10:00 74 25 105/49 (67) 100 05/28/19 09:01 79 24 40 Intake and Output 05/28/19 05/29/19 19:00 07:00 Intake Total 1557.1667 ml 827.5 ml Output Total 790 ml 700 ml Balance 767.1667 ml 127.5 ml Intake Free Water 200 ml 200 ml IV Total 777.1667 ml 27.5 ml Tube Feeding 580 ml 600 ml Output Urine Total 790 ml 700 ml # Bowel Movements 4 5 Laboratory Tests 05/28/19 12:50: White Blood Count 7.0, Red Blood Count 3.41L, Hemoglobin 10.3L, Hematocrit 30.6L , Mean Corpuscular Volume 90, Mean Corpuscular Hemoglobin 30.2, Mean Corpuscular Hemoglobin Concent 33.6, Red Cell Distribution Width 15.0H, Platelet Count 109L, Mean Platelet Volume 6.6, Neutrophils (%) (Auto) , Lymphocytes (%) (Auto) , Monocytes (%) (Auto) , Eosinophils (%) (Auto) , Basophils (%) (Auto) , Differential Total Cells Counted 100, Neutrophils % ( Manual) 90H, Lymphocytes % (Manual) 5L, Monocytes % (Manual) 3, Eosinophils % ( Manual) 2, Basophils % (Manual) 0, Band Neutrophils 0, Platelet Estimate DecreasedL, Platelet Morphology Normal, Anisocytosis 1+ 05/28/19 20:45: White Blood Count 6.4, Red Blood Count 3.32L, Hemoglobin 9.9L, Hematocrit 30.1L , Mean Corpuscular Volume 91, Mean Corpuscular Hemoglobin 29.8, Mean Corpuscular Hemoglobin Concent 32.8, Red Cell Distribution Width 16.7H, Platelet Count 113L, Mean Platelet Volume 6.9, Neutrophils (%) (Auto) 90.1H, Lymphocytes (%) (Auto) 6.0L, Monocytes (%) (Auto) 2.6, Eosinophils (%) (Auto) 0.8, Basophils (%) (Auto) 0.5 05/29/19 05:00: White Blood Count 5.8, Red Blood Count 3.06L, Hemoglobin 9.3L, Hematocrit 27.2L , Mean Corpuscular Volume 89, Mean Corpuscular Hemoglobin 30.4, Mean Corpuscular Hemoglobin Concent 34.2, Red Cell Distribution Width 15.3H, Platelet Count 101L, Mean Platelet Volume 6.7, Neutrophils (%) (Auto) , Lymphocytes (%) (Auto) , Monocytes (%) (Auto) , Eosinophils (%) (Auto) , Basophils (%) (Auto) , Neutrophils % (Manual) [Pending], Lymphocytes % (Manual) [Pending], Platelet Estimate [Pending], Platelet Morphology [Pending], Erythrocyte Sedimentation Rate [Pending], Sodium Level 139, Potassium Level 3.2L , Chloride Level 107, Carbon Dioxide Level 21, Anion Gap 11, Blood Urea Nitrogen 14, Creatinine 0.7, Estimat Glomerular Filtration Rate > 60, Glucose Level 108H, Calcium Level 7.6L, Phosphorus Level 1.8L, Magnesium Level 1.6L, Total Bilirubin 1.0, Aspartate Amino Transf (AST/SGOT) 39H, Alanine Aminotransferase (ALT/SGPT) 93H, Alkaline Phosphatase 66, C-Reactive Protein, Quantitative 13.8H, Total Protein 4.8L, Albumin 1.1L, Globulin 3.7, Albumin/ Globulin Ratio 0.3L Height (Feet): 5 Height (Inches): 7.00 Weight (Pounds): 156 General Appearance: no apparent distress EENT: normal ENT inspection Neck: supple Cardiovascular: normal rate Respiratory/Chest: decreased breath sounds Abdomen: normal bowel sounds, non tender, soft Extremities: non-tender Narciso Engle MD May 29, 2019 09:01
--- NOTE | 2019-05-29 10:20 | NUR ---
NURSE NOTES: Repositioned patient.
--- NOTE | 2019-05-29 10:24 | Pulmonolgy Critical Care Note ---
Critical Care - Asmt/Plan Problems: (1) Nosocomial pneumonia (2) Hemorrhagic shock (3) Head and neck cancer (4) Upper GI bleeding (5) Chronic respiratory failure (6) Esophageal mass (7) Gastrostomy tube in place (8) Radiation fibrosis of lung Respiratory: monitor respiratory rate, adjust FIO2, CXR Cardiac: continue to monitor HR/BP Renal: F/U I&O, check electrolytes, other - K, phos, mg supplement Infectious Disease: check cultures, continue antibiotics Gastrointestinal: continue feedings/current rate Hematologic: monitor H/H, transfuse if hgb<8.5 Neurologic: PRN Ativan, PRN Morphine, keep patient comfortable Affect: PRN ativan Notes Reviewed: outpatient pharmacy manager Discussed with: nurses, consultants, child welfare caseworkeradult basic education manager - Objective Last 24 Hour Vital Signs Date Time Temp Pulse Resp B/P (MAP) Pulse Ox O2 Delivery O2 Flow Rate FiO2 05/29/19 09:02 66 25 40 05/29/19 09:00 66 25 115/55 (75) 100 05/29/19 08:00 40 05/29/19 08:00 97.9 60 17 96/52 (67) 100 05/29/19 08:00 Mechanical Ventilator 05/29/19 07:00 62 18 94/54 (67) 100 05/29/19 06:32 64 20 40 05/29/19 06:00 61 18 117/58 (77) 99 05/29/19 05:26 63 21 40 05/29/19 05:00 68 27 99/54 (69) 99 05/29/19 04:00 62 05/29/19 04:00 98.0 63 19 105/58 (74) 99 05/29/19 04:00 Mechanical Ventilator 05/29/19 04:00 40 05/29/19 03:49 81 28 40 05/29/19 03:00 68 19 111/48 (69) 96 05/29/19 02:00 76 23 110/51 (70) 99 05/29/19 01:12 76 23 40 05/29/19 01:00 73 25 124/47 (72) 100 05/29/19 00:00 98.2 77 25 111/47 (68) 100 05/29/19 00:00 71 05/29/19 00:00 Mechanical Ventilator 05/29/19 00:00 40 05/28/19 23:36 78 26 40 05/28/19 23:00 71 21 111/46 (67) 97 05/28/19 22:00 77 21 106/50 (68) 99 05/28/19 21:06 76 22 40 05/28/19 21:00 74 17 116/51 (72) 99 05/28/19 20:04 119/61 05/28/19 20:00 77 05/28/19 20:00 Mechanical Ventilator 05/28/19 20:00 98.6 68 23 119/61 (80) 100 05/28/19 19:24 74 22 40 05/28/19 19:00 68 26 98/50 (66) 98 05/28/19 19:00 71 24 110/46 (67) 100 05/28/19 18:00 71 24 110/46 (67) 100 05/28/19 17:00 70 23 40 05/28/19 17:00 74 16 111/41 (64) 100 05/28/19 16:00 98.8 76 16 111/51 (71) 100 05/28/19 16:00 71 05/28/19 16:00 40 05/28/19 16:00 Mechanical Ventilator 05/28/19 15:20 69 19 40 05/28/19 15:00 64 19 103/51 (68) 100 05/28/19 14:00 64 19 112/53 (72) 100 05/28/19 13:01 63 20 40 05/28/19 13:00 64 20 104/54 (71) 100 05/28/19 12:00 40 05/28/19 12:00 Mechanical Ventilator 05/28/19 12:00 63 05/28/19 12:00 65 20 127/62 (83) 100 05/28/19 12:00 99.2 66 18 127/62 (83) 100 05/28/19 11:00 63 18 117/58 (77) 100 05/28/19 10:52 70 20 40 Status: awake Condition: critical HEENT: atraumatic Lungs: clear Heart: HR/BP stable, regular Abdomen: active bowel sounds Extremities: no C/C/E Micro: Microbiology Date/Time Source Procedure Growth Status 05/27/19 20:45 Sputum Induced Gram Stain - Final Resulted 05/27/19 20:45 Sputum Induced Sputum Culture Pending Resulted Critical Care - Subjective ROS Limited/Unobtainable: Yes Condition: critical EKG Rhythm: Sinus Rhythm FI02: 40 Vent Support Breath Rate: 16 Vent Support Mode: AC Vent Tidal Volume: 550 Sputum Amount: Moderate PEEP: 5.0 PIP: 18 Tube Feeding Amount: 50 I&O: Intake and Output 05/28/19 05/29/19 19:00 07:00 Intake Total 1557.1667 ml 827.5 ml Output Total 790 ml 700 ml Balance 767.1667 ml 127.5 ml Intake Free Water 200 ml 200 ml IV Total 777.1667 ml 27.5 ml Tube Feeding 580 ml 600 ml Output Urine Total 790 ml 700 ml # Bowel Movements 4 5 Labs: Laboratory Tests Test 05/28/19 12:50 05/28/19 20:45 05/29/19 05:00 White Blood Count 7.0 K/UL (4.8-10.8) 6.4 K/UL (4.8-10.8) 5.8 K/UL (4.8-10.8) Red Blood Count 3.41 M/UL (4.70-6.10) L 3.32 M/UL (4.70-6.10) L 3.06 M/UL (4.70-6.10) L Hemoglobin 10.3 G/DL (14.2-18.0) L 9.9 G/DL (14.2-18.0) L 9.3 G/DL (14.2-18.0) L Hematocrit 30.6 % (42.0-52.0) L 30.1 % (42.0-52.0) L 27.2 % (42.0-52.0) L Mean Corpuscular Volume 90 FL (80-99) 91 FL (80-99) 89 FL (80-99) Mean Corpuscular Hemoglobin 30.2 PG (27.0-31.0) 29.8 PG (27.0-31.0) 30.4 PG (27.0-31.0) Mean Corpuscular Hemoglobin Concent 33.6 G/DL (32.0-36.0) 32.8 G/DL (32.0-36.0) 34.2 G/DL (32.0-36.0) Red Cell Distribution Width 15.0 % (11.6-14.8) H 16.7 % (11.6-14.8) H 15.3 % (11.6-14.8) H Platelet Count 109 K/UL (150-450) L 113 K/UL (150-450) L 101 K/UL (150-450) L Mean Platelet Volume 6.6 FL (6.5-10.1) 6.9 FL (6.5-10.1) 6.7 FL (6.5-10.1) Neutrophils (%) (Auto) % (45.0-75.0) 90.1 % (45.0-75.0) H % (45.0-75.0) Lymphocytes (%) (Auto) % (20.0-45.0) 6.0 % (20.0-45.0) L % (20.0-45.0) Monocytes (%) (Auto) % (1.0-10.0) 2.6 % (1.0-10.0) % (1.0-10.0) Eosinophils (%) (Auto) % (0.0-3.0) 0.8 % (0.0-3.0) % (0.0-3.0) Basophils (%) (Auto) % (0.0-2.0) 0.5 % (0.0-2.0) % (0.0-2.0) Differential Total Cells Counted 100 100 Neutrophils % (Manual) 90 % (45-75) H 90 % (45-75) H Lymphocytes % (Manual) 5 % (20-45) L 6 % (20-45) L Monocytes % (Manual) 3 % (1-10) 4 % (1-10) Eosinophils % (Manual) 2 % (0-3) 0 % (0-3) Basophils % (Manual) 0 % (0-2) 0 % (0-2) Band Neutrophils 0 % (0-8) 0 % (0-8) Platelet Estimate Decreased L Decreased L Platelet Morphology Normal Normal Anisocytosis 1+ 1+ Erythrocyte Sedimentation Rate 106 MM/HR (0-20) H Sodium Level 139 MMOL/L (136-145) Potassium Level 3.2 MMOL/L (3.5-5.1) L Chloride Level 107 MMOL/L (98-107) Carbon Dioxide Level 21 MMOL/L (21-32) Anion Gap 11 mmol/L (5-15) Blood Urea Nitrogen 14 mg/dL (7-18) Creatinine 0.7 MG/DL (0.55-1.30) Estimat Glomerular Filtration Rate > 60 mL/min (>60) Glucose Level 108 MG/DL (74-106) H Calcium Level 7.6 MG/DL (8.5-10.1) L Phosphorus Level 1.8 MG/DL (2.5-4.9) L Magnesium Level 1.6 MG/DL (1.8-2.4) L Total Bilirubin 1.0 MG/DL (0.2-1.0) Aspartate Amino Transf (AST/SGOT) 39 U/L (15-37) H Alanine Aminotransferase (ALT/SGPT) 93 U/L (12-78) H Alkaline Phosphatase 66 U/L (46-116) C-Reactive Protein, Quantitative 13.8 mg/dL (0.00-0.90) H Total Protein 4.8 G/DL (6.4-8.2) L Albumin 1.1 G/DL (3.4-5.0) L Globulin 3.7 g/dL Albumin/Globulin Ratio 0.3 (1.0-2.7) L Claudia Chi MD May 29, 2019 10:24
[2019-05-29] MEDS ORDERED: Sodium Chloride for KCL Premix X 4hrs IV SCH (10:30)
--- NOTE | 2019-05-29 10:44 | NUR ---
RESPIRATORY NOTE: Per Dr. Chi's order, placed pt on CPAP PS 15- 40%FiO2- peep 5 to wean off the vent. Pt is tolerating well the settings. No SOB or resp distress noted. Family member at bedside. Will continue to monitor.
--- NOTE | 2019-05-29 10:50 | NUR ---
RESPIRATORY NOTE: Changed PS to 10, 40%FiO2, peep [address] Chi's order. Pt is tolerating well new settings. Family member and RN Neftali at bedside and aware. Per Dr. Chi, if pt is tolerating well in 30 minutes, changed to t-piece with cool aerosol 40%.No ABG needed.Will continue to monitor.
--- NOTE | 2019-05-29 11:05 | NUR ---
NURSE NOTES: Patient had small soft brown BM. bed bath given. Kept dry, clean and comfortable.
--- NOTE | 2019-05-29 11:51 | NUR ---
RESPIRATORY NOTE: Placed pt on cool aerosol 10L 40%FiO2 per Dr. Chi's order. Vent is standby and will be used as needed. Pt is awake, alert, no SOB or resp distress noted at this time. ANTONY Lindsay at bedside and Dr. Chi aware. Will continue to monitor.
--- NOTE | 2019-05-29 12:02 | NUR ---
NURSE NOTES: Repositioned patient and provided oral care.
[2019-05-29] MEDS ORDERED: Sodium Phosphate 30 MM in NS 275 ML IV ONE (13:00)
--- NOTE | 2019-05-29 14:47 | Surgery Progress Note ---
Surgery Progress Note Subjective Symptoms: improved, tolerating diet, voiding well, passing flatus, pain decreased Additional Comments opff vent Objective Last 24 Hour Vital Signs Date Time Temp Pulse Resp B/P (MAP) Pulse Ox O2 Delivery O2 Flow Rate FiO2 05/29/19 14:00 64 25 119/53 (75) 98 05/29/19 13:21 100 Cool Aerosol 10.0 40 05/29/19 13:00 67 19 114/49 (70) 97 05/29/19 12:00 98.0 66 22 103/47 (65) 100 05/29/19 12:00 28 05/29/19 12:00 T-piece 05/29/19 12:00 66 05/29/19 11:51 68 25 05/29/19 11:00 62 19 102/50 (67) 100 05/29/19 10:50 62 14 40 05/29/19 10:44 67 17 40 05/29/19 10:00 59 18 107/48 (67) 100 05/29/19 09:02 66 25 40 05/29/19 09:00 66 25 115/55 (75) 100 05/29/19 08:00 40 05/29/19 08:00 97.9 60 17 96/52 (67) 100 05/29/19 08:00 Mechanical Ventilator 05/29/19 08:00 61 05/29/19 07:00 62 18 94/54 (67) 100 05/29/19 06:32 64 20 40 05/29/19 06:00 61 18 117/58 (77) 99 05/29/19 05:26 63 21 40 05/29/19 05:00 68 27 99/54 (69) 99 05/29/19 04:00 62 05/29/19 04:00 98.0 63 19 105/58 (74) 99 05/29/19 04:00 Mechanical Ventilator 05/29/19 04:00 40 05/29/19 03:49 81 28 40 05/29/19 03:00 68 19 111/48 (69) 96 05/29/19 02:00 76 23 110/51 (70) 99 05/29/19 01:12 76 23 40 05/29/19 01:00 73 25 124/47 (72) 100 05/29/19 00:00 98.2 77 25 111/47 (68) 100 05/29/19 00:00 71 05/29/19 00:00 Mechanical Ventilator 05/29/19 00:00 40 05/28/19 23:36 78 26 40 05/28/19 23:00 71 21 111/46 (67) 97 05/28/19 22:00 77 21 106/50 (68) 99 05/28/19 21:06 76 22 40 05/28/19 21:00 74 17 116/51 (72) 99 05/28/19 20:04 119/61 05/28/19 20:00 77 05/28/19 20:00 Mechanical Ventilator 05/28/19 20:00 98.6 68 23 119/61 (80) 100 05/28/19 19:24 74 22 40 05/28/19 19:00 68 26 98/50 (66) 98 05/28/19 19:00 71 24 110/46 (67) 100 05/28/19 18:00 71 24 110/46 (67) 100 05/28/19 17:00 70 23 40 05/28/19 17:00 74 16 111/41 (64) 100 05/28/19 16:00 98.8 76 16 111/51 (71) 100 05/28/19 16:00 71 05/28/19 16:00 40 05/28/19 16:00 Mechanical Ventilator 05/28/19 15:20 69 19 40 05/28/19 15:00 64 19 103/51 (68) 100 I&O Intake and Output 05/28/19 05/29/19 19:00 07:00 Intake Total 1557.1667 ml 827.5 ml Output Total 790 ml 700 ml Balance 767.1667 ml 127.5 ml Intake Free Water 200 ml 200 ml IV Total 777.1667 ml 27.5 ml Tube Feeding 580 ml 600 ml Output Urine Total 790 ml 700 ml # Bowel Movements 4 5 Dressing: dry Wound: clean Cardiovascular: RSR Respiratory: clear Abdomen: soft, non-tender, present bowel sounds Extremities: no cyanosis Laboratory Tests Test 05/28/19 20:45 05/29/19 05:00 White Blood Count 6.4 K/UL (4.8-10.8) 5.8 K/UL (4.8-10.8) Red Blood Count 3.32 M/UL (4.70-6.10) L 3.06 M/UL (4.70-6.10) L Hemoglobin 9.9 G/DL (14.2-18.0) L 9.3 G/DL (14.2-18.0) L Hematocrit 30.1 % (42.0-52.0) L 27.2 % (42.0-52.0) L Mean Corpuscular Volume 91 FL (80-99) 89 FL (80-99) Mean Corpuscular Hemoglobin 29.8 PG (27.0-31.0) 30.4 PG (27.0-31.0) Mean Corpuscular Hemoglobin Concent 32.8 G/DL (32.0-36.0) 34.2 G/DL (32.0-36.0) Red Cell Distribution Width 16.7 % (11.6-14.8) H 15.3 % (11.6-14.8) H Platelet Count 113 K/UL (150-450) L 101 K/UL (150-450) L Mean Platelet Volume 6.9 FL (6.5-10.1) 6.7 FL (6.5-10.1) Neutrophils (%) (Auto) 90.1 % (45.0-75.0) H % (45.0-75.0) Lymphocytes (%) (Auto) 6.0 % (20.0-45.0) L % (20.0-45.0) Monocytes (%) (Auto) 2.6 % (1.0-10.0) % (1.0-10.0) Eosinophils (%) (Auto) 0.8 % (0.0-3.0) % (0.0-3.0) Basophils (%) (Auto) 0.5 % (0.0-2.0) % (0.0-2.0) Differential Total Cells Counted 100 Neutrophils % (Manual) 90 % (45-75) H Lymphocytes % (Manual) 6 % (20-45) L Monocytes % (Manual) 4 % (1-10) Eosinophils % (Manual) 0 % (0-3) Basophils % (Manual) 0 % (0-2) Band Neutrophils 0 % (0-8) Platelet Estimate Decreased L Platelet Morphology Normal Anisocytosis 1+ Erythrocyte Sedimentation Rate 106 MM/HR (0-20) H Sodium Level 139 MMOL/L (136-145) Potassium Level 3.2 MMOL/L (3.5-5.1) L Chloride Level 107 MMOL/L (98-107) Carbon Dioxide Level 21 MMOL/L (21-32) Anion Gap 11 mmol/L (5-15) Blood Urea Nitrogen 14 mg/dL (7-18) Creatinine 0.7 MG/DL (0.55-1.30) Estimat Glomerular Filtration Rate > 60 mL/min (>60) Glucose Level 108 MG/DL (74-106) H Calcium Level 7.6 MG/DL (8.5-10.1) L Phosphorus Level 1.8 MG/DL (2.5-4.9) L Magnesium Level 1.6 MG/DL (1.8-2.4) L Total Bilirubin 1.0 MG/DL (0.2-1.0) Aspartate Amino Transf (AST/SGOT) 39 U/L (15-37) H Alanine Aminotransferase (ALT/SGPT) 93 U/L (12-78) H Alkaline Phosphatase 66 U/L (46-116) C-Reactive Protein, Quantitative 13.8 mg/dL (0.00-0.90) H Total Protein 4.8 G/DL (6.4-8.2) L Albumin 1.1 G/DL (3.4-5.0) L Globulin 3.7 g/dL Albumin/Globulin Ratio 0.3 (1.0-2.7) L Plan Problems: (1) Esophageal mass Assessment & Plan: This is a 73-year-old male with known history of throat cancer possible esophageal cancer status post chemoradiation [facility] a few years back who recently has developed cardiac arrest shortness of breath respiratory compromise and had tracheostomy at outside facility for airway protection. Was in recovery until recently identified to have desaturation with blood clots noted within tracheostomy tube suctions as well as oral suctioning. Patient admitted for care and management identified to have anemia bleeding and hemorrhage. Surgery called to evaluate patient was seen. Hemorrhage has significantly decreased and currently no active bleeding noted. H&H trending down and being transfused as per my recommendations. Patient is awake alert states he feels better. He slowly weaning off pressors. Unfortunately given history current condition and the above no acute surgical intervention indicated or recommended. Will obtain attempt records from [facility] as well as [facility]. Continue with deep suctioning by respiratory. Okay for oral suctioning. Monitor for bleeding. Fortunately currently no active bleeding and hopefully its its way. We will keep close eye on H&H as well as coags to ensure patient improving. Permissive hypotension okay. Wean pressors. Thank you for let me participation's care will continue to follow with recommendations and further evaluation. Labs noted H&H improved after transfusion LFTs bilirubin noted likely response to bleeding patient states no longer currently actively bleeding otherwise stable off pressors improving Continue with current treatment will monitor downgrade labs okay off vent no bleeding improving feeds as tolerated (2) Hemoptysis Assessment & Plan: Findings: Interstitial and airspace opacities are seen throughout the right mid and lower lung. Questionable patchy peripheral opacities are also present on the left. Heart size is normal. The pleural spaces are clear Impression: Right lung opacities and questionable patchy left lung opacities, likely pneumonia. (3) Head and neck cancer [facility] May 29, 2019 14:47
--- NOTE | 2019-05-29 14:54 | Infectious Diseases Prog Note ---
Assessment/Plan Assessment/Plan Assessment/Plan: A: Leukocytosis, Sp Sepsis/shock, Sp Fever, Sp Probable Pneum(HAC) -05/28 CXR: ncreasing infiltrates versus edema in the right mid and lower lung, over one day. Persistent diffuse mild background interstitial congestion New or increased small bilateral pleural effusions - CXR: Right lung opacities and questionable patchy left lung opacities, likely pneumonia Transaminitis ( due to HypoTN) upper airway bleed sp Trach and PEG throat cancer P: Cont pt on Zosyn # 4 /7 05/27 SP IV Vanco # 2 Sp Amikacin # 1 Monitor CBC Monitor CMP Monitor CXR Monitor Cx (B, S) off of preessor and vent Subjective Allergies: Coded Allergies: LEVOFLOXACIN (Verified Allergy, Unknown, 05/24/19) Possible allergic reaction - low blood pressure Subjective off of preessor and vent Objective Vital Signs Last 24 Hour Vital Signs Date Time Temp Pulse Resp B/P (MAP) Pulse Ox O2 Delivery O2 Flow Rate FiO2 05/29/19 14:00 64 25 119/53 (75) 98 05/29/19 13:21 100 Cool Aerosol 10.0 40 05/29/19 13:00 67 19 114/49 (70) 97 05/29/19 12:00 98.0 66 22 103/47 (65) 100 05/29/19 12:00 28 05/29/19 12:00 T-piece 05/29/19 12:00 66 05/29/19 11:51 68 25 05/29/19 11:00 62 19 102/50 (67) 100 05/29/19 10:50 62 14 40 05/29/19 10:44 67 17 40 05/29/19 10:00 59 18 107/48 (67) 100 05/29/19 09:02 66 25 40 05/29/19 09:00 66 25 115/55 (75) 100 05/29/19 08:00 40 05/29/19 08:00 97.9 60 17 96/52 (67) 100 05/29/19 08:00 Mechanical Ventilator 05/29/19 08:00 61 05/29/19 07:00 62 18 94/54 (67) 100 05/29/19 06:32 64 20 40 05/29/19 06:00 61 18 117/58 (77) 99 05/29/19 05:26 63 21 40 05/29/19 05:00 68 27 99/54 (69) 99 05/29/19 04:00 62 05/29/19 04:00 98.0 63 19 105/58 (74) 99 05/29/19 04:00 Mechanical Ventilator 05/29/19 04:00 40 05/29/19 03:49 81 28 40 05/29/19 03:00 68 19 111/48 (69) 96 05/29/19 02:00 76 23 110/51 (70) 99 05/29/19 01:12 76 23 40 05/29/19 01:00 73 25 124/47 (72) 100 05/29/19 00:00 98.2 77 25 111/47 (68) 100 05/29/19 00:00 71 05/29/19 00:00 Mechanical Ventilator 05/29/19 00:00 40 05/28/19 23:36 78 26 40 05/28/19 23:00 71 21 111/46 (67) 97 05/28/19 22:00 77 21 106/50 (68) 99 05/28/19 21:06 76 22 40 05/28/19 21:00 74 17 116/51 (72) 99 05/28/19 20:04 119/61 05/28/19 20:00 77 05/28/19 20:00 Mechanical Ventilator 05/28/19 20:00 98.6 68 23 119/61 (80) 100 05/28/19 19:24 74 22 40 05/28/19 19:00 68 26 98/50 (66) 98 05/28/19 19:00 71 24 110/46 (67) 100 05/28/19 18:00 71 24 110/46 (67) 100 05/28/19 17:00 70 23 40 05/28/19 17:00 74 16 111/41 (64) 100 05/28/19 16:00 98.8 76 16 111/51 (71) 100 05/28/19 16:00 71 05/28/19 16:00 40 05/28/19 16:00 Mechanical Ventilator 05/28/19 15:20 69 19 40 05/28/19 15:00 64 19 103/51 (68) 100 Height (Feet): 5 Height (Inches): 7.00 Weight (Pounds): 156 Respiratory/Chest: normal breath sounds Cardiovascular: regularly irregular Abdomen: no mass Microbiology Date/Time Source Procedure Growth Status 05/27/19 20:45 Sputum Induced Gram Stain - Final Resulted 05/27/19 20:45 Sputum Induced Sputum Culture Pending Resulted Laboratory Tests Test 05/28/19 20:45 05/29/19 05:00 White Blood Count 6.4 K/UL (4.8-10.8) 5.8 K/UL (4.8-10.8) Red Blood Count 3.32 M/UL (4.70-6.10) L 3.06 M/UL (4.70-6.10) L Hemoglobin 9.9 G/DL (14.2-18.0) L 9.3 G/DL (14.2-18.0) L Hematocrit 30.1 % (42.0-52.0) L 27.2 % (42.0-52.0) L Mean Corpuscular Volume 91 FL (80-99) 89 FL (80-99) Mean Corpuscular Hemoglobin 29.8 PG (27.0-31.0) 30.4 PG (27.0-31.0) Mean Corpuscular Hemoglobin Concent 32.8 G/DL (32.0-36.0) 34.2 G/DL (32.0-36.0) Red Cell Distribution Width 16.7 % (11.6-14.8) H 15.3 % (11.6-14.8) H Platelet Count 113 K/UL (150-450) L 101 K/UL (150-450) L Mean Platelet Volume 6.9 FL (6.5-10.1) 6.7 FL (6.5-10.1) Neutrophils (%) (Auto) 90.1 % (45.0-75.0) H % (45.0-75.0) Lymphocytes (%) (Auto) 6.0 % (20.0-45.0) L % (20.0-45.0) Monocytes (%) (Auto) 2.6 % (1.0-10.0) % (1.0-10.0) Eosinophils (%) (Auto) 0.8 % (0.0-3.0) % (0.0-3.0) Basophils (%) (Auto) 0.5 % (0.0-2.0) % (0.0-2.0) Differential Total Cells Counted 100 Neutrophils % (Manual) 90 % (45-75) H Lymphocytes % (Manual) 6 % (20-45) L Monocytes % (Manual) 4 % (1-10) Eosinophils % (Manual) 0 % (0-3) Basophils % (Manual) 0 % (0-2) Band Neutrophils 0 % (0-8) Platelet Estimate Decreased L Platelet Morphology Normal Anisocytosis 1+ Erythrocyte Sedimentation Rate 106 MM/HR (0-20) H Sodium Level 139 MMOL/L (136-145) Potassium Level 3.2 MMOL/L (3.5-5.1) L Chloride Level 107 MMOL/L (98-107) Carbon Dioxide Level 21 MMOL/L (21-32) Anion Gap 11 mmol/L (5-15) Blood Urea Nitrogen 14 mg/dL (7-18) Creatinine 0.7 MG/DL (0.55-1.30) Estimat Glomerular Filtration Rate > 60 mL/min (>60) Glucose Level 108 MG/DL (74-106) H Calcium Level 7.6 MG/DL (8.5-10.1) L Phosphorus Level 1.8 MG/DL (2.5-4.9) L Magnesium Level 1.6 MG/DL (1.8-2.4) L Total Bilirubin 1.0 MG/DL (0.2-1.0) Aspartate Amino Transf (AST/SGOT) 39 U/L (15-37) H Alanine Aminotransferase (ALT/SGPT) 93 U/L (12-78) H Alkaline Phosphatase 66 U/L (46-116) C-Reactive Protein, Quantitative 13.8 mg/dL (0.00-0.90) H Total Protein 4.8 G/DL (6.4-8.2) L Albumin 1.1 G/DL (3.4-5.0) L Globulin 3.7 g/dL Albumin/Globulin Ratio 0.3 (1.0-2.7) L Current Medications Medications (Trade) Dose Ordered Sig/Mervat Route PRN Reason Start Time Stop Time Status Last Admin Dose Admin Acetaminophen (Tylenol) 650 mg Q4H PRN ORAL FEVER 05/24/19 17:30 06/23/19 17:29 Albuterol/ Ipratropium (Albuterol/ Ipratropium) 3 ml Q4H PRN HHN Shortness of Breath 05/24/19 17:30 05/29/19 17:29 Chlorhexidine Gluconate (Stacie-Hex 2%) 1 applic DAILY@2000 TOPIC 05/25/19 20:00 06/24/19 19:59 05/28/19 20:15 Dextrose (Dextrose 50%) 25 ml Q30M PRN IV Hypoglycemia 05/24/19 17:30 06/23/19 17:29 Dextrose (Dextrose 50%) 50 ml Q30M PRN IV Hypoglycemia 05/24/19 17:30 06/23/19 17:29 Docusate Sodium (Colace) 100 mg TWICE A DAY NG 05/27/19 09:00 06/26/19 08:59 05/27/19 17:38 Lactulose (Cephulac) 20 gm DAILY ORAL 05/28/19 09:00 06/27/19 08:59 Norepinephrine Bitartrate 4 mg/ Dextrose 250 ml @ 0 mls/hr Q24H IV 05/24/19 20:04 06/23/19 20:03 05/27/19 06:02 Ondansetron HCl (Zofran) 4 mg Q6H PRN IVP Nausea & Vomiting 05/24/19 17:30 06/23/19 17:29 05/24/19 18:11 Pantoprazole (Protonix) 40 mg EVERY 12 HOURS IVP 05/25/19 21:00 06/24/19 20:59 05/29/19 08:45 Piperacillin Sod/ Tazobactam Sod 3.375 gm/Sodium Chloride 110 ml @ 27.5 mls/hr EVERY 8 HOURS IVPB 05/25/19 14:00 06/03/19 13:59 05/29/19 13:55 Polyethylene Glycol (Miralax) 17 gm BEDTIME ORAL 05/26/19 21:00 06/25/19 20:59 05/27/19 20:37 Sodium Phosphate 30 mm/Sodium Chloride 285 ml @ 47.5 mls/hr ONCE ONCE IV 05/29/19 13:00 05/29/19 18:59 05/29/19 12:34 Jose Luis Alba MD May 29, 2019 14:54
--- NOTE | 2019-05-29 16:30 | NUR ---
NURSE NOTES: Patient had small soft brown BM. Bed bath given.
--- NOTE | 2019-05-29 18:05 | NUR ---
NURSE NOTES: Patient had another small soft brown BM. Bed bath given. kept dry, clean and comfortable.
--- NOTE | 2019-05-29 19:41 | Internal Med Progress Note ---
Subjective Date of Service: May 29, 2019 Physician Name JazmineIgor Attending Physician Matthew Davis MD Current Medications Medications (Trade) Dose Ordered Sig/Mervat Route PRN Reason Start Time Stop Time Status Last Admin Dose Admin Acetaminophen (Tylenol) 650 mg Q4H PRN ORAL FEVER 05/24/19 17:30 06/23/19 17:29 Chlorhexidine Gluconate (Stacie-Hex 2%) 1 applic DAILY@2000 TOPIC 05/25/19 20:00 06/24/19 19:59 05/28/19 20:15 Dextrose (Dextrose 50%) 25 ml Q30M PRN IV Hypoglycemia 05/24/19 17:30 06/23/19 17:29 Dextrose (Dextrose 50%) 50 ml Q30M PRN IV Hypoglycemia 05/24/19 17:30 06/23/19 17:29 Docusate Sodium (Colace) 100 mg TWICE A DAY NG 05/27/19 09:00 06/26/19 08:59 05/27/19 17:38 Lactulose (Cephulac) 20 gm DAILY ORAL 05/28/19 09:00 06/27/19 08:59 Norepinephrine Bitartrate 4 mg/ Dextrose 250 ml @ 0 mls/hr Q24H IV 05/24/19 20:04 06/23/19 20:03 05/27/19 06:02 Ondansetron HCl (Zofran) 4 mg Q6H PRN IVP Nausea & Vomiting 05/24/19 17:30 06/23/19 17:29 05/24/19 18:11 Pantoprazole (Protonix) 40 mg EVERY 12 HOURS IVP 05/25/19 21:00 06/24/19 20:59 05/29/19 08:45 Piperacillin Sod/ Tazobactam Sod 3.375 gm/Sodium Chloride 110 ml @ 27.5 mls/hr EVERY 8 HOURS IVPB 05/25/19 14:00 06/03/19 13:59 05/29/19 13:55 Polyethylene Glycol (Miralax) 17 gm BEDTIME ORAL 05/26/19 21:00 06/25/19 20:59 05/27/19 20:37 Allergies: Coded Allergies: LEVOFLOXACIN (Verified Allergy, Unknown, 05/24/19) Possible allergic reaction - low blood pressure ROS Limited/Unobtainable: No Constitutional: Reports: no symptoms HEENT: Reports: no symptoms Cardiovascular: Reports: no symptoms Respiratory: Reports: no symptoms Gastrointestinal/Abdominal: Reports: no symptoms Genitourinary: Reports: no symptoms Neurologic/Psychiatric: Reports: no symptoms Subjective 73 YO M with esophageal mass admitted with hemoptysis. Now Pneumonia. Cover for Int henri-DR Davis. ICU Objective Last Vital Signs Date Time Temp Pulse Resp B/P (MAP) Pulse Ox O2 Delivery O2 Flow Rate FiO2 05/29/19 19:15 99 Cool Aerosol 10.0 40 05/29/19 18:00 69 21 122/45 (70) 05/29/19 16:00 98.7 Laboratory Tests Test 05/28/19 20:45 05/29/19 05:00 White Blood Count 6.4 K/UL (4.8-10.8) 5.8 K/UL (4.8-10.8) Red Blood Count 3.32 M/UL (4.70-6.10) L 3.06 M/UL (4.70-6.10) L Hemoglobin 9.9 G/DL (14.2-18.0) L 9.3 G/DL (14.2-18.0) L Hematocrit 30.1 % (42.0-52.0) L 27.2 % (42.0-52.0) L Mean Corpuscular Volume 91 FL (80-99) 89 FL (80-99) Mean Corpuscular Hemoglobin 29.8 PG (27.0-31.0) 30.4 PG (27.0-31.0) Mean Corpuscular Hemoglobin Concent 32.8 G/DL (32.0-36.0) 34.2 G/DL (32.0-36.0) Red Cell Distribution Width 16.7 % (11.6-14.8) H 15.3 % (11.6-14.8) H Platelet Count 113 K/UL (150-450) L 101 K/UL (150-450) L Mean Platelet Volume 6.9 FL (6.5-10.1) 6.7 FL (6.5-10.1) Neutrophils (%) (Auto) 90.1 % (45.0-75.0) H % (45.0-75.0) Lymphocytes (%) (Auto) 6.0 % (20.0-45.0) L % (20.0-45.0) Monocytes (%) (Auto) 2.6 % (1.0-10.0) % (1.0-10.0) Eosinophils (%) (Auto) 0.8 % (0.0-3.0) % (0.0-3.0) Basophils (%) (Auto) 0.5 % (0.0-2.0) % (0.0-2.0) Differential Total Cells Counted 100 Neutrophils % (Manual) 90 % (45-75) H Lymphocytes % (Manual) 6 % (20-45) L Monocytes % (Manual) 4 % (1-10) Eosinophils % (Manual) 0 % (0-3) Basophils % (Manual) 0 % (0-2) Band Neutrophils 0 % (0-8) Platelet Estimate Decreased L Platelet Morphology Normal Anisocytosis 1+ Erythrocyte Sedimentation Rate 106 MM/HR (0-20) H Sodium Level 139 MMOL/L (136-145) Potassium Level 3.2 MMOL/L (3.5-5.1) L Chloride Level 107 MMOL/L (98-107) Carbon Dioxide Level 21 MMOL/L (21-32) Anion Gap 11 mmol/L (5-15) Blood Urea Nitrogen 14 mg/dL (7-18) Creatinine 0.7 MG/DL (0.55-1.30) Estimat Glomerular Filtration Rate > 60 mL/min (>60) Glucose Level 108 MG/DL (74-106) H Calcium Level 7.6 MG/DL (8.5-10.1) L Phosphorus Level 1.8 MG/DL (2.5-4.9) L Magnesium Level 1.6 MG/DL (1.8-2.4) L Total Bilirubin 1.0 MG/DL (0.2-1.0) Aspartate Amino Transf (AST/SGOT) 39 U/L (15-37) H Alanine Aminotransferase (ALT/SGPT) 93 U/L (12-78) H Alkaline Phosphatase 66 U/L (46-116) C-Reactive Protein, Quantitative 13.8 mg/dL (0.00-0.90) H Total Protein 4.8 G/DL (6.4-8.2) L Albumin 1.1 G/DL (3.4-5.0) L Globulin 3.7 g/dL Albumin/Globulin Ratio 0.3 (1.0-2.7) L Microbiology Date/Time Source Procedure Growth Status 05/27/19 20:45 Sputum Induced Gram Stain - Final Resulted 05/27/19 20:45 Sputum Induced Sputum Culture Pending Resulted Intake and Output 05/28/19 05/29/19 19:00 07:00 Intake Total 1557.1667 ml 827.5 ml Output Total 790 ml 700 ml Balance 767.1667 ml 127.5 ml Intake Free Water 200 ml 200 ml IV Total 777.1667 ml 27.5 ml Tube Feeding 580 ml 600 ml Output Urine Total 790 ml 700 ml # Bowel Movements 4 5 Objective PHYSICAL EXAMINATION: GENERAL: The patient is a well-nourished male, who is in moderate distress. HEENT: Eyes, pupils are equal and responsive to light and accommodation. Extraocular movements are intact. Tracheostomy is present. CHEST: Lungs are clear with mechanical breath sounds bilaterally. ABDOMEN: Soft, nontender, and nondistended. Positive bowel sounds. No evidence of hepatosplenomegaly. Currently, no rebound or guarding noted. EXTREMITIES: Negative for clubbing, cyanosis, or edema. RECTAL/GENITAL: Not performed. NEUROLOGICAL: Cranial nerves II to XII grossly intact without focal deficits. Motor strength is 5/5 bilaterally. Deep tendon reflexes are 2+ plantar. Assessment/Plan Assessment/Plan ASSESSMENT: This is a 73-year-old male with: 1. Esophageal mass. 2. Esophageal hemorrhage. 3. Airway obstruction. 4. Hypoxia. 5. History of esophageal cancer. 6. Elevated liver function tests. 7. Bilateral pneumonia 8. Tracheostomy dependent TREATMENT: 1. Esophageal mass/hemorrhage. A Hematology/Oncology consultation has been obtained with Dr. Paz. The patient has received four units of packed RBCs and 1 unit FFP. The patient is in the intensive care unit. The patient iscurrently off pressors. 2. Hypoxia. A Pulmonary/Critical Care consultation has been obtained with Dr. Claudia Chi. Hypoxia is probably secondary to tracheal obstruction secondary to hemorrhage as above. Continue vent per Dr. Chi. 3. Pneumonia. The patient has been started on Zosyn and vancomycin. An Infectious Disease consultation has been obtained with Dr. Alba. We will follow recommendations of Infectious Disease. A sputum culture is pending. 4. Elevated liver function tests/esophageal mass. A Gastroenterology consultation has been obtained with Dr. Narciso Engle. The patient may require repeat biopsy of esophageal mass. We will follow recommendations of Gastroenterology. A CT scan of the neck is pending. Igor Lucero MD May 29, 2019 19:41
--- NOTE | 2019-05-29 19:50 | NUR ---
HAND-OFF: Report given to ANTONY Zapata and ANTONY Esparza. Endorsed plan of care.
--- NOTE | 2019-05-29 19:50 | NUR ---
NURSE NOTES: Received report from ANTONY Lindsay. Pt is resting on the bed and awake and alert. On T-piece and cool aerosol with FiO2 28% O2 5L and SaO2 98% noted. Given tracheal suction still noted slight brownish secretion. Provided oral care. On G-tube feeding with Vital AF1.2 @ 50cc/hr and no residual noted. Pt has Fernandez cath and patent and drainage well. On mid line on Rt. upper arm and dressing is clean and dry and on sing of infiltration noted. Denied pain at this time. On SCD on bilateral low extremities for DVT prophylaxis. Checked comfort and circulation. BP is stable. On ekg monitor tech with SR. Placed fall precaution. Will continue to care plan.
[2019-05-29] MEDS: Dyna-Hex 2% Top Sol 2oz TOPIC SCH (20:15)
[2019-05-29] MEDS: Miralax 17gm pkt ORAL SCH (21:00)
[2019-05-29 21:25] LABS: HEMATOCRIT 28.9 % (42.0-52.0); HEMOGLOBIN 9.2 G/DL (14.2-18.0); MEAN CORPUSCULAR VOLUME 92 FL (80-99); PLATELET COUNT 100 K/UL (150-450); RED BLOOD COUNT 3.14 M/UL (4.70-6.10); RED CELL DISTRIBUTION WIDTH 16.6 % (11.6-14.8); WHITE BLOOD COUNT 4.7 K/UL (4.8-10.8)
--- NOTE | 2019-05-29 22:00 | NUR ---
NURSE NOTES: Pt is resting on the bed and no sign of acute distress noted. Tolerated with current O2 setting. Repositioned. Given oral care. Placed fall precaution. Will continue to monitor any change of condition.
[2019-05-30] VITALS (20 sets, daily range): BP systolic 89–117; BP diastolic 42–63
--- NOTE | 2019-05-30 | NUR ---
NURSE NOTES: Pt is resting on the bed and awake and alert. Tolerated well with current O2 setting. No sign of active bleeding. Denied pain at this time. Provided good sleep environment. Placed fall precaution. Will continue to care plan.
--- NOTE | 2019-05-30 02:00 | NUR ---
NURSE NOTES: Pt is sleeping on the bed and no sign of acute distress noted. Changed position. Given tracheal suction and oral care. V/S stable. On running with G-tube feeding with Vital AF @ 50cc/hr and no residual noted. Placed fall precaution. Will continue to care plan.
--- NOTE | 2019-05-30 04:00 | NUR ---
NURSE NOTES: Pt is sleeping on the bed and no sign of acute distress noted. Tolerated with current O2 setting and SaO2 98-99% noted. No sign of pain at this time. Placed fall precaution. Will continue to care plan.
[2019-05-30] MEDS: Zosyn 3.375gm q8h **Extended infusion IVPB SCH ×2 (05:34)
[2019-05-30 05:47] LABS: BASOPHILS % (AUTO) 1.3 % (0.0-2.0); EOSINOPHILS % (AUTO) 3.5 % (0.0-3.0); HEMATOCRIT 26.4 % (42.0-52.0); HEMOGLOBIN 8.9 G/DL (14.2-18.0); LYMPHOCYTES % (AUTO) 6.7 % (20.0-45.0); MEAN CORPUSCULAR VOLUME 90 FL (80-99); MONOCYTES % (AUTO) 3.9 % (1.0-10.0); NEUTROPHILS % (AUTO) 84.6 % (45.0-75.0); PLATELET COUNT 103 K/UL (150-450); RED BLOOD COUNT 2.93 M/UL (4.70-6.10); RED CELL DISTRIBUTION WIDTH 15.4 % (11.6-14.8); WHITE BLOOD COUNT 4.3 K/UL (4.8-10.8)
[2019-05-30 06:00] LABS: PHOSPHORUS 2.4 MG/DL (2.5-4.9)
--- NOTE | 2019-05-30 06:00 | NUR ---
NURSE NOTES: Morning care was done. Noted BM. Cleaned Pt and applied lotion and cream. Denied pain at this time. Provide oral care. Repositioned. Placed fall precaution. Will continue to care plan.
[2019-05-30 06:26] LABS: ALANINE AMINOTRANSFERASE 80 U/L (12-78); ALBUMIN 1.1 G/DL (3.4-5.0); ALBUMIN/GLOBULIN RATIO 0.3 (1.0-2.7); ALKALINE PHOSPHATASE 59 U/L (46-116); ANION GAP 6 mmol/L (5-15); ASPARTATE AMINO TRANSFERASE 57 U/L (15-37); BILIRUBIN,TOTAL 0.7 MG/DL (0.2-1.0); BLOOD UREA NITROGEN 13 mg/dL (7-18); CALCIUM 7.5 MG/DL (8.5-10.1); CARBON DIOXIDE 24 MMOL/L (21-32); CHLORIDE 106 MMOL/L (98-107); CREATININE 0.5 MG/DL (0.55-1.30); POTASSIUM 3.6 MMOL/L (3.5-5.1); SODIUM 136 MMOL/L (136-145)
--- NOTE | 2019-05-30 06:55 | Pulmonolgy Critical Care Note ---
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 Hemorrhagic shock/ esophageal bleeding Dysphagia, feeding by G-tube Anemia of chronic disease Anemia of acute blood loss requiring blood transfusion Transaminitis Electrolyte abnormalities PLAN OF CARE Vent support, trach care pulmonary toilet abx as per ID f/up with CXR Venous duplex BLE negative s/p pressors/Levophed; hemodynamic status stabilized s/p aminocaproic acid, octreotide and Protonix drip s/p 4 units PRBC and 1 unit FFP H&H stable stool OB positive aspiration precaution G-tube feeding monitor H&H with goal to keep hemoglobin above 7 correct electrolytes as needed case discussed and evaluated by supervising physician Critical Care - Objective Last 24 Hour Vital Signs Date Time Temp Pulse Resp B/P (MAP) Pulse Ox O2 Delivery O2 Flow Rate FiO2 05/30/19 06:00 66 24 104/45 (64) 99 05/30/19 05:00 61 26 112/47 (68) 98 05/30/19 04:00 28 05/30/19 04:00 57 05/30/19 04:00 T-piece 05/30/19 04:00 98.7 56 25 108/49 (68) 98 05/30/19 03:05 99 Cool Aerosol 10.0 40 05/30/19 03:00 67 24 110/50 (70) 98 05/30/19 02:00 61 23 110/47 (68) 98 05/30/19 01:00 64 20 115/52 (73) 99 05/30/19 00:00 28 05/30/19 00:00 62 05/30/19 00:00 T-piece 05/30/19 00:00 98.8 61 25 117/52 (73) 99 05/29/19 23:00 62 25 115/51 (72) 97 05/29/19 22:00 63 24 121/52 (75) 99 05/29/19 21:00 65 26 129/50 (76) 98 05/29/19 20:04 119/45 05/29/19 20:00 64 05/29/19 20:00 98.6 65 22 119/45 (69) 99 05/29/19 20:00 T-piece 05/29/19 20:00 28 05/29/19 19:15 99 Cool Aerosol 10.0 40 05/29/19 19:00 72 24 123/50 (74) 99 05/29/19 18:00 69 21 122/45 (70) 97 05/29/19 17:00 75 21 126/55 (78) 99 05/29/19 16:00 28 05/29/19 16:00 98.7 66 24 124/54 (77) 98 05/29/19 16:00 T-piece 05/29/19 16:00 76 05/29/19 15:00 63 25 115/49 (71) 99 05/29/19 14:00 64 25 119/53 (75) 98 05/29/19 13:21 100 Cool Aerosol 10.0 40 05/29/19 13:00 67 19 114/49 (70) 97 05/29/19 12:00 98.0 66 22 103/47 (65) 100 05/29/19 12:00 28 05/29/19 12:00 T-piece 05/29/19 12:00 66 05/29/19 11:51 68 25 05/29/19 11:00 62 19 102/50 (67) 100 05/29/19 10:50 62 14 40 05/29/19 10:44 67 17 40 05/29/19 10:00 59 18 107/48 (67) 100 05/29/19 09:02 66 25 40 05/29/19 09:00 66 25 115/55 (75) 100 05/29/19 08:00 40 05/29/19 08:00 97.9 60 17 96/52 (67) 100 05/29/19 08:00 Mechanical Ventilator 05/29/19 08:00 61 05/29/19 07:00 62 18 94/54 (67) 100 Status: awake Condition: critical HEENT: atraumatic, normocephalic Neck: trach - Shiley #8, secretions with small clots, thin Lungs: clear Heart: HR/BP stable Abdomen: soft, non-tender, other - G tube Extremities: no C/C/E Micro: Microbiology Date/Time Source Procedure Growth Status 05/27/19 20:45 Sputum Induced Gram Stain - Final Resulted 05/27/19 20:45 Sputum Induced Sputum Culture Pending Resulted Critical Care - Subjective ROS Limited/Unobtainable: Yes Interval Events: no leukocytosis, no fevrs HH remains at baseline no signs of resp distress on current settings Condition: critical EKG Rhythm: Sinus Rhythm FI02: 28 Vent Support Breath Rate: 16 Vent Support Mode: CPAP Vent Tidal Volume: 550 Sputum Amount: Small PEEP: 5.0 PIP: 15 Tube Feeding Amount: 50 I&O: Intake and Output 05/29/19 05/30/19 19:00 07:00 Intake Total 2195.0 ml 660.0 ml Output Total 845 ml 995 ml Balance 1350.0 ml -335.0 ml Intake Free Water 200 ml IV Total 1395.0 ml 110.0 ml Tube Feeding 600 ml 550 ml Output Urine Total 845 ml 995 ml # Bowel Movements 5 3 CXR: 05/28 Increasing infiltrates versus edema in the right mid and lower lung, over one day. Persistent diffuse mild background interstitial congestion New or increased small bilateral pleural effusions Paige Landry NP May 30, 2019 06:55
[2019-05-30] MEDS ORDERED: Albuterol/Ipratropium 3ml neb HHN PRN ×2 (07:00→19:00)
--- NOTE | 2019-05-30 07:26 | NUR ---
HAND-OFF: Report given to ANTONY Saul and ANTONY Nicholson. Pt is resting on the bed and no sign of acute distress noted.
--- NOTE | 2019-05-30 07:27 | NUR ---
NURSE NOTES: Received report from ANTONY Saul. Observed patient in bed, awake, alert, oriented, able to make needs known; communicates through writing. Patient has trach, receiving oxygen 5LPM, FiO2 28%. No respiratory distress noted. investigation clerk shows NSR with HR of 74. Multiple IV sites noted: right wrist 20g, right AC 20g, left forearm 20g, and right upper arm midline, all intact, patent, and asymptomatic. GT noted with TF Vital AF 1.2 infusing at 50ml/hr. No residual noted, HOB elevated. Patient c/o lower back pain 11/08. Patient refused to be repositioned at this time. All needs attended to. Bed locked, alarmed, and in lowest position, side rails up x3, and call light and personal belongings left within reach. Will continue plan of care and will continue to monitor patient.
[2019-05-30] MEDS: Pantoprazole Inj IVP SCH ×2 (08:12→21:17)
--- NOTE | 2019-05-30 08:20 | NUR ---
NURSE NOTES: Patient noted with loose BM; linen change, petros-care, and partial bed bath given. Dr Juárez present at bedside for rounds, notified and made aware of patient's loose BM. Held lactulose and docusate; MD aware.
--- NOTE | 2019-05-30 08:20 | Hematology/Onc Progress Note ---
Assessment/Plan Assessment/Plan ASSESSMENT/RECS: #. Head and neck cancer with history of chemo and radiation, with a recent biopsy at [facility], 05/15/19 "LEFT SOFT PALATE MASS" which shows invasive keratinizing squamous cell carcinoma, well to moderately differentiated, from a 05/15 specimen --> milly in this case doesn't have a unique esophageal mas but rather has recurrence of malignancy --> has been seen by ent --> at this time, recommend conservative care, control of trach bleed #. Esophageal hemorrhage. --> requires hemostatic support --> coags have been checked --> vitamin K has been ordered # Anemia of chronic disease due to underlying chronic medical issues, multifactorial v Gi bleed --> Anemia workup has been reviewed, ferritin 1190 --> No evidence of hemolysis is noted, peripheral smear has been reviewed. --> Hgb goal >7. Transfuse prn. --> Epogen or iron at this time is not particularly indicated --> Medications have been reviewed --> occult + --> hgb trend: 9.8-->10.1-->9.2 --> blood tx: 05/26 # Airway obstruction. --> sp trach # Hypoxia. -> per pulm # Elevated liver function tests. --> as per gi, imaging ordered # Sepsis s/p abx --> per id and has received pressors --> in the icu --> vanc/zosyn # Pneumonia. --> on abx --> cxr: Suspected interstitial edema/CHF. Pneumonia in the right midlung not excluded # sp Trach and PEG Appreciate consultation and skip Rn Subjective Allergies: Coded Allergies: LEVOFLOXACIN (Verified Allergy, Unknown, 05/24/19) Possible allergic reaction - low blood pressure Subjective 05/27: icu, cxr reviewed, arythmia overnight, currently alert, no distress, on levophed 05/28: cxr with increased bilat effusions, stool ob positive, h/h stable 05/29: icu, vent, no recurrent bleeding, hgb 9.2 Objective Objective Current Medications Medications (Trade) Dose Ordered Sig/Mervat Route PRN Reason Start Time Stop Time Status Last Admin Dose Admin Acetaminophen (Tylenol) 650 mg Q4H PRN ORAL FEVER 05/24/19 17:30 06/23/19 17:29 05/30/19 08:13 Albuterol/ Ipratropium (Albuterol/ Ipratropium) 3 ml Q4H PRN HHN Shortness of Breath 05/30/19 07:00 06/04/19 06:59 Chlorhexidine Gluconate (Stacie-Hex 2%) 1 applic DAILY@2000 TOPIC 05/25/19 20:00 06/24/19 19:59 05/29/19 20:15 Dextrose (Dextrose 50%) 25 ml Q30M PRN IV Hypoglycemia 05/24/19 17:30 06/23/19 17:29 Dextrose (Dextrose 50%) 50 ml Q30M PRN IV Hypoglycemia 05/24/19 17:30 06/23/19 17:29 Docusate Sodium (Colace) 100 mg TWICE A DAY NG 05/27/19 09:00 06/26/19 08:59 05/27/19 17:38 Lactulose (Cephulac) 20 gm DAILY ORAL 05/28/19 09:00 06/27/19 08:59 Norepinephrine Bitartrate 4 mg/ Dextrose 250 ml @ 0 mls/hr Q24H IV 05/24/19 20:04 06/23/19 20:03 05/27/19 06:02 Ondansetron HCl (Zofran) 4 mg Q6H PRN IVP Nausea & Vomiting 05/24/19 17:30 06/23/19 17:29 05/24/19 18:11 Pantoprazole (Protonix) 40 mg EVERY 12 HOURS IVP 05/25/19 21:00 06/24/19 20:59 05/30/19 08:12 Piperacillin Sod/ Tazobactam Sod 3.375 gm/Sodium Chloride 110 ml @ 27.5 mls/hr EVERY 8 HOURS IVPB 05/25/19 14:00 06/03/19 13:59 05/30/19 05:34 Polyethylene Glycol (Miralax) 17 gm BEDTIME ORAL 05/26/19 21:00 06/25/19 20:59 05/27/19 20:37 Last 24 Hour Vital Signs Date Time Temp Pulse Resp B/P (MAP) Pulse Ox O2 Delivery O2 Flow Rate FiO2 05/30/19 07:02 88 18 100 Cool Aerosol 5.0 28 05/30/19 07:02 99 Cool Aerosol 5.0 28 05/30/19 07:00 62 24 95/44 (61) 99 05/30/19 06:00 66 24 104/45 (64) 99 05/30/19 05:00 61 26 112/47 (68) 98 05/30/19 04:00 28 05/30/19 04:00 57 05/30/19 04:00 T-piece 05/30/19 04:00 98.7 56 25 108/49 (68) 98 05/30/19 03:05 99 Cool Aerosol 10.0 40 05/30/19 03:00 67 24 110/50 (70) 98 05/30/19 02:00 61 23 110/47 (68) 98 05/30/19 01:00 64 20 115/52 (73) 99 05/30/19 00:00 28 05/30/19 00:00 62 05/30/19 00:00 T-piece 05/30/19 00:00 98.8 61 25 117/52 (73) 99 05/29/19 23:00 62 25 115/51 (72) 97 05/29/19 22:00 63 24 121/52 (75) 99 05/29/19 21:00 65 26 129/50 (76) 98 05/29/19 20:04 119/45 05/29/19 20:00 64 05/29/19 20:00 98.6 65 22 119/45 (69) 99 05/29/19 20:00 T-piece 05/29/19 20:00 28 05/29/19 19:15 99 Cool Aerosol 10.0 40 05/29/19 19:00 72 24 123/50 (74) 99 05/29/19 18:00 69 21 122/45 (70) 97 05/29/19 17:00 75 21 126/55 (78) 99 05/29/19 16:00 28 05/29/19 16:00 98.7 66 24 124/54 (77) 98 05/29/19 16:00 T-piece 05/29/19 16:00 76 05/29/19 15:00 63 25 115/49 (71) 99 05/29/19 14:00 64 25 119/53 (75) 98 05/29/19 13:21 100 Cool Aerosol 10.0 40 05/29/19 13:00 67 19 114/49 (70) 97 05/29/19 12:00 98.0 66 22 103/47 (65) 100 05/29/19 12:00 28 05/29/19 12:00 T-piece 05/29/19 12:00 66 05/29/19 11:51 68 25 05/29/19 11:00 62 19 102/50 (67) 100 05/29/19 10:50 62 14 40 05/29/19 10:44 67 17 40 05/29/19 10:00 59 18 107/48 (67) 100 05/29/19 09:02 66 25 40 05/29/19 09:00 66 25 115/55 (75) 100 05/29/19 08:00 40 05/29/19 08:00 97.9 60 17 96/52 (67) 100 05/29/19 08:00 Mechanical Ventilator 05/29/19 08:00 61 05/29/19 07:00 62 18 94/54 (67) 100 05/29/19 06:32 64 20 40 05/29/19 06:00 61 18 117/58 (77) 99 05/29/19 05:26 63 21 40 05/29/19 05:00 68 27 99/54 (69) 99 05/29/19 04:00 62 05/29/19 04:00 98.0 63 19 105/58 (74) 99 05/29/19 04:00 Mechanical Ventilator 05/29/19 04:00 40 05/29/19 03:49 81 28 40 05/29/19 03:00 68 19 111/48 (69) 96 05/29/19 02:00 76 23 110/51 (70) 99 05/29/19 01:12 76 23 40 05/29/19 01:00 73 25 124/47 (72) 100 05/29/19 00:00 98.2 77 25 111/47 (68) 100 05/29/19 00:00 71 05/29/19 00:00 Mechanical Ventilator 05/29/19 00:00 40 05/28/19 23:36 78 26 40 05/28/19 23:00 71 21 111/46 (67) 97 05/28/19 22:00 77 21 106/50 (68) 99 05/28/19 21:06 76 22 40 05/28/19 21:00 74 17 116/51 (72) 99 05/28/19 20:04 119/61 05/28/19 20:00 77 05/28/19 20:00 Mechanical Ventilator 05/28/19 20:00 98.6 68 23 119/61 (80) 100 05/28/19 19:24 74 22 40 05/28/19 19:00 68 26 98/50 (66) 98 05/28/19 19:00 71 24 110/46 (67) 100 05/28/19 18:00 71 24 110/46 (67) 100 05/28/19 17:00 70 23 40 05/28/19 17:00 74 16 111/41 (64) 100 05/28/19 16:00 98.8 76 16 111/51 (71) 100 05/28/19 16:00 71 05/28/19 16:00 40 05/28/19 16:00 Mechanical Ventilator 05/28/19 15:20 69 19 40 05/28/19 15:00 64 19 103/51 (68) 100 05/28/19 14:00 64 19 112/53 (72) 100 05/28/19 13:01 63 20 40 05/28/19 13:00 64 20 104/54 (71) 100 05/28/19 12:00 40 05/28/19 12:00 Mechanical Ventilator 05/28/19 12:00 63 05/28/19 12:00 65 20 127/62 (83) 100 05/28/19 12:00 99.2 66 18 127/62 (83) 100 05/28/19 11:00 63 18 117/58 (77) 100 05/28/19 10:52 70 20 40 05/28/19 10:00 74 25 105/49 (67) 100 05/28/19 09:01 79 24 40 05/28/19 09:00 81 18 121/49 (73) 100 Intake and Output 05/29/19 05/30/19 19:00 07:00 Intake Total 2195.0 ml 737.5 ml Output Total 845 ml 1045 ml Balance 1350.0 ml -307.5 ml Intake Free Water 200 ml IV Total 1395.0 ml 137.5 ml Tube Feeding 600 ml 600 ml Output Urine Total 845 ml 1045 ml # Bowel Movements 5 3 Labs Test 05/27/19 20:45 05/28/19 05:10 05/28/19 12:50 05/28/19 20:45 Stool Occult Blood Positive (NEGATIVE) White Blood Count 6.4 K/UL (4.8-10.8) 7.0 K/UL (4.8-10.8) 6.4 K/UL (4.8-10.8) Red Blood Count 3.31 M/UL (4.70-6.10) 3.41 M/UL (4.70-6.10) 3.32 M/UL (4.70-6.10) Hemoglobin 10.1 G/DL (14.2-18.0) 10.3 G/DL (14.2-18.0) 9.9 G/DL (14.2-18.0) Hematocrit 29.2 % (42.0-52.0) 30.6 % (42.0-52.0) 30.1 % (42.0-52.0) Mean Corpuscular Volume 88 FL (80-99) 90 FL (80-99) 91 FL (80-99) Mean Corpuscular Hemoglobin 30.4 PG (27.0-31.0) 30.2 PG (27.0-31.0) 29.8 PG (27.0-31.0) Mean Corpuscular Hemoglobin Concent 34.5 G/DL (32.0-36.0) 33.6 G/DL (32.0-36.0) 32.8 G/DL (32.0-36.0) Red Cell Distribution Width 15.2 % (11.6-14.8) 15.0 % (11.6-14.8) 16.7 % (11.6-14.8) Platelet Count 115 K/UL (150-450) 109 K/UL (150-450) 113 K/UL (150-450) Mean Platelet Volume 6.8 FL (6.5-10.1) 6.6 FL (6.5-10.1) 6.9 FL (6.5-10.1) Neutrophils (%) (Auto) % (45.0-75.0) % (45.0-75.0) 90.1 % (45.0-75.0) Lymphocytes (%) (Auto) % (20.0-45.0) % (20.0-45.0) 6.0 % (20.0-45.0) Monocytes (%) (Auto) % (1.0-10.0) % (1.0-10.0) 2.6 % (1.0-10.0) Eosinophils (%) (Auto) % (0.0-3.0) % (0.0-3.0) 0.8 % (0.0-3.0) Basophils (%) (Auto) % (0.0-2.0) % (0.0-2.0) 0.5 % (0.0-2.0) Differential Total Cells Counted 100 100 Neutrophils % (Manual) 79 % (45-75) 90 % (45-75) Lymphocytes % (Manual) 11 % (20-45) 5 % (20-45) Monocytes % (Manual) 8 % (1-10) 3 % (1-10) Eosinophils % (Manual) 2 % (0-3) 2 % (0-3) Basophils % (Manual) 0 % (0-2) 0 % (0-2) Band Neutrophils 0 % (0-8) 0 % (0-8) Platelet Estimate Decreased Decreased Platelet Morphology Normal Normal Red Blood Cell Morphology Normal Anisocytosis 1+ 1+ Sodium Level 137 MMOL/L (136-145) Potassium Level 3.2 MMOL/L (3.5-5.1) Chloride Level 106 MMOL/L (98-107) Carbon Dioxide Level 23 MMOL/L (21-32) Anion Gap 8 mmol/L (5-15) Blood Urea Nitrogen 12 mg/dL (7-18) Creatinine 0.6 MG/DL (0.55-1.30) Estimat Glomerular Filtration Rate > 60 mL/min (>60) Glucose Level 118 MG/DL (74-106) Calcium Level 7.4 MG/DL (8.5-10.1) Phosphorus Level 1.6 MG/DL (2.5-4.9) Magnesium Level 1.8 MG/DL (1.8-2.4) Total Bilirubin 1.2 MG/DL (0.2-1.0) Direct Bilirubin 0.3 MG/DL (0.0-0.3) Aspartate Amino Transf (AST/SGOT) 59 U/L (15-37) Alanine Aminotransferase (ALT/SGPT) 129 U/L (12-78) Alkaline Phosphatase 64 U/L (46-116) Total Protein 5.0 G/DL (6.4-8.2) Albumin 1.3 G/DL (3.4-5.0) Globulin 3.7 g/dL Albumin/Globulin Ratio 0.4 (1.0-2.7) Test 05/29/19 05:00 05/29/19 20:45 05/30/19 04:57 White Blood Count 5.8 K/UL (4.8-10.8) 4.7 K/UL (4.8-10.8) 4.3 K/UL (4.8-10.8) Red Blood Count 3.06 M/UL (4.70-6.10) 3.14 M/UL (4.70-6.10) 2.93 M/UL (4.70-6.10) Hemoglobin 9.3 G/DL (14.2-18.0) 9.2 G/DL (14.2-18.0) 8.9 G/DL (14.2-18.0) Hematocrit 27.2 % (42.0-52.0) 28.9 % (42.0-52.0) 26.4 % (42.0-52.0) Mean Corpuscular Volume 89 FL (80-99) 92 FL (80-99) 90 FL (80-99) Mean Corpuscular Hemoglobin 30.4 PG (27.0-31.0) 29.2 PG (27.0-31.0) 30.4 PG (27.0-31.0) Mean Corpuscular Hemoglobin Concent 34.2 G/DL (32.0-36.0) 31.7 G/DL (32.0-36.0) 33.8 G/DL (32.0-36.0) Red Cell Distribution Width 15.3 % (11.6-14.8) 16.6 % (11.6-14.8) 15.4 % (11.6-14.8) Platelet Count 101 K/UL (150-450) 100 K/UL (150-450) 103 K/UL (150-450) Mean Platelet Volume 6.7 FL (6.5-10.1) 7.2 FL (6.5-10.1) 6.0 FL (6.5-10.1) Neutrophils (%) (Auto) % (45.0-75.0) % (45.0-75.0) 84.6 % (45.0-75.0) Lymphocytes (%) (Auto) % (20.0-45.0) % (20.0-45.0) 6.7 % (20.0-45.0) Monocytes (%) (Auto) % (1.0-10.0) % (1.0-10.0) 3.9 % (1.0-10.0) Eosinophils (%) (Auto) % (0.0-3.0) % (0.0-3.0) 3.5 % (0.0-3.0) Basophils (%) (Auto) % (0.0-2.0) % (0.0-2.0) 1.3 % (0.0-2.0) Differential Total Cells Counted 100 100 Neutrophils % (Manual) 90 % (45-75) 85 % (45-75) Lymphocytes % (Manual) 6 % (20-45) 9 % (20-45) Monocytes % (Manual) 4 % (1-10) 3 % (1-10) Eosinophils % (Manual) 0 % (0-3) 2 % (0-3) Basophils % (Manual) 0 % (0-2) 1 % (0-2) Band Neutrophils 0 % (0-8) 0 % (0-8) Platelet Estimate Decreased Decreased Platelet Morphology Normal Normal Anisocytosis 1+ 1+ Erythrocyte Sedimentation Rate 106 MM/HR (0-20) Sodium Level 139 MMOL/L (136-145) 136 MMOL/L (136-145) Potassium Level 3.2 MMOL/L (3.5-5.1) 3.6 MMOL/L (3.5-5.1) Chloride Level 107 MMOL/L (98-107) 106 MMOL/L (98-107) Carbon Dioxide Level 21 MMOL/L (21-32) 24 MMOL/L (21-32) Anion Gap 11 mmol/L (5-15) 6 mmol/L (5-15) Blood Urea Nitrogen 14 mg/dL (7-18) 13 mg/dL (7-18) Creatinine 0.7 MG/DL (0.55-1.30) 0.5 MG/DL (0.55-1.30) Estimat Glomerular Filtration Rate > 60 mL/min (>60) > 60 mL/min (>60) Glucose Level 108 MG/DL (74-106) 103 MG/DL (74-106) Calcium Level 7.6 MG/DL (8.5-10.1) 7.5 MG/DL (8.5-10.1) Phosphorus Level 1.8 MG/DL (2.5-4.9) 2.4 MG/DL (2.5-4.9) Magnesium Level 1.6 MG/DL (1.8-2.4) 1.9 MG/DL (1.8-2.4) Total Bilirubin 1.0 MG/DL (0.2-1.0) 0.7 MG/DL (0.2-1.0) Aspartate Amino Transf (AST/SGOT) 39 U/L (15-37) 57 U/L (15-37) Alanine Aminotransferase (ALT/SGPT) 93 U/L (12-78) 80 U/L (12-78) Alkaline Phosphatase 66 U/L (46-116) 59 U/L (46-116) C-Reactive Protein, Quantitative 13.8 mg/dL (0.00-0.90) Total Protein 4.8 G/DL (6.4-8.2) 4.6 G/DL (6.4-8.2) Albumin 1.1 G/DL (3.4-5.0) 1.1 G/DL (3.4-5.0) Globulin 3.7 g/dL 3.5 g/dL Albumin/Globulin Ratio 0.3 (1.0-2.7) 0.3 (1.0-2.7) Hypochromasia 1+ Height (Feet): 5 Height (Inches): 7.00 Weight (Pounds): 158 Objective Physical Exam: Vitals: reviewed General: NAD HEENT: nc, at ++ trach/vent Neck: supple Chest: clear breath sounds bilaterally Abdomen: soft, nontender, nd Extremities: no cce, normal range of motion Neuro: alert and oriented Kleynberg,Ar L. MD May 30, 2019 08:20
[2019-05-30] MEDS: Lactulose 20gm/30ml UDC ORAL SCH (09:00)
[2019-05-30] MEDS: Docusate 100mg/10ml Liq NG SCH ×2 (09:00→17:57)
--- NOTE | 2019-05-30 10:00 | NUR ---
NURSE NOTES: Repositioned patient, suctioned via trach with thick, brownish sputum. Patient denies pain/discomfort at this time. All needs attended to. Will continue to monitor.
--- NOTE | 2019-05-30 12:00 | NUR ---
NURSE NOTES: Patient is awake, suctioned orally and via trach with moderate amount of thick, white sputum. Patient refused to be repositioned at this time. Denies pain/discomfort. VSS. Will continue to monitor.
[2019-05-30] MEDS ORDERED: NS 275ml ONE ×6 (12:14→12:59)
[2019-05-30] MEDS ORDERED: Tubing Blood Filter IV ONE ×3 (12:14→12:54)
[2019-05-30] MEDS ORDERED: 1/2 NS 1000ml IV ONE ×3 (12:14→12:19)
[2019-05-30] MEDS ORDERED: Tubing IV Secondary IV ONE ×3 (12:15→12:46)
[2019-05-30] MEDS ORDERED: Sterile Water Irrig 1000ml IRRIG ONE ×2 (12:20→12:54)
[2019-05-30] MEDS ORDERED: NS 500ML ONE (12:20)
--- NOTE | 2019-05-30 12:30 | NUR ---
NURSE NOTES: Paige Landry NP notified and made aware of patient's lab results this morning; new orders received. Will carry out and will continue to monitor patient.
[2019-05-30] MEDS ORDERED: D5W 275ml ONE (12:59)
--- NOTE | 2019-05-30 13:35 | Infectious Diseases Prog Note ---
Assessment/Plan Assessment/Plan Assessment/Plan: A: Leukocytosis, Sp Sepsis/shock, Sp Fever, Sp Probable Pneum(HAC) -05/27 sp cx S.aureus (sensi p) -05/28 CXR: ncreasing infiltrates versus edema in the right mid and lower lung, over one day. Persistent diffuse mild background interstitial congestion New or increased small bilateral pleural effusions - CXR: Right lung opacities and questionable patchy left lung opacities, likely pneumonia Transaminitis ( due to HypoTN) ucx eng upper airway bleed sp Trach and PEG throat cancer P: D/c Zosyn # 5 and start IV Vancomycin pending S. aureus sensi 05/27 SP IV Vanco # 2 Sp Amikacin # 1 Monitor CBC Monitor CMP Monitor CXR Monitor Cx (B, S) off of preessor and vent Subjective Allergies: Coded Allergies: LEVOFLOXACIN (Verified Allergy, Unknown, 05/24/19) Possible allergic reaction - low blood pressure Subjective afebrile no leukocytosis off pressors Objective Vital Signs Last 24 Hour Vital Signs Date Time Temp Pulse Resp B/P (MAP) Pulse Ox O2 Delivery O2 Flow Rate FiO2 05/30/19 13:06 98 Cool Aerosol 5.0 28 05/30/19 13:00 62 22 91/45 (60) 99 05/30/19 12:13 70 05/30/19 12:00 5.0 28 05/30/19 12:00 T-piece 5.0 05/30/19 12:00 97.2 58 25 101/48 (65) 99 05/30/19 11:00 55 22 95/63 (74) 97 05/30/19 10:00 63 24 89/42 (58) 97 05/30/19 09:00 62 24 95/44 (61) 99 05/30/19 08:09 74 05/30/19 08:00 98.8 67 24 102/44 (63) 99 05/30/19 08:00 28 05/30/19 08:00 T-piece 5.0 05/30/19 07:02 88 18 100 Cool Aerosol 5.0 28 05/30/19 07:02 99 Cool Aerosol 5.0 28 05/30/19 07:00 62 24 95/44 (61) 99 05/30/19 06:00 66 24 104/45 (64) 99 05/30/19 05:00 61 26 112/47 (68) 98 05/30/19 04:00 28 05/30/19 04:00 57 05/30/19 04:00 T-piece 05/30/19 04:00 98.7 56 25 108/49 (68) 98 05/30/19 03:05 99 Cool Aerosol 10.0 40 05/30/19 03:00 67 24 110/50 (70) 98 05/30/19 02:00 61 23 110/47 (68) 98 05/30/19 01:00 64 20 115/52 (73) 99 05/30/19 00:00 28 05/30/19 00:00 62 05/30/19 00:00 T-piece 05/30/19 00:00 98.8 61 25 117/52 (73) 99 05/29/19 23:00 62 25 115/51 (72) 97 05/29/19 22:00 63 24 121/52 (75) 99 05/29/19 21:00 65 26 129/50 (76) 98 05/29/19 20:04 119/45 05/29/19 20:00 64 05/29/19 20:00 98.6 65 22 119/45 (69) 99 05/29/19 20:00 T-piece 05/29/19 20:00 28 05/29/19 19:15 99 Cool Aerosol 10.0 40 05/29/19 19:00 72 24 123/50 (74) 99 05/29/19 18:00 69 21 122/45 (70) 97 05/29/19 17:00 75 21 126/55 (78) 99 05/29/19 16:00 28 05/29/19 16:00 98.7 66 24 124/54 (77) 98 05/29/19 16:00 T-piece 05/29/19 16:00 76 05/29/19 15:00 63 25 115/49 (71) 99 05/29/19 14:00 64 25 119/53 (75) 98 Height (Feet): 5 Height (Inches): 7.00 Weight (Pounds): 158 Objective General: NAD HEENT: nc, at ++ trach/vent Neck: supple Chest: clear breath sounds bilaterally Abdomen: soft, nontender, nd Extremities: no cce, normal range of motion Neuro: alert and oriented Microbiology Date/Time Source Procedure Growth Status 05/27/19 20:45 Sputum Induced Gram Stain - Final Resulted 05/27/19 20:45 Sputum Culture - Preliminary Staphylococcus Aureus Resulted Laboratory Tests Test 05/29/19 20:45 05/30/19 04:57 White Blood Count 4.7 K/UL (4.8-10.8) L 4.3 K/UL (4.8-10.8) L Red Blood Count 3.14 M/UL (4.70-6.10) L 2.93 M/UL (4.70-6.10) L Hemoglobin 9.2 G/DL (14.2-18.0) L 8.9 G/DL (14.2-18.0) L Hematocrit 28.9 % (42.0-52.0) L 26.4 % (42.0-52.0) L Mean Corpuscular Volume 92 FL (80-99) 90 FL (80-99) Mean Corpuscular Hemoglobin 29.2 PG (27.0-31.0) 30.4 PG (27.0-31.0) Mean Corpuscular Hemoglobin Concent 31.7 G/DL (32.0-36.0) L 33.8 G/DL (32.0-36.0) Red Cell Distribution Width 16.6 % (11.6-14.8) H 15.4 % (11.6-14.8) H Platelet Count 100 K/UL (150-450) L 103 K/UL (150-450) L Mean Platelet Volume 7.2 FL (6.5-10.1) 6.0 FL (6.5-10.1) L Neutrophils (%) (Auto) % (45.0-75.0) 84.6 % (45.0-75.0) H Lymphocytes (%) (Auto) % (20.0-45.0) 6.7 % (20.0-45.0) L Monocytes (%) (Auto) % (1.0-10.0) 3.9 % (1.0-10.0) Eosinophils (%) (Auto) % (0.0-3.0) 3.5 % (0.0-3.0) H Basophils (%) (Auto) % (0.0-2.0) 1.3 % (0.0-2.0) Differential Total Cells Counted 100 Neutrophils % (Manual) 85 % (45-75) H Lymphocytes % (Manual) 9 % (20-45) L Monocytes % (Manual) 3 % (1-10) Eosinophils % (Manual) 2 % (0-3) Basophils % (Manual) 1 % (0-2) Band Neutrophils 0 % (0-8) Platelet Estimate Decreased L Platelet Morphology Normal Hypochromasia 1+ Anisocytosis 1+ Sodium Level 136 MMOL/L (136-145) Potassium Level 3.6 MMOL/L (3.5-5.1) Chloride Level 106 MMOL/L (98-107) Carbon Dioxide Level 24 MMOL/L (21-32) Anion Gap 6 mmol/L (5-15) Blood Urea Nitrogen 13 mg/dL (7-18) Creatinine 0.5 MG/DL (0.55-1.30) L Estimat Glomerular Filtration Rate > 60 mL/min (>60) Glucose Level 103 MG/DL (74-106) Calcium Level 7.5 MG/DL (8.5-10.1) L Phosphorus Level 2.4 MG/DL (2.5-4.9) L Magnesium Level 1.9 MG/DL (1.8-2.4) Total Bilirubin 0.7 MG/DL (0.2-1.0) Aspartate Amino Transf (AST/SGOT) 57 U/L (15-37) H Alanine Aminotransferase (ALT/SGPT) 80 U/L (12-78) H Alkaline Phosphatase 59 U/L (46-116) Total Protein 4.6 G/DL (6.4-8.2) L Albumin 1.1 G/DL (3.4-5.0) L Globulin 3.5 g/dL Albumin/Globulin Ratio 0.3 (1.0-2.7) L Current Medications Medications (Trade) Dose Ordered Sig/Mervat Route PRN Reason Start Time Stop Time Status Last Admin Dose Admin Acetaminophen (Tylenol) 650 mg Q4H PRN ORAL FEVER 05/24/19 17:30 06/23/19 17:29 05/30/19 08:13 Albuterol/ Ipratropium (Albuterol/ Ipratropium) 3 ml Q4H PRN HHN Shortness of Breath 05/30/19 07:00 06/04/19 06:59 Chlorhexidine Gluconate (Stacie-Hex 2%) 1 applic DAILY@2000 TOPIC 05/25/19 20:00 06/24/19 19:59 05/29/19 20:15 Dextrose (Dextrose 50%) 25 ml Q30M PRN IV Hypoglycemia 05/24/19 17:30 06/23/19 17:29 Dextrose (Dextrose 50%) 50 ml Q30M PRN IV Hypoglycemia 05/24/19 17:30 06/23/19 17:29 Docusate Sodium (Colace) 100 mg TWICE A DAY NG 05/27/19 09:00 06/26/19 08:59 05/27/19 17:38 Lactulose (Cephulac) 20 gm DAILY ORAL 05/28/19 09:00 06/27/19 08:59 Norepinephrine Bitartrate 4 mg/ Dextrose 250 ml @ 0 mls/hr Q24H IV 05/24/19 20:04 06/23/19 20:03 05/27/19 06:02 Ondansetron HCl (Zofran) 4 mg Q6H PRN IVP Nausea & Vomiting 05/24/19 17:30 06/23/19 17:29 05/24/19 18:11 Pantoprazole (Protonix) 40 mg EVERY 12 HOURS IVP 05/25/19 21:00 06/24/19 20:59 05/30/19 08:12 Piperacillin Sod/ Tazobactam Sod 3.375 gm/Sodium Chloride 110 ml @ 27.5 mls/hr EVERY 8 HOURS IVPB 05/25/19 14:00 06/03/19 13:59 05/30/19 05:34 Polyethylene Glycol (Miralax) 17 gm BEDTIME ORAL 05/26/19 21:00 06/25/19 20:59 05/27/19 20:37 Sodium Phosphate 15 mm/Sodium Chloride 280 ml @ 70.273 mls/ hr ONCE ONCE IVPB 05/30/19 14:00 05/30/19 17:59 05/30/19 13:10 Radha Oliver M.D. May 30, 2019 13:35
[2019-05-30] MEDS ORDERED: Sodium Phosphate 15 MM in NS 275 ML IVPB ONE (14:00)
--- NOTE | 2019-05-30 14:00 | NUR ---
NURSE NOTES: Complete bed bath given to patient; suctioned orally and via trach. Offered oral care, patient refused at this time. Repositioned patient. Denies pain/discomfort at this time. All needs attended to. Will continue to monitor.
--- NOTE | 2019-05-30 14:00 | Surgery Progress Note ---
Surgery Progress Note Subjective Additional Comments no acute events comfortable stable no n/v/f/c Objective Last 24 Hour Vital Signs Date Time Temp Pulse Resp B/P (MAP) Pulse Ox O2 Delivery O2 Flow Rate FiO2 05/30/19 13:06 98 Cool Aerosol 5.0 28 05/30/19 13:00 62 22 91/45 (60) 99 05/30/19 12:13 70 05/30/19 12:00 5.0 28 05/30/19 12:00 T-piece 5.0 05/30/19 12:00 97.2 58 25 101/48 (65) 99 05/30/19 11:00 55 22 95/63 (74) 97 05/30/19 10:00 63 24 89/42 (58) 97 05/30/19 09:00 62 24 95/44 (61) 99 05/30/19 08:09 74 05/30/19 08:00 98.8 67 24 102/44 (63) 99 05/30/19 08:00 28 05/30/19 08:00 T-piece 5.0 05/30/19 07:02 88 18 100 Cool Aerosol 5.0 28 05/30/19 07:02 99 Cool Aerosol 5.0 28 05/30/19 07:00 62 24 95/44 (61) 99 05/30/19 06:00 66 24 104/45 (64) 99 05/30/19 05:00 61 26 112/47 (68) 98 05/30/19 04:00 28 05/30/19 04:00 57 05/30/19 04:00 T-piece 05/30/19 04:00 98.7 56 25 108/49 (68) 98 05/30/19 03:05 99 Cool Aerosol 10.0 40 05/30/19 03:00 67 24 110/50 (70) 98 05/30/19 02:00 61 23 110/47 (68) 98 05/30/19 01:00 64 20 115/52 (73) 99 05/30/19 00:00 28 05/30/19 00:00 62 05/30/19 00:00 T-piece 05/30/19 00:00 98.8 61 25 117/52 (73) 99 05/29/19 23:00 62 25 115/51 (72) 97 05/29/19 22:00 63 24 121/52 (75) 99 05/29/19 21:00 65 26 129/50 (76) 98 05/29/19 20:04 119/45 05/29/19 20:00 64 05/29/19 20:00 98.6 65 22 119/45 (69) 99 05/29/19 20:00 T-piece 05/29/19 20:00 28 05/29/19 19:15 99 Cool Aerosol 10.0 40 05/29/19 19:00 72 24 123/50 (74) 99 05/29/19 18:00 69 21 122/45 (70) 97 05/29/19 17:00 75 21 126/55 (78) 99 05/29/19 16:00 28 05/29/19 16:00 98.7 66 24 124/54 (77) 98 05/29/19 16:00 T-piece 05/29/19 16:00 76 05/29/19 15:00 63 25 115/49 (71) 99 I&O Intake and Output 05/29/19 05/30/19 19:00 07:00 Intake Total 2195.0 ml 737.5 ml Output Total 845 ml 1045 ml Balance 1350.0 ml -307.5 ml Intake Free Water 200 ml IV Total 1395.0 ml 137.5 ml Tube Feeding 600 ml 600 ml Output Urine Total 845 ml 1045 ml # Bowel Movements 5 3 Dressing: other Wound: other Drains: other Cardiovascular: RSR Respiratory: decreased breath sounds Abdomen: soft, non-tender, present bowel sounds, non-distended Extremities: no tenderness, no cyanosis Laboratory Tests Test 05/29/19 20:45 05/30/19 04:57 White Blood Count 4.7 K/UL (4.8-10.8) L 4.3 K/UL (4.8-10.8) L Red Blood Count 3.14 M/UL (4.70-6.10) L 2.93 M/UL (4.70-6.10) L Hemoglobin 9.2 G/DL (14.2-18.0) L 8.9 G/DL (14.2-18.0) L Hematocrit 28.9 % (42.0-52.0) L 26.4 % (42.0-52.0) L Mean Corpuscular Volume 92 FL (80-99) 90 FL (80-99) Mean Corpuscular Hemoglobin 29.2 PG (27.0-31.0) 30.4 PG (27.0-31.0) Mean Corpuscular Hemoglobin Concent 31.7 G/DL (32.0-36.0) L 33.8 G/DL (32.0-36.0) Red Cell Distribution Width 16.6 % (11.6-14.8) H 15.4 % (11.6-14.8) H Platelet Count 100 K/UL (150-450) L 103 K/UL (150-450) L Mean Platelet Volume 7.2 FL (6.5-10.1) 6.0 FL (6.5-10.1) L Neutrophils (%) (Auto) % (45.0-75.0) 84.6 % (45.0-75.0) H Lymphocytes (%) (Auto) % (20.0-45.0) 6.7 % (20.0-45.0) L Monocytes (%) (Auto) % (1.0-10.0) 3.9 % (1.0-10.0) Eosinophils (%) (Auto) % (0.0-3.0) 3.5 % (0.0-3.0) H Basophils (%) (Auto) % (0.0-2.0) 1.3 % (0.0-2.0) Differential Total Cells Counted 100 Neutrophils % (Manual) 85 % (45-75) H Lymphocytes % (Manual) 9 % (20-45) L Monocytes % (Manual) 3 % (1-10) Eosinophils % (Manual) 2 % (0-3) Basophils % (Manual) 1 % (0-2) Band Neutrophils 0 % (0-8) Platelet Estimate Decreased L Platelet Morphology Normal Hypochromasia 1+ Anisocytosis 1+ Sodium Level 136 MMOL/L (136-145) Potassium Level 3.6 MMOL/L (3.5-5.1) Chloride Level 106 MMOL/L (98-107) Carbon Dioxide Level 24 MMOL/L (21-32) Anion Gap 6 mmol/L (5-15) Blood Urea Nitrogen 13 mg/dL (7-18) Creatinine 0.5 MG/DL (0.55-1.30) L Estimat Glomerular Filtration Rate > 60 mL/min (>60) Glucose Level 103 MG/DL (74-106) Calcium Level 7.5 MG/DL (8.5-10.1) L Phosphorus Level 2.4 MG/DL (2.5-4.9) L Magnesium Level 1.9 MG/DL (1.8-2.4) Total Bilirubin 0.7 MG/DL (0.2-1.0) Aspartate Amino Transf (AST/SGOT) 57 U/L (15-37) H Alanine Aminotransferase (ALT/SGPT) 80 U/L (12-78) H Alkaline Phosphatase 59 U/L (46-116) Total Protein 4.6 G/DL (6.4-8.2) L Albumin 1.1 G/DL (3.4-5.0) L Globulin 3.5 g/dL Albumin/Globulin Ratio 0.3 (1.0-2.7) L Plan Problems: (1) Esophageal mass Assessment & Plan: This is a 73-year-old male with known history of throat cancer possible esophageal cancer status post chemoradiation [facility] a few years back who recently has developed cardiac arrest shortness of breath respiratory compromise and had tracheostomy at outside facility for airway protection. Was in recovery until recently identified to have desaturation with blood clots noted within tracheostomy tube suctions as well as oral suctioning. Patient admitted for care and management identified to have anemia bleeding and hemorrhage. Surgery called to evaluate patient was seen. Hemorrhage has significantly decreased and currently no active bleeding noted. H&H trending down and being transfused as per my recommendations. Patient is awake alert states he feels better. He slowly weaning off pressors. Unfortunately given history current condition and the above no acute surgical intervention indicated or recommended. Will obtain attempt records from [facility] as well as [facility]. Continue with deep suctioning by respiratory. Okay for oral suctioning. Monitor for bleeding. Fortunately currently no active bleeding and hopefully its its way. We will keep close eye on H&H as well as coags to ensure patient improving. Permissive hypotension okay. Wean pressors. Thank you for let me participation's care will continue to follow with recommendations and further evaluation. Labs noted H&H improved after transfusion LFTs bilirubin noted likely response to bleeding patient states no longer currently actively bleeding otherwise stable off pressors improving Continue with current treatment will monitor downgrade labs okay off vent no bleeding improving feeds as tolerated (2) Hemoptysis Assessment & Plan: Findings: Interstitial and airspace opacities are seen throughout the right mid and lower lung. Questionable patchy peripheral opacities are also present on the left. Heart size is normal. The pleural spaces are clear Impression: Right lung opacities and questionable patchy left lung opacities, likely pneumonia. (3) Head and neck cancer [facility] May 30, 2019 14:00
--- NOTE | 2019-05-30 14:30 | General Progress Note ---
Assessment/Plan Assessment/Plan: Assessment/Plan Problem List: (1) G tube feedings ICD Codes: Z93.1 - Gastrostomy status SNOMED: 149130866, 627144621, 863376159 (2) Chronic respiratory failure ICD Codes: J96.10 - Chronic respiratory failure, unspecified whether with hypoxia or hypercapnia SNOMED: 53717863 (3) Dysphagia, s/p Gastrostomy tube ICD Codes: Z93.1 - Gastrostomy status SNOMED: 658183055, 835080005 (4) Hemoptysis ICD Codes: R04.2 - Hemoptysis SNOMED: 83235728 (5) Esophageal mass ICD Codes: K22.8 - Other specified diseases of esophagus Assessment/Plan: most likely bleeding from trach - resolved ppi s/p 4 units blood transfusion GTF tolerated bowel regimen cbc and cmp for am Subjective Allergies: Coded Allergies: LEVOFLOXACIN (Verified Allergy, Unknown, 05/24/19) Possible allergic reaction - low blood pressure Subjective Awake responsive d/w RN laxatives held due to diarrhea Objective Last 24 Hour Vital Signs Date Time Temp Pulse Resp B/P (MAP) Pulse Ox O2 Delivery O2 Flow Rate FiO2 05/30/19 13:06 98 Cool Aerosol 5.0 28 05/30/19 13:00 62 22 91/45 (60) 99 05/30/19 12:13 70 05/30/19 12:00 5.0 28 05/30/19 12:00 T-piece 5.0 05/30/19 12:00 97.2 58 25 101/48 (65) 99 05/30/19 11:00 55 22 95/63 (74) 97 05/30/19 10:00 63 24 89/42 (58) 97 05/30/19 09:00 62 24 95/44 (61) 99 05/30/19 08:09 74 05/30/19 08:00 98.8 67 24 102/44 (63) 99 05/30/19 08:00 28 05/30/19 08:00 T-piece 5.0 05/30/19 07:02 88 18 100 Cool Aerosol 5.0 28 05/30/19 07:02 99 Cool Aerosol 5.0 28 05/30/19 07:00 62 24 95/44 (61) 99 05/30/19 06:00 66 24 104/45 (64) 99 05/30/19 05:00 61 26 112/47 (68) 98 05/30/19 04:00 28 05/30/19 04:00 57 05/30/19 04:00 T-piece 05/30/19 04:00 98.7 56 25 108/49 (68) 98 05/30/19 03:05 99 Cool Aerosol 10.0 40 05/30/19 03:00 67 24 110/50 (70) 98 05/30/19 02:00 61 23 110/47 (68) 98 05/30/19 01:00 64 20 115/52 (73) 99 05/30/19 00:00 28 05/30/19 00:00 62 05/30/19 00:00 T-piece 05/30/19 00:00 98.8 61 25 117/52 (73) 99 05/29/19 23:00 62 25 115/51 (72) 97 05/29/19 22:00 63 24 121/52 (75) 99 05/29/19 21:00 65 26 129/50 (76) 98 05/29/19 20:04 119/45 05/29/19 20:00 64 05/29/19 20:00 98.6 65 22 119/45 (69) 99 05/29/19 20:00 T-piece 05/29/19 20:00 28 05/29/19 19:15 99 Cool Aerosol 10.0 40 05/29/19 19:00 72 24 123/50 (74) 99 05/29/19 18:00 69 21 122/45 (70) 97 05/29/19 17:00 75 21 126/55 (78) 99 05/29/19 16:00 28 05/29/19 16:00 98.7 66 24 124/54 (77) 98 05/29/19 16:00 T-piece 05/29/19 16:00 76 05/29/19 15:00 63 25 115/49 (71) 99 Intake and Output 05/29/19 05/30/19 19:00 07:00 Intake Total 2195.0 ml 737.5 ml Output Total 845 ml 1045 ml Balance 1350.0 ml -307.5 ml Intake Free Water 200 ml IV Total 1395.0 ml 137.5 ml Tube Feeding 600 ml 600 ml Output Urine Total 845 ml 1045 ml # Bowel Movements 5 3 Laboratory Tests 05/29/19 20:45: White Blood Count 4.7L, Red Blood Count 3.14L, Hemoglobin 9.2L, Hematocrit 28.9L , Mean Corpuscular Volume 92, Mean Corpuscular Hemoglobin 29.2, Mean Corpuscular Hemoglobin Concent 31.7L, Red Cell Distribution Width 16.6H, Platelet Count 100L, Mean Platelet Volume 7.2, Neutrophils (%) (Auto) , Lymphocytes (%) (Auto) , Monocytes (%) (Auto) , Eosinophils (%) (Auto) , Basophils (%) (Auto) , Differential Total Cells Counted 100, Neutrophils % ( Manual) 85H, Lymphocytes % (Manual) 9L, Monocytes % (Manual) 3, Eosinophils % ( Manual) 2, Basophils % (Manual) 1, Band Neutrophils 0, Platelet Estimate DecreasedL, Platelet Morphology Normal, Hypochromasia 1+, Anisocytosis 1+ 05/30/19 04:57: White Blood Count 4.3L, Red Blood Count 2.93L, Hemoglobin 8.9L, Hematocrit 26.4L , Mean Corpuscular Volume 90, Mean Corpuscular Hemoglobin 30.4, Mean Corpuscular Hemoglobin Concent 33.8, Red Cell Distribution Width 15.4H, Platelet Count 103L, Mean Platelet Volume 6.0L, Neutrophils (%) (Auto) 84.6H, Lymphocytes (%) (Auto) 6.7L, Monocytes (%) (Auto) 3.9, Eosinophils (%) (Auto) 3.5H, Basophils (%) (Auto) 1.3, Sodium Level 136, Potassium Level 3.6, Chloride Level 106, Carbon Dioxide Level 24, Anion Gap 6, Blood Urea Nitrogen 13, Creatinine 0.5L, Estimat Glomerular Filtration Rate > 60, Glucose Level 103, Calcium Level 7.5L, Phosphorus Level 2.4L, Magnesium Level 1.9, Total Bilirubin 0.7, Aspartate Amino Transf (AST/SGOT) 57H, Alanine Aminotransferase (ALT/SGPT) 80H, Alkaline Phosphatase 59, Total Protein 4.6L, Albumin 1.1L, Globulin 3.5, Albumin/Globulin Ratio 0.3L Height (Feet): 5 Height (Inches): 7.00 Weight (Pounds): 158 Objective WDWN NCAT Supple, (+) Trach CTA RR Abd soft no edema Lawrence Juárez MD May 30, 2019 14:30
--- NOTE | 2019-05-30 14:38 | Internal Med Progress Note ---
Subjective Date of Service: May 30, 2019 Physician Name Lucero,Igor Attending Physician Matthew Davis MD Current Medications Medications (Trade) Dose Ordered Sig/Mervat Route PRN Reason Start Time Stop Time Status Last Admin Dose Admin Acetaminophen (Tylenol) 650 mg Q4H PRN ORAL FEVER 05/24/19 17:30 06/23/19 17:29 05/30/19 08:13 Albuterol/ Ipratropium (Albuterol/ Ipratropium) 3 ml Q4H PRN HHN Shortness of Breath 05/30/19 07:00 06/04/19 06:59 Chlorhexidine Gluconate (Stacie-Hex 2%) 1 applic DAILY@2000 TOPIC 05/25/19 20:00 06/24/19 19:59 05/29/19 20:15 Dextrose (Dextrose 50%) 25 ml Q30M PRN IV Hypoglycemia 05/24/19 17:30 06/23/19 17:29 Dextrose (Dextrose 50%) 50 ml Q30M PRN IV Hypoglycemia 05/24/19 17:30 06/23/19 17:29 Docusate Sodium (Colace) 100 mg TWICE A DAY NG 05/27/19 09:00 06/26/19 08:59 05/27/19 17:38 Lactulose (Cephulac) 20 gm DAILY ORAL 05/28/19 09:00 06/27/19 08:59 Norepinephrine Bitartrate 4 mg/ Dextrose 250 ml @ 0 mls/hr Q24H IV 05/24/19 20:04 06/23/19 20:03 05/27/19 06:02 Ondansetron HCl (Zofran) 4 mg Q6H PRN IVP Nausea & Vomiting 05/24/19 17:30 06/23/19 17:29 05/24/19 18:11 Pantoprazole (Protonix) 40 mg EVERY 12 HOURS IVP 05/25/19 21:00 06/24/19 20:59 05/30/19 08:12 Polyethylene Glycol (Miralax) 17 gm BEDTIME ORAL 05/26/19 21:00 06/25/19 20:59 05/27/19 20:37 Sodium Phosphate 15 mm/Sodium Chloride 280 ml @ 70.273 mls/ hr ONCE ONCE IVPB 05/30/19 14:00 05/30/19 17:59 05/30/19 13:10 Vancomycin HCl (Vanco rx to dose) 1 ea DAILY PRN MISC Per rx protocol 05/30/19 13:45 06/29/19 13:44 Vancomycin HCl 1 gm/Dextrose 275 ml @ 183.708 mls/hr Q12H IVPB 05/30/19 15:00 06/04/19 14:59 Allergies: Coded Allergies: LEVOFLOXACIN (Verified Allergy, Unknown, 05/24/19) Possible allergic reaction - low blood pressure ROS Limited/Unobtainable: No Constitutional: Reports: no symptoms HEENT: Reports: no symptoms Cardiovascular: Reports: no symptoms Respiratory: Reports: no symptoms Gastrointestinal/Abdominal: Reports: no symptoms Genitourinary: Reports: no symptoms Neurologic/Psychiatric: Reports: no symptoms Subjective 73 YO M with esophageal mass admitted with hemoptysis. Now Pneumonia. Cover for Int med-DR Davis. ICU Objective Last Vital Signs Date Time Temp Pulse Resp B/P (MAP) Pulse Ox O2 Delivery O2 Flow Rate FiO2 05/30/19 14:00 60 21 100/52 (68) 98 05/30/19 13:06 Cool Aerosol 5.0 28 05/30/19 12:00 97.2 Laboratory Tests Test 05/29/19 20:45 05/30/19 04:57 White Blood Count 4.7 K/UL (4.8-10.8) L 4.3 K/UL (4.8-10.8) L Red Blood Count 3.14 M/UL (4.70-6.10) L 2.93 M/UL (4.70-6.10) L Hemoglobin 9.2 G/DL (14.2-18.0) L 8.9 G/DL (14.2-18.0) L Hematocrit 28.9 % (42.0-52.0) L 26.4 % (42.0-52.0) L Mean Corpuscular Volume 92 FL (80-99) 90 FL (80-99) Mean Corpuscular Hemoglobin 29.2 PG (27.0-31.0) 30.4 PG (27.0-31.0) Mean Corpuscular Hemoglobin Concent 31.7 G/DL (32.0-36.0) L 33.8 G/DL (32.0-36.0) Red Cell Distribution Width 16.6 % (11.6-14.8) H 15.4 % (11.6-14.8) H Platelet Count 100 K/UL (150-450) L 103 K/UL (150-450) L Mean Platelet Volume 7.2 FL (6.5-10.1) 6.0 FL (6.5-10.1) L Neutrophils (%) (Auto) % (45.0-75.0) 84.6 % (45.0-75.0) H Lymphocytes (%) (Auto) % (20.0-45.0) 6.7 % (20.0-45.0) L Monocytes (%) (Auto) % (1.0-10.0) 3.9 % (1.0-10.0) Eosinophils (%) (Auto) % (0.0-3.0) 3.5 % (0.0-3.0) H Basophils (%) (Auto) % (0.0-2.0) 1.3 % (0.0-2.0) Differential Total Cells Counted 100 Neutrophils % (Manual) 85 % (45-75) H Lymphocytes % (Manual) 9 % (20-45) L Monocytes % (Manual) 3 % (1-10) Eosinophils % (Manual) 2 % (0-3) Basophils % (Manual) 1 % (0-2) Band Neutrophils 0 % (0-8) Platelet Estimate Decreased L Platelet Morphology Normal Hypochromasia 1+ Anisocytosis 1+ Sodium Level 136 MMOL/L (136-145) Potassium Level 3.6 MMOL/L (3.5-5.1) Chloride Level 106 MMOL/L (98-107) Carbon Dioxide Level 24 MMOL/L (21-32) Anion Gap 6 mmol/L (5-15) Blood Urea Nitrogen 13 mg/dL (7-18) Creatinine 0.5 MG/DL (0.55-1.30) L Estimat Glomerular Filtration Rate > 60 mL/min (>60) Glucose Level 103 MG/DL (74-106) Calcium Level 7.5 MG/DL (8.5-10.1) L Phosphorus Level 2.4 MG/DL (2.5-4.9) L Magnesium Level 1.9 MG/DL (1.8-2.4) Total Bilirubin 0.7 MG/DL (0.2-1.0) Aspartate Amino Transf (AST/SGOT) 57 U/L (15-37) H Alanine Aminotransferase (ALT/SGPT) 80 U/L (12-78) H Alkaline Phosphatase 59 U/L (46-116) Total Protein 4.6 G/DL (6.4-8.2) L Albumin 1.1 G/DL (3.4-5.0) L Globulin 3.5 g/dL Albumin/Globulin Ratio 0.3 (1.0-2.7) L Microbiology Date/Time Source Procedure Growth Status 05/27/19 20:45 Sputum Induced Gram Stain - Final Resulted 05/27/19 20:45 Sputum Culture - Preliminary Staphylococcus Aureus Resulted Intake and Output 05/29/19 05/30/19 19:00 07:00 Intake Total 2195.0 ml 737.5 ml Output Total 845 ml 1045 ml Balance 1350.0 ml -307.5 ml Intake Free Water 200 ml IV Total 1395.0 ml 137.5 ml Tube Feeding 600 ml 600 ml Output Urine Total 845 ml 1045 ml # Bowel Movements 5 3 Objective PHYSICAL EXAMINATION: GENERAL: The patient is a well-nourished male, who is in moderate distress. HEENT: Eyes, pupils are equal and responsive to light and accommodation. Extraocular movements are intact. Tracheostomy is present. CHEST: Lungs are clear with mechanical breath sounds bilaterally. ABDOMEN: Soft, nontender, and nondistended. Positive bowel sounds. No evidence of hepatosplenomegaly. Currently, no rebound or guarding noted. EXTREMITIES: Negative for clubbing, cyanosis, or edema. RECTAL/GENITAL: Not performed. NEUROLOGICAL: Cranial nerves II to XII grossly intact without focal deficits. Motor strength is 5/5 bilaterally. Deep tendon reflexes are 2+ plantar. Assessment/Plan Assessment/Plan ASSESSMENT: This is a 73-year-old male with: 1. Esophageal mass. 2. Esophageal hemorrhage. 3. Airway obstruction. 4. Hypoxia. 5. History of esophageal cancer. 6. Elevated liver function tests. 7. Bilateral pneumonia=MRSA 8. Tracheostomy dependent TREATMENT: 1. Esophageal mass/hemorrhage. A Hematology/Oncology consultation has been obtained with Dr. Paz. The patient has received four units of packed RBCs and 1 unit FFP. The patient is in the intensive care unit. The patient is currently off pressors. 2. Hypoxia. A Pulmonary/Critical Care consultation has been obtained with Dr. Claudia Chi. Hypoxia is probably secondary to tracheal obstruction secondary to hemorrhage as above. Continue vent per Dr. Chi. 3. Pneumonia=MRSA ABX= Zosyn and vancomycin. An Infectious Disease consultation has been obtained with Dr. Alba. We will follow recommendations of Infectious Disease. A sputum culture=MRSA 4. Elevated liver function tests/esophageal mass. A Gastroenterology consultation has been obtained with Dr. Narciso Engle. The patient may require repeat biopsy of esophageal mass. We will follow recommendations of Gastroenterology. A CT scan of the neck is pending. Igor Lucero MD May 30, 2019 14:38
[2019-05-30] MEDS ORDERED: Vancomycin 1gm in D5W 275ml IVPB SCH (15:00)
--- NOTE | 2019-05-30 16:00 | NUR ---
NURSE NOTES: Patient requested to be suctioned via trach with moderate amount of thick, white sputum; refused oral care at this time. No s/s of pain, denies discomfort. Patient tolerating TF, HOB remains elevated. Fernandez catheter draining well to gravity. Safety precautions in place. Call light and belongings left within reach per patient's request. All needs attended to. Will continue to monitor patient.
--- NOTE | 2019-05-30 19:00 | NUR ---
TRANSFER TO FLOOR: Patient transferred to SDU room 241-2, per Dr Lucero. Belongings remained with patient. Family (daughter) informed of transfer.
--- NOTE | 2019-05-30 19:11 | NUR ---
HAND-OFF: Report given to ANTONY Zapata. Endorsed plan of care. Patient in stable condition.
--- NOTE | 2019-05-30 19:30 | NUR ---
NURSE NOTES: Received report from ANTONY Nicholson. Pt in bed awake, alert and able to make needs known to staff. On T-piece and cool aerosol with FiO2 28% O2 5L and SaO2 98% noted. On G-tube feeding with Vital AF1.2 @ 50cc/hr and no residual noted. Pt has Fernandez cath and patent and drainage well. Mid line on Rt. upper arm intact and dressing is clean and dry. Denied pain at this time. SB on manager monitoring HR 56. no s/s of acute distress noted. with SCD on bilateral low extremities for DVT prophylaxis. Instructed patient to use call light for assistance. bed alarm on. bed locked and in low position. Contact isolation maintained and observed. Will continue to care plan. Addendum: 05/31/19 at 0720 by SOL SCHROEDER RN patient with excoriation on scrotal and perineal area due to loose BM.
[2019-05-30] MEDS: Miralax 17gm pkt ORAL SCH (21:00)
[2019-05-30] MEDS: Dyna-Hex 2% Top Sol 2oz TOPIC SCH (21:16)
--- NOTE | 2019-05-30 22:35 | NUR ---
NURSE NOTES: Called Dr. Davis regarding patient requesting sleeping pills and pain meds Dr Davis gave orders noted and carried out. patient made aware.
[2019-05-30] MEDS: Zolpidem 5mg tab GT PRN (23:05)
[2019-05-30] MEDS: HYDROcodone/Acetamin 5/325 tab GT PRN (23:06)
[2019-05-31] VITALS: BP 109/47
[2019-05-31] MEDS: Vancomycin 1 GM in D5W 275 ML IVPB SCH ×3 (02:03→22:57)
[2019-05-31 04:00] VITALS: BP 97/50
[2019-05-31 05:53] LABS: BASOPHILS % (AUTO) 0.6 % (0.0-2.0); EOSINOPHILS % (AUTO) 4.3 % (0.0-3.0); HEMATOCRIT 29.5 % (42.0-52.0); HEMOGLOBIN 9.7 G/DL (14.2-18.0); LYMPHOCYTES % (AUTO) 7.7 % (20.0-45.0); MEAN CORPUSCULAR VOLUME 90 FL (80-99); MONOCYTES % (AUTO) 3.8 % (1.0-10.0); NEUTROPHILS % (AUTO) 83.5 % (45.0-75.0); PLATELET COUNT 125 K/UL (150-450); RED BLOOD COUNT 3.26 M/UL (4.70-6.10); RED CELL DISTRIBUTION WIDTH 15.3 % (11.6-14.8); WHITE BLOOD COUNT 4.1 K/UL (4.8-10.8)
[2019-05-31 06:04] LABS: ANION GAP 7 mmol/L (5-15); BLOOD UREA NITROGEN 9 mg/dL (7-18); CALCIUM 7.9 MG/DL (8.5-10.1); CARBON DIOXIDE 25 MMOL/L (21-32); CHLORIDE 105 MMOL/L (98-107); CREATININE 0.5 MG/DL (0.55-1.30); POTASSIUM 3.6 MMOL/L (3.5-5.1); SODIUM 137 MMOL/L (136-145)
--- NOTE | 2019-05-31 07:16 | General Progress Note ---
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 ICD Codes: K22.8 - Other specified diseases of esophagus Assessment/Plan: most likely bleeding from trach - resolved ppi s/p 4 units blood transfusion GTF tolerated bowel regimen cbc and cmp for am Heme-Onc follow up and plans Subjective Allergies: Coded Allergies: LEVOFLOXACIN (Verified Allergy, Unknown, 05/24/19) Possible allergic reaction - low blood pressure Subjective Awake responsive out of ICU Heme noted Objective Last 24 Hour Vital Signs Date Time Temp Pulse Resp B/P (MAP) Pulse Ox O2 Delivery O2 Flow Rate FiO2 05/31/19 04:00 T-piece 5.0 05/31/19 04:00 63 05/31/19 04:00 97.6 58 20 97/50 (66) 99 05/31/19 03:42 5.0 28 05/31/19 01:28 99 Cool Aerosol 5.0 28 05/31/19 00:00 56 05/31/19 00:00 5.0 28 05/31/19 00:00 97.9 56 20 109/47 (67) 99 05/31/19 00:00 T-piece 5.0 05/30/19 23:36 98.0 05/30/19 20:00 98.0 59 20 104/46 (65) 100 05/30/19 20:00 T-piece 5.0 05/30/19 20:00 5.0 28 05/30/19 20:00 59 05/30/19 19:03 98 Cool Aerosol 5.0 28 05/30/19 18:00 53 22 94/46 (62) 99 05/30/19 17:00 63 20 103/45 (64) 99 05/30/19 16:00 98.5 56 19 97/46 (63) 100 05/30/19 16:00 T-piece 5.0 05/30/19 16:00 5.0 28 05/30/19 15:23 56 05/30/19 15:00 56 18 90/50 (63) 99 05/30/19 14:00 60 21 100/52 (68) 98 05/30/19 13:06 98 Cool Aerosol 5.0 28 05/30/19 13:00 62 22 91/45 (60) 99 05/30/19 12:13 70 05/30/19 12:00 5.0 28 05/30/19 12:00 T-piece 5.0 05/30/19 12:00 97.2 58 25 101/48 (65) 99 05/30/19 11:00 55 22 95/63 (74) 97 05/30/19 10:00 63 24 89/42 (58) 97 05/30/19 09:00 62 24 95/44 (61) 99 05/30/19 08:09 74 05/30/19 08:00 98.8 67 24 102/44 (63) 99 05/30/19 08:00 28 05/30/19 08:00 T-piece 5.0 Intake and Output 05/30/19 05/31/19 19:00 07:00 Intake Total 1080.000 ml 1025.000 ml Output Total 875 ml 1550 ml Balance 205.000 ml -525.000 ml Intake Free Water 200 ml 200 ml IV Total 280.000 ml 275.000 ml Tube Feeding 600 ml 550 ml Output Urine Total 875 ml 1550 ml # Bowel Movements 2 5 Laboratory Tests 05/31/19 04:32: White Blood Count 4.1L, Red Blood Count 3.26L, Hemoglobin 9.7L, Hematocrit 29.5L , Mean Corpuscular Volume 90, Mean Corpuscular Hemoglobin 29.9, Mean Corpuscular Hemoglobin Concent 33.0, Red Cell Distribution Width 15.3H, Platelet Count 125L, Mean Platelet Volume 6.1L, Neutrophils (%) (Auto) 83.5H, Lymphocytes (%) (Auto) 7.7L, Monocytes (%) (Auto) 3.8, Eosinophils (%) (Auto) 4.3H, Basophils (%) (Auto) 0.6, Sodium Level 137, Potassium Level 3.6, Chloride Level 105, Carbon Dioxide Level 25, Anion Gap 7, Blood Urea Nitrogen 9, Creatinine 0.5L, Estimat Glomerular Filtration Rate > 60, Glucose Level 98, Calcium Level 7.9L Height (Feet): 5 Height (Inches): 7.00 Weight (Pounds): 157 Objective WDWN NCAT Supple, (+) Trach CTA RR Abd soft no edema Lawrence Juárez MD May 31, 2019 07:16
--- NOTE | 2019-05-31 07:19 | NUR ---
HAND-OFF: Report given to Catracho HARDY.
--- NOTE | 2019-05-31 07:27 | Pulmonology Progress Note ---
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 Hemorrhagic shock/ esophageal bleeding Dysphagia, feeding by G-tube Anemia of chronic disease Anemia of acute blood loss requiring blood transfusion Transaminitis Electrolyte abnormalities PLAN OF CARE transferred to SPENSER vent support, trach care pulmonary toilet abx as per ID SCX + Staph aureus CXR 05/30 pulm edema vs infiltrates fup with CXR, pro BNP, monitor volumes venous duplex BLE negative s/p pressors/Levophed; hemodynamic status stabilized s/p aminocaproic acid, octreotide and Protonix drip s/p 4 units PRBC and 1 unit FFP H&H stable stool OB positive aspiration precaution G-tube feeding monitor H&H with goal to keep hemoglobin above 7 correct electrolytes as needed case discussed and evaluated by supervising physician Subjective Allergies: Coded Allergies: LEVOFLOXACIN (Verified Allergy, Unknown, 05/24/19) Possible allergic reaction - low blood pressure Subjective low grade fever, no leukocytosis, HH remains stable transferred to SDU no signs of resp distress on current FiO2 CXR 05/30 with increaed opacities Objective Last 24 Hour Vital Signs Date Time Temp Pulse Resp B/P (MAP) Pulse Ox O2 Delivery O2 Flow Rate FiO2 05/31/19 04:00 T-piece 5.0 05/31/19 04:00 63 05/31/19 04:00 97.6 58 20 97/50 (66) 99 05/31/19 03:42 5.0 28 05/31/19 01:28 99 Cool Aerosol 5.0 28 05/31/19 00:00 56 05/31/19 00:00 5.0 28 05/31/19 00:00 97.9 56 20 109/47 (67) 99 05/31/19 00:00 T-piece 5.0 05/30/19 23:36 98.0 05/30/19 20:00 98.0 59 20 104/46 (65) 100 05/30/19 20:00 T-piece 5.0 05/30/19 20:00 5.0 28 05/30/19 20:00 59 05/30/19 19:03 98 Cool Aerosol 5.0 28 05/30/19 18:00 53 22 94/46 (62) 99 05/30/19 17:00 63 20 103/45 (64) 99 05/30/19 16:00 98.5 56 19 97/46 (63) 100 05/30/19 16:00 T-piece 5.0 05/30/19 16:00 5.0 28 05/30/19 15:23 56 05/30/19 15:00 56 18 90/50 (63) 99 05/30/19 14:00 60 21 100/52 (68) 98 05/30/19 13:06 98 Cool Aerosol 5.0 28 05/30/19 13:00 62 22 91/45 (60) 99 05/30/19 12:13 70 05/30/19 12:00 5.0 28 05/30/19 12:00 T-piece 5.0 05/30/19 12:00 97.2 58 25 101/48 (65) 99 05/30/19 11:00 55 22 95/63 (74) 97 05/30/19 10:00 63 24 89/42 (58) 97 05/30/19 09:00 62 24 95/44 (61) 99 05/30/19 08:09 74 05/30/19 08:00 98.8 67 24 102/44 (63) 99 05/30/19 08:00 28 05/30/19 08:00 T-piece 5.0 Intake and Output 05/30/19 05/31/19 19:00 07:00 Intake Total 1080.000 ml 1025.000 ml Output Total 875 ml 1550 ml Balance 205.000 ml -525.000 ml Intake Free Water 200 ml 200 ml IV Total 280.000 ml 275.000 ml Tube Feeding 600 ml 550 ml Output Urine Total 875 ml 1550 ml # Bowel Movements 2 5 General Appearance: no acute distress HEENT: status post trach - Shiley #* Abdomen: normal bowel sounds, other - G tube Laboratory Tests 05/31/19 04:32: White Blood Count 4.1L, Red Blood Count 3.26L, Hemoglobin 9.7L, Hematocrit 29.5L , Mean Corpuscular Volume 90, Mean Corpuscular Hemoglobin 29.9, Mean Corpuscular Hemoglobin Concent 33.0, Red Cell Distribution Width 15.3H, Platelet Count 125L, Mean Platelet Volume 6.1L, Neutrophils (%) (Auto) 83.5H, Lymphocytes (%) (Auto) 7.7L, Monocytes (%) (Auto) 3.8, Eosinophils (%) (Auto) 4.3H, Basophils (%) (Auto) 0.6, Sodium Level 137, Potassium Level 3.6, Chloride Level 105, Carbon Dioxide Level 25, Anion Gap 7, Blood Urea Nitrogen 9, Creatinine 0.5L, Estimat Glomerular Filtration Rate > 60, Glucose Level 98, Calcium Level 7.9L Current Medications Medications (Trade) Dose Ordered Sig/Mervat Route PRN Reason Start Time Stop Time Status Last Admin Dose Admin Acetaminophen (Tylenol) 650 mg Q4H PRN ORAL FEVER 05/30/19 19:30 06/23/19 19:29 Acetaminophen/ Hydrocodone Bitart ([place] 5/325) 1 tab Q6H PRN GT For Pain 05/30/19 22:45 06/06/19 22:44 05/30/19 23:06 Albuterol/ Ipratropium (Albuterol/ Ipratropium) 3 ml Q4H PRN HHN Shortness of Breath 05/30/19 19:00 06/04/19 06:59 Chlorhexidine Gluconate (Stacie-Hex 2%) 1 applic DAILY@2000 TOPIC 05/30/19 20:00 06/24/19 19:59 05/30/19 21:16 Dextrose (Dextrose 50%) 25 ml Q30M PRN IV Hypoglycemia 05/30/19 19:00 06/23/19 17:29 Dextrose (Dextrose 50%) 50 ml Q30M PRN IV Hypoglycemia 05/30/19 19:00 06/23/19 17:29 Docusate Sodium (Colace) 100 mg TWICE A DAY NG 05/31/19 09:00 06/26/19 08:59 Lactulose (Cephulac) 20 gm DAILY ORAL 05/31/19 09:00 06/27/19 08:59 Ondansetron HCl (Zofran) 4 mg Q6H PRN IVP Nausea & Vomiting 05/30/19 19:30 06/23/19 19:29 Pantoprazole (Protonix) 40 mg EVERY 12 HOURS IVP 05/30/19 21:00 06/24/19 20:59 05/30/19 21:17 Polyethylene Glycol (Miralax) 17 gm BEDTIME ORAL 05/30/19 21:00 06/25/19 20:59 Vancomycin HCl (Vanco rx to dose) 1 ea DAILY PRN MISC Per rx protocol 05/31/19 09:00 06/29/19 13:44 Vancomycin HCl 1 gm/Dextrose 275 ml @ 183.708 mls/hr Q12H IVPB 05/31/19 03:00 06/04/19 14:59 05/31/19 02:03 Zolpidem Tartrate (Ambien) 5 mg HSPRN PRN GT Insomnia 05/30/19 22:45 06/06/19 22:44 05/30/19 23:05 Paige Landry [employer] May 31, 2019 07:26
[2019-05-31 07:51] VITALS: BP 107/51
[2019-05-31] MEDS: Lactulose 20gm/30ml UDC ORAL SCH (08:35)
[2019-05-31] MEDS: Docusate 100mg/10ml Liq NG SCH ×2 (08:36→17:19)
[2019-05-31] MEDS: Pantoprazole Inj IVP SCH ×2 (08:37→20:02)
--- NOTE | 2019-05-31 08:46 | NUR ---
NURSE NOTES: Patient stable AOx4 asking for something to help him relax. Will contact MD. Patient coughing with audible secretions. Suctioned x3. Patient now clear. RR even and unlabored without ventilation at this time. Midline flushed and patent. Dressing dry and intact. Vital AF1.2 infusing at 50mL/hr. Fernandez draining well to gravity. Perineal and scrotal redness noted. Side rails up x2, call light within reach, bed low and locked. Will continue to monitor.
[2019-05-31] MEDS ORDERED: NS 275ml ONE (09:19)
--- NOTE | 2019-05-31 10:41 | NUR ---
RD ASSESSMENT & RECOMMENDATIONS SEE CARE ACTIVITY FOR COMPLETE ASSESSMENT DAILY ESTIMATED NEEDS: Needs based on Pulmonary, cancer, bed bound 65.9kg 25-30 kcals/kg total kcals 1.2-2 g protein/kg 79-132 g total protein 25-30 mL/kg total fluid mLs NUTRITION DIAGNOSIS: Swallowing difficulty r/t resp status, throat tumor as evidenced by pt w/ throat cancer, recent cardiac arrest w/ trach placement, pt is GT dep. CURRENT TF:Vital 1.2 goal of 50ml/hr ENTERAL NUTRITION RECOMMENDATIONS: Osmolite 1.2 @60ml/hr x24 hrs to provide 1440ml, 1728 kcal, 80g pro, 1181ml free H2O - Pt out of ICU, transitioned to T-collar w/ multiple loose stools, rec change of TF to non elemental formula. - Start Osmolite 1.2 @30ml/hr for 6 hrs. Advance as tolerated 10ml/hr q4-6 hrs to goal. - Flush per MD / HOB over 30 degrees. * When tolerating at goal, rec added Prosource 1 pack daily to better meet pro needs. ADDITIONAL RECOMMENDATIONS: 1) Feed as able, TF recs as above 2) Maintain calibrated bed scale wts 3) Monitor blood glucose w/ feeds, need for niss 4) F/up w/ WC eval
--- NOTE | 2019-05-31 11:00 | NUR ---
NURSE NOTES: Patient does not want to be cleaned at this time. Will attempt again later.
--- NOTE | 2019-05-31 11:09 | Diagnostic Imaging Report ---
EXAM: XR Chest, 1 View CLINICAL HISTORY: SOB TECHNIQUE: Frontal view of the chest. COMPARISON: Chest radiograph on 05/28/2019 FINDINGS: Hardware: Tracheostomy tube terminates in the region of the upper thoracic trachea. Lungs/pleura: Increased opacities in the mid and lower lungs, right greater than left. Bilateral pleural effusions. Increased pulmonary vasculature congestion. Heart/mediastinum: Normal. No cardiomegaly. Soft tissues: Unremarkable. Bones: No acute fracture. Degenerative changes of the spine. Upper abdomen: Normal. IMPRESSION: Increased opacities in the mid and lower lungs, right greater than left, which may represent pulmonary edema versus infectious/inflammatory process. Bilateral pleural effusions. Increased pulmonary vasculature congestion.
[2019-05-31 12:00] VITALS: BP 122/62
--- NOTE | 2019-05-31 13:09 | Internal Med Progress Note ---
Subjective Date of Service: May 31, 2019 Physician Name Igor Lucero Attending Physician Matthew Davis MD Current Medications Medications (Trade) Dose Ordered Sig/Mervat Route PRN Reason Start Time Stop Time Status Last Admin Dose Admin Acetaminophen (Tylenol) 650 mg Q4H PRN ORAL FEVER 05/30/19 19:30 06/23/19 19:29 Acetaminophen/ Hydrocodone Bitart ([place] 5/325) 1 tab Q6H PRN GT For Pain 05/30/19 22:45 06/06/19 22:44 05/30/19 23:06 Albuterol/ Ipratropium (Albuterol/ Ipratropium) 3 ml Q4H PRN HHN Shortness of Breath 05/30/19 19:00 06/04/19 06:59 Alprazolam (Xanax) 0.25 mg Q8H PRN ORAL For Anxiety 05/31/19 09:45 06/07/19 09:44 Chlorhexidine Gluconate (Stacie-Hex 2%) 1 applic DAILY@2000 TOPIC 05/30/19 20:00 06/24/19 19:59 05/30/19 21:16 Dextrose (Dextrose 50%) 25 ml Q30M PRN IV Hypoglycemia 05/30/19 19:00 06/23/19 17:29 Dextrose (Dextrose 50%) 50 ml Q30M PRN IV Hypoglycemia 05/30/19 19:00 06/23/19 17:29 Docusate Sodium (Colace) 100 mg TWICE A DAY NG 05/31/19 09:00 06/26/19 08:59 Lactulose (Cephulac) 20 gm DAILY ORAL 05/31/19 09:00 06/27/19 08:59 Ondansetron HCl (Zofran) 4 mg Q6H PRN IVP Nausea & Vomiting 05/30/19 19:30 06/23/19 19:29 Pantoprazole (Protonix) 40 mg EVERY 12 HOURS IVP 05/30/19 21:00 06/24/19 20:59 05/31/19 08:37 Polyethylene Glycol (Miralax) 17 gm BEDTIME ORAL 05/30/19 21:00 06/25/19 20:59 Vancomycin HCl (Vanco rx to dose) 1 ea DAILY PRN MISC Per rx protocol 05/31/19 09:00 06/29/19 13:44 Vancomycin HCl 1 gm/Dextrose 275 ml @ 183.708 mls/hr Q12H IVPB 05/31/19 03:00 06/04/19 14:59 05/31/19 02:03 Zolpidem Tartrate (Ambien) 5 mg HSPRN PRN GT Insomnia 05/30/19 22:45 06/06/19 22:44 05/30/19 23:05 Allergies: Coded Allergies: LEVOFLOXACIN (Verified Allergy, Unknown, 05/24/19) Possible allergic reaction - low blood pressure ROS Limited/Unobtainable: No Constitutional: Reports: no symptoms HEENT: Reports: no symptoms Cardiovascular: Reports: no symptoms Respiratory: Reports: no symptoms Gastrointestinal/Abdominal: Reports: no symptoms Genitourinary: Reports: no symptoms Neurologic/Psychiatric: Reports: no symptoms Subjective 73 YO M with esophageal mass admitted with hemoptysis. Now Pneumonia. Cover for Int med-DR Davis. SPENSER Objective Last Vital Signs Date Time Temp Pulse Resp B/P (MAP) Pulse Ox O2 Delivery O2 Flow Rate FiO2 05/31/19 12:00 28 05/31/19 12:00 99.7 74 23 122/62 (82) 98 05/31/19 12:00 T-piece 05/31/19 07:04 5.0 Laboratory Tests Test 05/31/19 04:32 White Blood Count 4.1 K/UL (4.8-10.8) L Red Blood Count 3.26 M/UL (4.70-6.10) L Hemoglobin 9.7 G/DL (14.2-18.0) L Hematocrit 29.5 % (42.0-52.0) L Mean Corpuscular Volume 90 FL (80-99) Mean Corpuscular Hemoglobin 29.9 PG (27.0-31.0) Mean Corpuscular Hemoglobin Concent 33.0 G/DL (32.0-36.0) Red Cell Distribution Width 15.3 % (11.6-14.8) H Platelet Count 125 K/UL (150-450) L Mean Platelet Volume 6.1 FL (6.5-10.1) L Neutrophils (%) (Auto) 83.5 % (45.0-75.0) H Lymphocytes (%) (Auto) 7.7 % (20.0-45.0) L Monocytes (%) (Auto) 3.8 % (1.0-10.0) Eosinophils (%) (Auto) 4.3 % (0.0-3.0) H Basophils (%) (Auto) 0.6 % (0.0-2.0) Sodium Level 137 MMOL/L (136-145) Potassium Level 3.6 MMOL/L (3.5-5.1) Chloride Level 105 MMOL/L (98-107) Carbon Dioxide Level 25 MMOL/L (21-32) Anion Gap 7 mmol/L (5-15) Blood Urea Nitrogen 9 mg/dL (7-18) Creatinine 0.5 MG/DL (0.55-1.30) L Estimat Glomerular Filtration Rate > 60 mL/min (>60) Glucose Level 98 MG/DL (74-106) Calcium Level 7.9 MG/DL (8.5-10.1) L Intake and Output 05/30/19 05/31/19 19:00 07:00 Intake Total 1080.000 ml 1025.000 ml Output Total 875 ml 1550 ml Balance 205.000 ml -525.000 ml Intake Free Water 200 ml 200 ml IV Total 280.000 ml 275.000 ml Tube Feeding 600 ml 550 ml Output Urine Total 875 ml 1550 ml # Bowel Movements 2 5 Objective PHYSICAL EXAMINATION: GENERAL: The patient is a well-nourished male, who is in moderate distress. HEENT: Trach; Eyes, pupils are equal and responsive to light and accommodation. Extraocular movements are intact. Tracheostomy is present. CHEST: Mech vent; Lungs are clear with mechanical breath sounds bilaterally. ABDOMEN: Soft, nontender, and nondistended. Positive bowel sounds. No evidence of hepatosplenomegaly. Currently, no rebound or guarding noted. EXTREMITIES: Negative for clubbing, cyanosis, or edema. RECTAL/GENITAL: Not performed. NEUROLOGICAL: Cranial nerves II to XII grossly intact without focal deficits. Motor strength is 5/5 bilaterally. Deep tendon reflexes are 2+ plantar. Assessment/Plan Assessment/Plan ASSESSMENT: This is a 73-year-old male with: 1. Esophageal mass. 2. Esophageal hemorrhage. 3. Airway obstruction. 4. Hypoxia. 5. History of esophageal cancer. 6. Elevated liver function tests. 7. Bilateral pneumonia=MRSA 8. Tracheostomy dependent TREATMENT: 1. Esophageal mass/hemorrhage. A Hematology/Oncology consultation has been obtained with Dr. Paz. The patient has received four units of packed RBCs and 1 unit FFP. The patient is in the intensive care unit. The patient is currently off pressors. 2. Hypoxia. A Pulmonary/Critical Care consultation has been obtained with Dr. Claudia Chi. Hypoxia is probably secondary to tracheal obstruction secondary to hemorrhage as above. Continue vent per Dr. Chi. 3. Pneumonia=MRSA ABX= Zosyn and vancomycin. An Infectious Disease consultation has been obtained with Dr. Alba. We will follow recommendations of Infectious Disease. A sputum culture=MRSA 4. Elevated liver function tests/esophageal mass. A Gastroenterology consultation has been obtained with Dr. Narciso Engle. The patient may require repeat biopsy of esophageal mass. We will follow recommendations of Gastroenterology. A CT scan of the neck is pending. Igor Lucero MD May 31, 2019 13:09
[2019-05-31 16:00] VITALS: BP 150/80
--- NOTE | 2019-05-31 19:02 | NUR ---
HAND-OFF: Report given to Kalpesh Mchugh RN. Patient stable sleeping at this time. Plan of care endorsed.
--- NOTE | 2019-05-31 19:09 | NUR ---
NURSE NOTES: Received report from Ema, RN, pt. in bed awake, A/O x's 4-able to make needs known, no signs or symptoms of acute cardiac or respiratory distress noted, bed alarm on, side rails up x's 3 and safety brakes engaged, HOB elevated, pt. appears to be tolerating current T piece setting fio2 at 24% w/ cool aerosol- no distress noted, appears to be resting comfortably, G tube feeding running Osmolite at 55cc/hr- no residual noted, Fernandez intact and draining to gravity, Pt. appears to be clean and dry, LFA 20G IV intact and patent, pt. has ADAN midline intact and in place, safety measures continued, will continue with plan of care.
[2019-05-31] MEDS: Dyna-Hex 2% Top Sol 2oz TOPIC SCH (19:56)
[2019-05-31 20:00] VITALS: BP 118/54
[2019-05-31] MEDS: Miralax 17gm pkt ORAL SCH (20:02)
[2019-05-31] MEDS: HYDROcodone/Acetamin 5/325 tab GT PRN (20:07)
[2019-05-31] MEDS: Zolpidem 5mg tab GT PRN (22:57)
--- NOTE | 2019-05-31 23:00 | NUR ---
NURSE NOTES: pt. appears to be in bed resting comfortably- noted during bedside rounding, oral care provided, bed bath given and comfort measures provided, will continue to monitor pt. and with plan of care.
[2019-06-01] VITALS: BP 117/64
[2019-06-01] MEDS: HYDROcodone/Acetamin 5/325 tab GT PRN ×2 (03:10→20:35)
[2019-06-01 04:00] VITALS: BP 124/64
[2019-06-01 05:08] LABS: BASOPHILS % (AUTO) 1.8 % (0.0-2.0); EOSINOPHILS % (AUTO) 5.2 % (0.0-3.0); HEMATOCRIT 31.2 % (42.0-52.0); HEMOGLOBIN 10.5 G/DL (14.2-18.0); LYMPHOCYTES % (AUTO) 9.3 % (20.0-45.0); MEAN CORPUSCULAR VOLUME 90 FL (80-99); MONOCYTES % (AUTO) 7.2 % (1.0-10.0); NEUTROPHILS % (AUTO) 76.6 % (45.0-75.0); PLATELET COUNT 140 K/UL (150-450); RED BLOOD COUNT 3.48 M/UL (4.70-6.10); WHITE BLOOD COUNT 3.7 K/UL (4.8-10.8)
[2019-06-01 05:25] LABS: ANION GAP 6 mmol/L (5-15); BLOOD UREA NITROGEN 8 mg/dL (7-18); CALCIUM 8.1 MG/DL (8.5-10.1); CARBON DIOXIDE 29 MMOL/L (21-32); CHLORIDE 104 MMOL/L (98-107); CREATININE 0.5 MG/DL (0.55-1.30); POTASSIUM 3.6 MMOL/L (3.5-5.1); SODIUM 138 MMOL/L (136-145)
[2019-06-01] MEDS: Vancomycin 1 GM in D5W 275 ML IVPB SCH ×3 (06:02→23:08)
--- NOTE | 2019-06-01 06:36 | Hematology/Onc Progress Note ---
Assessment/Plan Assessment/Plan ASSESSMENT/RECS: #. Head and neck cancer with history of chemo and radiation, with a recent biopsy at [facility], 05/15/19 "LEFT SOFT PALATE MASS" which shows invasive keratinizing squamous cell carcinoma, well to moderately differentiated, from a 05/15 specimen --> likely in this case doesn't have a unique esophageal mas but rather has recurrence of malignancy --> has been seen by ent --> at this time, recommend conservative care, control of trach bleed #. Esophageal hemorrhage. --> requires hemostatic support --> coags have been checked --> vitamin K has been ordered --> now improved #. Pancytopenia -- initally with anemia of chronic disease due to underlying chronic medical issues, multifactorial v Gi bleed --> Anemia workup has been reviewed, ferritin 1190 --> No evidence of hemolysis is noted, peripheral smear has been reviewed. --> Hgb goal >7. Transfuse prn. --> Epogen or iron at this time is not particularly indicated --> Medications have been reviewed --> occult + --> as per Gi eval --> hgb trend: 9.8-->10.1-->9.2-->10.5 --> blood tx: 05/26 --> hepatitis and hiv pend # Airway obstruction. --> sp trach # Hypoxia. -> per pulm # Elevated liver function tests. --> as per gi, imaging ordered # Sepsis s/p abx --> per id and has received pressors --> in the icu --> vanc/zosyn # Pneumonia. --> on abx --> cxr: Suspected interstitial edema/CHF. Pneumonia in the right midlung not excluded # sp Trach and PEG Appreciate consultation and skip Rn Subjective Constitutional: Denies: no symptoms, chills, fever, malaise, weakness, other HEENT: Denies: no symptoms, eye pain, blurred vision, tearing, double vision, ear pain, ear discharge, nose pain, nose congestion, throat pain, throat swelling, mouth pain, mouth swelling, other Cardiovascular: Denies: no symptoms, chest pain, edema, irregular heart rate, lightheadedness, palpitations, syncope, other Respiratory: Denies: no symptoms, cough, shortness of breath, SOB with excertion, SOB at rest, sputum, wheezing, other Gastrointestinal/Abdominal: Denies: no symptoms, abdomen distended, abdominal pain, black stools, tarry stools, blood in stool, constipated, diarrhea, difficulty swallowing, nausea, poor appetite, poor fluid intake, rectal bleeding , vomiting, other Endocrine: Denies: no symptoms, excessive sweating, flushing, intolerance to cold, intolerance to heat, increased hunger, increased thirst, increased urine, unexplained weight gain, unexplained weight loss, other Hematologic/Lymphatic: Denies: no symptoms, anemia, easy bleeding, easy bruising, adenopathy, other Allergies: Coded Allergies: LEVOFLOXACIN (Verified Allergy, Unknown, 05/24/19) Possible allergic reaction - low blood pressure Subjective 05/27: icu, cxr reviewed, arythmia overnight, currently alert, no distress, on levophed 05/28: cxr with increased bilat effusions, stool ob positive, h/h stable 05/29: icu, vent, no recurrent bleeding, hgb 9.2 05/31: no events, out of unit, labs noted, relatively stable Objective Objective Current Medications Medications (Trade) Dose Ordered Sig/Mervat Route PRN Reason Start Time Stop Time Status Last Admin Dose Admin Acetaminophen (Tylenol) 650 mg Q4H PRN ORAL FEVER 05/30/19 19:30 06/23/19 19:29 Acetaminophen/ Hydrocodone Bitart ([place] 5/325) 1 tab Q6H PRN GT For Pain 05/30/19 22:45 06/06/19 22:44 06/01/19 03:10 Albuterol/ Ipratropium (Albuterol/ Ipratropium) 3 ml Q4H PRN HHN Shortness of Breath 05/30/19 19:00 06/04/19 06:59 Alprazolam (Xanax) 0.25 mg Q8H PRN ORAL For Anxiety 05/31/19 09:45 06/07/19 09:44 Chlorhexidine Gluconate (Stacie-Hex 2%) 1 applic DAILY@1999 TOPIC 05/30/19 20:00 06/24/19 19:59 05/31/19 19:56 Dextrose (Dextrose 50%) 25 ml Q30M PRN IV Hypoglycemia 05/30/19 19:00 06/23/19 17:29 Dextrose (Dextrose 50%) 50 ml Q30M PRN IV Hypoglycemia 05/30/19 19:00 06/23/19 17:29 Docusate Sodium (Colace) 100 mg TWICE A DAY NG 05/31/19 09:00 06/26/19 08:59 Lactulose (Cephulac) 20 gm DAILY ORAL 05/31/19 09:00 06/27/19 08:59 Ondansetron HCl (Zofran) 4 mg Q6H PRN IVP Nausea & Vomiting 05/30/19 19:30 06/23/19 19:29 Pantoprazole (Protonix) 40 mg EVERY 12 HOURS IVP 05/30/19 21:00 06/24/19 20:59 05/31/19 20:02 Polyethylene Glycol (Miralax) 17 gm BEDTIME ORAL 05/30/19 21:00 06/25/19 20:59 Vancomycin HCl (Vanco rx to dose) 1 ea DAILY PRN MISC Per rx protocol 05/31/19 09:00 06/29/19 13:44 Vancomycin HCl 1 gm/Dextrose 275 ml @ 183.708 mls/hr Q8H IVPB 05/31/19 23:00 06/05/19 22:59 06/01/19 06:02 Zolpidem Tartrate (Ambien) 5 mg HSPRN PRN GT Insomnia 05/30/19 22:45 06/06/19 22:44 05/31/19 22:57 Last 24 Hour Vital Signs Date Time Temp Pulse Resp B/P (MAP) Pulse Ox O2 Delivery O2 Flow Rate FiO2 06/01/19 04:00 T-piece 06/01/19 04:00 98.3 81 20 124/64 (84) 95 06/01/19 04:00 28 06/01/19 03:40 97.9 06/01/19 03:29 75 06/01/19 00:25 99 Cool Aerosol 5.0 28 06/01/19 00:00 28 06/01/19 00:00 T-piece 06/01/19 00:00 97.9 72 20 117/64 (81) 97 05/31/19 23:29 62 05/31/19 20:00 98.1 67 18 118/54 (75) 96 05/31/19 20:00 T-piece 05/31/19 20:00 28 05/31/19 19:27 70 05/31/19 18:01 98 Cool Aerosol 5.0 28 05/31/19 16:00 T-piece 05/31/19 16:00 28 05/31/19 16:00 98.3 77 22 150/80 (103) 95 05/31/19 16:00 62 05/31/19 13:23 96 Cool Aerosol 5.0 28 05/31/19 12:00 28 05/31/19 12:00 69 05/31/19 12:00 99.7 74 23 122/62 (82) 98 05/31/19 12:00 T-piece 05/31/19 09:00 28 05/31/19 08:00 58 05/31/19 08:00 T-piece 05/31/19 07:51 98.1 65 19 107/51 (69) 95 05/31/19 07:04 99 Cool Aerosol 5.0 28 05/31/19 04:00 T-piece 5.0 05/31/19 04:00 63 05/31/19 04:00 97.6 58 20 97/50 (66) 99 05/31/19 03:42 5.0 28 05/31/19 01:28 99 Cool Aerosol 5.0 28 05/31/19 00:00 56 05/31/19 00:00 5.0 28 05/31/19 00:00 97.9 56 20 109/47 (67) 99 05/31/19 00:00 T-piece 5.0 05/30/19 20:00 98.0 59 20 104/46 (65) 100 05/30/19 20:00 T-piece 5.0 05/30/19 20:00 5.0 28 05/30/19 20:00 59 05/30/19 19:03 98 Cool Aerosol 5.0 28 05/30/19 18:00 53 22 94/46 (62) 99 05/30/19 17:00 63 20 103/45 (64) 99 05/30/19 16:00 98.5 56 19 97/46 (63) 100 05/30/19 16:00 T-piece 5.0 05/30/19 16:00 5.0 28 05/30/19 15:23 56 05/30/19 15:00 56 18 90/50 (63) 99 05/30/19 14:00 60 21 100/52 (68) 98 05/30/19 13:06 98 Cool Aerosol 5.0 28 05/30/19 13:00 62 22 91/45 (60) 99 05/30/19 12:13 70 05/30/19 12:00 5.0 28 05/30/19 12:00 T-piece 5.0 05/30/19 12:00 97.2 58 25 101/48 (65) 99 05/30/19 11:00 55 22 95/63 (74) 97 05/30/19 10:00 63 24 89/42 (58) 97 05/30/19 09:00 62 24 95/44 (61) 99 05/30/19 08:09 74 05/30/19 08:00 98.8 67 24 102/44 (63) 99 05/30/19 08:00 28 05/30/19 08:00 T-piece 5.0 05/30/19 07:02 88 18 100 Cool Aerosol 5.0 28 05/30/19 07:02 99 Cool Aerosol 5.0 28 05/30/19 07:00 62 24 95/44 (61) 99 Intake and Output 05/31/19 06/01/19 19:00 07:00 Intake Total 935.000 ml 1022.416 ml Output Total 2400 ml 2000 ml Balance -1465.000 ml -977.584 ml Intake Free Water 20 ml 50 ml IV Total 275.000 ml 367.416 ml Tube Feeding 640 ml 605 ml Output Urine Total 2400 ml 2000 ml # Bowel Movements 1 Labs Test 05/29/19 20:45 05/30/19 04:57 05/31/19 04:32 05/31/19 14:18 White Blood Count 4.7 K/UL (4.8-10.8) 4.3 K/UL (4.8-10.8) 4.1 K/UL (4.8-10.8) Red Blood Count 3.14 M/UL (4.70-6.10) 2.93 M/UL (4.70-6.10) 3.26 M/UL (4.70-6.10) Hemoglobin 9.2 G/DL (14.2-18.0) 8.9 G/DL (14.2-18.0) 9.7 G/DL (14.2-18.0) Hematocrit 28.9 % (42.0-52.0) 26.4 % (42.0-52.0) 29.5 % (42.0-52.0) Mean Corpuscular Volume 92 FL (80-99) 90 FL (80-99) 90 FL (80-99) Mean Corpuscular Hemoglobin 29.2 PG (27.0-31.0) 30.4 PG (27.0-31.0) 29.9 PG (27.0-31.0) Mean Corpuscular Hemoglobin Concent 31.7 G/DL (32.0-36.0) 33.8 G/DL (32.0-36.0) 33.0 G/DL (32.0-36.0) Red Cell Distribution Width 16.6 % (11.6-14.8) 15.4 % (11.6-14.8) 15.3 % (11.6-14.8) Platelet Count 100 K/UL (150-450) 103 K/UL (150-450) 125 K/UL (150-450) Mean Platelet Volume 7.2 FL (6.5-10.1) 6.0 FL (6.5-10.1) 6.1 FL (6.5-10.1) Neutrophils (%) (Auto) % (45.0-75.0) 84.6 % (45.0-75.0) 83.5 % (45.0-75.0) Lymphocytes (%) (Auto) % (20.0-45.0) 6.7 % (20.0-45.0) 7.7 % (20.0-45.0) Monocytes (%) (Auto) % (1.0-10.0) 3.9 % (1.0-10.0) 3.8 % (1.0-10.0) Eosinophils (%) (Auto) % (0.0-3.0) 3.5 % (0.0-3.0) 4.3 % (0.0-3.0) Basophils (%) (Auto) % (0.0-2.0) 1.3 % (0.0-2.0) 0.6 % (0.0-2.0) Differential Total Cells Counted 100 Neutrophils % (Manual) 85 % (45-75) Lymphocytes % (Manual) 9 % (20-45) Monocytes % (Manual) 3 % (1-10) Eosinophils % (Manual) 2 % (0-3) Basophils % (Manual) 1 % (0-2) Band Neutrophils 0 % (0-8) Platelet Estimate Decreased Platelet Morphology Normal Hypochromasia 1+ Anisocytosis 1+ Sodium Level 136 MMOL/L (136-145) 137 MMOL/L (136-145) Potassium Level 3.6 MMOL/L (3.5-5.1) 3.6 MMOL/L (3.5-5.1) Chloride Level 106 MMOL/L (98-107) 105 MMOL/L (98-107) Carbon Dioxide Level 24 MMOL/L (21-32) 25 MMOL/L (21-32) Anion Gap 6 mmol/L (5-15) 7 mmol/L (5-15) Blood Urea Nitrogen 13 mg/dL (7-18) 9 mg/dL (7-18) Creatinine 0.5 MG/DL (0.55-1.30) 0.5 MG/DL (0.55-1.30) Estimat Glomerular Filtration Rate > 60 mL/min (>60) > 60 mL/min (>60) Glucose Level 103 MG/DL (74-106) 98 MG/DL (74-106) Calcium Level 7.5 MG/DL (8.5-10.1) 7.9 MG/DL (8.5-10.1) Phosphorus Level 2.4 MG/DL (2.5-4.9) Magnesium Level 1.9 MG/DL (1.8-2.4) Total Bilirubin 0.7 MG/DL (0.2-1.0) Aspartate Amino Transf (AST/SGOT) 57 U/L (15-37) Alanine Aminotransferase (ALT/SGPT) 80 U/L (12-78) Alkaline Phosphatase 59 U/L (46-116) Total Protein 4.6 G/DL (6.4-8.2) Albumin 1.1 G/DL (3.4-5.0) Globulin 3.5 g/dL Albumin/Globulin Ratio 0.3 (1.0-2.7) Vancomycin Level Trough 8.9 ug/mL (5.0-12.0) Test 06/01/19 04:23 White Blood Count 3.7 K/UL (4.8-10.8) Red Blood Count 3.48 M/UL (4.70-6.10) Hemoglobin 10.5 G/DL (14.2-18.0) Hematocrit 31.2 % (42.0-52.0) Mean Corpuscular Volume 90 FL (80-99) Mean Corpuscular Hemoglobin 30.2 PG (27.0-31.0) Mean Corpuscular Hemoglobin Concent 33.7 G/DL (32.0-36.0) Red Cell Distribution Width 15.0 % (11.6-14.8) Platelet Count 140 K/UL (150-450) Mean Platelet Volume 5.8 FL (6.5-10.1) Neutrophils (%) (Auto) 76.6 % (45.0-75.0) Lymphocytes (%) (Auto) 9.3 % (20.0-45.0) Monocytes (%) (Auto) 7.2 % (1.0-10.0) Eosinophils (%) (Auto) 5.2 % (0.0-3.0) Basophils (%) (Auto) 1.8 % (0.0-2.0) Sodium Level 138 MMOL/L (136-145) Potassium Level 3.6 MMOL/L (3.5-5.1) Chloride Level 104 MMOL/L (98-107) Carbon Dioxide Level 29 MMOL/L (21-32) Anion Gap 6 mmol/L (5-15) Blood Urea Nitrogen 8 mg/dL (7-18) Creatinine 0.5 MG/DL (0.55-1.30) Estimat Glomerular Filtration Rate > 60 mL/min (>60) Glucose Level 110 MG/DL (74-106) Calcium Level 8.1 MG/DL (8.5-10.1) Pro-B-Type Natriuretic Peptide 687 pg/mL (0-125) Height (Feet): 5 Height (Inches): 7.00 Weight (Pounds): 156 Objective Physical Exam: Vitals: reviewed General: NAD HEENT: nc, at ++ trach/vent Neck: supple Chest: clear breath sounds bilaterally Abdomen: soft, nontender, nd ++ gtube Extremities: no cce, normal range of motion Neuro: alert and oriented Ar Paz MD Jun 01, 2019 06:36
--- NOTE | 2019-06-01 07:00 | NUR ---
NURSE NOTES: receive dpatient report from aundrea carrillo. patient is on bed asleep. not in acute distress, no acute events from last night. on t piece at prescribed rate.will follow plan of care.
--- NOTE | 2019-06-01 07:02 | NUR ---
HAND-OFF: Report given to ANTONY Cash, pt. remains stable and no signs of distress noted- aware to f/u on any abnormal am labs.
[2019-06-01 08:00] VITALS: BP 121/59
[2019-06-01] MEDS: Docusate 100mg/10ml Liq NG SCH ×2 (08:18→17:02)
[2019-06-01] MEDS: Pantoprazole Inj IVP SCH ×2 (08:18→20:35)
[2019-06-01] MEDS: Lactulose 20gm/30ml UDC ORAL SCH (08:19)
--- NOTE | 2019-06-01 10:15 | General Progress Note ---
Assessment/Plan Problem List: (1) G tube feedings ICD Codes: Z93.1 - Gastrostomy status SNOMED: 366579862, 814562420, 292477395 (2) Chronic respiratory failure ICD Codes: J96.10 - Chronic respiratory failure, unspecified whether with hypoxia or hypercapnia SNOMED: 27936797 (3) Gastrostomy tube in place ICD Codes: Z93.1 - Gastrostomy status SNOMED: 000115760, 483120481 (4) Hemoptysis ICD Codes: R04.2 - Hemoptysis SNOMED: 39895242 (5) Esophageal mass ICD Codes: K22.8 - Other specified diseases of esophagus SNOMED: 664309675 Assessment/Plan: most likely bleeding from trach ppi s/p 4 units blood transfusion GTF tolerated, changed to Osmolite no recurrent bleeding bowel regimen on hold given diarrhea Subjective ROS Limited/Unobtainable: No Allergies: Coded Allergies: LEVOFLOXACIN (Verified Allergy, Unknown, 05/24/19) Possible allergic reaction - low blood pressure Objective Last 24 Hour Vital Signs Date Time Temp Pulse Resp B/P (MAP) Pulse Ox O2 Delivery O2 Flow Rate FiO2 06/01/19 08:00 96.4 70 19 121/59 (79) 96 06/01/19 07:56 28 06/01/19 07:36 52 06/01/19 07:32 T-piece 06/01/19 07:25 98 Cool Aerosol 5.0 28 06/01/19 04:00 T-piece 06/01/19 04:00 98.3 81 20 124/64 (84) 95 06/01/19 04:00 28 06/01/19 03:40 97.9 06/01/19 03:29 75 06/01/19 00:25 99 Cool Aerosol 5.0 28 06/01/19 00:00 28 06/01/19 00:00 T-piece 06/01/19 00:00 97.9 72 20 117/64 (81) 97 05/31/19 23:29 62 05/31/19 20:00 98.1 67 18 118/54 (75) 96 05/31/19 20:00 T-piece 05/31/19 20:00 28 05/31/19 19:27 70 05/31/19 18:01 98 Cool Aerosol 5.0 28 05/31/19 16:00 T-piece 05/31/19 16:00 28 05/31/19 16:00 98.3 77 22 150/80 (103) 95 05/31/19 16:00 62 05/31/19 13:23 96 Cool Aerosol 5.0 28 05/31/19 12:00 28 05/31/19 12:00 69 05/31/19 12:00 99.7 74 23 122/62 (82) 98 05/31/19 12:00 T-piece Intake and Output 05/31/19 06/01/19 19:00 07:00 Intake Total 935.000 ml 1077.416 ml Output Total 2400 ml 2000 ml Balance -1465.000 ml -922.584 ml Intake Free Water 20 ml 50 ml IV Total 275.000 ml 367.416 ml Tube Feeding 640 ml 660 ml Output Urine Total 2400 ml 2000 ml # Bowel Movements 1 Laboratory Tests 05/31/19 14:18: Vancomycin Level Trough 8.9 06/01/19 04:23: White Blood Count 3.7L, Red Blood Count 3.48L, Hemoglobin 10.5L, Hematocrit 31.2L, Mean Corpuscular Volume 90, Mean Corpuscular Hemoglobin 30.2, Mean Corpuscular Hemoglobin Concent 33.7, Red Cell Distribution Width 15.0H, Platelet Count 140L, Mean Platelet Volume 5.8L, Neutrophils (%) (Auto) 76.6H, Lymphocytes (%) (Auto) 9.3L, Monocytes (%) (Auto) 7.2, Eosinophils (%) (Auto) 5.2H, Basophils (%) (Auto) 1.8, Sodium Level 138, Potassium Level 3.6, Chloride Level 104, Carbon Dioxide Level 29, Anion Gap 6, Blood Urea Nitrogen 8, Creatinine 0.5L, Estimat Glomerular Filtration Rate > 60, Glucose Level 110H, Calcium Level 8.1L, Pro-B-Type Natriuretic Peptide 687H, Hepatitis A IgM Antibody [Pending], Hepatitis B Surface Antigen [Pending], Hepatitis B Core IgM Antibody [Pending], Hepatitis C Antibody [Pending], HIV (1&2) Antibody Rapid Negative Height (Feet): 5 Height (Inches): 7.00 Weight (Pounds): 156 General Appearance: no apparent distress EENT: normal ENT inspection Neck: supple Cardiovascular: normal rate Respiratory/Chest: decreased breath sounds Abdomen: normal bowel sounds, non tender, soft Extremities: non-tender Narciso Engle MD Jun 01, 2019 10:15
--- NOTE | 2019-06-01 11:01 | Pulmonolgy Critical Care Note ---
Critical Care - Asmt/Plan Problems: (1) Nosocomial pneumonia (2) Hemorrhagic shock Assessment & Plan: resolved (3) Upper GI bleeding (4) Chronic respiratory failure (5) Esophageal mass (6) Gastrostomy tube in place (7) Radiation fibrosis of lung (8) Head and neck cancer Respiratory: monitor respiratory rate, adjust FIO2, CXR, other - thoracentesis Cardiac: continue pressors, continue to monitor HR/BP Renal: F/U I&O Infectious Disease: check cultures, continue antibiotics Gastrointestinal: continue feedings/current rate Endocrine: monitor blood sugar, continue sliding scale insulin Hematologic: monitor H/H, transfuse if hgb<8.5 Neurologic: PRN Ativan, keep patient comfortable Prophylaxis: Protonix 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, 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 Discussed with: nurses, 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, 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 - Objective Last 24 Hour Vital Signs Date Time Temp Pulse Resp B/P (MAP) Pulse Ox O2 Delivery O2 Flow Rate FiO2 06/01/19 08:00 96.4 70 19 121/59 (79) 96 06/01/19 07:56 28 06/01/19 07:36 52 06/01/19 07:32 T-piece 06/01/19 07:25 98 Cool Aerosol 5.0 28 06/01/19 04:00 T-piece 06/01/19 04:00 98.3 81 20 124/64 (84) 95 06/01/19 04:00 28 06/01/19 03:40 97.9 06/01/19 03:29 75 06/01/19 00:25 99 Cool Aerosol 5.0 28 06/01/19 00:00 28 06/01/19 00:00 T-piece 06/01/19 00:00 97.9 72 20 117/64 (81) 97 05/31/19 23:29 62 05/31/19 20:00 98.1 67 18 118/54 (75) 96 05/31/19 20:00 T-piece 05/31/19 20:00 28 05/31/19 19:27 70 05/31/19 18:01 98 Cool Aerosol 5.0 28 05/31/19 16:00 T-piece 05/31/19 16:00 28 05/31/19 16:00 98.3 77 22 150/80 (103) 95 05/31/19 16:00 62 05/31/19 13:23 96 Cool Aerosol 5.0 28 05/31/19 12:00 28 05/31/19 12:00 69 05/31/19 12:00 99.7 74 23 122/62 (82) 98 05/31/19 12:00 T-piece Status: awake Condition: critical, improving HEENT: atraumatic Neck: full ROM Heart: HR/BP stable Abdomen: non-tender, feeding tube Decubiti: location Critical Care - Subjective ROS Limited/Unobtainable: Yes Condition: critical EKG Rhythm: Sinus Rhythm FI02: 28 Vent Support Breath Rate: 16 Vent Support Mode: CPAP Vent Tidal Volume: 550 Sputum Amount: Small PEEP: 5.0 PIP: 15 Tube Feeding Amount: 55 I&O: Intake and Output 05/31/19 06/01/19 19:00 07:00 Intake Total 935.000 ml 1077.416 ml Output Total 2400 ml 2000 ml Balance -1465.000 ml -922.584 ml Intake Free Water 20 ml 50 ml IV Total 275.000 ml 367.416 ml Tube Feeding 640 ml 660 ml Output Urine Total 2400 ml 2000 ml # Bowel Movements 1 CXR: RLL effusion and collapse Labs: Laboratory Tests Test 05/31/19 14:18 06/01/19 04:23 Vancomycin Level Trough 8.9 ug/mL (5.0-12.0) White Blood Count 3.7 K/UL (4.8-10.8) L Red Blood Count 3.48 M/UL (4.70-6.10) L Hemoglobin 10.5 G/DL (14.2-18.0) L Hematocrit 31.2 % (42.0-52.0) L Mean Corpuscular Volume 90 FL (80-99) Mean Corpuscular Hemoglobin 30.2 PG (27.0-31.0) Mean Corpuscular Hemoglobin Concent 33.7 G/DL (32.0-36.0) Red Cell Distribution Width 15.0 % (11.6-14.8) H Platelet Count 140 K/UL (150-450) L Mean Platelet Volume 5.8 FL (6.5-10.1) L Neutrophils (%) (Auto) 76.6 % (45.0-75.0) H Lymphocytes (%) (Auto) 9.3 % (20.0-45.0) L Monocytes (%) (Auto) 7.2 % (1.0-10.0) Eosinophils (%) (Auto) 5.2 % (0.0-3.0) H Basophils (%) (Auto) 1.8 % (0.0-2.0) Sodium Level 138 MMOL/L (136-145) Potassium Level 3.6 MMOL/L (3.5-5.1) Chloride Level 104 MMOL/L (98-107) Carbon Dioxide Level 29 MMOL/L (21-32) Anion Gap 6 mmol/L (5-15) Blood Urea Nitrogen 8 mg/dL (7-18) Creatinine 0.5 MG/DL (0.55-1.30) L Estimat Glomerular Filtration Rate > 60 mL/min (>60) Glucose Level 110 MG/DL (74-106) H Calcium Level 8.1 MG/DL (8.5-10.1) L Pro-B-Type Natriuretic Peptide 687 pg/mL (0-125) H Hepatitis A IgM Antibody Pending Hepatitis B Surface Antigen Pending Hepatitis B Core IgM Antibody Pending Hepatitis C Antibody Pending HIV (1&2) Antibody Rapid Negative (NEGATIVE) Claudia Chi MD Jun 01, 2019 11:01
--- NOTE | 2019-06-01 11:12 | Infectious Diseases Prog Note ---
Assessment/Plan Assessment/Plan Assessment/Plan: A: Leukocytosis, Sp Sepsis/shock, Sp Fever, Sp Probable Pneum(HAC) -05/27 sp cx : MRSA -05/30 CXR: Increased opacities in the mid and lower lungs, right greater than left, which may represent pulmonary edema versus infectious/inflammatory process. Bilateral pleural effusions. Increased pulmonary vasculature congestion. Increased opacities in the mid and lower lungs, right greater than left, which may represent pulmonary edema versus infectious/inflammatory process. Bilateral pleural effusions. Increased pulmonary vasculature congestion. -05/28 CXR: ncreasing infiltrates versus edema in the right mid and lower lung, over one day. Persistent diffuse mild background interstitial congestion New or increased small bilateral pleural effusions - CXR: Right lung opacities and questionable patchy left lung opacities, likely pneumonia Transaminitis ( due to HypoTN) ucx eng HIV : neg upper airway bleed sp Trach and PEG throat cancer P: cont IV Vancomycin # 3 / CSp Zosyn # 5 05/27 SP IV Vanco # 2 Sp Amikacin # 1 Monitor CBC Monitor CMP Monitor CXR Monitor Cx (B,) Subjective Allergies: Coded Allergies: LEVOFLOXACIN (Verified Allergy, Unknown, 05/24/19) Possible allergic reaction - low blood pressure Subjective no new complain no sig bleeding from trach Objective Vital Signs Last 24 Hour Vital Signs Date Time Temp Pulse Resp B/P (MAP) Pulse Ox O2 Delivery O2 Flow Rate FiO2 06/01/19 08:00 96.4 70 19 121/59 (79) 96 06/01/19 07:56 28 06/01/19 07:36 52 06/01/19 07:32 T-piece 06/01/19 07:25 98 Cool Aerosol 5.0 28 06/01/19 04:00 T-piece 06/01/19 04:00 98.3 81 20 124/64 (84) 95 06/01/19 04:00 28 06/01/19 03:40 97.9 06/01/19 03:29 75 06/01/19 00:25 99 Cool Aerosol 5.0 28 06/01/19 00:00 28 06/01/19 00:00 T-piece 06/01/19 00:00 97.9 72 20 117/64 (81) 97 05/31/19 23:29 62 05/31/19 20:00 98.1 67 18 118/54 (75) 96 05/31/19 20:00 T-piece 05/31/19 20:00 28 05/31/19 19:27 70 05/31/19 18:01 98 Cool Aerosol 5.0 28 05/31/19 16:00 T-piece 05/31/19 16:00 28 05/31/19 16:00 98.3 77 22 150/80 (103) 95 05/31/19 16:00 62 05/31/19 13:23 96 Cool Aerosol 5.0 28 05/31/19 12:00 28 05/31/19 12:00 69 05/31/19 12:00 99.7 74 23 122/62 (82) 98 05/31/19 12:00 T-piece Height (Feet): 5 Height (Inches): 7.00 Weight (Pounds): 156 HEENT: anicteric Respiratory/Chest: no respiratory distress Cardiovascular: regular rhythm Abdomen: soft, non tender Laboratory Tests Test 05/31/19 14:18 06/01/19 04:23 Vancomycin Level Trough 8.9 ug/mL (5.0-12.0) White Blood Count 3.7 K/UL (4.8-10.8) L Red Blood Count 3.48 M/UL (4.70-6.10) L Hemoglobin 10.5 G/DL (14.2-18.0) L Hematocrit 31.2 % (42.0-52.0) L Mean Corpuscular Volume 90 FL (80-99) Mean Corpuscular Hemoglobin 30.2 PG (27.0-31.0) Mean Corpuscular Hemoglobin Concent 33.7 G/DL (32.0-36.0) Red Cell Distribution Width 15.0 % (11.6-14.8) H Platelet Count 140 K/UL (150-450) L Mean Platelet Volume 5.8 FL (6.5-10.1) L Neutrophils (%) (Auto) 76.6 % (45.0-75.0) H Lymphocytes (%) (Auto) 9.3 % (20.0-45.0) L Monocytes (%) (Auto) 7.2 % (1.0-10.0) Eosinophils (%) (Auto) 5.2 % (0.0-3.0) H Basophils (%) (Auto) 1.8 % (0.0-2.0) Sodium Level 138 MMOL/L (136-145) Potassium Level 3.6 MMOL/L (3.5-5.1) Chloride Level 104 MMOL/L (98-107) Carbon Dioxide Level 29 MMOL/L (21-32) Anion Gap 6 mmol/L (5-15) Blood Urea Nitrogen 8 mg/dL (7-18) Creatinine 0.5 MG/DL (0.55-1.30) L Estimat Glomerular Filtration Rate > 60 mL/min (>60) Glucose Level 110 MG/DL (74-106) H Calcium Level 8.1 MG/DL (8.5-10.1) L Pro-B-Type Natriuretic Peptide 687 pg/mL (0-125) H Hepatitis A IgM Antibody Pending Hepatitis B Surface Antigen Pending Hepatitis B Core IgM Antibody Pending Hepatitis C Antibody Pending HIV (1&2) Antibody Rapid Negative (NEGATIVE) Current Medications Medications (Trade) Dose Ordered Sig/Mervat Route PRN Reason Start Time Stop Time Status Last Admin Dose Admin Acetaminophen (Tylenol) 650 mg Q4H PRN ORAL FEVER 05/30/19 19:30 06/23/19 19:29 Acetaminophen/ Hydrocodone Bitart (Rienzi 5/325) 1 tab Q6H PRN GT For Pain 05/30/19 22:45 06/06/19 22:44 06/01/19 03:10 Albuterol/ Ipratropium (Albuterol/ Ipratropium) 3 ml Q4H PRN HHN Shortness of Breath 05/30/19 19:00 06/04/19 06:59 Alprazolam (Xanax) 0.25 mg Q8H PRN ORAL For Anxiety 05/31/19 09:45 06/07/19 09:44 Chlorhexidine Gluconate (Stacie-Hex 2%) 1 applic DAILY@1999 TOPIC 05/30/19 20:00 06/24/19 19:59 05/31/19 19:56 Dextrose (Dextrose 50%) 25 ml Q30M PRN IV Hypoglycemia 05/30/19 19:00 06/23/19 17:29 Dextrose (Dextrose 50%) 50 ml Q30M PRN IV Hypoglycemia 05/30/19 19:00 06/23/19 17:29 Docusate Sodium (Colace) 100 mg TWICE A DAY NG 05/31/19 09:00 06/26/19 08:59 Lactulose (Cephulac) 20 gm DAILY ORAL 05/31/19 09:00 06/27/19 08:59 Ondansetron HCl (Zofran) 4 mg Q6H PRN IVP Nausea & Vomiting 05/30/19 19:30 06/23/19 19:29 Pantoprazole (Protonix) 40 mg EVERY 12 HOURS IVP 05/30/19 21:00 06/24/19 20:59 06/01/19 08:18 Polyethylene Glycol (Miralax) 17 gm BEDTIME ORAL 05/30/19 21:00 06/25/19 20:59 Vancomycin HCl (Vanco rx to dose) 1 ea DAILY PRN MISC Per rx protocol 05/31/19 09:00 06/29/19 13:44 Vancomycin HCl 1 gm/Dextrose 275 ml @ 183.708 mls/hr Q8H IVPB 05/31/19 23:00 06/05/19 22:59 06/01/19 06:02 Zolpidem Tartrate (Ambien) 5 mg HSPRN PRN GT Insomnia 05/30/19 22:45 06/06/19 22:44 05/31/19 22:57 Jose Luis Alba MD Jun 01, 2019 11:12
--- NOTE | 2019-06-01 11:35 | Surgery Progress Note ---
Surgery Progress Note Subjective Additional Comments downgraded comfortable h/h stable Objective Last 24 Hour Vital Signs Date Time Temp Pulse Resp B/P (MAP) Pulse Ox O2 Delivery O2 Flow Rate FiO2 06/01/19 08:00 96.4 70 19 121/59 (79) 96 06/01/19 07:56 28 06/01/19 07:36 52 06/01/19 07:32 T-piece 06/01/19 07:25 98 Cool Aerosol 5.0 28 06/01/19 04:00 T-piece 06/01/19 04:00 98.3 81 20 124/64 (84) 95 06/01/19 04:00 28 06/01/19 03:40 97.9 06/01/19 03:29 75 06/01/19 00:25 99 Cool Aerosol 5.0 28 06/01/19 00:00 28 06/01/19 00:00 T-piece 06/01/19 00:00 97.9 72 20 117/64 (81) 97 05/31/19 23:29 62 05/31/19 20:00 98.1 67 18 118/54 (75) 96 05/31/19 20:00 T-piece 05/31/19 20:00 28 05/31/19 19:27 70 05/31/19 18:01 98 Cool Aerosol 5.0 28 05/31/19 16:00 T-piece 05/31/19 16:00 28 05/31/19 16:00 98.3 77 22 150/80 (103) 95 05/31/19 16:00 62 05/31/19 13:23 96 Cool Aerosol 5.0 28 05/31/19 12:00 28 05/31/19 12:00 69 05/31/19 12:00 99.7 74 23 122/62 (82) 98 05/31/19 12:00 T-piece I&O Intake and Output 05/31/19 06/01/19 19:00 07:00 Intake Total 935.000 ml 1077.416 ml Output Total 2400 ml 2000 ml Balance -1465.000 ml -922.584 ml Intake Free Water 20 ml 50 ml IV Total 275.000 ml 367.416 ml Tube Feeding 640 ml 660 ml Output Urine Total 2400 ml 2000 ml # Bowel Movements 1 Dressing: dry Wound: clean Cardiovascular: RSR Respiratory: clear Abdomen: soft, present bowel sounds Extremities: no edema, no tenderness, no cyanosis Laboratory Tests Test 05/31/19 14:18 06/01/19 04:23 Vancomycin Level Trough 8.9 ug/mL (5.0-12.0) White Blood Count 3.7 K/UL (4.8-10.8) L Red Blood Count 3.48 M/UL (4.70-6.10) L Hemoglobin 10.5 G/DL (14.2-18.0) L Hematocrit 31.2 % (42.0-52.0) L Mean Corpuscular Volume 90 FL (80-99) Mean Corpuscular Hemoglobin 30.2 PG (27.0-31.0) Mean Corpuscular Hemoglobin Concent 33.7 G/DL (32.0-36.0) Red Cell Distribution Width 15.0 % (11.6-14.8) H Platelet Count 140 K/UL (150-450) L Mean Platelet Volume 5.8 FL (6.5-10.1) L Neutrophils (%) (Auto) 76.6 % (45.0-75.0) H Lymphocytes (%) (Auto) 9.3 % (20.0-45.0) L Monocytes (%) (Auto) 7.2 % (1.0-10.0) Eosinophils (%) (Auto) 5.2 % (0.0-3.0) H Basophils (%) (Auto) 1.8 % (0.0-2.0) Sodium Level 138 MMOL/L (136-145) Potassium Level 3.6 MMOL/L (3.5-5.1) Chloride Level 104 MMOL/L (98-107) Carbon Dioxide Level 29 MMOL/L (21-32) Anion Gap 6 mmol/L (5-15) Blood Urea Nitrogen 8 mg/dL (7-18) Creatinine 0.5 MG/DL (0.55-1.30) L Estimat Glomerular Filtration Rate > 60 mL/min (>60) Glucose Level 110 MG/DL (74-106) H Calcium Level 8.1 MG/DL (8.5-10.1) L Pro-B-Type Natriuretic Peptide 687 pg/mL (0-125) H Hepatitis A IgM Antibody Pending Hepatitis B Surface Antigen Pending Hepatitis B Core IgM Antibody Pending Hepatitis C Antibody Pending HIV (1&2) Antibody Rapid Negative (NEGATIVE) Plan Problems: (1) Esophageal mass Assessment & Plan: This is a 73-year-old male with known history of throat cancer possible esophageal cancer status post chemoradiation [facility] a few years back who recently has developed cardiac arrest shortness of breath respiratory compromise and had tracheostomy at outside facility for airway protection. Was in recovery until recently identified to have desaturation with blood clots noted within tracheostomy tube suctions as well as oral suctioning. Patient admitted for care and management identified to have anemia bleeding and hemorrhage. Surgery called to evaluate patient was seen. Hemorrhage has significantly decreased and currently no active bleeding noted. H&H trending down and being transfused as per my recommendations. Patient is awake alert states he feels better. He slowly weaning off pressors. Unfortunately given history current condition and the above no acute surgical intervention indicated or recommended. Will obtain attempt records from [facility] as well as [facility]. Continue with deep suctioning by respiratory. Okay for oral suctioning. Monitor for bleeding. Fortunately currently no active bleeding and hopefully its its way. We will keep close eye on H&H as well as coags to ensure patient improving. Permissive hypotension okay. Wean pressors. Thank you for let me participation's care will continue to follow with recommendations and further evaluation. Labs noted H&H improved after transfusion LFTs bilirubin noted likely response to bleeding patient states no longer currently actively bleeding otherwise stable off pressors improving Continue with current treatment will monitor downgrade labs okay off vent no bleeding improving feeds as tolerated d/c planning (2) Hemoptysis Assessment & Plan: Findings: Interstitial and airspace opacities are seen throughout the right mid and lower lung. Questionable patchy peripheral opacities are also present on the left. Heart size is normal. The pleural spaces are clear Impression: Right lung opacities and questionable patchy left lung opacities, likely pneumonia. (3) Head and neck cancer Jaems Brothers Jun 01, 2019 11:35
[2019-06-01 12:00] VITALS: BP 115/56
--- NOTE | 2019-06-01 12:30 | Diagnostic Imaging Report ---
Indication: Dyspnea Comparison: 05/31/2019 A single view chest radiograph was obtained. Findings: Interstitial densities with the prominent vascularity and heart size demonstrated. Bilateral pleural effusions suspected. Tracheostomy again noted. IMPRESSION: Pulmonary edema. Bilateral pleural effusions. No significant change
[2019-06-01] MEDS: ALPRAZolam 0.25mg tab ORAL PRN (13:58)
--- NOTE | 2019-06-01 15:00 | NUR ---
NURSE NOTES: thoracentesis done. collected 30ml of fluid. sent to lab for analysis. patient tolerated procedure well. not in acute distress.
[2019-06-01 16:00] VITALS: BP 130/61
--- NOTE | 2019-06-01 16:04 | Diagnostic Imaging Report ---
Indications: Pleural effusion Technique: Ultrasound used to localize optimal puncture site. Sterile prepping and draping of the right lower chest performed. Positioning proved difficult as the patient could only partially sit up. Local anesthesia with 1% lidocaine. Dermatotomy made. Puncture of the pleural space using thoracentesis needle. Stylet removed. Catheter placed to vacuum bottle suction. Fluid was aspirated. Patient tolerated procedure well, without immediate complication. Findings: Only a small amount of fluid could be aspirated. About 50 cc of clear yellow fluid was obtained. This is in part because of the small amount of fluid present and the small percutaneous window. The catheter position was tenuous and slight patient movement resulted in catheter falling out. A second attempt was not performed. Followup chest x-ray is pending. Impression: Successful ultrasound-guided diagnostic right thoracentesis, yielding only 50 cc of fluid.
--- NOTE | 2019-06-01 16:08 | Diagnostic Imaging Report ---
Indication: Dyspnea Comparison: 06/01/2019 A single view chest radiograph was obtained. Findings: There is evidence of mild interstitial edema with some improvement since the previous examination from earlier this morning. There is evidence of bilateral pleural effusions currently. Interstitial and alveolar densities are still present in the perihilar and lower lobes mainly. Heart size appears improved. Tracheostomy again noted. IMPRESSION: Mild CHF improved compared to the film from earlier this morning.
--- NOTE | 2019-06-01 16:14 | NUR ---
CLERICAL ADJUSTERCASING COOKER SI; HEMOPTYSIS,ASPIRATION, S/P THORACENTESIS T. 96.4 HR 70 RR 19 B/P 121/89 TBAR FIO2 28% BNP 687 THORACENTESIS= 50ML IS: VANCO IV PROTONIX IV ALB HHN STEP DOWN STATUS
--- NOTE | 2019-06-01 19:11 | NUR ---
HAND-OFF: Report given to donnell carrillo.
--- NOTE | 2019-06-01 19:15 | NUR ---
RESPIRATORY NOTE: Received pt on 28% Cool Aerosol via T-Piece. Pt is trach-dependent w/ a cuffed, Shiley 8 tube, cuff is currently deflated. Pt is alert/awake, follows commands. B/S caitie. rhonchi/diminished, sxn small to moderate amounts of thick, painting/brown secretions w/ occasional blood. Vent on standby at bedside, plugged into red outlet. Ambubag also at bedside. Pt resting comfortably, in no apparent distress at this time. Will continue plan of care.
--- NOTE | 2019-06-01 19:18 | Internal Med Progress Note ---
Subjective Date of Service: Jun 01, 2019 Physician Name Igor Lucero Attending Physician Matthew Davis MD Current Medications Medications (Trade) Dose Ordered Sig/Mervat Route PRN Reason Start Time Stop Time Status Last Admin Dose Admin Acetaminophen (Tylenol) 650 mg Q4H PRN ORAL FEVER 05/30/19 19:30 06/23/19 19:29 Acetaminophen/ Hydrocodone Bitart ([place] 5/325) 1 tab Q6H PRN GT For Pain 05/30/19 22:45 06/06/19 22:44 06/01/19 03:10 Albuterol/ Ipratropium (Albuterol/ Ipratropium) 3 ml Q4H PRN HHN Shortness of Breath 05/30/19 19:00 06/04/19 06:59 Alprazolam (Xanax) 0.25 mg Q8H PRN ORAL For Anxiety 05/31/19 09:45 06/07/19 09:44 06/01/19 13:58 Chlorhexidine Gluconate (Stacie-Hex 2%) 1 applic DAILY@2000 TOPIC 05/30/19 20:00 06/24/19 19:59 05/31/19 19:56 Dextrose (Dextrose 50%) 25 ml Q30M PRN IV Hypoglycemia 05/30/19 19:00 06/23/19 17:29 Dextrose (Dextrose 50%) 50 ml Q30M PRN IV Hypoglycemia 05/30/19 19:00 06/23/19 17:29 Docusate Sodium (Colace) 100 mg TWICE A DAY NG 05/31/19 09:00 06/26/19 08:59 Lactulose (Cephulac) 20 gm DAILY ORAL 05/31/19 09:00 06/27/19 08:59 Ondansetron HCl (Zofran) 4 mg Q6H PRN IVP Nausea & Vomiting 05/30/19 19:30 06/23/19 19:29 Pantoprazole (Protonix) 40 mg EVERY 12 HOURS IVP 05/30/19 21:00 06/24/19 20:59 06/01/19 08:18 Polyethylene Glycol (Miralax) 17 gm BEDTIME ORAL 05/30/19 21:00 06/25/19 20:59 Vancomycin HCl (Vanco rx to dose) 1 ea DAILY PRN MISC Per rx protocol 05/31/19 09:00 06/29/19 13:44 Vancomycin HCl 1 gm/Dextrose 275 ml @ 183.708 mls/hr Q8H IVPB 05/31/19 23:00 06/12/19 22:59 06/01/19 14:24 Zolpidem Tartrate (Ambien) 5 mg HSPRN PRN GT Insomnia 05/30/19 22:45 06/06/19 22:44 05/31/19 22:57 Allergies: Coded Allergies: LEVOFLOXACIN (Verified Allergy, Unknown, 05/24/19) Possible allergic reaction - low blood pressure ROS Limited/Unobtainable: No Constitutional: Reports: no symptoms HEENT: Reports: no symptoms Cardiovascular: Reports: no symptoms Respiratory: Reports: no symptoms Gastrointestinal/Abdominal: Reports: no symptoms Genitourinary: Reports: no symptoms Neurologic/Psychiatric: Reports: no symptoms Subjective 73 YO M with esophageal mass admitted with hemoptysis. Now Pneumonia. Cover for Int med-DR Davis. SDU. S/P right thoracentesis 06/01/19 Objective Last Vital Signs Date Time Temp Pulse Resp B/P (MAP) Pulse Ox O2 Delivery O2 Flow Rate FiO2 06/01/19 16:00 T-piece 06/01/19 16:00 28 06/01/19 16:00 98.6 82 20 130/61 (84) 98 06/01/19 12:48 5.0 Laboratory Tests Test 06/01/19 04:23 06/01/19 12:10 06/01/19 13:22 White Blood Count 3.7 K/UL (4.8-10.8) L Red Blood Count 3.48 M/UL (4.70-6.10) L Hemoglobin 10.5 G/DL (14.2-18.0) L Hematocrit 31.2 % (42.0-52.0) L Mean Corpuscular Volume 90 FL (80-99) Mean Corpuscular Hemoglobin 30.2 PG (27.0-31.0) Mean Corpuscular Hemoglobin Concent 33.7 G/DL (32.0-36.0) Red Cell Distribution Width 15.0 % (11.6-14.8) H Platelet Count 140 K/UL (150-450) L Mean Platelet Volume 5.8 FL (6.5-10.1) L Neutrophils (%) (Auto) 76.6 % (45.0-75.0) H Lymphocytes (%) (Auto) 9.3 % (20.0-45.0) L Monocytes (%) (Auto) 7.2 % (1.0-10.0) Eosinophils (%) (Auto) 5.2 % (0.0-3.0) H Basophils (%) (Auto) 1.8 % (0.0-2.0) Sodium Level 138 MMOL/L (136-145) Potassium Level 3.6 MMOL/L (3.5-5.1) Chloride Level 104 MMOL/L (98-107) Carbon Dioxide Level 29 MMOL/L (21-32) Anion Gap 6 mmol/L (5-15) Blood Urea Nitrogen 8 mg/dL (7-18) Creatinine 0.5 MG/DL (0.55-1.30) L Estimat Glomerular Filtration Rate > 60 mL/min (>60) Glucose Level 110 MG/DL (74-106) H Calcium Level 8.1 MG/DL (8.5-10.1) L Pro-B-Type Natriuretic Peptide 687 pg/mL (0-125) H Hepatitis A IgM Antibody Pending Hepatitis B Surface Antigen Pending Hepatitis B Core IgM Antibody Pending Hepatitis C Antibody Pending HIV (1&2) Antibody Rapid Negative (NEGATIVE) Activated Partial Thromboplast Time 32 SEC (23-33) Prothrombin Time 11.0 SEC (9.30-11.50) Prothromb Time International Ratio 1.0 (0.9-1.1) Intake and Output 05/31/19 06/01/19 19:00 07:00 Intake Total 935.000 ml 1077.416 ml Output Total 2400 ml 2000 ml Balance -1465.000 ml -922.584 ml Intake Free Water 20 ml 50 ml IV Total 275.000 ml 367.416 ml Tube Feeding 640 ml 660 ml Output Urine Total 2400 ml 2000 ml # Bowel Movements 1 Objective PHYSICAL EXAMINATION: GENERAL: The patient is a well-nourished male, who is in moderate distress. HEENT: Trach; Eyes, pupils are equal and responsive to light and accommodation. Extraocular movements are intact. Tracheostomy is present. CHEST: Mech vent; Lungs are clear with mechanical breath sounds bilaterally. ABDOMEN: Soft, nontender, and nondistended. Positive bowel sounds. No evidence of hepatosplenomegaly. Currently, no rebound or guarding noted. EXTREMITIES: Negative for clubbing, cyanosis, or edema. RECTAL/GENITAL: Not performed. NEUROLOGICAL: Cranial nerves II to XII grossly intact without focal deficits. Motor strength is 5/5 bilaterally. Deep tendon reflexes are 2+ plantar. 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 Esophageal hemorrhage. 3. Airway obstruction. 4. Hypoxia. 5. History of esophageal cancer. 6. Elevated liver function tests. 7. Bilateral pneumonia=MRSA 8. Tracheostomy dependent 9. right pleural effusion TREATMENT: 1. Squamous cell carcinoma/hemorrhage. A Hematology/Oncology consultation has been obtained with Dr. Paz. The patient has received four units of packed RBCs and 1 unit FFP. The patient is in the Step down unit. The patient is currently off pressors. 2. Hypoxia. A Pulmonary/Critical Care consultation has been obtained with Dr. Claudia Chi. Hypoxia is probably secondary to tracheal obstruction secondary to hemorrhage as above. Continue vent per Dr. Chi. 3. Pneumonia=MRSA ABX= Zosyn and vancomycin. An Infectious Disease consultation has been obtained with Dr. Alba. We will follow recommendations of Infectious Disease. A sputum culture=MRSA 4. Elevated liver function tests/esophageal mass. A Gastroenterology consultation has been obtained with Dr. Narciso Engle. The patient may require repeat biopsy of esophageal mass. We will follow recommendations of Gastroenterology. 5. S/P right thoracentesis 06/01/19 Igor Lucero MD Jun 01, 2019 19:18
--- NOTE | 2019-06-01 19:28 | NUR ---
NURSE NOTES: Received pt from ANTONY Cash. pt is observed in bed, eyes open, able to make needs known, no s/sx of pain noted at this time. pt is on T-piece: Shiley: 8, FiO2: 28% with cool aerosol. tolerating well, saturation: 97%; no s/sx of respiratory distress noted at this time. machine cloth measurer shows SR with HR of 83, no s/sx of cardiac distress noted at this time. G-tube site is patent and intact, running Osmolyte at 55 cc/hr. HOB elevated to 45 degrees, no residual noted. F/C is patent and intact, draining well to gravity. skin alterations noted. ADAN midline patent and intact, asymptomatic. dressing dry and intact. LFA 20 g IV site is patent and intact, asymptomatic. bed in lowest position and locked, siderails up X3, call light within reach. will continue to monitor.
[2019-06-01 20:00] VITALS: BP 105/54
[2019-06-01] MEDS: Dyna-Hex 2% Top Sol 2oz TOPIC SCH (20:34)
[2019-06-01] MEDS: Miralax 17gm pkt ORAL SCH (21:00)
--- NOTE | 2019-06-01 22:15 | NUR ---
NURSE NOTES: all due meds given. pt repositioned with pillow support. noted 2+ pitting edema on LLE. bilateral heels elevated. call light within reach. will continue to monitor.
[2019-06-02] VITALS: BP 108/52
[2019-06-02 04:00] VITALS: BP 100/48
[2019-06-02] MEDS: ALPRAZolam 0.25mg tab ORAL PRN (05:19)
--- NOTE | 2019-06-02 06:41 | Hematology/Onc Progress Note ---
Assessment/Plan Assessment/Plan ASSESSMENT/RECS: #. Head and neck cancer with history of chemo and radiation, with a recent biopsy at [facility], 05/15/19 "LEFT SOFT PALATE MASS" which shows invasive keratinizing squamous cell carcinoma, well to moderately differentiated, from a 05/15 specimen --> likely in this case doesn't have a unique esophageal mas but rather has recurrence of malignancy --> has been seen by ent --> at this time, recommend conservative care, control of trach bleed #. Esophageal hemorrhage --> requires hemostatic support --> coags have been checked --> vitamin K has been ordered --> now improved --> as per gi #. Pancytopenia -- initally with anemia of chronic disease due to underlying chronic medical issues, multifactorial v Gi bleed --> Anemia workup has been reviewed, ferritin 1190 --> No evidence of hemolysis is noted, peripheral smear has been reviewed. --> Hgb goal >7. Transfuse prn. --> Epogen or iron at this time is not particularly indicated --> Medications have been reviewed --> occult + --> as per Gi eval --> hgb trend: 9.8-->10.1-->9.2-->10.5 --> blood tx: 05/26 --> hepatitis and hiv pend # Airway obstruction. --> sp trach # Hypoxia. --> per pulm # Elevated liver function tests. --> as per gi, imaging ordered # Sepsis s/p abx --> per id and has received pressors --> in the icu --> vanc/zosyn--> vanc # Pneumonia. --> on abx --> cxr: Suspected interstitial edema/CHF. Pneumonia in the right midlung not excluded # sp Trach and PEG Appreciate consultation and skip Rn Subjective Constitutional: Denies: no symptoms, chills, fever, malaise, weakness, other HEENT: Denies: no symptoms, eye pain, blurred vision, tearing, double vision, ear pain, ear discharge, nose pain, nose congestion, throat pain, throat swelling, mouth pain, mouth swelling, other Cardiovascular: Denies: no symptoms, chest pain, edema, irregular heart rate, lightheadedness, palpitations, syncope, other Respiratory: Denies: no symptoms, cough, shortness of breath, SOB with excertion, SOB at rest, sputum, wheezing, other Gastrointestinal/Abdominal: Denies: no symptoms, abdomen distended, abdominal pain, black stools, tarry stools, blood in stool, constipated, diarrhea, difficulty swallowing, nausea, poor appetite, poor fluid intake, rectal bleeding , vomiting, other Neurologic/Psychiatric: Denies: no symptoms, anxiety, depressed, emotional problems, headache, numbness, paresthesia, pre-existing deficit, seizure, tingling, tremors, weakness, other Endocrine: Denies: no symptoms, excessive sweating, flushing, intolerance to cold, intolerance to heat, increased hunger, increased thirst, increased urine, unexplained weight gain, unexplained weight loss, other Hematologic/Lymphatic: Denies: no symptoms, anemia, easy bleeding, easy bruising, adenopathy, other Allergies: Coded Allergies: LEVOFLOXACIN (Verified Allergy, Unknown, 05/24/19) Possible allergic reaction - low blood pressure Subjective 05/27: icu, cxr reviewed, arythmia overnight, currently alert, no distress, on levophed 05/28: cxr with increased bilat effusions, stool ob positive, h/h stable 05/29: icu, vent, no recurrent bleeding, hgb 9.2 05/31: no events, out of unit, labs noted, relatively stable 05/31: no bleeding or chills, downgraded, labs noted Objective Objective Current Medications Medications (Trade) Dose Ordered Sig/Mervat Route PRN Reason Start Time Stop Time Status Last Admin Dose Admin Acetaminophen (Tylenol) 650 mg Q4H PRN ORAL FEVER 05/30/19 19:30 06/23/19 19:29 Acetaminophen/ Hydrocodone Bitart (Lambert 5/325) 1 tab Q6H PRN GT For Pain 05/30/19 22:45 06/06/19 22:44 06/01/19 20:35 Albuterol/ Ipratropium (Albuterol/ Ipratropium) 3 ml Q4H PRN HHN Shortness of Breath 05/30/19 19:00 06/04/19 06:59 Alprazolam (Xanax) 0.25 mg Q8H PRN ORAL For Anxiety 05/31/19 09:45 06/07/19 09:44 06/02/19 05:19 Chlorhexidine Gluconate (Stacie-Hex 2%) 1 applic DAILY@2000 TOPIC 05/30/19 20:00 06/24/19 19:59 06/01/19 20:34 Dextrose (Dextrose 50%) 25 ml Q30M PRN IV Hypoglycemia 05/30/19 19:00 06/23/19 17:29 Dextrose (Dextrose 50%) 50 ml Q30M PRN IV Hypoglycemia 05/30/19 19:00 06/23/19 17:29 Docusate Sodium (Colace) 100 mg TWICE A DAY NG 05/31/19 09:00 06/26/19 08:59 Lactulose (Cephulac) 20 gm DAILY ORAL 05/31/19 09:00 06/27/19 08:59 Ondansetron HCl (Zofran) 4 mg Q6H PRN IVP Nausea & Vomiting 05/30/19 19:30 06/23/19 19:29 Pantoprazole (Protonix) 40 mg EVERY 12 HOURS IVP 05/30/19 21:00 06/24/19 20:59 06/01/19 20:35 Polyethylene Glycol (Miralax) 17 gm BEDTIME ORAL 05/30/19 21:00 06/25/19 20:59 Vancomycin HCl (Vanco rx to dose) 1 ea DAILY PRN MISC Per rx protocol 05/31/19 09:00 06/29/19 13:44 Vancomycin HCl 1 gm/Dextrose 275 ml @ 183.708 mls/hr Q8H IVPB 05/31/19 23:00 06/12/19 22:59 06/01/19 23:08 Zolpidem Tartrate (Ambien) 5 mg HSPRN PRN GT Insomnia 05/30/19 22:45 06/06/19 22:44 05/31/19 22:57 Last 24 Hour Vital Signs Date Time Temp Pulse Resp B/P (MAP) Pulse Ox O2 Delivery O2 Flow Rate FiO2 06/02/19 04:00 28 06/02/19 04:00 98.8 58 24 100/48 (65) 97 06/02/19 04:00 T-piece 06/02/19 04:00 58 06/02/19 01:10 99 T-Piece 5.0 28 06/02/19 00:00 72 06/02/19 00:00 T-piece 3/3/20 00:00 28 06/02/19 00:00 98.6 72 20 108/52 (70) 97 06/01/19 20:00 98.8 80 20 105/54 (71) 100 06/01/19 20:00 T-piece 06/01/19 20:00 80 06/01/19 20:00 28 06/01/19 19:12 97 T-Piece 5.0 28 06/01/19 16:00 T-piece 06/01/19 16:00 28 06/01/19 16:00 98.6 82 20 130/61 (84) 98 06/01/19 15:30 85 06/01/19 12:48 97 Cool Aerosol 5.0 06/01/19 12:00 98.1 74 18 115/56 (75) 97 06/01/19 12:00 T-piece 06/01/19 12:00 28 06/01/19 11:42 72 06/01/19 08:00 96.4 70 19 121/59 (79) 96 06/01/19 07:56 28 06/01/19 07:36 52 06/01/19 07:32 T-piece 06/01/19 07:25 98 Cool Aerosol 5.0 06/01/19 04:00 T-piece 06/01/19 04:00 98.3 81 20 124/64 (84) 95 06/01/19 04:00 28 06/01/19 03:40 97.9 06/01/19 03:29 75 06/01/19 00:25 99 Cool Aerosol 5.0 06/01/19 00:00 28 06/01/19 00:00 T-piece 06/01/19 00:00 97.9 72 20 117/64 (81) 97 05/31/19 23:29 62 05/31/19 20:00 98.1 67 18 118/54 (75) 96 05/31/19 20:00 T-piece 05/31/19 20:00 28 05/31/19 19:27 70 05/31/19 18:01 98 Cool Aerosol 5.0 28 05/31/19 16:00 T-piece 05/31/19 16:00 28 05/31/19 16:00 98.3 77 22 150/80 (103) 95 05/31/19 16:00 62 05/31/19 13:23 96 Cool Aerosol 5.0 28 05/31/19 12:00 28 05/31/19 12:00 69 05/31/19 12:00 99.7 74 23 122/62 (82) 98 05/31/19 12:00 T-piece 05/31/19 09:00 28 05/31/19 08:00 58 05/31/19 08:00 T-piece 05/31/19 07:51 98.1 65 19 107/51 (69) 95 05/31/19 07:04 99 Cool Aerosol 5.0 28 Intake and Output 06/01/19 06/02/19 19:00 07:00 Intake Total 1454.832 ml 980 ml Output Total 2230 ml 2000 ml Balance -775.168 ml -1020 ml Intake Free Water 60 ml 100 ml IV Total 734.832 ml 275 ml Tube Feeding 660 ml 605 ml Output Urine Total 2200 ml 2000 ml Other 30 ml # Bowel Movements 1 Labs Test 05/31/19 04:32 05/31/19 14:18 06/01/19 04:23 06/01/19 12:10 White Blood Count 4.1 K/UL (4.8-10.8) 3.7 K/UL (4.8-10.8) Red Blood Count 3.26 M/UL (4.70-6.10) 3.48 M/UL (4.70-6.10) Hemoglobin 9.7 G/DL (14.2-18.0) 10.5 G/DL (14.2-18.0) Hematocrit 29.5 % (42.0-52.0) 31.2 % (42.0-52.0) Mean Corpuscular Volume 90 FL (80-99) 90 FL (80-99) Mean Corpuscular Hemoglobin 29.9 PG (27.0-31.0) 30.2 PG (27.0-31.0) Mean Corpuscular Hemoglobin Concent 33.0 G/DL (32.0-36.0) 33.7 G/DL (32.0-36.0) Red Cell Distribution Width 15.3 % (11.6-14.8) 15.0 % (11.6-14.8) Platelet Count 125 K/UL (150-450) 140 K/UL (150-450) Mean Platelet Volume 6.1 FL (6.5-10.1) 5.8 FL (6.5-10.1) Neutrophils (%) (Auto) 83.5 % (45.0-75.0) 76.6 % (45.0-75.0) Lymphocytes (%) (Auto) 7.7 % (20.0-45.0) 9.3 % (20.0-45.0) Monocytes (%) (Auto) 3.8 % (1.0-10.0) 7.2 % (1.0-10.0) Eosinophils (%) (Auto) 4.3 % (0.0-3.0) 5.2 % (0.0-3.0) Basophils (%) (Auto) 0.6 % (0.0-2.0) 1.8 % (0.0-2.0) Sodium Level 137 MMOL/L (136-145) 138 MMOL/L (136-145) Potassium Level 3.6 MMOL/L (3.5-5.1) 3.6 MMOL/L (3.5-5.1) Chloride Level 105 MMOL/L (98-107) 104 MMOL/L (98-107) Carbon Dioxide Level 25 MMOL/L (21-32) 29 MMOL/L (21-32) Anion Gap 7 mmol/L (5-15) 6 mmol/L (5-15) Blood Urea Nitrogen 9 mg/dL (7-18) 8 mg/dL (7-18) Creatinine 0.5 MG/DL (0.55-1.30) 0.5 MG/DL (0.55-1.30) Estimat Glomerular Filtration Rate > 60 mL/min (>60) > 60 mL/min (>60) Glucose Level 98 MG/DL (74-106) 110 MG/DL (74-106) Calcium Level 7.9 MG/DL (8.5-10.1) 8.1 MG/DL (8.5-10.1) Vancomycin Level Trough 8.9 ug/mL (5.0-12.0) Pro-B-Type Natriuretic Peptide 687 pg/mL (0-125) HIV (1&2) Antibody Rapid Negative (NEGATIVE) Activated Partial Thromboplast Time 32 SEC (23-33) Test 06/01/19 13:22 Prothrombin Time 11.0 SEC (9.30-11.50) Prothromb Time International Ratio 1.0 (0.9-1.1) Height (Feet): 5 Height (Inches): 7.00 Weight (Pounds): 156 Objective Physical Exam: Vitals: reviewed General: NAD HEENT: nc, at ++ trach/vent Neck: supple Chest: clear breath sounds bilaterally Abdomen: soft, nontender, nd ++ gtube Extremities: no cce, normal range of motion Neuro: alert and oriented Ar Paz MD Jun 02, 2019 06:41
[2019-06-02 06:44] LABS: BASOPHILS % (AUTO) 0.7 % (0.0-2.0); HEMATOCRIT 37.1 % (42.0-52.0); HEMOGLOBIN 12.1 G/DL (14.2-18.0); LYMPHOCYTES % (AUTO) 14.6 % (20.0-45.0); MEAN CORPUSCULAR VOLUME 91 FL (80-99); MONOCYTES % (AUTO) 3.3 % (1.0-10.0); NEUTROPHILS % (AUTO) 78.4 % (45.0-75.0); PLATELET COUNT 174 K/UL (150-450); RED BLOOD COUNT 4.08 M/UL (4.70-6.10); RED CELL DISTRIBUTION WIDTH 15.2 % (11.6-14.8); WHITE BLOOD COUNT 5.1 K/UL (4.8-10.8)
[2019-06-02 07:17] LABS: ALANINE AMINOTRANSFERASE 93 U/L (12-78); ALBUMIN 1.5 G/DL (3.4-5.0); ALBUMIN/GLOBULIN RATIO 0.3 (1.0-2.7); ALKALINE PHOSPHATASE 69 U/L (46-116); ANION GAP 10 mmol/L (5-15); ASPARTATE AMINO TRANSFERASE 61 U/L (15-37); BILIRUBIN,TOTAL 0.4 MG/DL (0.2-1.0); BLOOD UREA NITROGEN 10 mg/dL (7-18); CALCIUM 8.9 MG/DL (8.5-10.1); CARBON DIOXIDE 27 MMOL/L (21-32); CHLORIDE 103 MMOL/L (98-107); CREATININE 0.7 MG/DL (0.55-1.30); POTASSIUM 5.3 MMOL/L (3.5-5.1); SODIUM 140 MMOL/L (136-145)
--- NOTE | 2019-06-02 07:52 | NUR ---
HAND-OFF: Report given to Shannon Wood RN. pt is in stable condition.
[2019-06-02 08:00] VITALS: BP 96/59
--- NOTE | 2019-06-02 08:10 | General Progress Note ---
Assessment/Plan Problem List: (1) G tube feedings ICD Codes: Z93.1 - Gastrostomy status SNOMED: 614094856, 418993970, 884159620 (2) Chronic respiratory failure ICD Codes: J96.10 - Chronic respiratory failure, unspecified whether with hypoxia or hypercapnia SNOMED: 92675966 (3) Gastrostomy tube in place ICD Codes: Z93.1 - Gastrostomy status SNOMED: 301586311, 691423728 (4) Hemoptysis ICD Codes: R04.2 - Hemoptysis SNOMED: 51588623 (5) Esophageal mass ICD Codes: K22.8 - Other specified diseases of esophagus SNOMED: 426664038 Assessment/Plan: most likely bleeding from trach ppi s/p 4 units blood transfusion GTF tolerated, changed to Osmolite no recurrent bleeding bowel regimen on hold given diarrhea Subjective ROS Limited/Unobtainable: No Allergies: Coded Allergies: LEVOFLOXACIN (Verified Allergy, Unknown, 05/24/19) Possible allergic reaction - low blood pressure Objective Last 24 Hour Vital Signs Date Time Temp Pulse Resp B/P (MAP) Pulse Ox O2 Delivery O2 Flow Rate FiO2 06/02/19 07:15 99 T-Piece 5.0 28 06/02/19 04:00 28 06/02/19 04:00 98.8 58 24 100/48 (65) 97 06/02/19 04:00 T-piece 06/02/19 04:00 58 06/02/19 01:10 99 T-Piece 5.0 28 06/02/19 00:00 72 06/02/19 00:00 T-piece 06/02/19 00:00 28 06/02/19 00:00 98.6 72 20 108/52 (70) 97 06/01/19 20:00 98.8 80 20 105/54 (71) 100 06/01/19 20:00 T-piece 06/01/19 20:00 80 06/01/19 20:00 28 06/01/19 19:12 97 T-Piece 5.0 06/01/19 16:00 T-piece 06/01/19 16:00 28 06/01/19 16:00 98.6 82 20 130/61 (84) 98 06/01/19 15:30 85 06/01/19 12:48 97 Cool Aerosol 5.0 28 06/01/19 12:00 98.1 74 18 115/56 (75) 97 06/01/19 12:00 T-piece 06/01/19 12:00 28 06/01/19 11:42 72 Intake and Output 06/01/19 06/02/19 19:00 07:00 Intake Total 1454.832 ml 1035 ml Output Total 2230 ml 2000 ml Balance -775.168 ml -965 ml Intake Free Water 60 ml 100 ml IV Total 734.832 ml 275 ml Tube Feeding 660 ml 660 ml Output Urine Total 2200 ml 2000 ml Other 30 ml # Bowel Movements 1 Laboratory Tests 06/01/19 12:10: Activated Partial Thromboplast Time 32 06/01/19 13:22: Prothrombin Time 11.0, Prothromb Time International Ratio 1.0 06/02/19 06:20: White Blood Count 5.1, Red Blood Count 4.08L, Hemoglobin 12.1L, Hematocrit 37.1L , Mean Corpuscular Volume 91, Mean Corpuscular Hemoglobin 29.7, Mean Corpuscular Hemoglobin Concent 32.7, Red Cell Distribution Width 15.2H, Platelet Count 174, Mean Platelet Volume 6.2L, Neutrophils (%) (Auto) 78.4H, Lymphocytes (%) (Auto) 14.6L, Monocytes (%) (Auto) 3.3, Eosinophils (%) (Auto) 3.0, Basophils (%) (Auto) 0.7, Sodium Level 140, Potassium Level 5.3H, Chloride Level 103, Carbon Dioxide Level 27, Anion Gap 10, Blood Urea Nitrogen 10, Creatinine 0.7, Estimat Glomerular Filtration Rate > 60, Glucose Level 108H, Calcium Level 8.9, Total Bilirubin 0.4, Aspartate Amino Transf (AST/SGOT) 61H, Alanine Aminotransferase (ALT/SGPT) 93H, Alkaline Phosphatase 69, Pro-B-Type Natriuretic Peptide 308H, Total Protein 6.4, Albumin 1.5L, Globulin 4.9, Albumin /Globulin Ratio 0.3L, Vancomycin Level Trough 23.6H Height (Feet): 5 Height (Inches): 7.00 Weight (Pounds): 158 General Appearance: no apparent distress EENT: normal ENT inspection Neck: supple Cardiovascular: normal rate Respiratory/Chest: decreased breath sounds Abdomen: normal bowel sounds, non tender, soft Extremities: non-tender Narciso Engle MD Jun 02, 2019 08:09
[2019-06-02] MEDS ORDERED: NS 275ml ONE (09:02)
[2019-06-02] MEDS ORDERED: Tubing IV Secondary IV ONE (09:02)
[2019-06-02] MEDS: Pantoprazole Inj IVP SCH ×2 (09:11→20:10)
[2019-06-02] MEDS: Docusate 100mg/10ml Liq NG SCH ×2 (09:11→18:00)
[2019-06-02] MEDS: Lactulose 20gm/30ml UDC ORAL SCH (09:12)
--- NOTE | 2019-06-02 10:00 | NUR ---
NURSE NOTES: Tracheal secretions suctioned PRN with thick painting colored phlegm ,turned and pulled up per pt 's request..
--- NOTE | 2019-06-02 10:53 | Pulmonolgy Critical Care Note ---
Critical Care - Asmt/Plan Problems: (1) Nosocomial pneumonia (2) Hemorrhagic shock Assessment & Plan: resolved (3) Upper GI bleeding (4) Chronic respiratory failure (5) Esophageal mass (6) Gastrostomy tube in place (7) Radiation fibrosis of lung (8) Head and neck cancer Respiratory: monitor respiratory rate, adjust FIO2, CXR Cardiac: continue to monitor HR/BP Renal: F/U I&O, keep IV fluid, check electrolytes Infectious Disease: check cultures, continue antibiotics Gastrointestinal: continue feedings/current rate Endocrine: monitor blood sugar Hematologic: monitor H/H, transfuse if hgb<8.5 Neurologic: PRN Ativan, PRN Morphine, keep patient comfortable Prophylaxis: Protonix Notes Reviewed: cardio Discussed with: nurses, consultants, case aideglobal program manager - Objective Last 24 Hour Vital Signs Date Time Temp Pulse Resp B/P (MAP) Pulse Ox O2 Delivery O2 Flow Rate FiO2 06/02/19 08:00 28 06/02/19 08:00 99.0 84 20 96/59 (71) 94 06/02/19 07:15 99 T-Piece 5.0 06/02/19 04:00 28 06/02/19 04:00 98.8 58 24 100/48 (65) 97 06/02/19 04:00 T-piece 06/02/19 04:00 58 06/02/19 01:10 99 T-Piece 5.0 06/02/19 00:00 72 06/02/19 00:00 T-piece 06/02/19 00:00 28 06/02/19 00:00 98.6 72 20 108/52 (70) 97 06/01/19 20:00 98.8 80 20 105/54 (71) 100 06/01/19 20:00 T-piece 06/01/19 20:00 80 06/01/19 20:00 28 06/01/19 19:12 97 T-Piece 5.0 06/01/19 16:00 T-piece 06/01/19 16:00 28 06/01/19 16:00 98.6 82 20 130/61 (84) 98 06/01/19 15:30 85 06/01/19 12:48 97 Cool Aerosol 5.0 28 06/01/19 12:00 98.1 74 18 115/56 (75) 97 06/01/19 12:00 T-piece 06/01/19 12:00 28 06/01/19 11:42 72 Status: awake HEENT: atraumatic Lungs: clear Heart: HR/BP stable Abdomen: soft, active bowel sounds, feeding tube Extremities: edema Critical Care - Subjective ROS Limited/Unobtainable: Yes Interval Events: thoracentesis done yesterday Condition: improving EKG Rhythm: Sinus Rhythm FI02: 28 Vent Support Breath Rate: 16 Vent Support Mode: CPAP Vent Tidal Volume: 550 Sputum Amount: Small PEEP: 5.0 PIP: 15 Tube Feeding Amount: 55 I&O: Intake and Output 06/01/19 06/02/19 19:00 07:00 Intake Total 1454.832 ml 1035 ml Output Total 2230 ml 2000 ml Balance -775.168 ml -965 ml Intake Free Water 60 ml 100 ml IV Total 734.832 ml 275 ml Tube Feeding 660 ml 660 ml Output Urine Total 2200 ml 2000 ml Other 30 ml # Bowel Movements 1 CXR: unchaged Labs: Laboratory Tests Test 06/01/19 12:10 06/01/19 13:22 06/02/19 06:20 Activated Partial Thromboplast Time 32 SEC (23-33) Prothrombin Time 11.0 SEC (9.30-11.50) Prothromb Time International Ratio 1.0 (0.9-1.1) White Blood Count 5.1 K/UL (4.8-10.8) Red Blood Count 4.08 M/UL (4.70-6.10) L Hemoglobin 12.1 G/DL (14.2-18.0) L Hematocrit 37.1 % (42.0-52.0) L Mean Corpuscular Volume 91 FL (80-99) Mean Corpuscular Hemoglobin 29.7 PG (27.0-31.0) Mean Corpuscular Hemoglobin Concent 32.7 G/DL (32.0-36.0) Red Cell Distribution Width 15.2 % (11.6-14.8) H Platelet Count 174 K/UL (150-450) Mean Platelet Volume 6.2 FL (6.5-10.1) L Neutrophils (%) (Auto) 78.4 % (45.0-75.0) H Lymphocytes (%) (Auto) 14.6 % (20.0-45.0) L Monocytes (%) (Auto) 3.3 % (1.0-10.0) Eosinophils (%) (Auto) 3.0 % (0.0-3.0) Basophils (%) (Auto) 0.7 % (0.0-2.0) Sodium Level 140 MMOL/L (136-145) Potassium Level 5.3 MMOL/L (3.5-5.1) H Chloride Level 103 MMOL/L (98-107) Carbon Dioxide Level 27 MMOL/L (21-32) Anion Gap 10 mmol/L (5-15) Blood Urea Nitrogen 10 mg/dL (7-18) Creatinine 0.7 MG/DL (0.55-1.30) Estimat Glomerular Filtration Rate > 60 mL/min (>60) Glucose Level 108 MG/DL (74-106) H Calcium Level 8.9 MG/DL (8.5-10.1) Total Bilirubin 0.4 MG/DL (0.2-1.0) Aspartate Amino Transf (AST/SGOT) 61 U/L (15-37) H Alanine Aminotransferase (ALT/SGPT) 93 U/L (12-78) H Alkaline Phosphatase 69 U/L (46-116) Pro-B-Type Natriuretic Peptide 308 pg/mL (0-125) H Total Protein 6.4 G/DL (6.4-8.2) Albumin 1.5 G/DL (3.4-5.0) L Globulin 4.9 g/dL Albumin/Globulin Ratio 0.3 (1.0-2.7) L Vancomycin Level Trough 23.6 ug/mL (5.0-12.0) H Claudia Chi MD Jun 02, 2019 10:53
[2019-06-02 12:00] VITALS: BP 102/51
--- NOTE | 2019-06-02 12:49 | Diagnostic Imaging Report ---
Indication: Dyspnea Comparison: 06/01/2019 A single view chest radiograph was obtained. Findings: Interstitial opacities have developed an increase the. Cyst seen in the setting of increased pulmonary vascularity and heart size is consistent with CHF. Tracheostomy again noted. There may be a small left pleural effusion. IMPRESSION: Worsening CHF mild to moderate currently
--- NOTE | 2019-06-02 13:19 | NUR ---
P.T Note: P.T EVALUATION COMPLETED AND TREATMENT INITIATED. PLEASE REFER TO P.T EVALUATION FOR CURRENT FUNCTIONAL STATUS. PATIENT IS ALERT, 0 X 4, COOPERATIVE. PATIENT HAD NO C/O PAIN BUT DISCOMFORT ON THE TRACHEOSTOMY SITE. PATIENT IS GENERALLY WEAK AND DECONDITIONED LIMITING HIS MOBILITY PERFORMANCE AND INDEPENDENCE. PATIENT CURRENTLY REQUIRES MOD A X 1 FOR BED MOBILITIES. PATIENT ABLE TO SIT AT THE EOB WITH BUE HOLDING ON TO BED RAILS ON EACH SIDE. PATIENT WAS ABLE TO TRANSITION FROM SIT TO STAND WITH MAX A X 1 AND WAS ABLE TO PARTIALLY STAND FOR 15 SECS WITH MOD SUPPORT USING THE FWW. PATIENT APPEARED EXHAUSTED POST EVAL /TX HOWEVER TOLERATED ACTIVITIES WELL. VITALS WERE STABLE. P.T SERVICE IS WARRANTED TO INCREASE STRENGTH, BALANCE AND ENDURANCE TO INCREASE MOBILITY INDEPENDENCE AND ACTIVITY TOLERANCE. RECOMMEND DC TO SNF FOR FURTHER REHAB INTERVENTION AT [place]. THANK YOU FOR THIS REFERRAL.
[2019-06-02] MEDS: Vancomycin 1gm/D5W 275ml IVPB SCH ×2 (13:25)
--- NOTE | 2019-06-02 14:28 | NUR ---
NURSE NOTES: Report received from Ara Jones RN.Pt awake,alert sitting up on bed noted no resp distress on cool aerosol T-Piece 28%,no signs of pain or discomfort,SR on the monitor,GTF Osmolite 1.2 at 55 ml/hr ,no residual; noted ,Fernandez cath draining supa colored urine,skin warm and dry ,IV site MIDLINE to LT upper arm intact ,SR up x2 call light within reach,bed lock in lowest position,will continue with plans of care.
--- NOTE | 2019-06-02 15:51 | Surgery Progress Note ---
Surgery Progress Note Subjective Symptoms: improved, tolerating diet, voiding well, passing flatus, BM Objective Last 24 Hour Vital Signs Date Time Temp Pulse Resp B/P (MAP) Pulse Ox O2 Delivery O2 Flow Rate FiO2 06/02/19 13:31 99 T-Piece 5.0 28 06/02/19 12:11 T-piece 06/02/19 12:00 28 06/02/19 12:00 73 06/02/19 12:00 99.5 78 19 102/51 (68) 94 06/02/19 08:00 28 06/02/19 08:00 99.0 84 20 96/59 (71) 94 06/02/19 08:00 88 06/02/19 08:00 T-piece 06/02/19 07:15 99 T-Piece 5.0 06/02/19 04:00 28 06/02/19 04:00 98.8 58 24 100/48 (65) 97 06/02/19 04:00 T-piece 06/02/19 04:00 58 06/02/19 01:10 99 T-Piece 5.0 06/02/19 00:00 72 06/02/19 00:00 T-piece 06/02/19 00:00 28 06/02/19 00:00 98.6 72 20 108/52 (70) 97 06/01/19 20:00 98.8 80 20 105/54 (71) 100 06/01/19 20:00 T-piece 06/01/19 20:00 80 06/01/19 20:00 28 06/01/19 19:12 97 T-Piece 5.0 06/01/19 16:00 T-piece 06/01/19 16:00 28 06/01/19 16:00 98.6 82 20 130/61 (84) 98 I&O Intake and Output 06/01/19 06/02/19 19:00 07:00 Intake Total 1454.832 ml 1035 ml Output Total 2230 ml 2000 ml Balance -775.168 ml -965 ml Intake Free Water 60 ml 100 ml IV Total 734.832 ml 275 ml Tube Feeding 660 ml 660 ml Output Urine Total 2200 ml 2000 ml Other 30 ml # Bowel Movements 1 Dressing: dry Wound: clean Cardiovascular: RSR Respiratory: clear Abdomen: soft, non-tender, present bowel sounds Extremities: no cyanosis Laboratory Tests Test 06/02/19 06:20 White Blood Count 5.1 K/UL (4.8-10.8) Red Blood Count 4.08 M/UL (4.70-6.10) L Hemoglobin 12.1 G/DL (14.2-18.0) L Hematocrit 37.1 % (42.0-52.0) L Mean Corpuscular Volume 91 FL (80-99) Mean Corpuscular Hemoglobin 29.7 PG (27.0-31.0) Mean Corpuscular Hemoglobin Concent 32.7 G/DL (32.0-36.0) Red Cell Distribution Width 15.2 % (11.6-14.8) H Platelet Count 174 K/UL (150-450) Mean Platelet Volume 6.2 FL (6.5-10.1) L Neutrophils (%) (Auto) 78.4 % (45.0-75.0) H Lymphocytes (%) (Auto) 14.6 % (20.0-45.0) L Monocytes (%) (Auto) 3.3 % (1.0-10.0) Eosinophils (%) (Auto) 3.0 % (0.0-3.0) Basophils (%) (Auto) 0.7 % (0.0-2.0) Sodium Level 140 MMOL/L (136-145) Potassium Level 5.3 MMOL/L (3.5-5.1) H Chloride Level 103 MMOL/L (98-107) Carbon Dioxide Level 27 MMOL/L (21-32) Anion Gap 10 mmol/L (5-15) Blood Urea Nitrogen 10 mg/dL (7-18) Creatinine 0.7 MG/DL (0.55-1.30) Estimat Glomerular Filtration Rate > 60 mL/min (>60) Glucose Level 108 MG/DL (74-106) H Calcium Level 8.9 MG/DL (8.5-10.1) Total Bilirubin 0.4 MG/DL (0.2-1.0) Aspartate Amino Transf (AST/SGOT) 61 U/L (15-37) H Alanine Aminotransferase (ALT/SGPT) 93 U/L (12-78) H Alkaline Phosphatase 69 U/L (46-116) Pro-B-Type Natriuretic Peptide 308 pg/mL (0-125) H Total Protein 6.4 G/DL (6.4-8.2) Albumin 1.5 G/DL (3.4-5.0) L Globulin 4.9 g/dL Albumin/Globulin Ratio 0.3 (1.0-2.7) L Vancomycin Level Trough 23.6 ug/mL (5.0-12.0) H Plan Problems: (1) Esophageal mass Assessment & Plan: This is a 73-year-old male with known history of throat cancer possible esophageal cancer status post chemoradiation [facility] a few years back who recently has developed cardiac arrest shortness of breath respiratory compromise and had tracheostomy at outside facility for airway protection. Was in recovery until recently identified to have desaturation with blood clots noted within tracheostomy tube suctions as well as oral suctioning. Patient admitted for care and management identified to have anemia bleeding and hemorrhage. Surgery called to evaluate patient was seen. Hemorrhage has significantly decreased and currently no active bleeding noted. H&H trending down and being transfused as per my recommendations. Patient is awake alert states he feels better. He slowly weaning off pressors. Unfortunately given history current condition and the above no acute surgical intervention indicated or recommended. Will obtain attempt records from [facility] as well as [facility]. Continue with deep suctioning by respiratory. Okay for oral suctioning. Monitor for bleeding. Fortunately currently no active bleeding and hopefully its its way. We will keep close eye on H&H as well as coags to ensure patient improving. Permissive hypotension okay. Wean pressors. Thank you for let me participation's care will continue to follow with recommendations and further evaluation. Labs noted H&H improved after transfusion LFTs bilirubin noted likely response to bleeding patient states no longer currently actively bleeding otherwise stable off pressors improving Continue with current treatment will monitor downgrade labs okay off vent no bleeding improving feeds as tolerated d/c planning (2) Hemoptysis Assessment & Plan: Findings: Interstitial and airspace opacities are seen throughout the right mid and lower lung. Questionable patchy peripheral opacities are also present on the left. Heart size is normal. The pleural spaces are clear Impression: Right lung opacities and questionable patchy left lung opacities, likely pneumonia. (3) Head and neck cancer [facility] Jun 02, 2019 15:51
[2019-06-02 16:00] VITALS: BP 99/51
--- NOTE | 2019-06-02 17:48 | Internal Med Progress Note ---
Subjective Date of Service: Jun 02, 2019 Physician Name Igor Lucero Attending Physician Matthew Davis MD Current Medications Medications (Trade) Dose Ordered Sig/Mervat Route PRN Reason Start Time Stop Time Status Last Admin Dose Admin Acetaminophen (Tylenol) 650 mg Q4H PRN ORAL FEVER 05/30/19 19:30 06/23/19 19:29 Acetaminophen/ Hydrocodone Bitart ([place] 5/325) 1 tab Q6H PRN GT For Pain 05/30/19 22:45 06/06/19 22:44 06/01/19 20:35 Albuterol/ Ipratropium (Albuterol/ Ipratropium) 3 ml Q4H PRN HHN Shortness of Breath 05/30/19 19:00 06/04/19 06:59 Alprazolam (Xanax) 0.25 mg Q8H PRN ORAL For Anxiety 05/31/19 09:45 06/07/19 09:44 06/02/19 05:19 Chlorhexidine Gluconate (Stacie-Hex 2%) 1 applic DAILY@2000 TOPIC 05/30/19 20:00 06/24/19 19:59 06/01/19 20:34 Dextrose (Dextrose 50%) 25 ml Q30M PRN IV Hypoglycemia 05/30/19 19:00 06/23/19 17:29 Dextrose (Dextrose 50%) 50 ml Q30M PRN IV Hypoglycemia 05/30/19 19:00 06/23/19 17:29 Docusate Sodium (Colace) 100 mg TWICE A DAY NG 05/31/19 09:00 06/26/19 08:59 06/02/19 09:11 Lactulose (Cephulac) 20 gm DAILY ORAL 05/31/19 09:00 06/27/19 08:59 06/02/19 09:12 Ondansetron HCl (Zofran) 4 mg Q6H PRN IVP Nausea & Vomiting 05/30/19 19:30 06/23/19 19:29 Pantoprazole (Protonix) 40 mg EVERY 12 HOURS IVP 05/30/19 21:00 06/24/19 20:59 06/02/19 09:11 Polyethylene Glycol (Miralax) 17 gm BEDTIME ORAL 05/30/19 21:00 06/25/19 20:59 Vancomycin HCl (Vanco rx to dose) 1 ea DAILY PRN MISC Per rx protocol 05/31/19 09:00 06/29/19 13:44 Vancomycin HCl 1 gm/Dextrose 275 ml @ 183.708 mls/hr Q12HR@0100,1300 IVPB 06/02/19 13:00 06/07/19 12:59 06/02/19 13:25 Zolpidem Tartrate (Ambien) 5 mg HSPRN PRN GT Insomnia 05/30/19 22:45 06/06/19 22:44 05/31/19 22:57 Allergies: Coded Allergies: LEVOFLOXACIN (Verified Allergy, Unknown, 05/24/19) Possible allergic reaction - low blood pressure ROS Limited/Unobtainable: No Constitutional: Reports: no symptoms HEENT: Reports: no symptoms Cardiovascular: Reports: no symptoms Respiratory: Reports: no symptoms Gastrointestinal/Abdominal: Reports: no symptoms Genitourinary: Reports: no symptoms Neurologic/Psychiatric: Reports: no symptoms Subjective 73 YO M with esophageal mass admitted with hemoptysis. Now Pneumonia. Cover for Int med-DR Davis. SDU. S/P right thoracentesis 06/01/19 Objective Last Vital Signs Date Time Temp Pulse Resp B/P (MAP) Pulse Ox O2 Delivery O2 Flow Rate FiO2 06/02/19 16:00 99.2 72 19 99/51 (67) 97 06/02/19 16:00 28 06/02/19 16:00 T-piece 06/02/19 13:31 5.0 Laboratory Tests Test 06/02/19 06:20 White Blood Count 5.1 K/UL (4.8-10.8) Red Blood Count 4.08 M/UL (4.70-6.10) L Hemoglobin 12.1 G/DL (14.2-18.0) L Hematocrit 37.1 % (42.0-52.0) L Mean Corpuscular Volume 91 FL (80-99) Mean Corpuscular Hemoglobin 29.7 PG (27.0-31.0) Mean Corpuscular Hemoglobin Concent 32.7 G/DL (32.0-36.0) Red Cell Distribution Width 15.2 % (11.6-14.8) H Platelet Count 174 K/UL (150-450) Mean Platelet Volume 6.2 FL (6.5-10.1) L Neutrophils (%) (Auto) 78.4 % (45.0-75.0) H Lymphocytes (%) (Auto) 14.6 % (20.0-45.0) L Monocytes (%) (Auto) 3.3 % (1.0-10.0) Eosinophils (%) (Auto) 3.0 % (0.0-3.0) Basophils (%) (Auto) 0.7 % (0.0-2.0) Sodium Level 140 MMOL/L (136-145) Potassium Level 5.3 MMOL/L (3.5-5.1) H Chloride Level 103 MMOL/L (98-107) Carbon Dioxide Level 27 MMOL/L (21-32) Anion Gap 10 mmol/L (5-15) Blood Urea Nitrogen 10 mg/dL (7-18) Creatinine 0.7 MG/DL (0.55-1.30) Estimat Glomerular Filtration Rate > 60 mL/min (>60) Glucose Level 108 MG/DL (74-106) H Calcium Level 8.9 MG/DL (8.5-10.1) Total Bilirubin 0.4 MG/DL (0.2-1.0) Aspartate Amino Transf (AST/SGOT) 61 U/L (15-37) H Alanine Aminotransferase (ALT/SGPT) 93 U/L (12-78) H Alkaline Phosphatase 69 U/L (46-116) Pro-B-Type Natriuretic Peptide 308 pg/mL (0-125) H Total Protein 6.4 G/DL (6.4-8.2) Albumin 1.5 G/DL (3.4-5.0) L Globulin 4.9 g/dL Albumin/Globulin Ratio 0.3 (1.0-2.7) L Vancomycin Level Trough 23.6 ug/mL (5.0-12.0) H Intake and Output 06/01/19 06/02/19 19:00 07:00 Intake Total 1454.832 ml 1035 ml Output Total 2230 ml 2000 ml Balance -775.168 ml -965 ml Intake Free Water 60 ml 100 ml IV Total 734.832 ml 275 ml Tube Feeding 660 ml 660 ml Output Urine Total 2200 ml 2000 ml Other 30 ml # Bowel Movements 1 Objective PHYSICAL EXAMINATION: GENERAL: The patient is a well-nourished male, who is in moderate distress. HEENT: Trach; Eyes, pupils are equal and responsive to light and accommodation. Extraocular movements are intact. Tracheostomy is present. CHEST: Mech vent; Lungs are clear with mechanical breath sounds bilaterally. ABDOMEN: Soft, nontender, and nondistended. Positive bowel sounds. No evidence of hepatosplenomegaly. Currently, no rebound or guarding noted. EXTREMITIES: Negative for clubbing, cyanosis, or edema. RECTAL/GENITAL: Not performed. NEUROLOGICAL: Cranial nerves II to XII grossly intact without focal deficits. Motor strength is 5/5 bilaterally. Deep tendon reflexes are 2+ plantar. 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 Esophageal hemorrhage. 3. Airway obstruction. 4. Hypoxia. 5. History of esophageal cancer. 6. Elevated liver function tests. 7. Bilateral pneumonia=MRSA 8. Tracheostomy dependent 9. right pleural effusion TREATMENT: 1. Squamous cell carcinoma/hemorrhage. A Hematology/Oncology consultation has been obtained with Dr. Paz. The patient has received four units of packed RBCs and 1 unit FFP. The patient is in the Step down unit. The patient is currently off pressors. 2. Hypoxia. A Pulmonary/Critical Care consultation has been obtained with Dr. Claudia Chi. Hypoxia is probably secondary to tracheal obstruction secondary to hemorrhage as above. Continue vent per Dr. Chi. 3. Pneumonia=MRSA ABX= Zosyn and vancomycin. An Infectious Disease consultation has been obtained with Dr. Alba. We will follow recommendations of Infectious Disease. A sputum culture=MRSA 4. Elevated liver function tests/esophageal mass. A Gastroenterology consultation has been obtained with Dr. Narciso Engle. The patient may require repeat biopsy of esophageal mass. We will follow recommendations of Gastroenterology. 5. S/P right thoracentesis 06/01/19 Igor Lucero MD Jun 02, 2019 17:48
--- NOTE | 2019-06-02 17:50 | Infectious Diseases Prog Note ---
Assessment/Plan Assessment/Plan Assessment/Plan: A: Leukocytosis, Sp Sepsis/shock, Sp Fever, Sp Probable Pneum(HAC) -05/27 sp cx : MRSA -05/30 CXR: Increased opacities in the mid and lower lungs, right greater than left, which may represent pulmonary edema versus infectious/inflammatory process. Bilateral pleural effusions. Increased pulmonary vasculature congestion. Increased opacities in the mid and lower lungs, right greater than left, which may represent pulmonary edema versus infectious/inflammatory process. Bilateral pleural effusions. Increased pulmonary vasculature congestion. -05/28 CXR: ncreasing infiltrates versus edema in the right mid and lower lung, over one day. Persistent diffuse mild background interstitial congestion New or increased small bilateral pleural effusions - CXR: Right lung opacities and questionable patchy left lung opacities, likely pneumonia Transaminitis ( due to HypoTN) ucx eng HIV : neg upper airway bleed sp Trach and PEG throat cancer P: cont IV Vancomycin # 4/14 CSp Zosyn # 5 05/27 SP IV Vanco # 2 Sp Amikacin # 1 Monitor CBC Monitor CMP Monitor CXR Monitor Cx (Bl) Subjective Allergies: Coded Allergies: LEVOFLOXACIN (Verified Allergy, Unknown, 05/24/19) Possible allergic reaction - low blood pressure Subjective afebrile Objective Vital Signs Last 24 Hour Vital Signs Date Time Temp Pulse Resp B/P (MAP) Pulse Ox O2 Delivery O2 Flow Rate FiO2 06/02/19 16:00 99.2 72 19 99/51 (67) 97 06/02/19 16:00 28 06/02/19 16:00 T-piece 06/02/19 16:00 66 06/02/19 13:31 99 T-Piece 5.0 28 06/02/19 12:11 T-piece 06/02/19 12:00 28 06/02/19 12:00 73 06/02/19 12:00 99.5 78 19 102/51 (68) 94 06/02/19 08:00 28 06/02/19 08:00 99.0 84 20 96/59 (71) 94 06/02/19 08:00 88 06/02/19 08:00 T-piece 06/02/19 07:15 99 T-Piece 5.0 28 06/02/19 04:00 28 06/02/19 04:00 98.8 58 24 100/48 (65) 97 06/02/19 04:00 T-piece 06/02/19 04:00 58 06/02/19 01:10 99 T-Piece 5.0 28 06/02/19 00:00 72 06/02/19 00:00 T-piece 06/02/19 00:00 28 06/02/19 00:00 98.6 72 20 108/52 (70) 97 06/01/19 20:00 98.8 80 20 105/54 (71) 100 06/01/19 20:00 T-piece 06/01/19 20:00 80 06/01/19 20:00 28 06/01/19 19:12 97 T-Piece 5.0 28 Height (Feet): 5 Height (Inches): 7.00 Weight (Pounds): 158 HEENT: anicteric Respiratory/Chest: no respiratory distress Cardiovascular: regularly irregular Abdomen: no organomegaly Laboratory Tests Test 06/02/19 06:20 White Blood Count 5.1 K/UL (4.8-10.8) Red Blood Count 4.08 M/UL (4.70-6.10) L Hemoglobin 12.1 G/DL (14.2-18.0) L Hematocrit 37.1 % (42.0-52.0) L Mean Corpuscular Volume 91 FL (80-99) Mean Corpuscular Hemoglobin 29.7 PG (27.0-31.0) Mean Corpuscular Hemoglobin Concent 32.7 G/DL (32.0-36.0) Red Cell Distribution Width 15.2 % (11.6-14.8) H Platelet Count 174 K/UL (150-450) Mean Platelet Volume 6.2 FL (6.5-10.1) L Neutrophils (%) (Auto) 78.4 % (45.0-75.0) H Lymphocytes (%) (Auto) 14.6 % (20.0-45.0) L Monocytes (%) (Auto) 3.3 % (1.0-10.0) Eosinophils (%) (Auto) 3.0 % (0.0-3.0) Basophils (%) (Auto) 0.7 % (0.0-2.0) Sodium Level 140 MMOL/L (136-145) Potassium Level 5.3 MMOL/L (3.5-5.1) H Chloride Level 103 MMOL/L (98-107) Carbon Dioxide Level 27 MMOL/L (21-32) Anion Gap 10 mmol/L (5-15) Blood Urea Nitrogen 10 mg/dL (7-18) Creatinine 0.7 MG/DL (0.55-1.30) Estimat Glomerular Filtration Rate > 60 mL/min (>60) Glucose Level 108 MG/DL (74-106) H Calcium Level 8.9 MG/DL (8.5-10.1) Total Bilirubin 0.4 MG/DL (0.2-1.0) Aspartate Amino Transf (AST/SGOT) 61 U/L (15-37) H Alanine Aminotransferase (ALT/SGPT) 93 U/L (12-78) H Alkaline Phosphatase 69 U/L (46-116) Pro-B-Type Natriuretic Peptide 308 pg/mL (0-125) H Total Protein 6.4 G/DL (6.4-8.2) Albumin 1.5 G/DL (3.4-5.0) L Globulin 4.9 g/dL Albumin/Globulin Ratio 0.3 (1.0-2.7) L Vancomycin Level Trough 23.6 ug/mL (5.0-12.0) H Current Medications Medications (Trade) Dose Ordered Sig/Mervat Route PRN Reason Start Time Stop Time Status Last Admin Dose Admin Acetaminophen (Tylenol) 650 mg Q4H PRN ORAL FEVER 05/30/19 19:30 06/23/19 19:29 Acetaminophen/ Hydrocodone Bitart ([place] 5/325) 1 tab Q6H PRN GT For Pain 05/30/19 22:45 06/06/19 22:44 06/01/19 20:35 Albuterol/ Ipratropium (Albuterol/ Ipratropium) 3 ml Q4H PRN HHN Shortness of Breath 05/30/19 19:00 06/04/19 06:59 Alprazolam (Xanax) 0.25 mg Q8H PRN ORAL For Anxiety 05/31/19 09:45 06/07/19 09:44 06/02/19 05:19 Chlorhexidine Gluconate (Stacie-Hex 2%) 1 applic DAILY@1999 TOPIC 05/30/19 20:00 06/24/19 19:59 06/01/19 20:34 Dextrose (Dextrose 50%) 25 ml Q30M PRN IV Hypoglycemia 05/30/19 19:00 06/23/19 17:29 Dextrose (Dextrose 50%) 50 ml Q30M PRN IV Hypoglycemia 05/30/19 19:00 06/23/19 17:29 Docusate Sodium (Colace) 100 mg TWICE A DAY NG 05/31/19 09:00 06/26/19 08:59 06/02/19 09:11 Lactulose (Cephulac) 20 gm DAILY ORAL 05/31/19 09:00 06/27/19 08:59 06/02/19 09:12 Ondansetron HCl (Zofran) 4 mg Q6H PRN IVP Nausea & Vomiting 05/30/19 19:30 06/23/19 19:29 Pantoprazole (Protonix) 40 mg EVERY 12 HOURS IVP 05/30/19 21:00 06/24/19 20:59 06/02/19 09:11 Polyethylene Glycol (Miralax) 17 gm BEDTIME ORAL 05/30/19 21:00 06/25/19 20:59 Vancomycin HCl (Vanco rx to dose) 1 ea DAILY PRN MISC Per rx protocol 05/31/19 09:00 06/29/19 13:44 Vancomycin HCl 1 gm/Dextrose 275 ml @ 183.708 mls/hr Q12HR@0100,1300 IVPB 06/02/19 13:00 06/07/19 12:59 06/02/19 13:25 Zolpidem Tartrate (Ambien) 5 mg HSPRN PRN GT Insomnia 05/30/19 22:45 06/06/19 22:44 05/31/19 22:57 Jose Luis Alba MD Jun 02, 2019 17:49
--- NOTE | 2019-06-02 18:00 | NUR ---
NURSE NOTES: pt stable ,no resp distress [resented during the shift,had BM kept dry and cleaned,pulled up and repositioned.
--- NOTE | 2019-06-02 19:21 | NUR ---
HAND-OFF: Report given to Mariza Shaver RN..
--- NOTE | 2019-06-02 19:22 | NUR ---
NURSE NOTES: received pt from Edilma Pratt RN., pt is awake and AOx 4. pt is on T-Piece no SOB noted. pt states no pain at this time. Fernandez cath is draining well with gravity. mid line Right upper Arm dressing intact, clean, and patent. Gtube site intact, clean, and patent. Osmo 1.2 is running at 55ml/hr. call light within reach. bed at the lowest position, alarmed, and locked. will continue to monitor pt with plan of care.
--- NOTE | 2019-06-02 19:45 | NUR ---
NURSE NOTES: Dr. waddell aware regarding elevated Potassium 5.3. will wait for call back.
[2019-06-02 20:00] VITALS: BP 104/54
[2019-06-02] MEDS: Dyna-Hex 2% Top Sol 2oz TOPIC SCH (20:10)
[2019-06-02] MEDS: Miralax 17gm pkt ORAL SCH (20:59)
[2019-06-02] MEDS ORDERED: Sodium Polystyrene Sulfonate 15gm Powder ORAL SCH (22:00)
[2019-06-02] MEDS: Zolpidem 5mg tab GT PRN (22:46)
[2019-06-03] VITALS: BP 105/55
[2019-06-03] MEDS: Vancomycin 1gm/D5W 275ml IVPB SCH ×4 (00:47→13:00)
--- NOTE | 2019-06-03 03:30 | NUR ---
NURSE NOTES: cleaned pt, new gown, new cover sheet provided. call light within reach .
[2019-06-03 03:45] VITALS: BP 106/55
--- NOTE | 2019-06-03 04:00 | NUR ---
NURSE NOTES: Received pt from Mariza Shaver RN. pt in bed sleeping. Easily awakened. A/OX4. Able to make needs known. Denies pain. pt is on T-piece: Shiley: 8, FiO2: 28% with cool aerosol. tolerating well, saturation: adequately. no signs of respiratory distress noted at this time. collaborative physician showing SR. G-tube site is patent and intact, running Osmolyte at 55 cc/hr. HOB elevated to 45 degrees, no residual noted. F/C draining well to gravity. ADAN midline patent and intact, asymptomatic. dressing dry and intact. LFA 20 g IV site is patent and intact, asymptomatic. VSS. Afebrile. Bed in lowest position and bed alarm engaged. Side rails up X3, call light within reach. will continue to monitor.
--- NOTE | 2019-06-03 04:00 | NUR ---
HAND-OFF: Report given to Raul Joyner RN. pt remains stable.
[2019-06-03 05:14] LABS: ANION GAP 5 mmol/L (5-15); BASOPHILS % (AUTO) 0.8 % (0.0-2.0); BLOOD UREA NITROGEN 9 mg/dL (7-18); CALCIUM 8.5 MG/DL (8.5-10.1); CARBON DIOXIDE 29 MMOL/L (21-32); CHLORIDE 103 MMOL/L (98-107); CREATININE 0.6 MG/DL (0.55-1.30); EOSINOPHILS % (AUTO) 4.2 % (0.0-3.0); HEMATOCRIT 30.4 % (42.0-52.0); HEMOGLOBIN 10.1 G/DL (14.2-18.0); LYMPHOCYTES % (AUTO) 17.7 % (20.0-45.0); MEAN CORPUSCULAR VOLUME 89 FL (80-99); MONOCYTES % (AUTO) 5.7 % (1.0-10.0); NEUTROPHILS % (AUTO) 71.6 % (45.0-75.0); PLATELET COUNT 161 K/UL (150-450); POTASSIUM 3.6 MMOL/L (3.5-5.1); RED CELL DISTRIBUTION WIDTH 14.9 % (11.6-14.8); SODIUM 137 MMOL/L (136-145); WHITE BLOOD COUNT 4.4 K/UL (4.8-10.8)
--- NOTE | 2019-06-03 07:00 | NUR ---
HAND-OFF: Report given to receiving nurse, ANTONY Callejas.
[2019-06-03 08:00] VITALS: BP 108/55
--- NOTE | 2019-06-03 08:05 | NUR ---
NURSE NOTES: received pt in the bed, awake, alert, oriented, trach. FIO2 28%, tolerate well, skin warm and dry to touch, Fernandez catheter with yellow urine, tolerate GT feeding well, repositioned, bed in low position, call light within reach. . .
[2019-06-03] MEDS: Lactulose 20gm/30ml UDC ORAL SCH ×2 (09:00→09:11)
[2019-06-03] MEDS: Docusate 100mg/10ml Liq NG SCH ×2 (09:00→09:11)
[2019-06-03] MEDS: Pantoprazole Inj IVP SCH (09:11)
--- NOTE | 2019-06-03 10:49 | General Progress Note ---
Assessment/Plan Problem List: (1) G tube feedings ICD Codes: Z93.1 - Gastrostomy status SNOMED: 628294978, 804157350, 353327764 (2) Chronic respiratory failure ICD Codes: J96.10 - Chronic respiratory failure, unspecified whether with hypoxia or hypercapnia SNOMED: 34211056 (3) Gastrostomy tube in place ICD Codes: Z93.1 - Gastrostomy status SNOMED: 189743728, 822973402 (4) Hemoptysis ICD Codes: R04.2 - Hemoptysis SNOMED: 39179028 (5) Esophageal mass ICD Codes: K22.8 - Other specified diseases of esophagus SNOMED: 760294156 Assessment/Plan: most likely bleeding was from trach ppi s/p 4 units blood transfusion GTF tolerated, changed to Osmolite no recurrent bleeding bowel regimen on hold given diarrhea Subjective ROS Limited/Unobtainable: No Allergies: Coded Allergies: LEVOFLOXACIN (Verified Allergy, Unknown, 05/24/19) Possible allergic reaction - low blood pressure Objective Last 24 Hour Vital Signs Date Time Temp Pulse Resp B/P (MAP) Pulse Ox O2 Delivery O2 Flow Rate FiO2 06/03/19 08:00 T-piece 06/03/19 08:00 28 06/03/19 08:00 98.4 76 20 108/55 (72) 97 06/03/19 07:05 99 T-Piece 5.0 06/03/19 04:00 28 06/03/19 04:00 69 06/03/19 03:48 T-piece 06/03/19 03:45 98.0 62 20 106/55 (72) 97 06/03/19 01:40 98 T-Piece 5.0 28 06/03/19 00:00 71 06/03/19 00:00 99.3 72 20 105/55 (72) 97 06/03/19 00:00 T-piece 06/03/19 00:00 28 06/02/19 20:00 69 06/02/19 20:00 28 06/02/19 20:00 99.2 76 20 104/54 (71) 97 06/02/19 20:00 T-piece 06/02/19 19:07 97 T-Piece 5.0 28 06/02/19 16:00 99.2 72 19 99/51 (67) 97 06/02/19 16:00 28 06/02/19 16:00 T-piece 06/02/19 16:00 66 06/02/19 13:31 99 T-Piece 5.0 28 06/02/19 12:11 T-piece 06/02/19 12:00 28 06/02/19 12:00 73 06/02/19 12:00 99.5 78 19 102/51 (68) 94 Intake and Output 06/02/19 06/03/19 19:00 07:00 Intake Total 705 ml 930.008 ml Output Total 1001 ml 1300 ml Balance -296 ml -369.992 ml Intake Free Water 50 ml IV Total 275.008 ml Tube Feeding 605 ml 605 ml Other 100 ml Output Urine Total 1000 ml 1300 ml Stool Total 1 ml # Bowel Movements 1 4 Laboratory Tests 06/03/19 03:20: White Blood Count 4.4L, Red Blood Count 3.40L, Hemoglobin 10.1L, Hematocrit 30.4L, Mean Corpuscular Volume 89, Mean Corpuscular Hemoglobin 29.6, Mean Corpuscular Hemoglobin Concent 33.1, Red Cell Distribution Width 14.9H, Platelet Count 161, Mean Platelet Volume 6.1L, Neutrophils (%) (Auto) 71.6, Lymphocytes (%) (Auto) 17.7L, Monocytes (%) (Auto) 5.7, Eosinophils (%) (Auto) 4.2H, Basophils (%) (Auto) 0.8, Sodium Level 137, Potassium Level 3.6, Chloride Level 103, Carbon Dioxide Level 29, Anion Gap 5, Blood Urea Nitrogen 9, Creatinine 0.6, Estimat Glomerular Filtration Rate > 60, Glucose Level 116H, Calcium Level 8.5 Height (Feet): 5 Height (Inches): 7.00 Weight (Pounds): 157 General Appearance: no apparent distress EENT: normal ENT inspection Neck: supple Cardiovascular: normal rate Respiratory/Chest: decreased breath sounds Abdomen: normal bowel sounds, non tender, soft Extremities: non-tender Narciso Engle MD Jun 03, 2019 10:49
--- NOTE | 2019-06-03 10:53 | Pulmonolgy Critical Care Note ---
Critical Care - Asmt/Plan Problems: (1) Nosocomial pneumonia (2) Hemorrhagic shock Assessment & Plan: resolved (3) Upper GI bleeding (4) Chronic respiratory failure (5) Esophageal mass (6) Gastrostomy tube in place (7) Radiation fibrosis of lung (8) Head and neck cancer Respiratory: monitor respiratory rate, adjust FIO2, CXR Cardiac: continue to monitor HR/BP Renal: F/U I&O, keep IV fluid, check electrolytes Infectious Disease: check cultures Gastrointestinal: continue feedings/current rate Endocrine: monitor blood sugar Hematologic: monitor H/H, transfuse if hgb<8.5 Neurologic: PRN Ativan, PRN Morphine, keep patient comfortable Prophylaxis: Protonix Time Spent (Minutes): 40 Notes Reviewed: hosiery mender, cardio Discussed with: nurses, consultants, community case managerwatershed program manager - Objective Last 24 Hour Vital Signs Date Time Temp Pulse Resp B/P (MAP) Pulse Ox O2 Delivery O2 Flow Rate FiO2 06/03/19 08:00 T-piece 06/03/19 08:00 28 06/03/19 08:00 98.4 76 20 108/55 (72) 97 06/03/19 08:00 60 06/03/19 07:05 99 T-Piece 5.0 06/03/19 04:00 28 06/03/19 04:00 69 06/03/19 03:48 T-piece 06/03/19 03:45 98.0 62 20 106/55 (72) 97 06/03/19 01:40 98 T-Piece 5.0 28 06/03/19 00:00 71 06/03/19 00:00 99.3 72 20 105/55 (72) 97 06/03/19 00:00 T-piece 06/03/19 00:00 28 06/02/19 20:00 69 06/02/19 20:00 28 06/02/19 20:00 99.2 76 20 104/54 (71) 97 06/02/19 20:00 T-piece 06/02/19 19:07 97 T-Piece 5.0 28 06/02/19 16:00 99.2 72 19 99/51 (67) 97 06/02/19 16:00 28 06/02/19 16:00 T-piece 06/02/19 16:00 66 3/3/20 13:31 99 T-Piece 5.0 28 06/02/19 12:11 T-piece 06/02/19 12:00 28 06/02/19 12:00 73 06/02/19 12:00 99.5 78 19 102/51 (68) 94 Status: awake Condition: critical HEENT: atraumatic Neck: full ROM Lungs: chest wall tender Heart: HR/BP stable Abdomen: soft, active bowel sounds, feeding tube Extremities: no C/C/E Critical Care - Subjective ROS Limited/Unobtainable: No Condition: critical FI02: 28 Vent Support Breath Rate: 16 Vent Support Mode: CPAP Vent Tidal Volume: 550 Sputum Amount: Small PEEP: 5.0 PIP: 15 Tube Feeding Amount: 55 I&O: Intake and Output 06/02/19 06/03/19 19:00 07:00 Intake Total 705 ml 930.008 ml Output Total 1001 ml 1300 ml Balance -296 ml -369.992 ml Intake Free Water 50 ml IV Total 275.008 ml Tube Feeding 605 ml 605 ml Other 100 ml Output Urine Total 1000 ml 1300 ml Stool Total 1 ml # Bowel Movements 1 4 Labs: Laboratory Tests Test 06/03/19 03:20 White Blood Count 4.4 K/UL (4.8-10.8) L Red Blood Count 3.40 M/UL (4.70-6.10) L Hemoglobin 10.1 G/DL (14.2-18.0) L Hematocrit 30.4 % (42.0-52.0) L Mean Corpuscular Volume 89 FL (80-99) Mean Corpuscular Hemoglobin 29.6 PG (27.0-31.0) Mean Corpuscular Hemoglobin Concent 33.1 G/DL (32.0-36.0) Red Cell Distribution Width 14.9 % (11.6-14.8) H Platelet Count 161 K/UL (150-450) Mean Platelet Volume 6.1 FL (6.5-10.1) L Neutrophils (%) (Auto) 71.6 % (45.0-75.0) Lymphocytes (%) (Auto) 17.7 % (20.0-45.0) L Monocytes (%) (Auto) 5.7 % (1.0-10.0) Eosinophils (%) (Auto) 4.2 % (0.0-3.0) H Basophils (%) (Auto) 0.8 % (0.0-2.0) Sodium Level 137 MMOL/L (136-145) Potassium Level 3.6 MMOL/L (3.5-5.1) Chloride Level 103 MMOL/L (98-107) Carbon Dioxide Level 29 MMOL/L (21-32) Anion Gap 5 mmol/L (5-15) Blood Urea Nitrogen 9 mg/dL (7-18) Creatinine 0.6 MG/DL (0.55-1.30) Estimat Glomerular Filtration Rate > 60 mL/min (>60) Glucose Level 116 MG/DL (74-106) H Calcium Level 8.5 MG/DL (8.5-10.1) Claudia Chi MD Jun 03, 2019 10:53
--- NOTE | 2019-06-03 11:01 | Infectious Diseases Prog Note ---
Assessment/Plan Assessment/Plan Assessment/Plan: A: Leukocytosis, Sp Sepsis/shock, Sp Fever, Sp Probable Pneum(HAC) -05/27 sp cx : MRSA -05/30 CXR: Increased opacities in the mid and lower lungs, right greater than left, which may represent pulmonary edema versus infectious/inflammatory process. Bilateral pleural effusions. Increased pulmonary vasculature congestion. Increased opacities in the mid and lower lungs, right greater than left, which may represent pulmonary edema versus infectious/inflammatory process. Bilateral pleural effusions. Increased pulmonary vasculature congestion. -05/28 CXR: ncreasing infiltrates versus edema in the right mid and lower lung, over one day. Persistent diffuse mild background interstitial congestion New or increased small bilateral pleural effusions - CXR: Right lung opacities and questionable patchy left lung opacities, likely pneumonia Transaminitis ( due to HypoTN) ucx eng HIV : neg upper airway bleed sp Trach and PEG throat cancer P: cont IV Vancomycin # 5/14 CSp Zosyn # 5 05/27 SP IV Vanco # 2 Sp Amikacin # 1 Monitor CBC Monitor CMP Monitor CXR Monitor Cx (Bl) Subjective Allergies: Coded Allergies: LEVOFLOXACIN (Verified Allergy, Unknown, 05/24/19) Possible allergic reaction - low blood pressure Subjective no more bleeding from Trach Objective Vital Signs Last 24 Hour Vital Signs Date Time Temp Pulse Resp B/P (MAP) Pulse Ox O2 Delivery O2 Flow Rate FiO2 06/03/19 08:00 T-piece 06/03/19 08:00 28 06/03/19 08:00 98.4 76 20 108/55 (72) 97 06/03/19 08:00 60 06/03/19 07:05 99 T-Piece 5.0 06/03/19 04:00 28 06/03/19 04:00 69 06/03/19 03:48 T-piece 06/03/19 03:45 98.0 62 20 106/55 (72) 97 06/03/19 01:40 98 T-Piece 5.0 28 06/03/19 00:00 71 06/03/19 00:00 99.3 72 20 105/55 (72) 97 06/03/19 00:00 T-piece 06/03/19 00:00 28 06/02/19 20:00 69 06/02/19 20:00 28 06/02/19 20:00 99.2 76 20 104/54 (71) 97 06/02/19 20:00 T-piece 06/02/19 19:07 97 T-Piece 5.0 28 06/02/19 16:00 99.2 72 19 99/51 (67) 97 06/02/19 16:00 28 06/02/19 16:00 T-piece 06/02/19 16:00 66 06/02/19 13:31 99 T-Piece 5.0 28 06/02/19 12:11 T-piece 06/02/19 12:00 28 06/02/19 12:00 73 06/02/19 12:00 99.5 78 19 102/51 (68) 94 Height (Feet): 5 Height (Inches): 7.00 Weight (Pounds): 157 HEENT: mucous membranes moist Respiratory/Chest: no accessory muscle use Cardiovascular: regularly irregular Abdomen: non distended Extremities: no cyanosis Laboratory Tests Test 06/03/19 03:20 White Blood Count 4.4 K/UL (4.8-10.8) L Red Blood Count 3.40 M/UL (4.70-6.10) L Hemoglobin 10.1 G/DL (14.2-18.0) L Hematocrit 30.4 % (42.0-52.0) L Mean Corpuscular Volume 89 FL (80-99) Mean Corpuscular Hemoglobin 29.6 PG (27.0-31.0) Mean Corpuscular Hemoglobin Concent 33.1 G/DL (32.0-36.0) Red Cell Distribution Width 14.9 % (11.6-14.8) H Platelet Count 161 K/UL (150-450) Mean Platelet Volume 6.1 FL (6.5-10.1) L Neutrophils (%) (Auto) 71.6 % (45.0-75.0) Lymphocytes (%) (Auto) 17.7 % (20.0-45.0) L Monocytes (%) (Auto) 5.7 % (1.0-10.0) Eosinophils (%) (Auto) 4.2 % (0.0-3.0) H Basophils (%) (Auto) 0.8 % (0.0-2.0) Sodium Level 137 MMOL/L (136-145) Potassium Level 3.6 MMOL/L (3.5-5.1) Chloride Level 103 MMOL/L (98-107) Carbon Dioxide Level 29 MMOL/L (21-32) Anion Gap 5 mmol/L (5-15) Blood Urea Nitrogen 9 mg/dL (7-18) Creatinine 0.6 MG/DL (0.55-1.30) Estimat Glomerular Filtration Rate > 60 mL/min (>60) Glucose Level 116 MG/DL (74-106) H Calcium Level 8.5 MG/DL (8.5-10.1) Current Medications Medications (Trade) Dose Ordered Sig/Mervat Route PRN Reason Start Time Stop Time Status Last Admin Dose Admin Acetaminophen (Tylenol) 650 mg Q4H PRN ORAL FEVER 05/30/19 19:30 06/23/19 19:29 06/02/19 22:45 Acetaminophen/ Hydrocodone Bitart ([place] 5/325) 1 tab Q6H PRN GT For Pain 05/30/19 22:45 06/06/19 22:44 06/01/19 20:35 Albuterol/ Ipratropium (Albuterol/ Ipratropium) 3 ml Q4H PRN HHN Shortness of Breath 05/30/19 19:00 06/04/19 06:59 Alprazolam (Xanax) 0.25 mg Q8H PRN ORAL For Anxiety 05/31/19 09:45 06/07/19 09:44 06/02/19 05:19 Chlorhexidine Gluconate (Stacie-Hex 2%) 1 applic DAILY@2000 TOPIC 05/30/19 20:00 06/24/19 19:59 06/02/19 20:10 Dextrose (Dextrose 50%) 25 ml Q30M PRN IV Hypoglycemia 05/30/19 19:00 06/23/19 17:29 Dextrose (Dextrose 50%) 50 ml Q30M PRN IV Hypoglycemia 05/30/19 19:00 06/23/19 17:29 Docusate Sodium (Colace) 100 mg TWICE A DAY NG 05/31/19 09:00 06/26/19 08:59 06/02/19 09:11 Ondansetron HCl (Zofran) 4 mg Q6H PRN IVP Nausea & Vomiting 05/30/19 19:30 06/23/19 19:29 Pantoprazole (Protonix) 40 mg EVERY 12 HOURS IVP 05/30/19 21:00 06/24/19 20:59 06/03/19 09:11 Vancomycin HCl (Vanco rx to dose) 1 ea DAILY PRN MISC Per rx protocol 05/31/19 09:00 06/29/19 13:44 Vancomycin HCl 1 gm/Dextrose 275 ml @ 183.708 mls/hr Q12HR@0100,1300 IVPB 06/02/19 13:00 06/07/19 12:59 06/03/19 00:47 Zolpidem Tartrate (Ambien) 5 mg HSPRN PRN GT Insomnia 05/30/19 22:45 06/06/19 22:44 06/02/19 22:46 Jose Luis Alba MD Jun 03, 2019 11:01
[2019-06-03] MEDS ORDERED: Docusate 100mg/10ml Liq GT PRN (11:15)
--- NOTE | 2019-06-03 11:15 | NUR ---
RESPIRATORY NOTE: Per Dr. Chi, place pt on RA 21%, but pt refused. ANTONY Garcia notified.
--- NOTE | 2019-06-03 11:17 | NUR ---
NURSE NOTES: Dr. Chi requested if Patient can be on room air,Alyssa- respiratory therapist .notified me .patient refuse to be on room air
--- NOTE | 2019-06-03 11:48 | Hematology/Onc Progress Note ---
Assessment/Plan Assessment/Plan ASSESSMENT/RECS: #. 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 Esophageal hemorrhage --> requires hemostatic support --> coags have been checked --> vitamin K has been ordered --> now improved --> as per gi #. Pancytopenia -- initally with anemia of chronic disease due to underlying chronic medical issues, multifactorial v Gi bleed --> Anemia workup has been reviewed, ferritin 1190 --> No evidence of hemolysis is noted, peripheral smear has been reviewed. --> Hgb goal >7. Transfuse prn. --> Epogen or iron at this time is not particularly indicated --> Medications have been reviewed --> occult + --> as per Gi eval --> hgb trend: 9.8-->10.1-->9.2-->10.5-->10.1 --> blood tx: 05/26 --> hepatitis and hiv pend # Airway obstruction. --> sp trach # Hypoxia. --> per pulm # Elevated liver function tests. --> as per gi, imaging ordered # Sepsis s/p abx --> per id and has received pressors --> in the icu --> vanc/zosyn--> vanc # Pneumonia. --> on abx --> cxr: Suspected interstitial edema/CHF. Pneumonia in the right midlung not excluded # sp Trach and PEG Appreciate consultation and skip Rn Subjective Allergies: Coded Allergies: LEVOFLOXACIN (Verified Allergy, Unknown, 05/24/19) Possible allergic reaction - low blood pressure Subjective 05/27: icu, cxr reviewed, arythmia overnight, currently alert, no distress, on levophed 05/28: cxr with increased bilat effusions, stool ob positive, h/h stable 05/29: icu, vent, no recurrent bleeding, hgb 9.2 05/31: no events, out of unit, labs noted, relatively stable 06/01: no bleeding or chills, downgraded, labs noted 06/02: awake and alert, sdu, no bleeding from trach, no acute events Objective Objective Current Medications Medications (Trade) Dose Ordered Sig/Mervat Route PRN Reason Start Time Stop Time Status Last Admin Dose Admin Acetaminophen (Tylenol) 650 mg Q4H PRN ORAL FEVER 05/30/19 19:30 06/23/19 19:29 06/02/19 22:45 Acetaminophen/ Hydrocodone Bitart ([place] 5/325) 1 tab Q6H PRN GT For Pain 05/30/19 22:45 06/06/19 22:44 06/01/19 20:35 Albuterol/ Ipratropium (Albuterol/ Ipratropium) 3 ml Q4H PRN HHN Shortness of Breath 05/30/19 19:00 06/04/19 06:59 Alprazolam (Xanax) 0.25 mg Q8H PRN ORAL For Anxiety 05/31/19 09:45 06/07/19 09:44 06/02/19 05:19 Chlorhexidine Gluconate (Stacie-Hex 2%) 1 applic DAILY@2000 TOPIC 05/30/19 20:00 06/24/19 19:59 06/02/19 20:10 Dextrose (Dextrose 50%) 25 ml Q30M PRN IV Hypoglycemia 05/30/19 19:00 06/23/19 17:29 Dextrose (Dextrose 50%) 50 ml Q30M PRN IV Hypoglycemia 05/30/19 19:00 06/23/19 17:29 Docusate Sodium (Colace) 100 mg TWICE A DAY PRN GT Constipation 06/03/19 11:15 06/26/19 08:59 Ondansetron HCl (Zofran) 4 mg Q6H PRN IVP Nausea & Vomiting 05/30/19 19:30 06/23/19 19:29 Pantoprazole (Protonix) 40 mg EVERY 12 HOURS IVP 05/30/19 21:00 06/24/19 20:59 06/03/19 09:11 Vancomycin HCl (Vanco rx to dose) 1 ea DAILY PRN MISC Per rx protocol 05/31/19 09:00 06/29/19 13:44 Vancomycin HCl 1 gm/Dextrose 275 ml @ 183.708 mls/hr Q12HR@0100,1300 IVPB 06/02/19 13:00 06/07/19 12:59 06/03/19 00:47 Zolpidem Tartrate (Ambien) 5 mg HSPRN PRN GT Insomnia 05/30/19 22:45 06/06/19 22:44 06/02/19 22:46 Last 24 Hour Vital Signs Date Time Temp Pulse Resp B/P (MAP) Pulse Ox O2 Delivery O2 Flow Rate FiO2 06/03/19 08:00 T-piece 06/03/19 08:00 28 06/03/19 08:00 98.4 76 20 108/55 (72) 97 06/03/19 08:00 60 06/03/19 07:05 99 T-Piece 5.0 06/03/19 04:00 28 06/03/19 04:00 69 06/03/19 03:48 T-piece 06/03/19 03:45 98.0 62 20 106/55 (72) 97 06/03/19 01:40 98 T-Piece 5.0 06/03/19 00:00 71 06/03/19 00:00 99.3 72 20 105/55 (72) 97 06/03/19 00:00 T-piece 06/03/19 00:00 28 06/02/19 20:00 69 06/02/19 20:00 28 06/02/19 20:00 99.2 76 20 104/54 (71) 97 06/02/19 20:00 T-piece 06/02/19 19:07 97 T-Piece 5.0 06/02/19 16:00 99.2 72 19 99/51 (67) 97 06/02/19 16:00 28 06/02/19 16:00 T-piece 06/02/19 16:00 66 06/02/19 13:31 99 T-Piece 5.0 06/02/19 12:11 T-piece 06/02/19 12:00 28 06/02/19 12:00 73 06/02/19 12:00 99.5 78 19 102/51 (68) 94 06/02/19 08:00 28 06/02/19 08:00 99.0 84 20 96/59 (71) 94 06/02/19 08:00 88 06/02/19 08:00 T-piece 06/02/19 07:15 99 T-Piece 5.0 28 06/02/19 04:00 28 06/02/19 04:00 98.8 58 24 100/48 (65) 97 06/02/19 04:00 T-piece 06/02/19 04:00 58 06/02/19 01:10 99 T-Piece 5.0 28 06/02/19 00:00 72 06/02/19 00:00 T-piece 06/02/19 00:00 28 06/02/19 00:00 98.6 72 20 108/52 (70) 97 06/01/19 20:00 98.8 80 20 105/54 (71) 100 06/01/19 20:00 T-piece 06/01/19 20:00 80 06/01/19 20:00 28 06/01/19 19:12 97 T-Piece 5.0 06/01/19 16:00 T-piece 06/01/19 16:00 28 06/01/19 16:00 98.6 82 20 130/61 (84) 98 06/01/19 15:30 85 06/01/19 12:48 97 Cool Aerosol 5.0 28 06/01/19 12:00 98.1 74 18 115/56 (75) 97 06/01/19 12:00 T-piece 06/01/19 12:00 28 Intake and Output 06/02/19 06/03/19 19:00 07:00 Intake Total 705 ml 930.008 ml Output Total 1001 ml 1300 ml Balance -296 ml -369.992 ml Intake Free Water 50 ml IV Total 275.008 ml Tube Feeding 605 ml 605 ml Other 100 ml Output Urine Total 1000 ml 1300 ml Stool Total 1 ml # Bowel Movements 1 4 Labs Test 05/31/19 14:18 06/01/19 04:23 06/01/19 12:10 06/01/19 13:22 Vancomycin Level Trough 8.9 ug/mL (5.0-12.0) White Blood Count 3.7 K/UL (4.8-10.8) Red Blood Count 3.48 M/UL (4.70-6.10) Hemoglobin 10.5 G/DL (14.2-18.0) Hematocrit 31.2 % (42.0-52.0) Mean Corpuscular Volume 90 FL (80-99) Mean Corpuscular Hemoglobin 30.2 PG (27.0-31.0) Mean Corpuscular Hemoglobin Concent 33.7 G/DL (32.0-36.0) Red Cell Distribution Width 15.0 % (11.6-14.8) Platelet Count 140 K/UL (150-450) Mean Platelet Volume 5.8 FL (6.5-10.1) Neutrophils (%) (Auto) 76.6 % (45.0-75.0) Lymphocytes (%) (Auto) 9.3 % (20.0-45.0) Monocytes (%) (Auto) 7.2 % (1.0-10.0) Eosinophils (%) (Auto) 5.2 % (0.0-3.0) Basophils (%) (Auto) 1.8 % (0.0-2.0) Sodium Level 138 MMOL/L (136-145) Potassium Level 3.6 MMOL/L (3.5-5.1) Chloride Level 104 MMOL/L (98-107) Carbon Dioxide Level 29 MMOL/L (21-32) Anion Gap 6 mmol/L (5-15) Blood Urea Nitrogen 8 mg/dL (7-18) Creatinine 0.5 MG/DL (0.55-1.30) Estimat Glomerular Filtration Rate > 60 mL/min (>60) Glucose Level 110 MG/DL (74-106) Calcium Level 8.1 MG/DL (8.5-10.1) Pro-B-Type Natriuretic Peptide 687 pg/mL (0-125) Hepatitis A IgM Antibody Negative (Negative) Hepatitis B Surface Antigen Negative (Negative) Hepatitis B Core IgM Antibody Negative (Negative) Hepatitis C Antibody >11.0 s/co ratio HIV (1&2) Antibody Rapid Negative (NEGATIVE) Activated Partial Thromboplast Time 32 SEC (23-33) Prothrombin Time 11.0 SEC (9.30-11.50) Prothromb Time International Ratio 1.0 (0.9-1.1) Test 06/02/19 06:20 06/03/19 03:20 White Blood Count 5.1 K/UL (4.8-10.8) 4.4 K/UL (4.8-10.8) Red Blood Count 4.08 M/UL (4.70-6.10) 3.40 M/UL (4.70-6.10) Hemoglobin 12.1 G/DL (14.2-18.0) 10.1 G/DL (14.2-18.0) Hematocrit 37.1 % (42.0-52.0) 30.4 % (42.0-52.0) Mean Corpuscular Volume 91 FL (80-99) 89 FL (80-99) Mean Corpuscular Hemoglobin 29.7 PG (27.0-31.0) 29.6 PG (27.0-31.0) Mean Corpuscular Hemoglobin Concent 32.7 G/DL (32.0-36.0) 33.1 G/DL (32.0-36.0) Red Cell Distribution Width 15.2 % (11.6-14.8) 14.9 % (11.6-14.8) Platelet Count 174 K/UL (150-450) 161 K/UL (150-450) Mean Platelet Volume 6.2 FL (6.5-10.1) 6.1 FL (6.5-10.1) Neutrophils (%) (Auto) 78.4 % (45.0-75.0) 71.6 % (45.0-75.0) Lymphocytes (%) (Auto) 14.6 % (20.0-45.0) 17.7 % (20.0-45.0) Monocytes (%) (Auto) 3.3 % (1.0-10.0) 5.7 % (1.0-10.0) Eosinophils (%) (Auto) 3.0 % (0.0-3.0) 4.2 % (0.0-3.0) Basophils (%) (Auto) 0.7 % (0.0-2.0) 0.8 % (0.0-2.0) Sodium Level 140 MMOL/L (136-145) 137 MMOL/L (136-145) Potassium Level 5.3 MMOL/L (3.5-5.1) 3.6 MMOL/L (3.5-5.1) Chloride Level 103 MMOL/L (98-107) 103 MMOL/L (98-107) Carbon Dioxide Level 27 MMOL/L (21-32) 29 MMOL/L (21-32) Anion Gap 10 mmol/L (5-15) 5 mmol/L (5-15) Blood Urea Nitrogen 10 mg/dL (7-18) 9 mg/dL (7-18) Creatinine 0.7 MG/DL (0.55-1.30) 0.6 MG/DL (0.55-1.30) Estimat Glomerular Filtration Rate > 60 mL/min (>60) > 60 mL/min (>60) Glucose Level 108 MG/DL (74-106) 116 MG/DL (74-106) Calcium Level 8.9 MG/DL (8.5-10.1) 8.5 MG/DL (8.5-10.1) Total Bilirubin 0.4 MG/DL (0.2-1.0) Aspartate Amino Transf (AST/SGOT) 61 U/L (15-37) Alanine Aminotransferase (ALT/SGPT) 93 U/L (12-78) Alkaline Phosphatase 69 U/L (46-116) Pro-B-Type Natriuretic Peptide 308 pg/mL (0-125) Total Protein 6.4 G/DL (6.4-8.2) Albumin 1.5 G/DL (3.4-5.0) Globulin 4.9 g/dL Albumin/Globulin Ratio 0.3 (1.0-2.7) Vancomycin Level Trough 23.6 ug/mL (5.0-12.0) Height (Feet): 5 Height (Inches): 7.00 Weight (Pounds): 157 Objective Physical Exam: Vitals: reviewed General: NAD HEENT: nc, at ++ trach/vent Neck: supple Chest: clear breath sounds bilaterally Abdomen: soft, nontender, nd ++ gtube Extremities: no cce, normal range of motion Neuro: alert and oriented Ar Paz MD Jun 03, 2019 11:48
[2019-06-03 12:00] VITALS: BP 101/49
--- NOTE | 2019-06-03 12:02 | NUR ---
RD ASSESSMENT & RECOMMENDATIONS SEE CARE ACTIVITY FOR COMPLETE ASSESSMENT DAILY ESTIMATED NEEDS: Needs based on Pulmonary, cancer, bed bound 65.9kg 25-30 kcals/kg total kcals 1.2-2 g protein/kg 79-132 g total protein 25-30 mL/kg total fluid mLs NUTRITION DIAGNOSIS: Swallowing difficulty r/t resp status, throat tumor as evidenced by pt w/ throat cancer, recent cardiac arrest w/ trach placement, pt is GT dep. CURRENT TF:Osmolite 1.2 @ 55ml/hr x 24 hrs ENTERAL NUTRITION RECOMMENDATIONS: Osmolite 1.2 @60ml/hr x24 hrs to provide 1440ml, 1728 kcal, 80g pro, 1181ml free H2O - Increase goal rate to 60ml/hr x 24 hrs to meet 100% est kcal/prot needs. - HOB over 30 degrees. - Rec H20 flush of 120ml q 4 hrs ADDITIONAL RECOMMENDATIONS: 1) Feed as able, TF recs as above 2) Maintain calibrated bed scale wts 3) Monitor blood glucose w/ feeds, need for niss 4) F/up w/ WC eval 5) Monitor BMs- daily stool softeners dc'ed 06/02
--- NOTE | 2019-06-03 12:38 | Internal Med Progress Note ---
Subjective Date of Service: Jun 03, 2019 Physician Name JazmineIgor Attending Physician Matthew Davis MD Current Medications Medications (Trade) Dose Ordered Sig/Mervat Route PRN Reason Start Time Stop Time Status Last Admin Dose Admin Acetaminophen (Tylenol) 650 mg Q4H PRN ORAL FEVER 05/30/19 19:30 06/23/19 19:29 06/02/19 22:45 Acetaminophen/ Hydrocodone Bitart ([place] 5/325) 1 tab Q6H PRN GT For Pain 05/30/19 22:45 06/06/19 22:44 06/01/19 20:35 Albuterol/ Ipratropium (Albuterol/ Ipratropium) 3 ml Q4H PRN HHN Shortness of Breath 05/30/19 19:00 06/04/19 06:59 Alprazolam (Xanax) 0.25 mg Q8H PRN ORAL For Anxiety 05/31/19 09:45 06/07/19 09:44 06/02/19 05:19 Chlorhexidine Gluconate (Stacie-Hex 2%) 1 applic DAILY@2000 TOPIC 05/30/19 20:00 06/24/19 19:59 06/02/19 20:10 Dextrose (Dextrose 50%) 25 ml Q30M PRN IV Hypoglycemia 05/30/19 19:00 06/23/19 17:29 Dextrose (Dextrose 50%) 50 ml Q30M PRN IV Hypoglycemia 05/30/19 19:00 06/23/19 17:29 Docusate Sodium (Colace) 100 mg TWICE A DAY PRN GT Constipation 06/03/19 11:15 06/26/19 08:59 Ondansetron HCl (Zofran) 4 mg Q6H PRN IVP Nausea & Vomiting 05/30/19 19:30 06/23/19 19:29 Pantoprazole (Protonix) 40 mg EVERY 12 HOURS IVP 05/30/19 21:00 06/24/19 20:59 06/03/19 09:11 Vancomycin HCl (Vanco rx to dose) 1 ea DAILY PRN MISC Per rx protocol 05/31/19 09:00 06/29/19 13:44 Vancomycin HCl 1 gm/Dextrose 275 ml @ 183.708 mls/hr Q12HR@0100,1300 IVPB 06/02/19 13:00 06/07/19 12:59 06/03/19 00:47 Zolpidem Tartrate (Ambien) 5 mg HSPRN PRN GT Insomnia 05/30/19 22:45 06/06/19 22:44 06/02/19 22:46 Allergies: Coded Allergies: LEVOFLOXACIN (Verified Allergy, Unknown, 05/24/19) Possible allergic reaction - low blood pressure ROS Limited/Unobtainable: No Constitutional: Reports: no symptoms HEENT: Reports: no symptoms Cardiovascular: Reports: no symptoms Respiratory: Reports: no symptoms Gastrointestinal/Abdominal: Reports: no symptoms Genitourinary: Reports: no symptoms Neurologic/Psychiatric: Reports: no symptoms Subjective 73 YO M with esophageal mass admitted with hemoptysis. Now Pneumonia. Cover for Int med-DR Davis. SDU. S/P right thoracentesis 06/01/19 Objective Last Vital Signs Date Time Temp Pulse Resp B/P (MAP) Pulse Ox O2 Delivery O2 Flow Rate FiO2 06/03/19 12:00 28 06/03/19 12:00 97.9 65 19 101/49 (66) 95 06/03/19 12:00 T-piece 06/03/19 07:05 5.0 Laboratory Tests Test 06/03/19 03:20 White Blood Count 4.4 K/UL (4.8-10.8) L Red Blood Count 3.40 M/UL (4.70-6.10) L Hemoglobin 10.1 G/DL (14.2-18.0) L Hematocrit 30.4 % (42.0-52.0) L Mean Corpuscular Volume 89 FL (80-99) Mean Corpuscular Hemoglobin 29.6 PG (27.0-31.0) Mean Corpuscular Hemoglobin Concent 33.1 G/DL (32.0-36.0) Red Cell Distribution Width 14.9 % (11.6-14.8) H Platelet Count 161 K/UL (150-450) Mean Platelet Volume 6.1 FL (6.5-10.1) L Neutrophils (%) (Auto) 71.6 % (45.0-75.0) Lymphocytes (%) (Auto) 17.7 % (20.0-45.0) L Monocytes (%) (Auto) 5.7 % (1.0-10.0) Eosinophils (%) (Auto) 4.2 % (0.0-3.0) H Basophils (%) (Auto) 0.8 % (0.0-2.0) Sodium Level 137 MMOL/L (136-145) Potassium Level 3.6 MMOL/L (3.5-5.1) Chloride Level 103 MMOL/L (98-107) Carbon Dioxide Level 29 MMOL/L (21-32) Anion Gap 5 mmol/L (5-15) Blood Urea Nitrogen 9 mg/dL (7-18) Creatinine 0.6 MG/DL (0.55-1.30) Estimat Glomerular Filtration Rate > 60 mL/min (>60) Glucose Level 116 MG/DL (74-106) H Calcium Level 8.5 MG/DL (8.5-10.1) Intake and Output 06/02/19 06/03/19 19:00 07:00 Intake Total 705 ml 930.008 ml Output Total 1001 ml 1300 ml Balance -296 ml -369.992 ml Intake Free Water 50 ml IV Total 275.008 ml Tube Feeding 605 ml 605 ml Other 100 ml Output Urine Total 1000 ml 1300 ml Stool Total 1 ml # Bowel Movements 1 4 Objective PHYSICAL EXAMINATION: GENERAL: The patient is a well-nourished male, who is in moderate distress. HEENT: Trach; Eyes, pupils are equal and responsive to light and accommodation. Extraocular movements are intact. Tracheostomy is present. CHEST: Mech vent; Lungs are clear with mechanical breath sounds bilaterally. ABDOMEN: Soft, nontender, and nondistended. Positive bowel sounds. No evidence of hepatosplenomegaly. Currently, no rebound or guarding noted. EXTREMITIES: Negative for clubbing, cyanosis, or edema. RECTAL/GENITAL: Not performed. NEUROLOGICAL: Cranial nerves II to XII grossly intact without focal deficits. Motor strength is 5/5 bilaterally. Deep tendon reflexes are 2+ plantar. 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 Esophageal hemorrhage. 3. Airway obstruction. 4. Hypoxia. 5. History of esophageal cancer. 6. Elevated liver function tests. 7. Bilateral pneumonia=MRSA 8. Tracheostomy dependent 9. right pleural effusion TREATMENT: 1. Squamous cell carcinoma/hemorrhage. A Hematology/Oncology consultation has been obtained with Dr. Paz. The patient has received four units of packed RBCs and 1 unit FFP. The patient is in the Step down unit. The patient is currently off pressors. 2. Hypoxia. A Pulmonary/Critical Care consultation has been obtained with Dr. Claudia Chi. Hypoxia is probably secondary to tracheal obstruction secondary to hemorrhage as above. Continue vent per Dr. Chi. 3. Pneumonia=MRSA ABX= vancomycin. An Infectious Disease consultation has been obtained with Dr. Alba. We will follow recommendations of Infectious Disease. A sputum culture=MRSA 4. Elevated liver function tests/esophageal mass. A Gastroenterology consultation has been obtained with Dr. Narciso Engle. The patient may require repeat biopsy of esophageal mass. We will follow recommendations of Gastroenterology. 5. S/P right thoracentesis 06/01/19 Igor Lucero MD Jun 03, 2019 12:38
--- NOTE | 2019-06-03 13:00 | NUR ---
NURSE NOTES: pt resting, no co pain, vital signs stable, bed bath given, repositioned, continue monitoring.
--- NOTE | 2019-06-03 14:41 | Surgery Progress Note ---
Surgery Progress Note Subjective Symptoms: improved, tolerating diet, voiding well, passing flatus Objective Last 24 Hour Vital Signs Date Time Temp Pulse Resp B/P (MAP) Pulse Ox O2 Delivery O2 Flow Rate FiO2 06/03/19 12:00 72 06/03/19 12:00 28 06/03/19 12:00 97.9 65 19 101/49 (66) 95 06/03/19 12:00 T-piece 06/03/19 08:00 T-piece 06/03/19 08:00 28 06/03/19 08:00 98.4 76 20 108/55 (72) 97 06/03/19 08:00 60 06/03/19 07:05 99 T-Piece 5.0 28 06/03/19 04:00 28 06/03/19 04:00 69 06/03/19 03:48 T-piece 06/03/19 03:45 98.0 62 20 106/55 (72) 97 06/03/19 01:40 98 T-Piece 5.0 28 06/03/19 00:00 71 06/03/19 00:00 99.3 72 20 105/55 (72) 97 06/03/19 00:00 T-piece 06/03/19 00:00 28 06/02/19 20:00 69 06/02/19 20:00 28 06/02/19 20:00 99.2 76 20 104/54 (71) 97 06/02/19 20:00 T-piece 06/02/19 19:07 97 T-Piece 5.0 28 06/02/19 16:00 99.2 72 19 99/51 (67) 97 06/02/19 16:00 28 06/02/19 16:00 T-piece 06/02/19 16:00 66 I&O Intake and Output 06/02/19 06/03/19 19:00 07:00 Intake Total 705 ml 930.008 ml Output Total 1001 ml 1300 ml Balance -296 ml -369.992 ml Intake Free Water 50 ml IV Total 275.008 ml Tube Feeding 605 ml 605 ml Other 100 ml Output Urine Total 1000 ml 1300 ml Stool Total 1 ml # Bowel Movements 1 4 Dressing: dry Wound: clean Cardiovascular: RSR Respiratory: clear Abdomen: soft, non-tender, present bowel sounds Extremities: no cyanosis Laboratory Tests Test 06/03/19 03:20 White Blood Count 4.4 K/UL (4.8-10.8) L Red Blood Count 3.40 M/UL (4.70-6.10) L Hemoglobin 10.1 G/DL (14.2-18.0) L Hematocrit 30.4 % (42.0-52.0) L Mean Corpuscular Volume 89 FL (80-99) Mean Corpuscular Hemoglobin 29.6 PG (27.0-31.0) Mean Corpuscular Hemoglobin Concent 33.1 G/DL (32.0-36.0) Red Cell Distribution Width 14.9 % (11.6-14.8) H Platelet Count 161 K/UL (150-450) Mean Platelet Volume 6.1 FL (6.5-10.1) L Neutrophils (%) (Auto) 71.6 % (45.0-75.0) Lymphocytes (%) (Auto) 17.7 % (20.0-45.0) L Monocytes (%) (Auto) 5.7 % (1.0-10.0) Eosinophils (%) (Auto) 4.2 % (0.0-3.0) H Basophils (%) (Auto) 0.8 % (0.0-2.0) Sodium Level 137 MMOL/L (136-145) Potassium Level 3.6 MMOL/L (3.5-5.1) Chloride Level 103 MMOL/L (98-107) Carbon Dioxide Level 29 MMOL/L (21-32) Anion Gap 5 mmol/L (5-15) Blood Urea Nitrogen 9 mg/dL (7-18) Creatinine 0.6 MG/DL (0.55-1.30) Estimat Glomerular Filtration Rate > 60 mL/min (>60) Glucose Level 116 MG/DL (74-106) H Calcium Level 8.5 MG/DL (8.5-10.1) Plan Problems: (1) Esophageal mass Assessment & Plan: This is a 73-year-old male with known history of throat cancer possible esophageal cancer status post chemoradiation [facility] a few years back who recently has developed cardiac arrest shortness of breath respiratory compromise and had tracheostomy at outside facility for airway protection. Was in recovery until recently identified to have desaturation with blood clots noted within tracheostomy tube suctions as well as oral suctioning. Patient admitted for care and management identified to have anemia bleeding and hemorrhage. Surgery called to evaluate patient was seen. Hemorrhage has significantly decreased and currently no active bleeding noted. H&H trending down and being transfused as per my recommendations. Patient is awake alert states he feels better. He slowly weaning off pressors. Unfortunately given history current condition and the above no acute surgical intervention indicated or recommended. Will obtain attempt records from [facility] as well as [facility]. Continue with deep suctioning by respiratory. Okay for oral suctioning. Monitor for bleeding. Fortunately currently no active bleeding and hopefully its its way. We will keep close eye on H&H as well as coags to ensure patient improving. Permissive hypotension okay. Wean pressors. Thank you for let me participation's care will continue to follow with recommendations and further evaluation. Labs noted H&H improved after transfusion LFTs bilirubin noted likely response to bleeding patient states no longer currently actively bleeding otherwise stable off pressors improving Continue with current treatment will monitor downgrade labs okay off vent no bleeding improving feeds as tolerated d/c planning (2) Hemoptysis Assessment & Plan: Findings: Interstitial and airspace opacities are seen throughout the right mid and lower lung. Questionable patchy peripheral opacities are also present on the left. Heart size is normal. The pleural spaces are clear Impression: Right lung opacities and questionable patchy left lung opacities, likely pneumonia. (3) Head and neck cancer [facility] Jun 03, 2019 14:41
[2019-06-03 16:00] VITALS: BP 123/51
--- NOTE | 2019-06-03 17:11 | NUR ---
NOTIFIED DR RUSSO RE: PATIENT'S HEP C RESULT AND ENDORSED TO NURSE.
--- NOTE | 2019-06-03 19:15 | NUR ---
NURSE NOTES: Received report from Edilma Perera RN, pt. in bed awake, A/O x's 4-able to make needs known, no signs or symptoms of acute cardiac or respiratory distress noted, daughter at bedside, bed alarm on, side rails up x's 3 and safety brakes engaged, HOB elevated, pt. appears to be tolerating current T piece setting fio2 at 28% w/ cool aerosol- no distress noted, appears to be resting comfortably, G tube feeding running Osmolite at 55cc/hr- no residual noted, Fernandez intact and draining to gravity, Pt. appears to be clean and dry, LFA 20G IV intact and patent, pt. has ADAN midline intact and in place- TKO, safety measures continued, will continue with plan of care.
--- NOTE | 2019-06-03 19:23 | NUR ---
HAND-OFF: Report given to YANICK HARDY, no distress noted.
--- NOTE | 2019-06-03 19:36 | NUR ---
HAND-OFF: Report given to ANTONY Diaz.
--- NOTE | 2019-06-03 19:38 | NUR ---
NURSE NOTES: Above handoff, wrong time. Suppose to be 06/03/19(0700)
[2019-06-03] MEDS: Dyna-Hex 2% Top Sol 2oz TOPIC SCH (19:54)
[2019-06-03 20:00] VITALS: BP 121/64
[2019-06-03] MEDS: HYDROcodone/Acetamin 5/325 tab GT PRN (20:01)
[2019-06-03] MEDS: Zolpidem 5mg tab GT PRN (22:41)
[2019-06-04] VITALS: BP 101/50
[2019-06-04] MEDS: Vancomycin 1gm/D5W 275ml IVPB SCH ×4 (01:07→13:33)
[2019-06-04 04:00] VITALS: BP 107/53
[2019-06-04 04:04] LABS: BASOPHILS % (AUTO) 0.8 % (0.0-2.0); EOSINOPHILS % (AUTO) 3.7 % (0.0-3.0); HEMATOCRIT 30.5 % (42.0-52.0); HEMOGLOBIN 10.2 G/DL (14.2-18.0); LYMPHOCYTES % (AUTO) 17.2 % (20.0-45.0); MEAN CORPUSCULAR VOLUME 89 FL (80-99); MONOCYTES % (AUTO) 8.6 % (1.0-10.0); NEUTROPHILS % (AUTO) 69.8 % (45.0-75.0); PLATELET COUNT 196 K/UL (150-450); RED BLOOD COUNT 3.41 M/UL (4.70-6.10); RED CELL DISTRIBUTION WIDTH 14.7 % (11.6-14.8); WHITE BLOOD COUNT 3.9 K/UL (4.8-10.8)
[2019-06-04 04:25] LABS: ALANINE AMINOTRANSFERASE 59 U/L (12-78); ALBUMIN 1.5 G/DL (3.4-5.0); ALBUMIN/GLOBULIN RATIO 0.3 (1.0-2.7); ALKALINE PHOSPHATASE 50 U/L (46-116); ANION GAP 6 mmol/L (5-15); ASPARTATE AMINO TRANSFERASE 33 U/L (15-37); BILIRUBIN,TOTAL 0.4 MG/DL (0.2-1.0); BLOOD UREA NITROGEN 10 mg/dL (7-18); CALCIUM 8.5 MG/DL (8.5-10.1); CARBON DIOXIDE 29 MMOL/L (21-32); CHLORIDE 101 MMOL/L (98-107); CREATININE 0.6 MG/DL (0.55-1.30); SODIUM 136 MMOL/L (136-145)
--- NOTE | 2019-06-04 06:08 | Hematology/Onc Progress Note ---
Assessment/Plan Assessment/Plan ASSESSMENT/RECS: #. 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 Esophageal hemorrhage --> requires hemostatic support --> coags have been checked --> vitamin K has been ordered --> now improved --> as per gi #. Pancytopenia -- initally with anemia of chronic disease due to underlying chronic medical issues, multifactorial v Gi bleed v hepatitis C++ --> Anemia workup has been reviewed, ferritin 1190 --> No evidence of hemolysis is noted, peripheral smear has been reviewed. --> Hgb goal >7. Transfuse prn. --> Epogen or iron at this time is not particularly indicated --> Medications have been reviewed --> occult + --> as per Gi eval --> hgb trend: 9.8-->10.1-->9.2-->10.5-->10.1 --> blood tx: 05/26 --> hepatitis C++ # Airway obstruction. --> sp trach --> no further bleeding # Hypoxia. --> per pulm # Elevated liver function tests. --> as per gi, imaging ordered # Sepsis s/p abx --> per id and has received pressors --> in the icu --> vanc/zosyn--> vanc # Pneumonia. --> on abx --> cxr: Suspected interstitial edema/CHF. Pneumonia in the right midlung not excluded --> per ID recs # sp Trach and PEG Appreciate consultation and skip Rn Subjective Constitutional: Denies: no symptoms, chills, fever, malaise, weakness, other HEENT: Denies: no symptoms, eye pain, blurred vision, tearing, double vision, ear pain, ear discharge, nose pain, nose congestion, throat pain, throat swelling, mouth pain, mouth swelling, other Cardiovascular: Denies: no symptoms, chest pain, edema, irregular heart rate, lightheadedness, palpitations, syncope, other Respiratory: Denies: no symptoms, cough, shortness of breath, SOB with excertion, SOB at rest, sputum, wheezing, other Gastrointestinal/Abdominal: Denies: no symptoms, abdomen distended, abdominal pain, black stools, tarry stools, blood in stool, constipated, diarrhea, difficulty swallowing, nausea, poor appetite, poor fluid intake, rectal bleeding , vomiting, other Genitourinary: Denies: no symptoms, burning, discharge, frequency, flank pain, hematuria, incontinence, pain, urgency, other Neurologic/Psychiatric: Denies: no symptoms, anxiety, depressed, emotional problems, headache, numbness, paresthesia, pre-existing deficit, seizure, tingling, tremors, weakness, other Endocrine: Denies: no symptoms, excessive sweating, flushing, intolerance to cold, intolerance to heat, increased hunger, increased thirst, increased urine, unexplained weight gain, unexplained weight loss, other Hematologic/Lymphatic: Denies: no symptoms, anemia, easy bleeding, easy bruising, adenopathy, other Allergies: Coded Allergies: LEVOFLOXACIN (Verified Allergy, Unknown, 05/24/19) Possible allergic reaction - low blood pressure Subjective 05/27: icu, cxr reviewed, arythmia overnight, currently alert, no distress, on levophed 05/28: cxr with increased bilat effusions, stool ob positive, h/h stable 05/29: icu, vent, no recurrent bleeding, hgb 9.2 05/31: no events, out of unit, labs noted, relatively stable 06/01: no bleeding or chills, downgraded, labs noted 06/02: awake and alert, sdu, no bleeding from trach, no acute events 06/03: no major changes, no bleeding, no further bleeding from trach, labs noted Objective Objective Current Medications Medications (Trade) Dose Ordered Sig/Mervat Route PRN Reason Start Time Stop Time Status Last Admin Dose Admin Acetaminophen (Tylenol) 650 mg Q4H PRN ORAL FEVER 05/30/19 19:30 06/23/19 19:29 06/02/19 22:45 Acetaminophen/ Hydrocodone Bitart (Tonica 5/325) 1 tab Q6H PRN GT For Pain 05/30/19 22:45 06/06/19 22:44 06/03/19 20:01 Albuterol/ Ipratropium (Albuterol/ Ipratropium) 3 ml Q4H PRN HHN Shortness of Breath 05/30/19 19:00 06/04/19 06:59 Alprazolam (Xanax) 0.25 mg Q8H PRN ORAL For Anxiety 05/31/19 09:45 06/07/19 09:44 06/02/19 05:19 Chlorhexidine Gluconate (Stacie-Hex 2%) 1 applic DAILY@1999 TOPIC 05/30/19 20:00 06/24/19 19:59 06/03/19 19:54 Dextrose (Dextrose 50%) 25 ml Q30M PRN IV Hypoglycemia 05/30/19 19:00 06/23/19 17:29 Dextrose (Dextrose 50%) 50 ml Q30M PRN IV Hypoglycemia 05/30/19 19:00 06/23/19 17:29 Docusate Sodium (Colace) 100 mg TWICE A DAY PRN GT Constipation 06/03/19 11:15 06/26/19 08:59 Lansoprazole (Prevacid) 30 mg Q12HR GT 06/03/19 21:00 07/03/19 20:59 06/03/19 20:01 Ondansetron HCl (Zofran) 4 mg Q6H PRN IVP Nausea & Vomiting 05/30/19 19:30 06/23/19 19:29 Vancomycin HCl (Vanco rx to dose) 1 ea DAILY PRN MISC Per rx protocol 05/31/19 09:00 06/29/19 13:44 Vancomycin HCl 1 gm/Dextrose 275 ml @ 183.708 mls/hr Q12HR@0100,1300 IVPB 06/02/19 13:00 06/07/19 12:59 06/04/19 01:07 Zolpidem Tartrate (Ambien) 5 mg HSPRN PRN GT Insomnia 05/30/19 22:45 06/06/19 22:44 06/03/19 22:41 Last 24 Hour Vital Signs Date Time Temp Pulse Resp B/P (MAP) Pulse Ox O2 Delivery O2 Flow Rate FiO2 06/04/19 05:44 79 20 98 Cool Aerosol 5.0 28 06/04/19 04:00 T-piece 06/04/19 04:00 28 06/04/19 04:00 98.8 77 20 107/53 (71) 96 06/04/19 03:34 77 06/04/19 01:05 97 T-Piece 5.0 06/04/19 00:00 28 06/04/19 00:00 97.5 68 20 101/50 (67) 97 06/04/19 00:00 T-piece 06/03/19 23:23 76 06/03/19 20:31 97.5 06/03/19 20:00 28 06/03/19 20:00 89 06/03/19 20:00 T-piece 06/03/19 20:00 98.9 80 22 121/64 (83) 96 06/03/19 19:17 96 T-Piece 5.0 06/03/19 16:00 80 06/03/19 16:00 28 06/03/19 16:00 97.5 86 20 123/51 (75) 97 06/03/19 16:00 T-piece 06/03/19 13:30 97 T-Piece 5.0 06/03/19 12:00 72 06/03/19 12:00 28 06/03/19 12:00 97.9 65 19 101/49 (66) 95 06/03/19 12:00 T-piece 06/03/19 08:00 T-piece 06/03/19 08:00 06/03/19 08:00 98.4 76 20 108/55 (72) 97 06/03/19 08:00 60 06/03/19 07:05 99 T-Piece 5.0 06/03/19 04:00 06/03/19 04:00 69 06/03/19 03:48 T-piece 06/03/19 03:45 98.0 62 20 106/55 (72) 97 06/03/19 01:40 98 T-Piece 5.0 06/03/19 00:00 71 06/03/19 00:00 99.3 72 20 105/55 (72) 97 06/03/19 00:00 T-piece 06/03/19 00:00 28 06/02/19 20:00 69 06/02/19 20:00 28 06/02/19 20:00 99.2 76 20 104/54 (71) 97 06/02/19 20:00 T-piece 06/02/19 19:07 97 T-Piece 5.0 28 06/02/19 16:00 99.2 72 19 99/51 (67) 97 06/02/19 16:00 28 06/02/19 16:00 T-piece 06/02/19 16:00 66 06/02/19 13:31 99 T-Piece 5.0 28 06/02/19 12:11 T-piece 06/02/19 12:00 28 06/02/19 12:00 73 06/02/19 12:00 99.5 78 19 102/51 (68) 94 06/02/19 08:00 28 06/02/19 08:00 99.0 84 20 96/59 (71) 94 06/02/19 08:00 88 06/02/19 08:00 T-piece 06/02/19 07:15 99 T-Piece 5.0 28 Intake and Output 06/03/19 06/04/19 19:00 07:00 Intake Total 1085.000 ml 967.416 ml Output Total 750 ml Balance 335.000 ml 967.416 ml Intake Free Water 150 ml 0 ml IV Total 275.000 ml 367.416 ml Tube Feeding 660 ml 550 ml Blood Product 50 ml Output Urine Total 750 ml # Bowel Movements 6 3 Labs Test 06/01/19 12:10 06/01/19 13:22 06/02/19 06:20 06/03/19 03:20 Activated Partial Thromboplast Time 32 SEC (23-33) Prothrombin Time 11.0 SEC (9.30-11.50) Prothromb Time International Ratio 1.0 (0.9-1.1) White Blood Count 5.1 K/UL (4.8-10.8) 4.4 K/UL (4.8-10.8) Red Blood Count 4.08 M/UL (4.70-6.10) 3.40 M/UL (4.70-6.10) Hemoglobin 12.1 G/DL (14.2-18.0) 10.1 G/DL (14.2-18.0) Hematocrit 37.1 % (42.0-52.0) 30.4 % (42.0-52.0) Mean Corpuscular Volume 91 FL (80-99) 89 FL (80-99) Mean Corpuscular Hemoglobin 29.7 PG (27.0-31.0) 29.6 PG (27.0-31.0) Mean Corpuscular Hemoglobin Concent 32.7 G/DL (32.0-36.0) 33.1 G/DL (32.0-36.0) Red Cell Distribution Width 15.2 % (11.6-14.8) 14.9 % (11.6-14.8) Platelet Count 174 K/UL (150-450) 161 K/UL (150-450) Mean Platelet Volume 6.2 FL (6.5-10.1) 6.1 FL (6.5-10.1) Neutrophils (%) (Auto) 78.4 % (45.0-75.0) 71.6 % (45.0-75.0) Lymphocytes (%) (Auto) 14.6 % (20.0-45.0) 17.7 % (20.0-45.0) Monocytes (%) (Auto) 3.3 % (1.0-10.0) 5.7 % (1.0-10.0) Eosinophils (%) (Auto) 3.0 % (0.0-3.0) 4.2 % (0.0-3.0) Basophils (%) (Auto) 0.7 % (0.0-2.0) 0.8 % (0.0-2.0) Sodium Level 140 MMOL/L (136-145) 137 MMOL/L (136-145) Potassium Level 5.3 MMOL/L (3.5-5.1) 3.6 MMOL/L (3.5-5.1) Chloride Level 103 MMOL/L (98-107) 103 MMOL/L (98-107) Carbon Dioxide Level 27 MMOL/L (21-32) 29 MMOL/L (21-32) Anion Gap 10 mmol/L (5-15) 5 mmol/L (5-15) Blood Urea Nitrogen 10 mg/dL (7-18) 9 mg/dL (7-18) Creatinine 0.7 MG/DL (0.55-1.30) 0.6 MG/DL (0.55-1.30) Estimat Glomerular Filtration Rate > 60 mL/min (>60) > 60 mL/min (>60) Glucose Level 108 MG/DL (74-106) 116 MG/DL (74-106) Calcium Level 8.9 MG/DL (8.5-10.1) 8.5 MG/DL (8.5-10.1) Total Bilirubin 0.4 MG/DL (0.2-1.0) Aspartate Amino Transf (AST/SGOT) 61 U/L (15-37) Alanine Aminotransferase (ALT/SGPT) 93 U/L (12-78) Alkaline Phosphatase 69 U/L (46-116) Pro-B-Type Natriuretic Peptide 308 pg/mL (0-125) Total Protein 6.4 G/DL (6.4-8.2) Albumin 1.5 G/DL (3.4-5.0) Globulin 4.9 g/dL Albumin/Globulin Ratio 0.3 (1.0-2.7) Vancomycin Level Trough 23.6 ug/mL (5.0-12.0) Test 06/04/19 00:29 06/04/19 03:30 Vancomycin Level Trough 18.2 ug/mL (5.0-12.0) White Blood Count 3.9 K/UL (4.8-10.8) Red Blood Count 3.41 M/UL (4.70-6.10) Hemoglobin 10.2 G/DL (14.2-18.0) Hematocrit 30.5 % (42.0-52.0) Mean Corpuscular Volume 89 FL (80-99) Mean Corpuscular Hemoglobin 29.8 PG (27.0-31.0) Mean Corpuscular Hemoglobin Concent 33.3 G/DL (32.0-36.0) Red Cell Distribution Width 14.7 % (11.6-14.8) Platelet Count 196 K/UL (150-450) Mean Platelet Volume 5.7 FL (6.5-10.1) Neutrophils (%) (Auto) 69.8 % (45.0-75.0) Lymphocytes (%) (Auto) 17.2 % (20.0-45.0) Monocytes (%) (Auto) 8.6 % (1.0-10.0) Eosinophils (%) (Auto) 3.7 % (0.0-3.0) Basophils (%) (Auto) 0.8 % (0.0-2.0) Sodium Level 136 MMOL/L (136-145) Potassium Level 4.0 MMOL/L (3.5-5.1) Chloride Level 101 MMOL/L (98-107) Carbon Dioxide Level 29 MMOL/L (21-32) Anion Gap 6 mmol/L (5-15) Blood Urea Nitrogen 10 mg/dL (7-18) Creatinine 0.6 MG/DL (0.55-1.30) Estimat Glomerular Filtration Rate > 60 mL/min (>60) Glucose Level 132 MG/DL (74-106) Calcium Level 8.5 MG/DL (8.5-10.1) Total Bilirubin 0.4 MG/DL (0.2-1.0) Aspartate Amino Transf (AST/SGOT) 33 U/L (15-37) Alanine Aminotransferase (ALT/SGPT) 59 U/L (12-78) Alkaline Phosphatase 50 U/L (46-116) Pro-B-Type Natriuretic Peptide 202 pg/mL (0-125) Total Protein 5.8 G/DL (6.4-8.2) Albumin 1.5 G/DL (3.4-5.0) Globulin 4.3 g/dL Albumin/Globulin Ratio 0.3 (1.0-2.7) Height (Feet): 5 Height (Inches): 7.00 Weight (Pounds): 157 Objective Physical Exam: Vitals: reviewed General: NAD HEENT: nc, at ++ trach/vent Neck: supple Chest: clear breath sounds bilaterally Abdomen: soft, nontender, nd ++ gtube Extremities: no cce, normal range of motion Neuro: alert and oriented Ar Paz MD Jun 04, 2019 06:08
--- NOTE | 2019-06-04 06:57 | NUR ---
HAND-OFF: Report given to Robert RN, pt. remains stable and no signs of distress noted- nurse aware to f/u on any abnormal am labs.
--- NOTE | 2019-06-04 07:15 | NUR ---
NURSE NOTES: RECEIVED BED SIDE REPORT FROM [employer]ATOR [employer]. RECEIVED PT WITH HOB ELEVATED 45 DEGREE AWAKE AND ALERT, DENIES CP OR SOB AT THIS TIME.PT WITH TRACH SHILEY# 8,CONNECTED WITH T-PIECE RECEIVING 28% FIO2, RENDERED TRACH CARE AND ORAL HYGIENE,SX,D MOD AMT OF WHITE TICK SECRETIONS. GTF PATENT ,NO RESIDUAL RECEIVING OSMOLITE 1.2@ 55CC/HRS. ADAN MID LINE INTACT.PT REPOSITIONED IN BED AND MADE COMFORTABLE POSSIBLE.FULL BODY ASSESSMENT DONE.NO ACUTE DISTRESS NOTED AT THIS TIME. WILL CONT TO MONITOR.
[2019-06-04 07:32] VITALS: BP 116/56
[2019-06-04] MEDS: HYDROcodone/Acetamin 5/325 tab GT PRN ×2 (09:06→15:31)
--- NOTE | 2019-06-04 09:39 | Surgery Progress Note ---
Surgery Progress Note Subjective Symptoms: improved, tolerating diet, passing flatus Objective Last 24 Hour Vital Signs Date Time Temp Pulse Resp B/P (MAP) Pulse Ox O2 Delivery O2 Flow Rate FiO2 06/04/19 08:00 T-piece 06/04/19 08:00 28 06/04/19 07:32 99.8 81 20 116/56 (76) 97 06/04/19 05:44 79 20 98 Cool Aerosol 5.0 28 06/04/19 04:00 T-piece 06/04/19 04:00 28 06/04/19 04:00 98.8 77 20 107/53 (71) 96 06/04/19 03:34 77 06/04/19 01:05 97 T-Piece 5.0 28 06/04/19 00:00 28 06/04/19 00:00 97.5 68 20 101/50 (67) 97 06/04/19 00:00 T-piece 06/03/19 23:23 76 06/03/19 20:31 97.5 06/03/19 20:00 28 06/03/19 20:00 89 06/03/19 20:00 T-piece 06/03/19 20:00 98.9 80 22 121/64 (83) 96 06/03/19 19:17 96 T-Piece 5.0 06/03/19 16:00 80 06/03/19 16:00 28 06/03/19 16:00 97.5 86 20 123/51 (75) 97 06/03/19 16:00 T-piece 06/03/19 13:30 97 T-Piece 5.0 06/03/19 12:00 72 06/03/19 12:00 28 06/03/19 12:00 97.9 65 19 101/49 (66) 95 06/03/19 12:00 T-piece I&O Intake and Output 06/03/19 06/04/19 19:00 07:00 Intake Total 1085.000 ml 1077.416 ml Output Total 750 ml 800 ml Balance 335.000 ml 277.416 ml Intake Free Water 150 ml 0 ml IV Total 275.000 ml 367.416 ml Tube Feeding 660 ml 660 ml Blood Product 50 ml Output Urine Total 750 ml 800 ml # Bowel Movements 6 3 Cardiovascular: RSR Respiratory: clear Abdomen: soft, non-tender, present bowel sounds Extremities: no edema, no tenderness Laboratory Tests Test 06/04/19 00:29 06/04/19 03:30 Vancomycin Level Trough 18.2 ug/mL (5.0-12.0) H White Blood Count 3.9 K/UL (4.8-10.8) L Red Blood Count 3.41 M/UL (4.70-6.10) L Hemoglobin 10.2 G/DL (14.2-18.0) L Hematocrit 30.5 % (42.0-52.0) L Mean Corpuscular Volume 89 FL (80-99) Mean Corpuscular Hemoglobin 29.8 PG (27.0-31.0) Mean Corpuscular Hemoglobin Concent 33.3 G/DL (32.0-36.0) Red Cell Distribution Width 14.7 % (11.6-14.8) Platelet Count 196 K/UL (150-450) Mean Platelet Volume 5.7 FL (6.5-10.1) L Neutrophils (%) (Auto) 69.8 % (45.0-75.0) Lymphocytes (%) (Auto) 17.2 % (20.0-45.0) L Monocytes (%) (Auto) 8.6 % (1.0-10.0) Eosinophils (%) (Auto) 3.7 % (0.0-3.0) H Basophils (%) (Auto) 0.8 % (0.0-2.0) Sodium Level 136 MMOL/L (136-145) Potassium Level 4.0 MMOL/L (3.5-5.1) Chloride Level 101 MMOL/L (98-107) Carbon Dioxide Level 29 MMOL/L (21-32) Anion Gap 6 mmol/L (5-15) Blood Urea Nitrogen 10 mg/dL (7-18) Creatinine 0.6 MG/DL (0.55-1.30) Estimat Glomerular Filtration Rate > 60 mL/min (>60) Glucose Level 132 MG/DL (74-106) H Calcium Level 8.5 MG/DL (8.5-10.1) Total Bilirubin 0.4 MG/DL (0.2-1.0) Aspartate Amino Transf (AST/SGOT) 33 U/L (15-37) Alanine Aminotransferase (ALT/SGPT) 59 U/L (12-78) Alkaline Phosphatase 50 U/L (46-116) Pro-B-Type Natriuretic Peptide 202 pg/mL (0-125) H Total Protein 5.8 G/DL (6.4-8.2) L Albumin 1.5 G/DL (3.4-5.0) L Globulin 4.3 g/dL Albumin/Globulin Ratio 0.3 (1.0-2.7) L Plan Problems: (1) Esophageal mass Assessment & Plan: This is a 73-year-old male with known history of throat cancer possible esophageal cancer status post chemoradiation [facility] a few years back who recently has developed cardiac arrest shortness of breath respiratory compromise and had tracheostomy at outside facility for airway protection. Was in recovery until recently identified to have desaturation with blood clots noted within tracheostomy tube suctions as well as oral suctioning. Patient admitted for care and management identified to have anemia bleeding and hemorrhage. Surgery called to evaluate patient was seen. Hemorrhage has significantly decreased and currently no active bleeding noted. H&H trending down and being transfused as per my recommendations. Patient is awake alert states he feels better. He slowly weaning off pressors. Unfortunately given history current condition and the above no acute surgical intervention indicated or recommended. Will obtain attempt records from [facility] as well as [facility]. Continue with deep suctioning by respiratory. Okay for oral suctioning. Monitor for bleeding. Fortunately currently no active bleeding and hopefully its its way. We will keep close eye on H&H as well as coags to ensure patient improving. Permissive hypotension okay. Wean pressors. Thank you for let me participation's care will continue to follow with recommendations and further evaluation. Labs noted H&H improved after transfusion LFTs bilirubin noted likely response to bleeding patient states no longer currently actively bleeding otherwise stable off pressors improving Continue with current treatment will monitor downgrade labs okay off vent no bleeding improving feeds as tolerated d/c planning (2) Hemoptysis Assessment & Plan: Findings: Interstitial and airspace opacities are seen throughout the right mid and lower lung. Questionable patchy peripheral opacities are also present on the left. Heart size is normal. The pleural spaces are clear Impression: Right lung opacities and questionable patchy left lung opacities, likely pneumonia. (3) Head and neck cancer [facility] Jun 04, 2019 09:39
--- NOTE | 2019-06-04 10:47 | General Progress Note ---
Assessment/Plan Problem List: (1) G tube feedings ICD Codes: Z93.1 - Gastrostomy status SNOMED: 341519784, 226955243, 835366364 (2) Chronic respiratory failure ICD Codes: J96.10 - Chronic respiratory failure, unspecified whether with hypoxia or hypercapnia SNOMED: 75078961 (3) Gastrostomy tube in place ICD Codes: Z93.1 - Gastrostomy status SNOMED: 792787882, 271358212 (4) Hemoptysis ICD Codes: R04.2 - Hemoptysis SNOMED: 57873905 (5) Esophageal mass ICD Codes: K22.8 - Other specified diseases of esophagus SNOMED: 615627128 Assessment/Plan: most likely bleeding was from trach ppi s/p 4 units blood transfusion GTF tolerated, changed to Osmolite no recurrent bleeding bowel regimen on hold given diarrhea Subjective ROS Limited/Unobtainable: No Allergies: Coded Allergies: LEVOFLOXACIN (Verified Allergy, Unknown, 05/24/19) Possible allergic reaction - low blood pressure Objective Last 24 Hour Vital Signs Date Time Temp Pulse Resp B/P (MAP) Pulse Ox O2 Delivery O2 Flow Rate FiO2 06/04/19 09:36 99.8 06/04/19 08:00 T-piece 06/04/19 08:00 28 06/04/19 07:32 99.8 81 20 116/56 (76) 97 06/04/19 07:05 96 T-Piece 5.0 06/04/19 05:44 79 20 98 Cool Aerosol 5.0 06/04/19 04:00 T-piece 06/04/19 04:00 28 06/04/19 04:00 98.8 77 20 107/53 (71) 96 06/04/19 03:34 77 06/04/19 01:05 97 T-Piece 5.0 06/04/19 00:00 28 06/04/19 00:00 97.5 68 20 101/50 (67) 97 06/04/19 00:00 T-piece 06/03/19 23:23 76 06/03/19 20:00 28 06/03/19 20:00 89 06/03/19 20:00 T-piece 06/03/19 20:00 98.9 80 22 121/64 (83) 96 06/03/19 19:17 96 T-Piece 5.0 28 06/03/19 16:00 80 06/03/19 16:00 28 06/03/19 16:00 97.5 86 20 123/51 (75) 97 06/03/19 16:00 T-piece 06/03/19 13:30 97 T-Piece 5.0 28 06/03/19 12:00 72 06/03/19 12:00 28 06/03/19 12:00 97.9 65 19 101/49 (66) 95 06/03/19 12:00 T-piece Intake and Output 06/03/19 06/04/19 19:00 07:00 Intake Total 1085.000 ml 1077.416 ml Output Total 750 ml 800 ml Balance 335.000 ml 277.416 ml Intake Free Water 150 ml 0 ml IV Total 275.000 ml 367.416 ml Tube Feeding 660 ml 660 ml Blood Product 50 ml Output Urine Total 750 ml 800 ml # Bowel Movements 6 3 Laboratory Tests 06/04/19 00:29: Vancomycin Level Trough 18.2H 06/04/19 03:30: White Blood Count 3.9L, Red Blood Count 3.41L, Hemoglobin 10.2L, Hematocrit 30.5L, Mean Corpuscular Volume 89, Mean Corpuscular Hemoglobin 29.8, Mean Corpuscular Hemoglobin Concent 33.3, Red Cell Distribution Width 14.7, Platelet Count 196, Mean Platelet Volume 5.7L, Neutrophils (%) (Auto) 69.8, Lymphocytes ( %) (Auto) 17.2L, Monocytes (%) (Auto) 8.6, Eosinophils (%) (Auto) 3.7H, Basophils (%) (Auto) 0.8, Sodium Level 136, Potassium Level 4.0, Chloride Level 101, Carbon Dioxide Level 29, Anion Gap 6, Blood Urea Nitrogen 10, Creatinine 0.6, Estimat Glomerular Filtration Rate > 60, Glucose Level 132H, Calcium Level 8.5, Total Bilirubin 0.4, Aspartate Amino Transf (AST/SGOT) 33, Alanine Aminotransferase (ALT/SGPT) 59, Alkaline Phosphatase 50, Pro-B-Type Natriuretic Peptide 202H, Total Protein 5.8L, Albumin 1.5L, Globulin 4.3, Albumin/Globulin Ratio 0.3L Height (Feet): 5 Height (Inches): 7.00 Weight (Pounds): 156 General Appearance: alert EENT: normal ENT inspection Neck: supple Cardiovascular: normal rate Respiratory/Chest: decreased breath sounds Abdomen: normal bowel sounds, non tender, soft Extremities: non-tender Narciso Engle MD Jun 04, 2019 10:47
--- NOTE | 2019-06-04 11:41 | Pulmonolgy Critical Care Note ---
Critical Care - Asmt/Plan Problems: (1) Nosocomial pneumonia (2) Hemorrhagic shock Assessment & Plan: resolved (3) Upper GI bleeding (4) Chronic respiratory failure (5) Esophageal mass (6) Gastrostomy tube in place (7) Radiation fibrosis of lung (8) Head and neck cancer Respiratory: monitor respiratory rate, adjust FIO2 Cardiac: continue to monitor HR/BP Renal: F/U I&O, check electrolytes Infectious Disease: check cultures Gastrointestinal: continue feedings/current rate Endocrine: monitor blood sugar Hematologic: transfuse if hgb<8.5 Neurologic: keep patient comfortable Affect: PRN ativan Disposition: keep in ICU Notes Reviewed: funeral sales manager, cardio Discussed with: nurses, consultants, pillowcase cleanercorporate services manager - Objective Last 24 Hour Vital Signs Date Time Temp Pulse Resp B/P (MAP) Pulse Ox O2 Delivery O2 Flow Rate FiO2 06/04/19 09:36 99.8 06/04/19 08:00 T-piece 06/04/19 08:00 28 06/04/19 07:32 99.8 81 20 116/56 (76) 97 06/04/19 07:05 96 T-Piece 5.0 06/04/19 05:44 79 20 98 Cool Aerosol 5.0 06/04/19 04:00 T-piece 06/04/19 04:00 28 06/04/19 04:00 98.8 77 20 107/53 (71) 96 06/04/19 03:34 77 06/04/19 01:05 97 T-Piece 5.0 06/04/19 00:00 28 06/04/19 00:00 97.5 68 20 101/50 (67) 97 06/04/19 00:00 T-piece 06/03/19 23:23 76 06/03/19 20:00 28 06/03/19 20:00 89 06/03/19 20:00 T-piece 06/03/19 20:00 98.9 80 22 121/64 (83) 96 06/03/19 19:17 96 T-Piece 5.0 06/03/19 16:00 80 06/03/19 16:00 28 06/03/19 16:00 97.5 86 20 123/51 (75) 97 06/03/19 16:00 T-piece 06/03/19 13:30 97 T-Piece 5.0 28 06/03/19 12:00 72 06/03/19 12:00 28 06/03/19 12:00 97.9 65 19 101/49 (66) 95 06/03/19 12:00 T-piece Status: awake Condition: improving Lungs: rales, rhonchi Heart: HR/BP stable Abdomen: soft, non-tender Extremities: no C/C/E Decubiti: location Critical Care - Subjective Interval Events: comfortable, no new complains FI02: 28 Vent Support Breath Rate: 16 Vent Support Mode: CPAP Vent Tidal Volume: 550 Sputum Amount: Small PEEP: 5.0 PIP: 15 Tube Feeding Amount: 55 I&O: Intake and Output 06/03/19 06/04/19 19:00 07:00 Intake Total 1085.000 ml 1077.416 ml Output Total 750 ml 800 ml Balance 335.000 ml 277.416 ml Intake Free Water 150 ml 0 ml IV Total 275.000 ml 367.416 ml Tube Feeding 660 ml 660 ml Blood Product 50 ml Output Urine Total 750 ml 800 ml # Bowel Movements 6 3 Labs: Laboratory Tests Test 06/04/19 00:29 06/04/19 03:30 Vancomycin Level Trough 18.2 ug/mL (5.0-12.0) H White Blood Count 3.9 K/UL (4.8-10.8) L Red Blood Count 3.41 M/UL (4.70-6.10) L Hemoglobin 10.2 G/DL (14.2-18.0) L Hematocrit 30.5 % (42.0-52.0) L Mean Corpuscular Volume 89 FL (80-99) Mean Corpuscular Hemoglobin 29.8 PG (27.0-31.0) Mean Corpuscular Hemoglobin Concent 33.3 G/DL (32.0-36.0) Red Cell Distribution Width 14.7 % (11.6-14.8) Platelet Count 196 K/UL (150-450) Mean Platelet Volume 5.7 FL (6.5-10.1) L Neutrophils (%) (Auto) 69.8 % (45.0-75.0) Lymphocytes (%) (Auto) 17.2 % (20.0-45.0) L Monocytes (%) (Auto) 8.6 % (1.0-10.0) Eosinophils (%) (Auto) 3.7 % (0.0-3.0) H Basophils (%) (Auto) 0.8 % (0.0-2.0) Sodium Level 136 MMOL/L (136-145) Potassium Level 4.0 MMOL/L (3.5-5.1) Chloride Level 101 MMOL/L (98-107) Carbon Dioxide Level 29 MMOL/L (21-32) Anion Gap 6 mmol/L (5-15) Blood Urea Nitrogen 10 mg/dL (7-18) Creatinine 0.6 MG/DL (0.55-1.30) Estimat Glomerular Filtration Rate > 60 mL/min (>60) Glucose Level 132 MG/DL (74-106) H Calcium Level 8.5 MG/DL (8.5-10.1) Total Bilirubin 0.4 MG/DL (0.2-1.0) Aspartate Amino Transf (AST/SGOT) 33 U/L (15-37) Alanine Aminotransferase (ALT/SGPT) 59 U/L (12-78) Alkaline Phosphatase 50 U/L (46-116) Pro-B-Type Natriuretic Peptide 202 pg/mL (0-125) H Total Protein 5.8 G/DL (6.4-8.2) L Albumin 1.5 G/DL (3.4-5.0) L Globulin 4.3 g/dL Albumin/Globulin Ratio 0.3 (1.0-2.7) L Claudia Chi MD Jun 04, 2019 11:41
--- NOTE | 2019-06-04 11:54 | Internal Med Progress Note ---
Subjective Physician Name Matthew Davis Attending Physician Matthew Davis MD Current Medications Medications (Trade) Dose Ordered Sig/Mervat Route PRN Reason Start Time Stop Time Status Last Admin Dose Admin Acetaminophen (Tylenol) 650 mg Q4H PRN ORAL FEVER 05/30/19 19:30 06/23/19 19:29 06/02/19 22:45 Acetaminophen/ Hydrocodone Bitart ([employer] 5/325) 1 tab Q6H PRN GT For Pain 05/30/19 22:45 06/06/19 22:44 06/04/19 09:06 Alprazolam (Xanax) 0.25 mg Q8H PRN ORAL For Anxiety 05/31/19 09:45 06/07/19 09:44 06/02/19 05:19 Chlorhexidine Gluconate (Stacie-Hex 2%) 1 applic DAILY@2000 TOPIC 05/30/19 20:00 06/24/19 19:59 06/03/19 19:54 Dextrose (Dextrose 50%) 25 ml Q30M PRN IV Hypoglycemia 05/30/19 19:00 06/23/19 17:29 Dextrose (Dextrose 50%) 50 ml Q30M PRN IV Hypoglycemia 05/30/19 19:00 06/23/19 17:29 Docusate Sodium (Colace) 100 mg TWICE A DAY PRN GT Constipation 06/03/19 11:15 06/26/19 08:59 Lansoprazole (Prevacid) 30 mg Q12HR GT 06/03/19 21:00 07/03/19 20:59 06/04/19 09:06 Ondansetron HCl (Zofran) 4 mg Q6H PRN IVP Nausea & Vomiting 05/30/19 19:30 06/23/19 19:29 Vancomycin HCl (Vanco rx to dose) 1 ea DAILY PRN MISC Per rx protocol 05/31/19 09:00 06/29/19 13:44 Vancomycin HCl 1 gm/Dextrose 275 ml @ 183.708 mls/hr Q12HR@0100,1300 IVPB 06/02/19 13:00 06/12/19 23:59 06/04/19 01:07 Zolpidem Tartrate (Ambien) 5 mg HSPRN PRN GT Insomnia 05/30/19 22:45 06/06/19 22:44 06/03/19 22:41 Allergies: Coded Allergies: LEVOFLOXACIN (Verified Allergy, Unknown, 05/24/19) Possible allergic reaction - low blood pressure Subjective awake, alert, responsive, No CP , on trach collar, WBC: 3.9 Objective Last Vital Signs Date Time Temp Pulse Resp B/P (MAP) Pulse Ox O2 Delivery O2 Flow Rate FiO2 06/04/19 09:36 99.8 06/04/19 08:00 T-piece 06/04/19 08:00 28 06/04/19 07:32 81 20 116/56 (76) 97 06/04/19 07:05 5.0 Laboratory Tests Test 06/04/19 00:29 06/04/19 03:30 Vancomycin Level Trough 18.2 ug/mL (5.0-12.0) H White Blood Count 3.9 K/UL (4.8-10.8) L Red Blood Count 3.41 M/UL (4.70-6.10) L Hemoglobin 10.2 G/DL (14.2-18.0) L Hematocrit 30.5 % (42.0-52.0) L Mean Corpuscular Volume 89 FL (80-99) Mean Corpuscular Hemoglobin 29.8 PG (27.0-31.0) Mean Corpuscular Hemoglobin Concent 33.3 G/DL (32.0-36.0) Red Cell Distribution Width 14.7 % (11.6-14.8) Platelet Count 196 K/UL (150-450) Mean Platelet Volume 5.7 FL (6.5-10.1) L Neutrophils (%) (Auto) 69.8 % (45.0-75.0) Lymphocytes (%) (Auto) 17.2 % (20.0-45.0) L Monocytes (%) (Auto) 8.6 % (1.0-10.0) Eosinophils (%) (Auto) 3.7 % (0.0-3.0) H Basophils (%) (Auto) 0.8 % (0.0-2.0) Sodium Level 136 MMOL/L (136-145) Potassium Level 4.0 MMOL/L (3.5-5.1) Chloride Level 101 MMOL/L (98-107) Carbon Dioxide Level 29 MMOL/L (21-32) Anion Gap 6 mmol/L (5-15) Blood Urea Nitrogen 10 mg/dL (7-18) Creatinine 0.6 MG/DL (0.55-1.30) Estimat Glomerular Filtration Rate > 60 mL/min (>60) Glucose Level 132 MG/DL (74-106) H Calcium Level 8.5 MG/DL (8.5-10.1) Total Bilirubin 0.4 MG/DL (0.2-1.0) Aspartate Amino Transf (AST/SGOT) 33 U/L (15-37) Alanine Aminotransferase (ALT/SGPT) 59 U/L (12-78) Alkaline Phosphatase 50 U/L (46-116) Pro-B-Type Natriuretic Peptide 202 pg/mL (0-125) H Total Protein 5.8 G/DL (6.4-8.2) L Albumin 1.5 G/DL (3.4-5.0) L Globulin 4.3 g/dL Albumin/Globulin Ratio 0.3 (1.0-2.7) L Intake and Output 06/03/19 06/04/19 19:00 07:00 Intake Total 1085.000 ml 1077.416 ml Output Total 750 ml 800 ml Balance 335.000 ml 277.416 ml Intake Free Water 150 ml 0 ml IV Total 275.000 ml 367.416 ml Tube Feeding 660 ml 660 ml Blood Product 50 ml Output Urine Total 750 ml 800 ml # Bowel Movements 6 3 Objective GENERAL: Awake, alert, responsive, on Trach collar. HEENT: Eyes, pupils are equal and responsive to light and accommodation. Extraocular movements are intact. Tracheostomy site intact; Lung: bilateral Air entry, No wheeze or rales. ABDOMEN: Soft, nontender, and nondistended. Positive bowel sounds. PEG site intact. EXTREMITIES: Negative for clubbing, cyanosis, or edema. RECTAL/GENITAL: refused. NEUROLOGICAL: Cranial nerves II to XII grossly intact without focal deficits. Motor strength is 5/5 bilaterally. 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 Esophageal hemorrhage. 3. Airway obstruction. 4. Hypoxia. 5. History of esophageal cancer. 6. Elevated liver function tests. 7. Bilateral pneumonia=MRSA 8. Tracheostomy dependent 9. right pleural effusion TREATMENT: 1. Squamous cell carcinoma/hemorrhage. A Hematology/Oncology consultation has been obtained with Dr. Paz. The patient has received four units of packed RBCs and 1 unit FFP. The patient is in the Step down unit. The patient is currently off pressors. 2. Hypoxia. A Pulmonary/Critical Care consultation has been obtained with Dr. Claudia Chi. Hypoxia is probably secondary to tracheal obstruction secondary to hemorrhage as above. Continue vent per Dr. Chi. 3. Pneumonia=MRSA ABX= vancomycin. An Infectious Disease consultation has been obtained with Dr. Alba. We will follow recommendations of Infectious Disease. A sputum culture=MRSA 4. Elevated liver function tests/esophageal mass. A Gastroenterology consultation has been obtained with Dr. Narciso Engle. The patient may require repeat biopsy of esophageal mass. We will follow recommendations of Gastroenterology. 5. S/P right thoracentesis 06/01/19 Matthew Davis MD Jun 04, 2019 11:54
[2019-06-04 12:00] VITALS: BP 99/45
--- NOTE | 2019-06-04 13:29 | NUR ---
*-* DISCHARGE PLANNING *-* [facility] HAS BEEN REFERRED TO: [facility] P: [phone] F: [phone]
[2019-06-04 16:00] VITALS: BP 115/52
--- NOTE | 2019-06-04 16:42 | Infectious Diseases Prog Note ---
Assessment/Plan Assessment/Plan Assessment/Plan: A: Leukocytosis, Sp Sepsis/shock, Sp Fever, Sp Probable Pneum(HAC) -05/27 sp cx : MRSA -05/30 CXR: Increased opacities in the mid and lower lungs, right greater than left, which may represent pulmonary edema versus infectious/inflammatory process. Bilateral pleural effusions. Increased pulmonary vasculature congestion. Increased opacities in the mid and lower lungs, right greater than left, which may represent pulmonary edema versus infectious/inflammatory process. Bilateral pleural effusions. Increased pulmonary vasculature congestion. -05/28 CXR: ncreasing infiltrates versus edema in the right mid and lower lung, over one day. Persistent diffuse mild background interstitial congestion New or increased small bilateral pleural effusions - CXR: Right lung opacities and questionable patchy left lung opacities, likely pneumonia Transaminitis ( due to HypoTN) ucx eng HIV : neg upper airway bleed sp Trach and PEG throat cancer P: cont IV Vancomycin # 6/14 CSp Zosyn # 5 05/27 SP IV Vanco # 2 Sp Amikacin # 1 Monitor CBC Monitor CMP Monitor CXR Monitor Cx (Bl) Subjective Allergies: Coded Allergies: LEVOFLOXACIN (Verified Allergy, Unknown, 05/24/19) Possible allergic reaction - low blood pressure Subjective comfortable Objective Vital Signs Last 24 Hour Vital Signs Date Time Temp Pulse Resp B/P (MAP) Pulse Ox O2 Delivery O2 Flow Rate FiO2 06/04/19 13:20 96 T-Piece 5.0 06/04/19 12:00 72 06/04/19 12:00 28 06/04/19 12:00 98.3 75 20 99/45 (63) 96 06/04/19 12:00 T-piece 06/04/19 09:36 99.8 06/04/19 08:02 81 06/04/19 08:00 T-piece 06/04/19 08:00 28 06/04/19 07:32 99.8 81 20 116/56 (76) 97 06/04/19 07:05 96 T-Piece 5.0 06/04/19 05:44 79 20 98 Cool Aerosol 5.0 28 06/04/19 04:00 T-piece 06/04/19 04:00 28 06/04/19 04:00 98.8 77 20 107/53 (71) 96 06/04/19 03:34 77 06/04/19 01:05 97 T-Piece 5.0 28 06/04/19 00:00 28 06/04/19 00:00 97.5 68 20 101/50 (67) 97 06/04/19 00:00 T-piece 06/03/19 23:23 76 06/03/19 20:00 28 06/03/19 20:00 89 06/03/19 20:00 T-piece 06/03/19 20:00 98.9 80 22 121/64 (83) 96 06/03/19 19:17 96 T-Piece 5.0 28 Height (Feet): 5 Height (Inches): 7.00 Weight (Pounds): 156 HEENT: anicteric Respiratory/Chest: no respiratory distress Cardiovascular: regularly irregular Abdomen: soft, non tender Laboratory Tests Test 06/04/19 00:29 06/04/19 03:30 Vancomycin Level Trough 18.2 ug/mL (5.0-12.0) H White Blood Count 3.9 K/UL (4.8-10.8) L Red Blood Count 3.41 M/UL (4.70-6.10) L Hemoglobin 10.2 G/DL (14.2-18.0) L Hematocrit 30.5 % (42.0-52.0) L Mean Corpuscular Volume 89 FL (80-99) Mean Corpuscular Hemoglobin 29.8 PG (27.0-31.0) Mean Corpuscular Hemoglobin Concent 33.3 G/DL (32.0-36.0) Red Cell Distribution Width 14.7 % (11.6-14.8) Platelet Count 196 K/UL (150-450) Mean Platelet Volume 5.7 FL (6.5-10.1) L Neutrophils (%) (Auto) 69.8 % (45.0-75.0) Lymphocytes (%) (Auto) 17.2 % (20.0-45.0) L Monocytes (%) (Auto) 8.6 % (1.0-10.0) Eosinophils (%) (Auto) 3.7 % (0.0-3.0) H Basophils (%) (Auto) 0.8 % (0.0-2.0) Sodium Level 136 MMOL/L (136-145) Potassium Level 4.0 MMOL/L (3.5-5.1) Chloride Level 101 MMOL/L (98-107) Carbon Dioxide Level 29 MMOL/L (21-32) Anion Gap 6 mmol/L (5-15) Blood Urea Nitrogen 10 mg/dL (7-18) Creatinine 0.6 MG/DL (0.55-1.30) Estimat Glomerular Filtration Rate > 60 mL/min (>60) Glucose Level 132 MG/DL (74-106) H Calcium Level 8.5 MG/DL (8.5-10.1) Total Bilirubin 0.4 MG/DL (0.2-1.0) Aspartate Amino Transf (AST/SGOT) 33 U/L (15-37) Alanine Aminotransferase (ALT/SGPT) 59 U/L (12-78) Alkaline Phosphatase 50 U/L (46-116) Pro-B-Type Natriuretic Peptide 202 pg/mL (0-125) H Total Protein 5.8 G/DL (6.4-8.2) L Albumin 1.5 G/DL (3.4-5.0) L Globulin 4.3 g/dL Albumin/Globulin Ratio 0.3 (1.0-2.7) L Current Medications Medications (Trade) Dose Ordered Sig/Mervat Route PRN Reason Start Time Stop Time Status Last Admin Dose Admin Acetaminophen (Tylenol) 650 mg Q4H PRN ORAL FEVER 05/30/19 19:30 06/23/19 19:29 06/02/19 22:45 Acetaminophen/ Hydrocodone Bitart ([employer] 5/325) 1 tab Q6H PRN GT For Pain 05/30/19 22:45 06/06/19 22:44 06/04/19 15:31 Alprazolam (Xanax) 0.25 mg Q8H PRN ORAL For Anxiety 05/31/19 09:45 06/07/19 09:44 06/02/19 05:19 Chlorhexidine Gluconate (Stacie-Hex 2%) 1 applic DAILY@1999 TOPIC 05/30/19 20:00 06/24/19 19:59 06/03/19 19:54 Dextrose (Dextrose 50%) 25 ml Q30M PRN IV Hypoglycemia 05/30/19 19:00 06/23/19 17:29 Dextrose (Dextrose 50%) 50 ml Q30M PRN IV Hypoglycemia 05/30/19 19:00 06/23/19 17:29 Docusate Sodium (Colace) 100 mg TWICE A DAY PRN GT Constipation 06/03/19 11:15 06/26/19 08:59 Lansoprazole (Prevacid) 30 mg Q12HR GT 06/03/19 21:00 07/03/19 20:59 06/04/19 09:06 Ondansetron HCl (Zofran) 4 mg Q6H PRN IVP Nausea & Vomiting 05/30/19 19:30 06/23/19 19:29 Vancomycin HCl (Vanco rx to dose) 1 ea DAILY PRN MISC Per rx protocol 05/31/19 09:00 06/29/19 13:44 Vancomycin HCl 1 gm/Dextrose 275 ml @ 183.708 mls/hr Q12HR@0100,1300 IVPB 06/02/19 13:00 06/12/19 23:59 06/04/19 13:33 Zolpidem Tartrate (Ambien) 5 mg HSPRN PRN GT Insomnia 05/30/19 22:45 06/06/19 22:44 06/03/19 22:41 Jose Luis Alba MD Jun 04, 2019 16:42
--- NOTE | 2019-06-04 16:46 | NUR ---
DECORATING INSTRUCTOR NOTES PT ACCEPTED TO [facility] PER FAMILY REQUEST. PT TO GO TO ROOM [address] BED [address]. [facility] TO TRANSPORT PT WITH ACLS. MADE AWARE.
--- NOTE | 2019-06-04 19:20 | NUR ---
HAND-OFF: Report given to FERNANDO.
--- NOTE | 2019-06-04 19:27 | NUR ---
NURSE NOTES: Received report from Robert RN, pt. in bed awake, A/O x's 4-able to make needs known, no signs or symptoms of acute cardiac or respiratory distress noted, bed alarm on, side rails up x's 3 and safety brakes engaged, HOB elevated, pt. appears to be tolerating current T piece setting fio2 at 28% w/ cool aerosol- no distress noted, appears to be resting comfortably, G tube feeding running Osmolite at 55cc/hr- no residual noted, Fernandez intact and draining to gravity- yello urine noted, Pt. appears to be clean and dry, LFA 20G IV intact and patent, pt. has ADAN midline intact and in place- TKO, safety measures continued, will continue with plan of care.
[2019-06-04 20:00] VITALS: BP 108/57
[2019-06-04] MEDS: Dyna-Hex 2% Top Sol 2oz TOPIC SCH (20:12)
[2019-06-04] MEDS: Zolpidem 5mg tab GT PRN (23:06)
[2019-06-05] VITALS: BP 126/62
[2019-06-05] MEDS: Vancomycin 1gm/D5W 275ml IVPB SCH ×4 (00:14→12:48)
[2019-06-05 04:00] VITALS: BP 109/51
--- NOTE | 2019-06-05 06:03 | Hematology/Onc Progress Note ---
Assessment/Plan Assessment/Plan ASSESSMENT/RECS: #. 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 Esophageal hemorrhage --> requires hemostatic support --> coags have been checked --> vitamin K has been ordered --> now improved --> as per gi #. Pancytopenia -- initally with anemia of chronic disease due to underlying chronic medical issues, multifactorial v Gi bleed v hepatitis C++ --> Anemia workup has been reviewed, ferritin 1190 --> No evidence of hemolysis is noted, peripheral smear has been reviewed. --> Hgb goal >7. Transfuse prn. --> Epogen or iron at this time is not particularly indicated --> Medications have been reviewed --> occult + --> as per Gi eval --> hgb trend: 9.8-->10.1-->9.2-->10.5-->10.1-->10.2 --> blood tx: 05/26 --> hepatitis C++ # Airway obstruction. --> sp trach --> no further bleeding # Hypoxia. --> per pulm # Elevated liver function tests. --> as per gi, imaging ordered # Sepsis s/p abx --> per id and has received pressors --> in the icu --> vanc/zosyn--> vanc # Pneumonia. --> on abx --> cxr: Suspected interstitial edema/CHF. Pneumonia in the right midlung not excluded --> per ID recs # sp Trach and PEG Appreciate consultation and skip Rn Subjective HEENT: Denies: no symptoms, eye pain, blurred vision, tearing, double vision, ear pain, ear discharge, nose pain, nose congestion, throat pain, throat swelling, mouth pain, mouth swelling, other Cardiovascular: Denies: no symptoms, chest pain, edema, irregular heart rate, lightheadedness, palpitations, syncope, other Respiratory: Denies: no symptoms, cough, shortness of breath, SOB with excertion, SOB at rest, sputum, wheezing, other Gastrointestinal/Abdominal: Denies: no symptoms, abdomen distended, abdominal pain, black stools, tarry stools, blood in stool, constipated, diarrhea, difficulty swallowing, nausea, poor appetite, poor fluid intake, rectal bleeding , vomiting, other Genitourinary: Denies: no symptoms, burning, discharge, frequency, flank pain, hematuria, incontinence, pain, urgency, other Endocrine: Denies: no symptoms, excessive sweating, flushing, intolerance to cold, intolerance to heat, increased hunger, increased thirst, increased urine, unexplained weight gain, unexplained weight loss, other Hematologic/Lymphatic: Denies: no symptoms, anemia, easy bleeding, easy bruising, adenopathy, other Allergies: Coded Allergies: LEVOFLOXACIN (Verified Allergy, Unknown, 05/24/19) Possible allergic reaction - low blood pressure Subjective 05/27: icu, cxr reviewed, arythmia overnight, currently alert, no distress, on levophed 05/28: cxr with increased bilat effusions, stool ob positive, h/h stable 05/29: icu, vent, no recurrent bleeding, hgb 9.2 05/31: no events, out of unit, labs noted, relatively stable 06/01: no bleeding or chills, downgraded, labs noted 06/02: awake and alert, sdu, no bleeding from trach, no acute events 06/03: no major changes, no bleeding, no further bleeding from trach, labs noted 06/04: no bleeding or chills, labs noted, no major changes, for dc shortly Objective Objective Current Medications Medications (Trade) Dose Ordered Sig/Mervat Route PRN Reason Start Time Stop Time Status Last Admin Dose Admin Acetaminophen (Tylenol) 650 mg Q4H PRN ORAL FEVER 05/30/19 19:30 06/23/19 19:29 06/02/19 22:45 Acetaminophen/ Hydrocodone Bitart ([place] 5/325) 1 tab Q6H PRN GT For Pain 05/30/19 22:45 06/06/19 22:44 06/04/19 15:31 Alprazolam (Xanax) 0.25 mg Q8H PRN ORAL For Anxiety 05/31/19 09:45 06/07/19 09:44 06/02/19 05:19 Chlorhexidine Gluconate (Stacie-Hex 2%) 1 applic DAILY@2000 TOPIC 05/30/19 20:00 06/24/19 19:59 06/04/19 20:12 Dextrose (Dextrose 50%) 25 ml Q30M PRN IV Hypoglycemia 05/30/19 19:00 06/23/19 17:29 Dextrose (Dextrose 50%) 50 ml Q30M PRN IV Hypoglycemia 05/30/19 19:00 06/23/19 17:29 Docusate Sodium (Colace) 100 mg TWICE A DAY PRN GT Constipation 06/03/19 11:15 06/26/19 08:59 Lansoprazole (Prevacid) 30 mg Q12HR GT 06/03/19 21:00 07/03/19 20:59 06/04/19 20:12 Ondansetron HCl (Zofran) 4 mg Q6H PRN IVP Nausea & Vomiting 05/30/19 19:30 06/23/19 19:29 Vancomycin HCl (Vanco rx to dose) 1 ea DAILY PRN MISC Per rx protocol 05/31/19 09:00 06/29/19 13:44 Vancomycin HCl 1 gm/Dextrose 275 ml @ 183.708 mls/hr Q12HR@0100,1300 IVPB 06/02/19 13:00 06/12/19 23:59 06/05/19 00:14 Zolpidem Tartrate (Ambien) 5 mg HSPRN PRN GT Insomnia 05/30/19 22:45 06/06/19 22:44 06/04/19 23:06 Last 24 Hour Vital Signs Date Time Temp Pulse Resp B/P (MAP) Pulse Ox O2 Delivery O2 Flow Rate FiO2 06/05/19 04:00 98.2 88 22 109/51 (70) 98 06/05/19 04:00 T-piece 06/05/19 04:00 28 06/05/19 03:39 93 06/05/19 00:47 97 T-Piece 5.0 28 06/05/19 00:00 T-piece 06/05/19 00:00 28 06/05/19 00:00 98.6 88 22 126/62 (83) 94 06/04/19 23:27 74 06/04/19 20:00 28 06/04/19 20:00 T-piece 06/04/19 20:00 72 06/04/19 20:00 98.9 76 20 108/57 (74) 97 06/04/19 18:57 96 T-Piece 5.0 28 06/04/19 16:01 98.0 06/04/19 16:00 28 06/04/19 16:00 T-piece 06/04/19 16:00 74 06/04/19 16:00 98.0 75 21 115/52 (73) 96 06/04/19 13:20 96 T-Piece 5.0 28 06/04/19 12:00 72 06/04/19 12:00 28 06/04/19 12:00 98.3 75 20 99/45 (63) 96 06/04/19 12:00 T-piece 06/04/19 08:02 81 06/04/19 08:00 T-piece 06/04/19 08:00 28 06/04/19 07:32 99.8 81 20 116/56 (76) 97 06/04/19 07:05 96 T-Piece 5.0 06/04/19 05:44 79 20 98 Cool Aerosol 5.0 06/04/19 04:00 T-piece 06/04/19 04:00 28 06/04/19 04:00 98.8 77 20 107/53 (71) 96 06/04/19 03:34 77 06/04/19 01:05 97 T-Piece 5.0 06/04/19 00:00 28 06/04/19 00:00 97.5 68 20 101/50 (67) 97 06/04/19 00:00 T-piece 06/03/19 23:23 76 06/03/19 20:00 28 06/03/19 20:00 89 06/03/19 20:00 T-piece 06/03/19 20:00 98.9 80 22 121/64 (83) 96 06/03/19 19:17 96 T-Piece 5.0 06/03/19 16:00 80 06/03/19 16:00 28 06/03/19 16:00 97.5 86 20 123/51 (75) 97 06/03/19 16:00 T-piece 06/03/19 13:30 97 T-Piece 5.0 28 06/03/19 12:00 72 06/03/19 12:00 28 06/03/19 12:00 97.9 65 19 101/49 (66) 95 06/03/19 12:00 T-piece 06/03/19 08:00 T-piece 06/03/19 08:00 28 06/03/19 08:00 98.4 76 20 108/55 (72) 97 06/03/19 08:00 60 06/03/19 07:05 99 T-Piece 5.0 28 Intake and Output 06/04/19 06/05/19 19:00 07:00 Intake Total 1327.416 ml 1022.416 ml Output Total 1000 ml 1500 ml Balance 327.416 ml -477.584 ml Intake Free Water 300 ml 50 ml IV Total 367.416 ml 367.416 ml Tube Feeding 660 ml 605 ml Output Urine Total 1000 ml 1500 ml # Bowel Movements 3 3 Labs Test 06/02/19 06:20 06/03/19 03:20 06/04/19 00:29 06/04/19 03:30 White Blood Count 5.1 K/UL (4.8-10.8) 4.4 K/UL (4.8-10.8) 3.9 K/UL (4.8-10.8) Red Blood Count 4.08 M/UL (4.70-6.10) 3.40 M/UL (4.70-6.10) 3.41 M/UL (4.70-6.10) Hemoglobin 12.1 G/DL (14.2-18.0) 10.1 G/DL (14.2-18.0) 10.2 G/DL (14.2-18.0) Hematocrit 37.1 % (42.0-52.0) 30.4 % (42.0-52.0) 30.5 % (42.0-52.0) Mean Corpuscular Volume 91 FL (80-99) 89 FL (80-99) 89 FL (80-99) Mean Corpuscular Hemoglobin 29.7 PG (27.0-31.0) 29.6 PG (27.0-31.0) 29.8 PG (27.0-31.0) Mean Corpuscular Hemoglobin Concent 32.7 G/DL (32.0-36.0) 33.1 G/DL (32.0-36.0) 33.3 G/DL (32.0-36.0) Red Cell Distribution Width 15.2 % (11.6-14.8) 14.9 % (11.6-14.8) 14.7 % (11.6-14.8) Platelet Count 174 K/UL (150-450) 161 K/UL (150-450) 196 K/UL (150-450) Mean Platelet Volume 6.2 FL (6.5-10.1) 6.1 FL (6.5-10.1) 5.7 FL (6.5-10.1) Neutrophils (%) (Auto) 78.4 % (45.0-75.0) 71.6 % (45.0-75.0) 69.8 % (45.0-75.0) Lymphocytes (%) (Auto) 14.6 % (20.0-45.0) 17.7 % (20.0-45.0) 17.2 % (20.0-45.0) Monocytes (%) (Auto) 3.3 % (1.0-10.0) 5.7 % (1.0-10.0) 8.6 % (1.0-10.0) Eosinophils (%) (Auto) 3.0 % (0.0-3.0) 4.2 % (0.0-3.0) 3.7 % (0.0-3.0) Basophils (%) (Auto) 0.7 % (0.0-2.0) 0.8 % (0.0-2.0) 0.8 % (0.0-2.0) Sodium Level 140 MMOL/L (136-145) 137 MMOL/L (136-145) 136 MMOL/L (136-145) Potassium Level 5.3 MMOL/L (3.5-5.1) 3.6 MMOL/L (3.5-5.1) 4.0 MMOL/L (3.5-5.1) Chloride Level 103 MMOL/L (98-107) 103 MMOL/L (98-107) 101 MMOL/L (98-107) Carbon Dioxide Level 27 MMOL/L (21-32) 29 MMOL/L (21-32) 29 MMOL/L (21-32) Anion Gap 10 mmol/L (5-15) 5 mmol/L (5-15) 6 mmol/L (5-15) Blood Urea Nitrogen 10 mg/dL (7-18) 9 mg/dL (7-18) 10 mg/dL (7-18) Creatinine 0.7 MG/DL (0.55-1.30) 0.6 MG/DL (0.55-1.30) 0.6 MG/DL (0.55-1.30) Estimat Glomerular Filtration Rate > 60 mL/min (>60) > 60 mL/min (>60) > 60 mL/min (>60) Glucose Level 108 MG/DL (74-106) 116 MG/DL (74-106) 132 MG/DL (74-106) Calcium Level 8.9 MG/DL (8.5-10.1) 8.5 MG/DL (8.5-10.1) 8.5 MG/DL (8.5-10.1) Total Bilirubin 0.4 MG/DL (0.2-1.0) 0.4 MG/DL (0.2-1.0) Aspartate Amino Transf (AST/SGOT) 61 U/L (15-37) 33 U/L (15-37) Alanine Aminotransferase (ALT/SGPT) 93 U/L (12-78) 59 U/L (12-78) Alkaline Phosphatase 69 U/L (46-116) 50 U/L (46-116) Pro-B-Type Natriuretic Peptide 308 pg/mL (0-125) 202 pg/mL (0-125) Total Protein 6.4 G/DL (6.4-8.2) 5.8 G/DL (6.4-8.2) Albumin 1.5 G/DL (3.4-5.0) 1.5 G/DL (3.4-5.0) Globulin 4.9 g/dL 4.3 g/dL Albumin/Globulin Ratio 0.3 (1.0-2.7) 0.3 (1.0-2.7) Vancomycin Level Trough 23.6 ug/mL (5.0-12.0) 18.2 ug/mL (5.0-12.0) Height (Feet): 5 Height (Inches): 7.00 Weight (Pounds): 157 Objective Physical Exam: Vitals: reviewed General: NAD HEENT: nc, at ++ trach/vent Neck: supple Chest: clear breath sounds bilaterally Abdomen: soft, nontender, nd ++ gtube Extremities: no cce, normal range of motion Neuro: alert and oriented Ar Paz MD Jun 05, 2019 06:03
--- NOTE | 2019-06-05 07:06 | NUR ---
HAND-OFF: Report given to Vandana Rn, pt. remains stable and no signs of distress noted- aware to f/u on corina am abnormal labs.
--- NOTE | 2019-06-05 07:07 | NUR ---
NURSE NOTES: Received patient in bed. Awake, alert, able to make needs known. Call light within reach. On continuous GTF. Fernandez cath noted, inplace with yellow urine noted in the drainage bag. Contact isolation observed. Will continue plan of care.
[2019-06-05 08:00] VITALS: BP 114/50
--- NOTE | 2019-06-05 09:29 | Infectious Diseases Prog Note ---
Assessment/Plan Assessment/Plan Assessment/Plan: A: Leukocytosis, Sp Sepsis/shock, Sp Fever, Sp Probable Pneum(HAC) -05/27 sp cx : MRSA -05/30 CXR: Increased opacities in the mid and lower lungs, right greater than left, which may represent pulmonary edema versus infectious/inflammatory process. Bilateral pleural effusions. Increased pulmonary vasculature congestion. Increased opacities in the mid and lower lungs, right greater than left, which may represent pulmonary edema versus infectious/inflammatory process. Bilateral pleural effusions. Increased pulmonary vasculature congestion. -05/28 CXR: ncreasing infiltrates versus edema in the right mid and lower lung, over one day. Persistent diffuse mild background interstitial congestion New or increased small bilateral pleural effusions - CXR: Right lung opacities and questionable patchy left lung opacities, likely pneumonia Transaminitis ( due to HypoTN) ucx eng HIV : neg upper airway bleed sp Trach and PEG throat cancer P: cont IV Vancomycin # 7/14 CSp Zosyn # 5 05/27 SP IV Vanco # 2 Sp Amikacin # 1 Monitor CBC Monitor CMP Monitor CXR Monitor Cx (Bl) Subjective Allergies: Coded Allergies: LEVOFLOXACIN (Verified Allergy, Unknown, 05/24/19) Possible allergic reaction - low blood pressure Subjective afebrile non bleeding from trach Objective Vital Signs Last 24 Hour Vital Signs Date Time Temp Pulse Resp B/P (MAP) Pulse Ox O2 Delivery O2 Flow Rate FiO2 06/05/19 08:00 T-piece 06/05/19 08:00 28 06/05/19 08:00 98.4 87 19 114/50 (71) 96 06/05/19 07:41 92 06/05/19 07:40 97 T-Piece 5.0 28 06/05/19 04:00 98.2 88 22 109/51 (70) 98 06/05/19 04:00 T-piece 06/05/19 04:00 28 06/05/19 03:39 93 06/05/19 00:47 97 T-Piece 5.0 28 06/05/19 00:00 T-piece 06/05/19 00:00 28 06/05/19 00:00 98.6 88 22 126/62 (83) 94 06/04/19 23:27 74 06/04/19 20:00 28 3/5/20 20:00 T-piece 06/04/19 20:00 72 06/04/19 20:00 98.9 76 20 108/57 (74) 97 06/04/19 18:57 96 T-Piece 5.0 28 06/04/19 16:01 98.0 06/04/19 16:00 28 06/04/19 16:00 T-piece 06/04/19 16:00 74 06/04/19 16:00 98.0 75 21 115/52 (73) 96 06/04/19 13:20 96 T-Piece 5.0 28 06/04/19 12:00 72 06/04/19 12:00 28 06/04/19 12:00 98.3 75 20 99/45 (63) 96 06/04/19 12:00 T-piece Height (Feet): 5 Height (Inches): 7.00 Weight (Pounds): 157 HEENT: anicteric Respiratory/Chest: no respiratory distress Cardiovascular: regularly irregular Abdomen: soft, non tender Current Medications Medications (Trade) Dose Ordered Sig/Mervat Route PRN Reason Start Time Stop Time Status Last Admin Dose Admin Acetaminophen (Tylenol) 650 mg Q4H PRN ORAL FEVER 05/30/19 19:30 06/23/19 19:29 06/02/19 22:45 Acetaminophen/ Hydrocodone Bitart ([place] 5/325) 1 tab Q6H PRN GT For Pain 05/30/19 22:45 06/06/19 22:44 06/04/19 15:31 Alprazolam (Xanax) 0.25 mg Q8H PRN ORAL For Anxiety 05/31/19 09:45 06/07/19 09:44 06/02/19 05:19 Chlorhexidine Gluconate (Stacie-Hex 2%) 1 applic DAILY@2000 TOPIC 05/30/19 20:00 06/24/19 19:59 06/04/19 20:12 Dextrose (Dextrose 50%) 25 ml Q30M PRN IV Hypoglycemia 05/30/19 19:00 06/23/19 17:29 Dextrose (Dextrose 50%) 50 ml Q30M PRN IV Hypoglycemia 05/30/19 19:00 06/23/19 17:29 Docusate Sodium (Colace) 100 mg TWICE A DAY PRN GT Constipation 06/03/19 11:15 06/26/19 08:59 Lansoprazole (Prevacid) 30 mg Q12HR GT 06/03/19 21:00 07/03/19 20:59 06/05/19 08:25 Ondansetron HCl (Zofran) 4 mg Q6H PRN IVP Nausea & Vomiting 05/30/19 19:30 06/23/19 19:29 Vancomycin HCl (Vanco rx to dose) 1 ea DAILY PRN MISC Per rx protocol 05/31/19 09:00 06/29/19 13:44 Vancomycin HCl 1 gm/Dextrose 275 ml @ 183.708 mls/hr Q12HR@0100,1300 IVPB 06/02/19 13:00 06/12/19 23:59 06/05/19 00:14 Zolpidem Tartrate (Ambien) 5 mg HSPRN PRN GT Insomnia 05/30/19 22:45 06/06/19 22:44 06/04/19 23:06 Jose Luis Alba MD Jun 05, 2019 09:29
--- NOTE | 2019-06-05 10:27 | NUR ---
RD ASSESSMENT & RECOMMENDATIONS SEE CARE ACTIVITY FOR COMPLETE ASSESSMENT DAILY ESTIMATED NEEDS: Needs based on Pulmonary, cancer, bed bound 65.9kg 25-30 kcals/kg total kcals 1.2-2 g protein/kg 79-132 g total protein 25-30 mL/kg total fluid mLs NUTRITION DIAGNOSIS: Swallowing difficulty r/t resp status, throat tumor as evidenced by pt w/ throat cancer, recent cardiac arrest w/ trach placement, pt is GT dep. CURRENT TF: Osmolite 1.2 @ 55ml/hr x 24 hrs ENTERAL NUTRITION RECOMMENDATIONS: Osmolite 1.2 @60ml/hr x24 hrs to provide 1440ml, 1728 kcal, 80g pro, 1181ml free H2O - Increase goal rate to 60ml/hr x 24 hrs to meet 100% est kcal/prot needs. - HOB over 30 degrees. - Rec H20 flush of 120ml q 4 hrs ADDITIONAL RECOMMENDATIONS: 1) Feed as able, TF recs as above 2) Maintain calibrated bed scale wts 3) Monitor blood glucose w/ feeds, need for niss 4) F/up w/ WC eval 5) Monitor BMs- daily stool softeners dc'ed 06/02
--- NOTE | 2019-06-05 10:39 | Pulmonolgy Critical Care Note ---
Critical Care - Asmt/Plan Problems: (1) Nosocomial pneumonia (2) Hemorrhagic shock Assessment & Plan: resolved (3) Upper GI bleeding (4) Chronic respiratory failure (5) Esophageal mass (6) Gastrostomy tube in place (7) Radiation fibrosis of lung (8) Head and neck cancer Respiratory: monitor respiratory rate, adjust FIO2, CXR Cardiac: continue to monitor HR/BP Renal: F/U I&O Infectious Disease: check cultures, continue antibiotics Gastrointestinal: continue feedings/current rate Endocrine: monitor blood sugar, continue sliding scale insulin Hematologic: transfuse if hgb<8.5 Neurologic: PRN Ativan, keep patient comfortable Affect: PRN ativan Prophylaxis: Protonix Notes 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: 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, 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 Discussed with: consultants, 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 - Objective Last 24 Hour Vital Signs Date Time Temp Pulse Resp B/P (MAP) Pulse Ox O2 Delivery O2 Flow Rate FiO2 06/05/19 08:00 T-piece 06/05/19 08:00 28 06/05/19 08:00 98.4 87 19 114/50 (71) 96 06/05/19 07:41 92 06/05/19 07:40 97 T-Piece 5.0 06/05/19 04:00 98.2 88 22 109/51 (70) 98 06/05/19 04:00 T-piece 06/05/19 04:00 28 06/05/19 03:39 93 06/05/19 00:47 97 T-Piece 5.0 06/05/19 00:00 T-piece 06/05/19 00:00 28 06/05/19 00:00 98.6 88 22 126/62 (83) 94 06/04/19 23:27 74 06/04/19 20:00 28 06/04/19 20:00 T-piece 06/04/19 20:00 72 06/04/19 20:00 98.9 76 20 108/57 (74) 97 06/04/19 18:57 96 T-Piece 5.0 28 06/04/19 16:01 98.0 06/04/19 16:00 28 06/04/19 16:00 T-piece 06/04/19 16:00 74 06/04/19 16:00 98.0 75 21 115/52 (73) 96 3/5/20 13:20 96 T-Piece 5.0 28 06/04/19 12:00 72 06/04/19 12:00 28 06/04/19 12:00 98.3 75 20 99/45 (63) 96 06/04/19 12:00 T-piece Status: awake Condition: critical HEENT: atraumatic, normocephalic Neck: full ROM Heart: HR/BP stable Abdomen: soft, non-tender Extremities: no C/C/E Decubiti: location Critical Care - Subjective ROS Limited/Unobtainable: Yes Interval Events: wants to keep T-tube Condition: critical EKG Rhythm: Sinus Rhythm FI02: 28 Vent Support Breath Rate: 16 Vent Support Mode: CPAP Vent Tidal Volume: 550 Sputum Amount: Small PEEP: 5.0 PIP: 15 Tube Feeding Amount: 55 I&O: Intake and Output 06/04/19 06/05/19 19:00 07:00 Intake Total 1327.416 ml 1022.416 ml Output Total 1000 ml 1500 ml Balance 327.416 ml -477.584 ml Intake Free Water 300 ml 50 ml IV Total 367.416 ml 367.416 ml Tube Feeding 660 ml 605 ml Output Urine Total 1000 ml 1500 ml # Bowel Movements 3 3 Claudia Chi MD Jun 05, 2019 10:39
--- NOTE | 2019-06-05 10:49 | General Progress Note ---
Assessment/Plan Problem List: (1) G tube feedings ICD Codes: Z93.1 - Gastrostomy status SNOMED: 610580242, 112414974, 668617835 (2) Chronic respiratory failure ICD Codes: J96.10 - Chronic respiratory failure, unspecified whether with hypoxia or hypercapnia SNOMED: 99920960 (3) Gastrostomy tube in place ICD Codes: Z93.1 - Gastrostomy status SNOMED: 709498924, 184023680 (4) Hemoptysis ICD Codes: R04.2 - Hemoptysis SNOMED: 77921720 (5) Esophageal mass ICD Codes: K22.8 - Other specified diseases of esophagus SNOMED: 180624504 Assessment/Plan: most likely bleeding was from trach ppi s/p 4 units blood transfusion GTF tolerated, changed to Osmolite no recurrent bleeding bowel regimen on hold given diarrhea Subjective ROS Limited/Unobtainable: No Allergies: Coded Allergies: LEVOFLOXACIN (Verified Allergy, Unknown, 05/24/19) Possible allergic reaction - low blood pressure Objective Last 24 Hour Vital Signs Date Time Temp Pulse Resp B/P (MAP) Pulse Ox O2 Delivery O2 Flow Rate FiO2 06/05/19 08:00 T-piece 06/05/19 08:00 28 06/05/19 08:00 98.4 87 19 114/50 (71) 96 06/05/19 07:41 92 06/05/19 07:40 97 T-Piece 5.0 06/05/19 04:00 98.2 88 22 109/51 (70) 98 06/05/19 04:00 T-piece 06/05/19 04:00 28 06/05/19 03:39 93 06/05/19 00:47 97 T-Piece 5.0 06/05/19 00:00 T-piece 06/05/19 00:00 28 06/05/19 00:00 98.6 88 22 126/62 (83) 94 06/04/19 23:27 74 06/04/19 20:00 28 06/04/19 20:00 T-piece 06/04/19 20:00 72 06/04/19 20:00 98.9 76 20 108/57 (74) 97 06/04/19 18:57 96 T-Piece 5.0 28 06/04/19 16:01 98.0 06/04/19 16:00 28 06/04/19 16:00 T-piece 06/04/19 16:00 74 06/04/19 16:00 98.0 75 21 115/52 (73) 96 06/04/19 13:20 96 T-Piece 5.0 28 06/04/19 12:00 72 06/04/19 12:00 28 06/04/19 12:00 98.3 75 20 99/45 (63) 96 06/04/19 12:00 T-piece Intake and Output 06/04/19 06/05/19 19:00 07:00 Intake Total 1327.416 ml 1022.416 ml Output Total 1000 ml 1500 ml Balance 327.416 ml -477.584 ml Intake Free Water 300 ml 50 ml IV Total 367.416 ml 367.416 ml Tube Feeding 660 ml 605 ml Output Urine Total 1000 ml 1500 ml # Bowel Movements 3 3 Height (Feet): 5 Height (Inches): 7.00 Weight (Pounds): 157 General Appearance: no apparent distress EENT: normal ENT inspection Neck: supple Cardiovascular: normal rate Respiratory/Chest: decreased breath sounds Abdomen: normal bowel sounds, non tender, soft Extremities: non-tender Narciso Engle MD Jun 05, 2019 10:49
--- NOTE | 2019-06-05 11:33 | NUR ---
NURSE NOTES: Dr. Oliva Umana at bedside. covering for Dr. Davis.
[2019-06-05 12:00] VITALS: BP 109/56
--- NOTE | 2019-06-05 12:51 | General Progress Note ---
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 Esophageal hemorrhage. 3. Airway obstruction. 4. Hypoxia. 5. History of esophageal cancer. 6. Elevated liver function tests. 7. Bilateral pneumonia=MRSA 8. Tracheostomy dependent 9. right pleural effusion 10. hemoptysis resolved. 11. Pancytopenia. TREATMENT: 1. Squamous cell carcinoma/hemorrhage. A Hematology/Oncology consultation has been obtained with Dr. Paz. The patient has received four units of packed RBCs and 1 unit FFP. The patient is in the Step down unit. The patient is currently off pressors. 2. Hypoxia. A Pulmonary/Critical Care consultation has been obtained with Dr. Claudia Chi. Hypoxia is probably secondary to tracheal obstruction secondary to hemorrhage as above. Continue vent per Dr. Chi. On and OFF Tpiece and still needs SPENSER support. 3. Pneumonia=MRSA ABX= vancomycin. An Infectious Disease consultation has been obtained with Dr. Alba. We will follow recommendations of Infectious Disease. A sputum culture=MRSA 4. Elevated liver function tests/esophageal mass. A Gastroenterology consultation has been obtained with Dr. Narciso Engle. The patient may require repeat biopsy of esophageal mass. We will follow recommendations of Gastroenterology. 5. S/P right thoracentesis 06/01/19 6. Severe protein caloric malnutrition. Albumin 1.5 Tube feeds increased today. Follow up dietitian recommendations. 7. PT as tolerated. 8. FULL CODE. Subjective Date patient seen: Jun 05, 2019 Time patient seen: 12:00 ROS Limited/Unobtainable: No Allergies: Coded Allergies: LEVOFLOXACIN (Verified Allergy, Unknown, 05/24/19) Possible allergic reaction - low blood pressure All Systems: reviewed and negative except above Subjective Denies chest pain, sob, nausea or emesis. Objective Last 24 Hour Vital Signs Date Time Temp Pulse Resp B/P (MAP) Pulse Ox O2 Delivery O2 Flow Rate FiO2 06/05/19 11:40 86 06/05/19 08:00 T-piece 06/05/19 08:00 28 06/05/19 08:00 98.4 87 19 114/50 (71) 96 06/05/19 07:41 92 06/05/19 07:40 97 T-Piece 5.0 28 06/05/19 04:00 98.2 88 22 109/51 (70) 98 06/05/19 04:00 T-piece 06/05/19 04:00 28 06/05/19 03:39 93 06/05/19 00:47 97 T-Piece 5.0 28 06/05/19 00:00 T-piece 06/05/19 00:00 28 06/05/19 00:00 98.6 88 22 126/62 (83) 94 06/04/19 23:27 74 06/04/19 20:00 28 06/04/19 20:00 T-piece 06/04/19 20:00 72 06/04/19 20:00 98.9 76 20 108/57 (74) 97 06/04/19 18:57 96 T-Piece 5.0 28 06/04/19 16:01 98.0 06/04/19 16:00 28 06/04/19 16:00 T-piece 06/04/19 16:00 74 06/04/19 16:00 98.0 75 21 115/52 (73) 96 06/04/19 13:20 96 T-Piece 5.0 28 Intake and Output 06/04/19 06/05/19 19:00 07:00 Intake Total 1327.416 ml 1022.416 ml Output Total 1000 ml 1500 ml Balance 327.416 ml -477.584 ml Intake Free Water 300 ml 50 ml IV Total 367.416 ml 367.416 ml Tube Feeding 660 ml 605 ml Output Urine Total 1000 ml 1500 ml # Bowel Movements 3 3 wbc 3.9 Hb 10.2 Albumin 1.5 last PRBC 05/26 sputum MRSA 05/27 Height (Feet): 5 Height (Inches): 7.00 Weight (Pounds): 157 General Appearance: WD/WN EENT: PERRL/EOMI Neck: non-tender, other - tracheostomy Cardiovascular: normal rate, regular rhythm Respiratory/Chest: lungs clear Abdomen: normal bowel sounds, non tender, other - PEG 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
--- NOTE | 2019-06-05 13:20 | NUR ---
NURSE NOTES: Spoke to patient's sister / Valencia Smith via telephone regarding discharge order.
--- NOTE | 2019-06-05 13:52 | Surgery Progress Note ---
Surgery Progress Note Subjective Symptoms: improved, tolerating diet, passing flatus Objective Last 24 Hour Vital Signs Date Time Temp Pulse Resp B/P (MAP) Pulse Ox O2 Delivery O2 Flow Rate FiO2 06/05/19 13:18 95 T-Piece 5.0 28 06/05/19 12:00 98.9 88 15 109/56 (73) 95 06/05/19 12:00 T-piece 06/05/19 11:40 86 06/05/19 08:00 T-piece 06/05/19 08:00 28 06/05/19 08:00 98.4 87 19 114/50 (71) 96 06/05/19 07:41 92 06/05/19 07:40 97 T-Piece 5.0 28 06/05/19 04:00 98.2 88 22 109/51 (70) 98 06/05/19 04:00 T-piece 06/05/19 04:00 28 06/05/19 03:39 93 06/05/19 00:47 97 T-Piece 5.0 28 06/05/19 00:00 T-piece 06/05/19 00:00 28 06/05/19 00:00 98.6 88 22 126/62 (83) 94 06/04/19 23:27 74 06/04/19 20:00 28 06/04/19 20:00 T-piece 06/04/19 20:00 72 06/04/19 20:00 98.9 76 20 108/57 (74) 97 06/04/19 18:57 96 T-Piece 5.0 28 06/04/19 16:01 98.0 06/04/19 16:00 28 06/04/19 16:00 T-piece 06/04/19 16:00 74 06/04/19 16:00 98.0 75 21 115/52 (73) 96 I&O Intake and Output 06/04/19 06/05/19 19:00 07:00 Intake Total 1327.416 ml 1022.416 ml Output Total 1000 ml 1500 ml Balance 327.416 ml -477.584 ml Intake Free Water 300 ml 50 ml IV Total 367.416 ml 367.416 ml Tube Feeding 660 ml 605 ml Output Urine Total 1000 ml 1500 ml # Bowel Movements 3 3 Dressing: dry Wound: clean Cardiovascular: RSR Respiratory: clear Abdomen: soft, flat, non-tender, present bowel sounds Extremities: no edema, no tenderness, no cyanosis Plan Problems: (1) Esophageal mass Assessment & Plan: This is a 73-year-old male with known history of throat cancer possible esophageal cancer status post chemoradiation [facility] a few years back who recently has developed cardiac arrest shortness of breath respiratory compromise and had tracheostomy at outside facility for airway protection. Was in recovery until recently identified to have desaturation with blood clots noted within tracheostomy tube suctions as well as oral suctioning. Patient admitted for care and management identified to have anemia bleeding and hemorrhage. Surgery called to evaluate patient was seen. Hemorrhage has significantly decreased and currently no active bleeding noted. H&H trending down and being transfused as per my recommendations. Patient is awake alert states he feels better. He slowly weaning off pressors. Unfortunately given history current condition and the above no acute surgical intervention indicated or recommended. Will obtain attempt records from [facility] as well as [facility]. Continue with deep suctioning by respiratory. Okay for oral suctioning. Monitor for bleeding. Fortunately currently no active bleeding and hopefully its its way. We will keep close eye on H&H as well as coags to ensure patient improving. Permissive hypotension okay. Wean pressors. Thank you for let me participation's care will continue to follow with recommendations and further evaluation. Labs noted H&H improved after transfusion LFTs bilirubin noted likely response to bleeding patient states no longer currently actively bleeding otherwise stable off pressors improving Continue with current treatment will monitor downgrade labs okay off vent no bleeding improving feeds as tolerated d/c planning (2) Hemoptysis Assessment & Plan: Findings: Interstitial and airspace opacities are seen throughout the right mid and lower lung. Questionable patchy peripheral opacities are also present on the left. Heart size is normal. The pleural spaces are clear Impression: Right lung opacities and questionable patchy left lung opacities, likely pneumonia. (3) Head and neck cancer [facility] Jun 05, 2019 13:52
--- NOTE | 2019-06-05 14:00 | NUR ---
NURSE NOTES: Telephone report given to ANTONY lam / [place] [facility].
[2019-06-05] MEDS ORDERED: NS 275ml ONE (15:26)
[2019-06-05] MEDS ORDERED: Sterile Water Irrig 1000ml IRRIG ONE (15:26)
--- NOTE | 2019-06-05 15:27 | NUR ---
INTER-FACILITY TRANSFER: Patient transferred to [facility], per Dr. Davis and Dr. Chi. Report given to [facility]. Patient transferred with valuables and no medications. Belongings verified upon transfer and given to [facility] staff. Family/S.O. notified of transfer. Remains Trach connected to oxygen Fio2 of 28%. Jim remains inplace.
--- NOTE | 2019-06-07 15:56 | Discharge Summary ---
Discharge Summary Discharge Summary _ DATE OF ADMISSION: 05/24/2019 DATE OF DISCHARGE: 06/05/2019 DISCHARGED BY: Dr. Claudia Chi ADMITTING MD: Dr. Matthew Davis CONSULTANTS: Dr. Claudia Paz [facility] HOSPITAL COURSE: Patient is a 73-year-old male who presented with chief complaint of coughing up blood. The patient apparently had throat cancer approximately 4 years ago. The patient was treated at [place] with chemotherapy and radiation therapy. He was doing fairly well in the interim. Approximately 2 weeks ago, patient was admitted to [facility]. Patient was admitted with respiratory arrest. He was found to have an obstruction of the esophagus secondary to an esophageal mass. According to the patient's family, the biopsy of the mass report was not available. The patient underwent tracheostomy for airway protection and PEG tube placement. The patient was [facility] on May 22, 2019. On May 24, 2019, staff at the nursing facility noticed patient was coughing up blood. He was also hypotensive. He was transferred to [place] for further evaluation. Upon evaluation at ED, patient required suctioning. He was given nebulizer treatment. Patient became more awake. Right upward gaze continued. Chest x- ray showed right-sided infiltrate. Blood work showed respiratory acidosis. Blood work showed elevated troponin and lactic acid. Reluctant to give aspirin. PICC line was inserted to the right arm. He was given IV bolus. Patient was admitted to ICU. Patient was hypotensive. He was started on Levophed drip. Patient was noted to be coughing up blood. GI was consulted for possible GI bleed. He was started on Protonix and octreotide drip. Hemoglobin levels have been low. He was started empirically on Zosyn, vancomycin and amikacin. Upper GI evaluation, anemia not likely GI bleed, Protonix drip and octreotide drips were discontinued. Protonix was changed to twice daily. Liver function tests were monitored. Hepatitis panel checked. He was given packed RBC blood transfusion and fresh frozen plasma. ID was consulted. Patient was continued on Zosyn and IV vancomycin. Amikacin discontinued. He was eventually taken off IV pressors. Oncologist was consulted. Patient had a head and neck cancer with history of chemo and radiation, with recent biopsy at [facility] on May 15 left soft palate mass which showed intensive keratinizing squamous cell carcinoma, well to moderately differentiated. He was recommended conservative care with control of tracheal bleeding. Blood pressure dropped while getting IV vancomycin. Antibiotic was discontinued , possible allergic reaction of low blood pressure. Venous duplex was negative for acute DVT. Sputum culture with growth of MRSA repeat chest x-ray showed increased opacity in the mid and lower lung, right greater than left. On 06/02/2019, he underwent right lung thoracentesis yielding 50 cc of fluid. Anemia work-up showed ferritin level of 1190. There was no evidence of hemolysis. Hepatitis panel was positive for hep C. HIV screen negative. Bleeding resolved. Hemoglobin level was stable. Patient was discharged to [place] per family request. 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 DISCHARGE MEDICATIONS: Refer to Discharge Medication List. I have been assigned to complete a discharge summary on this account, I was not involved with the patient's management.--DARINEL Nj Jacqueline Robles NP Jun 07, 2019 15:56
== END 2019-06-05 15:27 | DRG 870 ==
LOC: EDBD 16:11 → EMR 16:30 → ICU 17:30 → EDBEDREQ 17:38 → 2W 05-30 18:30
PROC: 5A1955Z Respiratory Ventilation, Greater than 96 Consecutive Hours (ICD-10-PCS; principal; 2019-05-24)
PROC: 0W993ZX Drainage of Right Pleural Cavity, Percutaneous Approach, Diagnostic (ICD-10-PCS; 2019-06-01)
DX: A41.9 Sepsis, unspecified organism (principal); R57.8 Other shock; J15.212 Pneumonia due to Methicillin resistant Staphylococcus aureus; E43 Unspecified severe protein-calorie malnutrition; R04.2 Hemoptysis; J96.11 Chronic respiratory failure with hypoxia; J70.1 Chronic and other pulmonary manifestations due to radiation; D62 Acute posthemorrhagic anemia; D61.818 Other pancytopenia; J90 Pleural effusion, not elsewhere classified; C05.1 Malignant neoplasm of soft palate; Z85.01 Personal history of malignant neoplasm of esophagus; K22.8 Other specified diseases of esophagus; Z93.0 Tracheostomy status; Z93.1 Gastrostomy status; Y95 Nosocomial condition; Z68.24 Body mass index [BMI] 24.0-24.9, adult; R13.10 Dysphagia, unspecified; B19.20 Unspecified viral hepatitis C without hepatic coma
CPT/HCPCS: 36415; 36600; 71045; 74018; 76700; 76942; 80048; 80053; 80069; 80202; 81003; 82150; 82248; 82270; 82378; 82550; 82553; 82607; 82728; 82746; 82803; 82962; 83540; 83550; 83605; 83690; 83735; 83880; 84100; 84439; 84443; 84484; 85007; 85025; 85044; 85610; 85651; 85730; 86140; 86703; 86705; 86709; 86803; 86850; 86900; 86901; 86920; 86927; 87040; 87070; 87081; 87086; 87181; 87205; 87340; 93005; 93970; 94002; 94003; 94664; 96361; 96365; 96368; 99291; 99292; J2405; J7030; J7620; J8499